=== PATIENT | male | born 1950 | race Caucasian/White ===

== ENCOUNTER → 2017-07-18 | Outpatient (CLI) | payer MEDICARE, OTHER ==
[2017-07-18 09:09] LABS: CH 32.4; CHCM 31.6; HCT 45.3 % (39.0-53.0); HDW 2.24; HGB 14.7 gm/dL (13.0-17.5); MCH 33.4 pg (25.0-35.0); MCHC 32.4 g/dL (31.0-37.0); MCV 102.9 fL (80.0-100.0); Macrocytosis Slight; Mean Platelet Volume 7.6; RBC 4.41 m/uL (4.30-5.90); RDW 15.6 % (11.5-15.5); WBC 9.2 k/uL (3.8-10.6)
[2017-07-18 10:58] LABS: ALT 39 U/L (21-72); AST 40 U/L (17-59); Alkaline Phosphatase 88 U/L (38-126); Anion Gap 10 mmol/L; Blood Urea Nitrogen 10 mg/dL (9-20); Calcium 9.4 mg/dL (8.4-10.2); Carbon Dioxide 24 mmol/L (22-30); Chloride 107 mmol/L (98-107); Cholesterol 156 mg/dL (<200); Glucose 80 mg/dL (74-99); HDL Cholesterol 83 mg/dL (40-60); Non-African American GFR(MDRD) >60 (>60 ml/min/1.73 sqM); Potassium 4.7 mmol/L (3.5-5.1); Sodium 141 mmol/L (137-145); Total Bilirubin 0.8 mg/dL (0.2-1.3); Total Protein 6.9 g/dL (6.3-8.2)
--- NOTE | 2017-07-18 11:01 | XR ---
EXAMINATION TYPE: XR chest 2V DATE OF EXAM: 07/18/2017 COMPARISON: 06/24/2016 TECHNIQUE: PA and lateral views submitted. HISTORY: Cough FINDINGS: Heart is enlarged and there is hyperinflation suggestive of COPD. Arthropathy of the shoulders and at herosclerotic change aorta. Chronic blunting of the costophrenic angle on the right likely related to pleural thickening or tiny effusion. Degenerative change of the spine. IMPRESSION: 1. COPD and cardiomegaly.
[2017-07-18 11:26] LABS: Prostate Specific Antigen 1.13 ng/mL (0.00-4.00)
== END | disposition home or self-care (01) ==
LOC: LABWHC1 08:08
PROVIDERS: ATTEND Internal Medicine
DX: Z00.01 Encounter for general adult medical examination with abnormal findings (principal); I11.9 Hypertensive heart disease without heart failure; E78.2 Mixed hyperlipidemia; K21.0 Gastro-esophageal reflux disease with esophagitis; N40.0 Benign prostatic hyperplasia without lower urinary tract symptoms
CPT/HCPCS: 36415; 71020; 80053; 80061; 84153; 84439; 84443; 85027

== ENCOUNTER → 2018-11-21 | Outpatient (CLI) | payer MEDICARE, OTHER ==
[2018-11-21 10:27] LABS: HGB 14.4 gm/dL (13.0-17.5); MCH 29.9 pg (25.0-35.0); MCHC 32.1 g/dL (31.0-37.0); MCV 93.1 fL (80.0-100.0); Platelet Count 643 k/uL (150-450); RBC 4.83 m/uL (4.30-5.90); RDW 15.9 % (11.5-15.5); WBC 9.9 k/uL (3.8-10.6)
[2018-11-21 16:22] LABS: Albumin 4.3 g/dL (3.80-4.90); Albumin/Globulin Ratio 1.59 (1.60-3.17); Anion Gap 8.4 mmol/L (4.00-12.00); Calcium 9.4 mg/dL (8.7-10.3); Carbon Dioxide 24.6 mmol/L (21.6-31.8); Globulin 2.7 g/dL (1.6-3.3); LDL Cholesterol,Calculated 89.8 mg/dL (0.0-131.0); Potassium 4.9 mmol/L (3.5-5.5); Total Bilirubin 0.5 mg/dL (0.2-1.2); VLDL Calculation 22.2 mg/dL (5.00-40.00)
[2018-11-21 16:30] LABS: T4, Free (Free Thyroxine) 1.1 ng/dL (0.80-1.80)
== END | disposition home or self-care (01) ==
LOC: LABWHC1 09:07
PROVIDERS: ATTEND Internal Medicine
DX: Z00.00 Encounter for general adult medical examination without abnormal findings (principal); I11.9 Hypertensive heart disease without heart failure; E78.2 Mixed hyperlipidemia; K21.0 Gastro-esophageal reflux disease with esophagitis; N40.0 Benign prostatic hyperplasia without lower urinary tract symptoms
CPT/HCPCS: 36415; 80053; 80061; 82272; 84439; 84443; 85027

== ENCOUNTER → 2018-11-27 | Outpatient (CLI) | payer MEDICARE, OTHER | END | disposition home or self-care (01) | LOC: LABWHC1 09:07 | PROVIDERS: ATTEND Internal Medicine | DX: Z00.00 Encounter for general adult medical examination without abnormal findings (principal); N40.0 Benign prostatic hyperplasia without lower urinary tract symptoms | CPT/HCPCS: 36415; 84153 ==

== ENCOUNTER 2019-01-30 10:55 | Emergency (ER) | payer MEDICARE, OTHER ==
[2019-01-30] MEDS ORDERED: SODIUM CHLORIDE 0.9% 500 ML 500 ML IV STA ×2 (11:31→12:54)
--- NOTE | 2019-01-30 11:38 | ED ---
General Adult HPI - General Chief complaint: Extremity Injury, Lower Stated complaint: foot pain Time Seen by Provider: 01/30/19 11:20 Source: patient, RN notes reviewed Mode of arrival: ambulatory Limitations: no limitations - History of Present Illness Initial comments: 68-year-old male with a past medical history of hyperlipidemia, hypertension presents for right foot pain and swelling 3 weeks. Patient states he has noticed it was warm and red. Denies any fevers or chills. Denies spreading redness. Does notice some pain in the right calf as well. Patient saw his primary care provider today who sent him to the ER to rule out blood clot as well as possible infection. Denies any other injuries. Does state his dog stepped on his foot yesterday but that this swelling started before this.Patient has no other complaints at this time including shortness of breath, chest pain, abdominal pain, nausea or vomiting, headache, or visual changes. - Related Data Home Medications Medication Instructions Recorded Confirmed Apixaban [Eliquis] 5 mg PO BID 01/30/19 01/30/19 Atenolol [Tenormin] 25 mg PO DAILY 01/30/19 01/30/19 Atorvastatin Calcium [Lipitor] 10 mg PO HS 01/30/19 01/30/19 Cetirizine HCl [Zyrtec] 10 mg PO DAILY 01/30/19 01/30/19 Montelukast Sodium [Singulair] 10 mg PO HS 01/30/19 01/30/19 amLODIPine [Norvasc] 5 mg PO DAILY 01/30/19 01/30/19 traMADol HCL [Ultram] 50 mg PO BID 01/30/19 01/30/19 Previous Rx's Medication Instructions Recorded Sulfamethox-Tmp 800-160Mg [Bactrim 2 tab PO Q12HR 14 Days #56 tab 01/30/19 DS 800-160 mg] Allergies Allergy/AdvReac Type Severity Reaction Status Date / Time aspirin Allergy Anaphylaxis Verified 01/30/19 11:38 Review of Systems ROS Statement: Those systems with pertinent positive or pertinent negative responses have been documented in the HPI. ROS Other: All systems not noted in ROS Statement are negative. Past Medical History Past Medical History: Hyperlipidemia, Hypertension History of Any Multi-Drug Resistant Organisms: None Reported Past Surgical History: Orthopedic Surgery Past Psychological History: No Psychological Hx Reported Smoking Status: Former smoker Past Alcohol Use History: None Reported Past Drug Use History: None Reported General Exam Limitations: no limitations General appearance: alert, in no apparent distress Head exam: Present: atraumatic, normocephalic, normal inspection Eye exam: Present: normal appearance, PERRL, EOMI. Absent: scleral icterus, conjunctival injection, periorbital swelling ENT exam: Present: normal exam, mucous membranes moist Neck exam: Present: normal inspection, full ROM. Absent: tenderness, meningismus, lymphadenopathy Respiratory exam: Present: normal lung sounds bilaterally. Absent: respiratory distress, wheezes, rales, rhonchi, stridor Cardiovascular Exam: Present: regular rate, normal rhythm, normal heart sounds. Absent: systolic murmur, diastolic murmur, rubs, gallop, clicks Extremities exam: Present: full ROM, tenderness (Tenderness noted to the dorsal right foot), normal capillary refill (Capillary refill less than 2 seconds, PT pulse 2+), pedal edema (Moderate Erythema and edema noted of the right foot), calf tenderness (Patient does have right calf Tenderness noted, negative Homans sign.) Course Vital Signs 01/30/19 13:17 Temperature 98.2 F Pulse Rate 67 Respiratory 17 Rate Blood Pressure 129/83 O2 Sat by Pulse 97 Oximetry Medical Decision Making - Medical Decision Making 60-year-old male presents for right foot redness and swelling 3 weeks. No fevers or chills. On exam patient does have some edema with erythema noted of the right foot. Mild Tenderness. CBC does show a white count of 13.3. Lactic acid 2.1, patient given fluids. Ultrasound of the right leg is negative for DVT. No sonographic evidence of DVT. X-ray of the right foot shows no acute fracture or dislocation. There is mild multifocal soft tissue swelling but no radiographic sequelae of osteomyelitis. The swelling is likely related to be edema noted on exam. Patient was given a dose of antibiotics IV. Dr. Kilpatrick also examined patient. At this time we feel the patient can try outpatient antibiotic therapy first as he has not had oral antibiotics. However discussed strict return parameters with this. - Lab Data Result diagrams: 01/30/19 11:58 01/30/19 11:58 Lab Results 01/30/19 01/30/19 01/30/19 Range/Units 11:58 11:58 11:58 WBC 13.3 H (3.8-10.6) k/uL RBC 4.68 (4.30-5.90) m/uL Hgb 13.7 (13.0-17.5) gm/dL Hct 43.9 (39.0-53.0) % MCV 93.7 (80.0-100.0) fL MCH 29.3 (25.0-35.0) pg MCHC 31.2 (31.0-37.0) g/dL RDW 16.2 H (11.5-15.5) % Plt Count 488 H (150-450) k/uL Neutrophils % 72 % Lymphocytes % 20 % Monocytes % 6 % Eosinophils % 1 % Basophils % 1 % Neutrophils # 9.5 H (1.3-7.7) k/uL Lymphocytes # 2.6 (1.0-4.8) k/uL Monocytes # 0.7 (0-1.0) k/uL Eosinophils # 0.2 (0-0.7) k/uL Basophils # 0.1 (0-0.2) k/uL Anisocytosis Slight PT 10.5 (9.0-12.0) sec INR 1.0 (<1.2) APTT 31.1 H (22.0-30.0) sec Sodium 140 (137-145) mmol/L Potassium 3.8 (3.5-5.1) mmol/L Chloride 107 (98-107) mmol/L Carbon Dioxide 20 L (22-30) mmol/L Anion Gap 13 mmol/L BUN 11 (9-20) mg/dL Creatinine 1.03 (0.66-1.25) mg/dL Est GFR (CKD-EPI)AfAm 86 (>60 ml/min/1.73 sqM) Est GFR (CKD-EPI)NonAf 75 (>60 ml/min/1.73 sqM) Glucose 88 (74-99) mg/dL Plasma Lactic Acid Vance (0.7-2.0) mmol/L Calcium 9.4 (8.4-10.2) mg/dL Total Bilirubin 0.7 (0.2-1.3) mg/dL AST 24 (17-59) U/L ALT 7 L (21-72) U/L Alkaline Phosphatase 93 (38-126) U/L Total Protein 7.9 (6.3-8.2) g/dL Albumin 4.4 (3.5-5.0) g/dL 01/30/19 Range/Units 11:58 WBC (3.8-10.6) k/uL RBC (4.30-5.90) m/uL Hgb (13.0-17.5) gm/dL Hct (39.0-53.0) % MCV (80.0-100.0) fL MCH (25.0-35.0) pg MCHC (31.0-37.0) g/dL RDW (11.5-15.5) % Plt Count (150-450) k/uL Neutrophils % % Lymphocytes % % Monocytes % % Eosinophils % % Basophils % % Neutrophils # (1.3-7.7) k/uL Lymphocytes # (1.0-4.8) k/uL Monocytes # (0-1.0) k/uL Eosinophils # (0-0.7) k/uL Basophils # (0-0.2) k/uL Anisocytosis PT (9.0-12.0) sec INR (<1.2) APTT (22.0-30.0) sec Sodium (137-145) mmol/L Potassium (3.5-5.1) mmol/L Chloride (98-107) mmol/L Carbon Dioxide (22-30) mmol/L Anion Gap mmol/L BUN (9-20) mg/dL Creatinine (0.66-1.25) mg/dL Est GFR (CKD-EPI)AfAm (>60 ml/min/1.73 sqM) Est GFR (CKD-EPI)NonAf (>60 ml/min/1.73 sqM) Glucose (74-99) mg/dL Plasma Lactic Acid Vance 2.1 H* (0.7-2.0) mmol/L Calcium (8.4-10.2) mg/dL Total Bilirubin (0.2-1.3) mg/dL AST (17-59) U/L ALT (21-72) U/L Alkaline Phosphatase (38-126) U/L Total Protein (6.3-8.2) g/dL Albumin (3.5-5.0) g/dL Disposition Clinical Impression: Cellulitis of right foot Disposition: HOME SELF-CARE Condition: Good Instructions (If sedation given, give patient instructions): Cellulitis (ED) Additional Instructions: Take antibiotic as directed. Please follow up with primary care in 1-2 days for reevaluation. If symptoms are not starting to improve after a couple days of antibiotics then return here to the emergency department. Return if you develop any worsening symptoms or fevers. Prescriptions: Sulfamethox-Tmp 800-160Mg [Bactrim DS 800-160 mg] 2 tab PO Q12HR 14 Days #56 tab Is patient prescribed a controlled substance at d/c from ED?: No Referrals: Guevara Art MD [Primary Care Provider] - 1-2 days Time of Disposition: 13:43
[2019-01-30 12:22] LABS: Anisocytosis Slight; Basophils # (A) 0.1 k/uL (0-0.2); Basophils % (A) 1 %; Eosinophils # (A) 0.2 k/uL (0-0.7); Eosinophils % (A) 1 %; HCT 43.9 % (39.0-53.0); HGB 13.7 gm/dL (13.0-17.5); Lymphocytes # (A) 2.6 k/uL (1.0-4.8); Lymphocytes % (A) 20 %; MCH 29.3 pg (25.0-35.0); MCHC 31.2 g/dL (31.0-37.0); MCV 93.7 fL (80.0-100.0); Mean Platelet Volume 6.5; Monocytes # (A) 0.7 k/uL (0-1.0); Monocytes % (A) 6 %; Neutrophils # (A) 9.5 k/uL (1.3-7.7); Neutrophils % (A) 72 %; Platelet Count 488 k/uL (150-450); RBC 4.68 m/uL (4.30-5.90); RDW 16.2 % (11.5-15.5); WBC 13.3 k/uL (3.8-10.6)
[2019-01-30 12:25] LABS: Partial Thromboplastin Time 31.1 sec (22.0-30.0); Prothrombin Time 10.5 sec (9.0-12.0)
[2019-01-30 12:28] LABS: Albumin 4.4 g/dL (3.5-5.0); Calcium 9.4 mg/dL (8.4-10.2); Potassium 3.8 mmol/L (3.5-5.1); Total Bilirubin 0.7 mg/dL (0.2-1.3); Total Protein 7.9 g/dL (6.3-8.2)
--- NOTE | 2019-01-30 12:50 | US ---
EXAMINATION TYPE: US venous doppler duplex LE RT DATE OF EXAM: 01/30/2019 12:45 PM COMPARISON: NONE CLINICAL HISTORY: Pain. Right foot swelling and redness x 1 week, on blood thinners, no hx of blood c lots. SIDE PERFORMED: Right TECHNIQUE: The lower extremity deep venous system is examined utilizing real time linear array sonog randi with graded compression, doppler sonography and color-flow sonography. VESSELS IMAGED: External Iliac Vein (EIV) Common Femoral Vein Deep Femoral Vein Greater Saphenous Vein * Femoral Vein Popliteal Vein Small Saphenous Vein * Proximal Calf Veins (* superficial vessels) Grayscale, color doppler, spectral doppler imaging performed of the deep veins of the right lower ext remity. There is normal flow, compressibility, vascular waveforms. Right Leg: Negative for DVT IMPRESSION: No sonographic evidence of deep venous thrombosis within the right lower extremity.
[2019-01-30] MEDS ORDERED: cefTRIAXone IN SWFI 1,000 MG/10 ML SYRINGE IVP STA (13:09)
--- NOTE | 2019-01-30 13:22 | XR ---
EXAMINATION TYPE: XR foot complete RT DATE OF EXAM: 01/30/2019 CLINICAL HISTORY: Right foot pain, swelling, and redness for one week TECHNIQUE: Frontal, lateral, and oblique images of the right foot are obtained. COMPARISON: None FINDINGS: There is no acute fracture/dislocation evident in the right foot. The joint spaces in the right foot appear within normal limits. There is mild soft tissue swelling dorsally over the metatar sals and around the low ankle joint. Small plantar heel spur is noted. No sizable tibiotalar joint ef fusion. Flexion deformities of the second through fourth digits somewhat limiting evaluation. No radi o opaque foreign body. No osseous erosions or periosteal reaction. IMPRESSION: 1. No acute fracture or dislocation in the right foot. 2. Mild multifocal soft tissue swelling is nonspecific. No radiographic sequela of osteomyelitis.
[2019-01-30 14:09] VITALS: BP 138/89; PULSE 65; RESP 18; TEMP 98.6
== END 2019-01-30 14:17 | disposition home or self-care (01) ==
LOC: EC 10:55
DX: L03.115 Cellulitis of right lower limb (principal); I10 Essential (primary) hypertension; E78.5 Hyperlipidemia, unspecified; Z79.01 Long term (current) use of anticoagulants; Z79.899 Other long term (current) drug therapy; Z88.6 Allergy status to analgesic agent; Z87.891 Personal history of nicotine dependence
CPT/HCPCS: 36415; 80053; 83605; 85025; 85610; 85730; 87040; 73630; 93971; 99284; 96374; 96361 ×2; J0696

== ENCOUNTER 2019-02-05 02:43 | Inpatient (IN) | payer MEDICARE, OTHER ==
[2019-02-05 04:03] LABS: Anisocytosis Slight; Basophils % (A) 0 %; Eosinophils # (A) 0.5 k/uL (0-0.7); Eosinophils % (A) 3 %; HCT 37.3 % (39.0-53.0); Lymphocytes # (A) 0.4 k/uL (1.0-4.8); Lymphocytes % (A) 2 %; MCH 29.8 pg (25.0-35.0); MCHC 32.3 g/dL (31.0-37.0); MCV 92.5 fL (80.0-100.0); Mean Platelet Volume 6.8; Monocytes # (A) 0.8 k/uL (0-1.0); Monocytes % (A) 5 %; Neutrophils # (A) 15.8 k/uL (1.3-7.7); Neutrophils % (A) 90 %; Platelet Count 336 k/uL (150-450); RBC 4.03 m/uL (4.30-5.90); RDW 16.2 % (11.5-15.5); WBC 17.7 k/uL (3.8-10.6)
[2019-02-05 04:12] LABS: INR 1.1 (<1.2)
[2019-02-05 04:13] LABS: Partial Thromboplastin Time 28.8 sec (22.0-30.0)
[2019-02-05 04:28] LABS: Albumin 4.1 g/dL (3.5-5.0); Calcium 8.7 mg/dL (8.4-10.2); Potassium 4.7 mmol/L (3.5-5.1); Total Bilirubin 0.4 mg/dL (0.2-1.3); Total Protein 7.1 g/dL (6.3-8.2)
--- NOTE | 2019-02-05 05:17 | XR ---
EXAM: XR Chest, 2 Views CLINICAL HISTORY: ITS.REASON XR Reason: Pain TECHNIQUE: Frontal and lateral views of the chest. COMPARISON: 07/18/17. FINDINGS: Lungs: Patchy bilateral lung opacities, more prominent at the bases. Pleural space: Small pleural effusions. Heart: Enlarged cardiac silhouette. Mediastinum: Unremarkable. Bones/joints: No acute fracture. IMPRESSION: 1. Patchy bilateral lung opacities, more prominent at the bases. Correlate clinically regarding infection or edema. 2. Small pleural effusions. 3. Enlarged cardiac silhouette.
[2019-02-05] MEDS ORDERED: SODIUM CHLORIDE 0.9% 1,000 ML IV ONE (06:05)
[2019-02-05] MEDS ORDERED: cefTRIAXone IN SWFI 1,000 MG/10 ML SYRINGE IVP STA (06:06)
[2019-02-05] MEDS ORDERED: AZITHROMYCIN 500 MG in SODIUM CHLORIDE 0.9% 250 ML IVPB STA (06:06)
--- NOTE | 2019-02-05 06:10 | ED ---
General Adult HPI - General Chief complaint: Nausea/Vomiting/Diarrhea Stated complaint: Diff Breathing Time Seen by Provider: 02/05/19 03:22 Source: patient Mode of arrival: ambulatory Limitations: no limitations - History of Present Illness Initial comments: Rubens is a 68-year-old gentleman who presents the emergency department today for evaluation of fever, chills, cough and cellulitis of the right lower extremity as well as nausea and vomiting for 2 days. Patient was seen and evaluated in the emergency department earlier this week for cellulitis of the right lower extremity, he was prescribed Bactrim which she has been compliant with, patient feels that the cellulitis is been improving significantly however he has developed nausea, vomiting and a minimally productive cough. - Related Data Home Medications Medication Instructions Recorded Confirmed Apixaban [Eliquis] 5 mg PO BID 01/30/19 02/05/19 Atenolol [Tenormin] 25 mg PO DAILY 01/30/19 02/05/19 Atorvastatin Calcium [Lipitor] 10 mg PO HS 01/30/19 02/05/19 Cetirizine HCl [Zyrtec] 10 mg PO DAILY 01/30/19 02/05/19 Montelukast Sodium [Singulair] 10 mg PO HS 01/30/19 02/05/19 amLODIPine [Norvasc] 5 mg PO DAILY 01/30/19 02/05/19 traMADol HCL [Ultram] 50 mg PO BID 01/30/19 02/05/19 Previous Rx's Medication Instructions Recorded Sulfamethox-Tmp 800-160Mg [Bactrim 2 tab PO Q12HR 14 Days #56 tab 01/30/19 DS 800-160 mg] Allergies Allergy/AdvReac Type Severity Reaction Status Date / Time aspirin Allergy Anaphylaxis Verified 02/05/19 07:43 Review of Systems ROS Statement: Those systems with pertinent positive or pertinent negative responses have been documented in the HPI. ROS Other: All systems not noted in ROS Statement are negative. Past Medical History Past Medical History: Hyperlipidemia, Hypertension History of Any Multi-Drug Resistant Organisms: None Reported Past Surgical History: Orthopedic Surgery Past Psychological History: No Psychological Hx Reported Smoking Status: Former smoker Past Alcohol Use History: None Reported Past Drug Use History: None Reported General Exam - General Exam Comments Initial Comments: Physical Exam GENERAL: Patient is well-developed and well-nourished. Patient is nontoxic and well-hydrated and is in no distress. HENT: Normocephalic, Atraumatic. EYES: PERRL, EOMI PULMONARY: Crackles bilateral bases CARDIOVASCULAR: Irregularly irregular ABDOMEN: Obese, Soft and nontender with normal bowel sounds. SKIN: Resolving cellulitis of right foot : Deferred NEUROLOGIC: Patient is alert and oriented x3. Moving all extremities spontaneously MUSCULOSKELETAL: Normal extremities with adequate strength and full range of motion. No lower extremity swelling or edema. No calf tenderness. PSYCHIATRIC: Normal psychiatric evaluation Limitations: no limitations Course Vital Signs 02/05/19 02/05/19 02/05/19 02:47 03:32 04:00 Temperature 97.6 F 101.6 F H Pulse Rate 100 95 76 Respiratory 24 18 18 Rate Blood Pressure 115/64 106/65 112/70 O2 Sat by Pulse 92 L 93 L 95 Oximetry 02/05/19 02/05/19 02/05/19 04:30 05:00 06:00 Temperature 99.9 F H Pulse Rate 79 70 72 Respiratory 18 18 23 Rate Blood Pressure 109/72 98/51 101/63 O2 Sat by Pulse 96 95 96 Oximetry EKG Findings - EKG Comments: EKG Findings:: EKG was obtained for evaluation of tachycardia, EKG obtained at 3:02 AM rate is 105 rhythm is atrial fibrillation with RVR, there is a bifascicular block. No acute ST elevations or depressions no evidence of acute ischemia or infarction Medical Decision Making - Medical Decision Making Patient was seen and evaluated history is obtained from the patient, at bedside and review of medical record sent patient presenting with fever, tachycardia, cough and improving cellulitis of the right lower extremity for which she's been taking Bactrim Sepsis workup was initiated Labs resulted with multiple abnormalities including leukocytosis with a white count of 17.7 and neutrophilia, lactic acidosis from lactic of 3.9 extent chest x-ray suggestive of bilateral pneumonia excited patient has not been admitted recently he has no risk factors for healthcare acquired pneumonia he will be treated with community-acquired pneumonia. Patient care was discussed with Dr. Israel who accepts admission for sepsis secondary to pneumonia. - Lab Data Result diagrams: 02/05/19 03:19 02/05/19 03:19 Lab Results 02/05/19 02/05/19 02/05/19 Range/Units 03:19 03:19 03:19 WBC 17.7 H (3.8-10.6) k/uL RBC 4.03 L (4.30-5.90) m/uL Hgb 12.0 L (13.0-17.5) gm/dL Hct 37.3 L (39.0-53.0) % MCV 92.5 (80.0-100.0) fL MCH 29.8 (25.0-35.0) pg MCHC 32.3 (31.0-37.0) g/dL RDW 16.2 H (11.5-15.5) % Plt Count 336 (150-450) k/uL Neutrophils % 90 % Lymphocytes % 2 % Monocytes % 5 % Eosinophils % 3 % Basophils % 0 % Neutrophils # 15.8 H (1.3-7.7) k/uL Lymphocytes # 0.4 L (1.0-4.8) k/uL Monocytes # 0.8 (0-1.0) k/uL Eosinophils # 0.5 (0-0.7) k/uL Basophils # 0.0 (0-0.2) k/uL Anisocytosis Slight PT (9.0-12.0) sec INR (<1.2) APTT (22.0-30.0) sec Sodium 135 L (137-145) mmol/L Potassium 4.7 (3.5-5.1) mmol/L Chloride 103 (98-107) mmol/L Carbon Dioxide 17 L (22-30) mmol/L Anion Gap 15 mmol/L BUN 13 (9-20) mg/dL Creatinine 1.53 H (0.66-1.25) mg/dL Est GFR (CKD-EPI)AfAm 53 (>60 ml/min/1.73 sqM) Est GFR (CKD-EPI)NonAf 46 (>60 ml/min/1.73 sqM) Glucose 91 (74-99) mg/dL Lactic Ac Sepsis Rflx Plasma Lactic Acid Vance 3.9 H* (0.7-2.0) mmol/L Calcium 8.7 (8.4-10.2) mg/dL Total Bilirubin 0.4 (0.2-1.3) mg/dL AST 25 (17-59) U/L ALT 14 L (21-72) U/L Alkaline Phosphatase 90 (38-126) U/L Total Protein 7.1 (6.3-8.2) g/dL Albumin 4.1 (3.5-5.0) g/dL Urine Color Urine Appearance (Clear) Urine pH (5.0-8.0) Ur Specific [place] (1.001-1.035) Urine Protein (Negative) Urine Glucose (UA) (Negative) Urine Ketones (Negative) Urine Blood (Negative) Urine Nitrite (Negative) Urine Bilirubin (Negative) Urine Urobilinogen (<2.0) mg/dL Ur Leukocyte Esterase (Negative) Urine RBC (0-5) /hpf Urine WBC (0-5) /hpf Urine Bacteria (None) /hpf Cellular Casts (0) /lpf Hyaline Casts (0-2) /lpf Granular Casts (0) /lpf Urine Mucus (None) /hpf 02/05/19 02/05/19 02/05/19 Range/Units 03:19 04:31 05:45 WBC (3.8-10.6) k/uL RBC (4.30-5.90) m/uL Hgb (13.0-17.5) gm/dL Hct (39.0-53.0) % MCV (80.0-100.0) fL MCH (25.0-35.0) pg MCHC (31.0-37.0) g/dL RDW (11.5-15.5) % Plt Count (150-450) k/uL Neutrophils % % Lymphocytes % % Monocytes % % Eosinophils % % Basophils % % Neutrophils # (1.3-7.7) k/uL Lymphocytes # (1.0-4.8) k/uL Monocytes # (0-1.0) k/uL Eosinophils # (0-0.7) k/uL Basophils # (0-0.2) k/uL Anisocytosis PT 12.0 (9.0-12.0) sec INR 1.1 (<1.2) APTT 28.8 (22.0-30.0) sec Sodium (137-145) mmol/L Potassium (3.5-5.1) mmol/L Chloride (98-107) mmol/L Carbon Dioxide (22-30) mmol/L Anion Gap mmol/L BUN (9-20) mg/dL Creatinine (0.66-1.25) mg/dL Est GFR (CKD-EPI)AfAm (>60 ml/min/1.73 sqM) Est GFR (CKD-EPI)NonAf (>60 ml/min/1.73 sqM) Glucose (74-99) mg/dL Lactic Ac Sepsis Rflx Y Plasma Lactic Acid Vance (0.7-2.0) mmol/L Calcium (8.4-10.2) mg/dL Total Bilirubin (0.2-1.3) mg/dL AST (17-59) U/L ALT (21-72) U/L Alkaline Phosphatase (38-126) U/L Total Protein (6.3-8.2) g/dL Albumin (3.5-5.0) g/dL Urine Color Yellow Urine Appearance Clear (Clear) Urine pH 6.0 (5.0-8.0) Ur Specific [place] 1.016 (1.001-1.035) Urine Protein 1+ H (Negative) Urine Glucose (UA) Negative (Negative) Urine Ketones Negative (Negative) Urine Blood Negative (Negative) Urine Nitrite Negative (Negative) Urine Bilirubin Negative (Negative) Urine Urobilinogen <2.0 (<2.0) mg/dL Ur Leukocyte Esterase Negative (Negative) Urine RBC <1 (0-5) /hpf Urine WBC 2 (0-5) /hpf Urine Bacteria Rare H (None) /hpf Cellular Casts 1 (0) /lpf Hyaline Casts 3 H (0-2) /lpf Granular Casts 1 (0) /lpf Urine Mucus Rare H (None) /hpf Disposition Clinical Impression: Sepsis, CAP (community acquired pneumonia) Disposition: ADMITTED IP TO THIS [facility] Condition: Stable Is patient prescribed a controlled substance at d/c from ED?: No Referrals: Guevara Art MD [Primary Care Provider] - 1-2 days
[2019-02-05 06:18] LABS: Appearance,Urine Clear (Clear); Bacteria,Urine Rare /hpf; Bilirubin,Urine Negative (Negative); Blood,Urine Negative (Negative); Cellular Casts,Urine 1 /lpf (0); Color,Urine Yellow; Glucose,Urine (UA) Negative (Negative); Granular Casts,Urine 1 /lpf (0); Hyaline Casts,Urine 3 /lpf (0-2); Ketones,Urine Negative (Negative); Leukocyte Esterase,Urine Negative (Negative); Mucus,Urine Rare /hpf; Nitrite,Urine Negative (Negative); Protein,Urine 1+ (Negative); RBC,Urine <1 /hpf (0-5); Specific Gravity,Urine 1.016 (1.001-1.035); Urobilinogen,Urine <2.0 mg/dL (<2.0); WBC,Urine 2 /hpf (0-5)
[2019-02-05] MEDS ORDERED: PNEUMONIA PROTOCOL UTILIZED 1 EACH MISC PO PRN (08:39)
[2019-02-05] MEDS ORDERED: amLODIPine 5 MG TAB PO SCH (09:00)
[2019-02-05] MEDS ORDERED: PIPERACILLIN-TAZOBACTAM 3.375 GM in SODIUM CHLORIDE 0.9% 100 ML IVPB SCH (09:00)
[2019-02-05] MEDS: SODIUM CHLORIDE 0.9% 1,000 ML IV SCH ×3 (09:30→22:04)
[2019-02-05] MEDS: traMADol 50 MG TAB PO SCH ×2 (10:30→22:03)
--- NOTE | 2019-02-05 10:47 | CT ---
EXAMINATION TYPE: CT chest wo con DATE OF EXAM: 02/05/2019 COMPARISON: Chest x-ray from earlier today and older x-rays HISTORY: Difficulty breathing. Pulmonary fibrosis CT DLP: 809.7 mGycm. Automated Exposure Control for Dose Reduction was Utilized. TECHNIQUE: CT scan of the thorax is performed without IV contrast. FINDINGS: Exam suboptimal due to respiratory motion artifact degradation. LUNGS: There is background mild to moderate underlying emphysematous change felt present. Bilateral l ower lungs show reticulation and groundglass opacity, I suspect acute alveolar and interstitial edema and/or infiltrate on background parenchymal fibrosis with some honeycombing seen in the posterior pe riphery of the lung bases. MEDIASTINUM: Lack of IV contrast is noted to limit evaluation for mediastinal and especially hilar ad enopathy. There are no definitive greater than 1 cm hilar or mediastinal lymph nodes. No significan t pericardial effusion is seen. Cardiomegaly is present. There is moderate to severe 3 vessel coronar y artery calcification which is noted marker for underlying coronary artery disease. Main pulmonary a rtery is dilated 3.1 cm at bifurcation axial image 12 series 402, CT findings consistent with underly ing pulmonary artery hypertension. OTHER: Slight lobulation to liver with 2.4 cm low dense lesion lateral segment favoring thin-walled c yst axial image 26. IMPRESSION: Suboptimal study, suspect areas of acute infiltrate and/or edema most prominent in the bi lateral lung bases on background mild to moderate emphysematous change and mild to moderate parenchym al fibrosis also most prominent in the lung bases. Underlying cardiomegaly is present.
[2019-02-05] MEDS: LORATADINE 10 MG TAB PO SCH (11:16)
[2019-02-05] MEDS: APIXABAN 5 MG TAB PO SCH ×2 (11:17→22:03)
--- NOTE | 2019-02-05 11:49 | US ---
EXAMINATION TYPE: US kidneys/renal and bladder DATE OF EXAM: 02/05/2019 COMPARISON: NONE CLINICAL HISTORY: pierce. Sepsis, pneumonia EXAM MEASUREMENTS: Right Kidney: 10.6 x 4.5 x 4.4 cm Left Kidney: 10.5 x 5.2 x 5.0 cm Post Void Residual Volume: not assessed on inpatient Right Kidney: upper cortical hypoechoic round mass (possible cyst with some posterior enhancement) = 0.6 x 0.6 x 0.5 Left Kidney: superior cortex, hypoechoic, round mass is noted (possible cyst) = 1.3 x 1.4 x 1.2cm Bladder: wnl Bilateral Jets seen: yes There is no evidence for hydronephrosis at this point in time. No nephrolithiasis is seen. Technolog ist espinoza few small lesions bilaterally too small to further characterize. The urinary bladder is sa tisfactorily distended. Bilateral ureteral jets are seen. IMPRESSION: No hydronephrosis is evident bilaterally.
[2019-02-05] MEDS: IPRATROPIUM-ALBUTEROL 3 ML NEB INHALATION PRN ×2 (11:52→19:49)
--- NOTE | 2019-02-05 13:23 | P.CRDCN ---
History of Present Illness History of present illness: This is a pleasant 68-year-old male past medical history significant for chronic persistent atrial fibrillation on long-term anticoagulation, hypertension, dyslipidemia, COPD and former nicotine dependence. He follows in the office with Dr. Araiza. We have been asked to see him in consultation secondary to arrhythmia noted on admission. He presented to the hospital with symptoms of fever, cough, nausea, vomiting, shortness of breath and ongoing cellulitis of the right lower extremity. He states he has been on Bactrim for the last week for right lower extremity cellulitis which seems to have improved. There is no redness or swelling of the right lower extremity noted. However, in the last few days he has noticed increased nasal drainage, cough and shortness of breath. He has been diagnosed with sepsis secondary to pneumonia. He is seen and examined sitting up resting comfortably in bed in no acute distress. He continues to complain of productive cough with clear sputum and mild shortness of breath. He denies chest pain, dizziness, palpitations, dizziness or diaph oresis. Initially his temperature in the ED was 101.6F. EKG on admission reveals atrial fibrillation heart rate of 105, right bundle branch block and left anterior fascicular block with non-specific ST abnormalities Chest x-ray reveals bilateral lung opacities more prominent at the bases, small pleural effusions an enlarged cardiac silhouette. Chest CT reveals areas of acute infiltrate most prominent in the bases with mild to moderate underlying emphysematous changes, mild to moderate parenchymal fibrosis and cardiomegaly. Laboratory data reviewed, WBC 17.7, hemoglobin 12, platelets 336, sodium 135, potassium 4.7, creatinine 1.53 with a GFR 46, lactic acid on admission 3. 9 repeat 1.5, troponin 0.174. Current cardiac medications include Eliquis 5 mg twice a day, atenolol 25 mg daily, atorvastatin 10 mg daily, amlodipine 5 mg daily. Most recent echocardiogram obtained in the office December 2017 revealed mildly impaired LV systolic function with ejection fraction 45-50%, moderately dilated right ventricle, severely dilated left atrium, severely dilated right atrium, moderate mitral regurgitation, severe tricuspid regurgitation and pulmonary hypertension with RVSP of 65 mmHg. Most recent stress test performed in the office June 2017 was a Lexiscan stress test was negative for reversible cardiac ischemia. At the time of my exam: CONSTITUTIONAL: Denies fever. Denies chills. EYES: Denies blurred vision. Denies vision changes. Denies eye pain. EARS, NOSE, MOUTH & THROAT: Denies headache. Denies sore throat. Denies ear pain. CARDIOVASCULAR: Denies chest pain. Complains of shortness of breath. Denies orthopnea. Denies PND. Denies palpitations. RESPIRATORY: Complains of cough. GASTROINTESTINAL: Denies abdominal pain. Denies diarrhea. Denies constipation. Denies nausea. Denies vomiting. MUSCULOSKELETAL: Denies myalgias. INTEGUMENTARY: Denies pruitis. Denies rash. NEUROLOGIC: Denies numbness. Denies tingling. Denies weakness. PSYCHIATRIC: Denies anxiety. Denies depression. ENDOCRINE: Denies fatigue. Denies weight change. Denies polydipsia. Denies polyurina. GENITOURINARY: Denies burning, hematuria or urgency with micturation. HEMATOLOGIC: Denies history of anemia. Denies bleeding. GENERAL: This is a 68-year-old male in no apparent distress at the time of my examination. HEENT: Head is atraumatic, normocephalic. Pupils are equal, round. Sclerae anicteric. Conjunctivae are clear. Mucous membranes of the mouth are moist. Neck is supple. There is no jugular venous distention. No carotid bruit is heard. LUNGS: Coarse scattered rhonchi, bibasilar rales, no wheezes. No chest wall tenderness is noted on palpation or with deep breathing. HEART: Irregular rate and rhythm with systolic ejection murmur at the left sternal border, no rubs or gallops. S1 and S2 heard. ABDOMEN: Soft, nontender. Bowel sounds are heard. No organomegaly noted. EXTREMITIES: No evidence of peripheral edema and no calf tenderness noted. VASCULAR: Radial and dorsalis pedis pulses palpated, no evidence of clubbing. NEUROLOGIC: Patient is awake, alert and oriented x3. ASSESSMENT Pneumonia with underlying pulmonary fibrosis and COPD Sepsis secondary to pneumonia Acute kidney injury Elevated troponin possibly related to underlying sepsis with no symptoms of angina. Chronic persistent atrial fibrillation on longterm anticoagulation Hypertension Dyslipidemia COPD PLAN Will repeat a troponin level in 6 hours for trend. Echocardiogrram has been obtained and will be reviewed. Check NTproBNP. Resume atenolol, eliquis, atorvastatin and amlodipine as previously ordered. Thank you kindly for this consultation. Nurse Practitioner note has been reviewed, I agree with a documented findings and plan of care. Patient was seen and examined. Past Medical History Past Medical History: COPD, Eye Disorder, GERD/Reflux, Hyperlipidemia, Hypertension, Pneumonia Additional Past Medical History / Comment(s): Current R lower extremity cellulitis/edema, "irregular heart beat"-pt cannot recall name of arrhythmia, bronchitis, stomach ulcer, arthritis bilateral knees, sinus problems History of Any Multi-Drug Resistant Organisms: None Reported Past Surgical History: Orthopedic Surgery Additional Past Surgical History / Comment(s): R shoulder surgery with ribbon, bilateral eyes laser surgery for glaucoma Past Anesthesia/Blood Transfusion Reactions: No Reported Reaction Smoking Status: Former smoker - Past Family History Father History Unknown: Yes Additional Family Medical History / Comment(s): Pt is adopted. Mother Family Medical History: Dementia Additional Family Medical History / Comment(s): The only thing pt knows about mother is that she had dementia. Medications and Allergies Home Medications Medication Instructions Recorded Confirmed Type Apixaban [Eliquis] 5 mg PO BID 01/30/19 02/05/19 History Atenolol [Tenormin] 25 mg PO DAILY 01/30/19 02/05/19 History Atorvastatin Calcium [Lipitor] 10 mg PO HS 01/30/19 02/05/19 History Cetirizine HCl [Zyrtec] 10 mg PO DAILY 01/30/19 02/05/19 History Montelukast Sodium [Singulair] 10 mg PO HS 01/30/19 02/05/19 History Sulfamethox-Tmp 800-160Mg [Bactrim 2 tab PO Q12HR 14 Days #56 tab 01/30/19 02/05/19 Rx DS 800-160 mg] amLODIPine [Norvasc] 5 mg PO DAILY 01/30/19 02/05/19 History traMADol HCL [Ultram] 50 mg PO BID 01/30/19 02/05/19 History Allergies Allergy/AdvReac Type Severity Reaction Status Date / Time aspirin Allergy Anaphylaxis Verified 02/05/19 07:43 Physical Exam Vitals: Vital Signs Temp Pulse Pulse Resp BP BP Pulse Ox 02/05/19 12:11 80 02/05/19 11:56 76 02/05/19 11:53 96 02/05/19 11:26 99 02/05/19 11:20 97.6 F 77 20 108/68 96 02/05/19 10:00 97.7 F 92 20 113/76 94 L 02/05/19 08:39 94 L 02/05/19 06:00 99.9 F H 72 23 101/63 96 02/05/19 05:00 70 18 98/51 95 02/05/19 04:30 79 18 109/72 96 02/05/19 04:00 76 18 112/70 95 02/05/19 03:32 101.6 F H 95 18 106/65 93 L 02/05/19 02:47 97.6 F 100 24 115/64 92 L Intake and Output 02/04/19 02/05/19 02/05/19 22:59 06:59 14:59 Other: Weight 84.822 kg Results 02/05/19 03:19 02/05/19 03:19 Cardiac Enzymes 02/05/19 02/05/19 Range/Units 03:19 11:18 AST 25 (17-59) U/L Troponin I 0.174 H* (0.000-0.034) ng/mL Coagulation 02/05/19 Range/Units 03:19 PT 12.0 (9.0-12.0) sec APTT 28.8 (22.0-30.0) sec CBC 02/05/19 Range/Units 03:19 WBC 17.7 H (3.8-10.6) k/uL RBC 4.03 L (4.30-5.90) m/uL Hgb 12.0 L (13.0-17.5) gm/dL Hct 37.3 L (39.0-53.0) % Plt Count 336 (150-450) k/uL Comprehensive Metabolic Panel 02/05/19 Range/Units 03:19 Sodium 135 L (137-145) mmol/L Potassium 4.7 (3.5-5.1) mmol/L Chloride 103 (98-107) mmol/L Carbon Dioxide 17 L (22-30) mmol/L BUN 13 (9-20) mg/dL Creatinine 1.53 H (0.66-1.25) mg/dL Glucose 91 (74-99) mg/dL Calcium 8.7 (8.4-10.2) mg/dL AST 25 (17-59) U/L ALT 14 L (21-72) U/L Alkaline Phosphatase 90 (38-126) U/L Total Protein 7.1 (6.3-8.2) g/dL Albumin 4.1 (3.5-5.0) g/dL Current Medications Generic Name Dose Route Start Last Admin Trade Name Freq PRN Reason Stop Dose Admin Albuterol/Ipratropium 3 ml 02/05/19 08:39 02/05/19 11:52 Duoneb 0.5 Mg-3 Mg/3 Ml Soln INHALATION 3 ml RT-Q4H PRN Administration shortness of breath Apixaban 5 mg 02/05/19 09:00 02/05/19 11:17 Eliquis PO 5 mg BID BENSON Administration Atorvastatin Calcium 10 mg 02/05/19 21:00 Lipitor PO HS BENSON Sodium Chloride 1,000 mls @ 100 mls/hr 02/05/19 06:15 02/05/19 11:17 Saline 0.9% IV 100 mls/hr .Q10H BENSON Administration Piperacillin Sod/Tazobactam 100 mls @ 25 mls/hr 02/05/19 16:00 Sod 3.375 gm/ Sodium Chloride IVPB Q8HR BENSON Loratadine 10 mg 02/05/19 09:00 02/05/19 11:16 Claritin PO 10 mg DAILY BENSON Administration Miscellaneous Information 1 each 02/05/19 08:39 Pneumonia Protocol Utilized PO ONCE PRN Per Protocol Montelukast Sodium 10 mg 02/05/19 21:00 Singulair PO HS BENSON Tramadol HCl 50 mg 02/05/19 09:00 02/05/19 10:30 Ultram PO Not Given BID BENSON Intake and Output 02/04/19 02/05/19 02/05/19 22:59 06:59 14:59 Other: Weight 84.822 kg 02/05/19 03:19 02/05/19 03:19
[2019-02-05] MEDS: ATENOLOL 25 MG TAB PO SCH (14:00)
--- NOTE | 2019-02-05 14:00 | P.CNPUL ---
History of Present Illness Consult date: 02/05/19 Requesting physician: Galdino Israel Reason for consult: dyspnea Chief complaint: Shortness of breath, cough, congestion History of present illness: This is a very pleasant 68-year-old gentleman who follows with Dr. Art as his primary care physician. He has a history of hypertension, hyperlipidemia, atrophic fibrillation anticoagulated with Eliquis. He also has been having issues with shortness of breath cough and congestion and was due to see Dr. Glover next month in our office. He is recently been using his 's nebulizer and rescue inhaler. He does have a history of chronic tobacco dependence but quit smoking approximately 3 years ago. He presented here to the emergency room earlier this morning with complaints of worsening shortness of breath, cough and congestion. He also had issues with nausea and vomiting. He has been undergoing treatment for cellulitis of the right lower extremity as well. Further right lower extremity revealed no evidence of fracture. There is mild multifocal soft tissue swelling. No evidence of osteomyelitis. Doppler ruled out DVT. Chest x-ray reveals patchy bilateral lung opacities more prominent at the bases. Small pleural effusions. CT angiogram was suboptimal. There was areas of acute infiltrate or edema most prominent in the bilateral lung bases on background emphysematous changes and mild to moderate fibrosis. 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 Ultrasound of the abdomen ruled out hydronephrosis. No nephrolithiasis. Urine culture pending. White count 17.7. Hemoglobin 12.0. Creatinine 1.53. Lactic acid 3.9, down to 1.5, troponin 0.174. ProBNP 7800. Patient is seen today in consultation on the regular medical floor. He is awake and alert in no acute distress. He has a loose nonproductive cough. No current chills or night sweats. T-max of 101.6, currently afebrile. 18 in good O2 saturations in the mid 90s on 2 L/m per nasal cannula. Hemodynamically stable. He's been initiated on DuoNeb inhalations and Zosyn. Anticoagulated with Eliquis. Review of Systems REVIEW OF SYSTEMS: CONSTITUTIONAL: Denies any recent significant weight loss or weight gain. EYES: Denies change in vision. EARS, NOSE, MOUTH, THROAT: Denies headaches, denies sore throat. CARDIOVASCULAR: Denies chest pain, palpitations or syncopal episodes. RESPIRATORY: Positive for shortness of breath, cough, congestion no hemoptysis. GASTROINTESTINAL: Denies change in appetite, denies abdominal pain GENITOURINARY: Denies hematuria, denies infections. MUSKULOSKELETAL: Denies pain, denies swelling. INTEGUMENTARY: Denies rash, denies eczema. NEUROLOGICAL: Denies recent memory loss, no recent seizure activity. PSYCHIATRIC: Denies anxiety, denies depression. HEMATOLOGIC/LYMPHATIC: Denies anemia, denies enlarged lymph nodes. Past Medical History Past Medical History: COPD, Eye Disorder, GERD/Reflux, Hyperlipidemia, Hypertension, Pneumonia Additional Past Medical History / Comment(s): Current R lower extremity cellulitis/edema, "irregular heart beat"-pt cannot recall name of arrhythmia, bronchitis, stomach ulcer, arthritis bilateral knees, sinus problems History of Any Multi-Drug Resistant Organisms: None Reported Past Surgical History: Orthopedic Surgery Additional Past Surgical History / Comment(s): R shoulder surgery with ribbon, bilateral eyes laser surgery for glaucoma Past Anesthesia/Blood Transfusion Reactions: No Reported Reaction Smoking Status: Former smoker - Past Family History Father History Unknown: Yes Additional Family Medical History / Comment(s): Pt is adopted. Mother Family Medical History: Dementia Additional Family Medical History / Comment(s): The only thing pt knows about mother is that she had dementia. Medications and Allergies Home Medications Medication Instructions Recorded Confirmed Type Apixaban [Eliquis] 5 mg PO BID 01/30/19 02/05/19 History Atenolol [Tenormin] 25 mg PO DAILY 01/30/19 02/05/19 History Atorvastatin Calcium [Lipitor] 10 mg PO HS 01/30/19 02/05/19 History Cetirizine HCl [Zyrtec] 10 mg PO DAILY 01/30/19 02/05/19 History Montelukast Sodium [Singulair] 10 mg PO HS 01/30/19 02/05/19 History Sulfamethox-Tmp 800-160Mg [Bactrim 2 tab PO Q12HR 14 Days #56 tab 01/30/19 02/05/19 Rx DS 800-160 mg] amLODIPine [Norvasc] 5 mg PO DAILY 01/30/19 02/05/19 History traMADol HCL [Ultram] 50 mg PO BID 01/30/19 02/05/19 History Allergies Allergy/AdvReac Type Severity Reaction Status Date / Time aspirin Allergy Anaphylaxis Verified 02/05/19 07:43 Physical Exam Vitals: Vital Signs Temp Pulse Pulse Resp BP BP Pulse Ox 02/05/19 12:11 80 02/05/19 11:56 76 02/05/19 11:53 96 02/05/19 11:26 99 02/05/19 11:20 97.6 F 77 20 108/68 96 02/05/19 10:00 97.7 F 92 20 113/76 94 L 02/05/19 08:39 94 L 02/05/19 06:00 99.9 F H 72 23 101/63 96 02/05/19 05:00 70 18 98/51 95 02/05/19 04:30 79 18 109/72 96 02/05/19 04:00 76 18 112/70 95 02/05/19 03:32 101.6 F H 95 18 106/65 93 L 02/05/19 02:47 97.6 F 100 24 115/64 92 L Intake and Output 02/04/19 02/05/19 02/05/19 22:59 06:59 14:59 Intake Total 240 Balance 240 Intake: Oral 240 Other: # Voids 3 Weight 84.822 kg GENERAL EXAM: Pleasant 68-year-old gentleman. Alert, active, comfortable in no apparent distress. HEAD: Normocephalic. EYES: Normal reaction of pupils, equal size. NOSE: Clear with pink turbinates. THROAT: No erythema or exudates. NECK: No masses, no JVD. CHEST: No chest wall deformity. LUNGS: Equal air entry with crackles in the bilateral bases, end expiratory wheeze, diminished CVS: S1 and S2 normal with no audible murmur, regular rhythm. ABDOMEN: No hepatosplenomegaly, normal bowel sounds, no guarding or rigidity. SPINE: No scoliosis or deformity SKIN: No rashes CENTRAL NERVOUS SYSTEM: No focal deficits, tone is normal in all 4 extremities. EXTREMITIES: Tenderness of the right lower extremity. No clubbing, no cyanosis. Peripheral pulses are intact. Results - Laboratory Findings CBC and BMP: 02/05/19 03:19 02/05/19 03:19 PT/INR, D-dimer PT 12.0 sec (9.0-12.0) 06/17/19 03:19 INR 1.1 (<1.2) 02/05/19 03:19 Abnormal lab findings: Abnormal Labs 02/05/19 02/05/19 02/05/19 03:19 03:19 03:19 WBC 17.7 H RBC 4.03 L Hgb 12.0 L Hct 37.3 L RDW 16.2 H Neutrophils # 15.8 H Lymphocytes # 0.4 L Sodium 135 L Carbon Dioxide 17 L Creatinine 1.53 H Plasma Lactic Acid Vance 3.9 H* ALT 14 L Troponin I Urine Protein Urine Bacteria Hyaline Casts Urine Mucus 02/05/19 02/05/19 05:45 11:18 WBC RBC Hgb Hct RDW Neutrophils # Lymphocytes # Sodium Carbon Dioxide Creatinine Plasma Lactic Acid Vance ALT Troponin I 0.174 H* Urine Protein 1+ H Urine Bacteria Rare H Hyaline Casts 3 H Urine Mucus Rare H - Diagnostic Findings Chest x-ray: image reviewed CT scan - chest: image reviewed Assessment and Plan Assessment: Impression: #1 Acute exacerbation of suspected chronic obstructive pulmonary disease secondary to suspected community-acquired pneumonia and possible coronary fibrosis. #2 Febrile illness secondary to above. #3 Leukocytosis secondary to above. #4 lactic acidosis, recovered. #5 Acute kidney injury. #6 Cellulitis of the right lower extremity treated with Bactrim in the outpatient setting. #7 Chronic persistent atrial fibrillation, anticoagulated with Eliquis. #8 Hypertension. #9 Hyperlipidemia. Plan: The patient was seen and evaluated by Dr. Robb. Chest x-ray, CAT scans and labs all reviewed. We'll treat the patient for suspected COPD exacerbation along with possible community-acquired pneumonia. The patient would benefit from an outpatient workup including full pulmonary function testing. We will continue to follow and make further recommendations based on his clinical status. I, the cosigning physician, performed a history & physical examination of the patient. Lungs sounds with end expiratory wheeze, few scattered rhonchi, crackles in posterior bases Maintaining good O2 saturations in the 90s on 2 L/m per nasal cannula. I discussed the assessment and plan of care with my nurse practitioner, Brittany Braun. I attest to the above note as dictated by her. Time with Patient: Greater than 30
--- NOTE | 2019-02-05 16:25 | HP ---
HISTORY AND PHYSICAL DATE OF SERVICE: 02/05/2019 This patient is Rubens Woods, a 68-year-old white male. He was admitted to [address] [place] [address]. DATA: He is 5 feet 8 inches, weight 84.822 kg, BSA 1.99 m2, BMI 28.4 kg/m2. ALLERGIES: ASPIRIN (anaphylaxis). CHIEF COMPLAINT: The patient presented to the emergency room with a feeling of nausea, vomiting, one time diarrhea, shortness of breath. HISTORY OF PRESENT ILLNESS: The patient was brought to the emergency room by his . Mr. Woods is a 68-year-old white male who presented because of fever during the week, chills, cough, and he had a previous history one week ago with cellulitis of the right lower extremity, which has been resolved. The patient was treated with Bactrim DS. On this presentation, he had nausea, he vomited 2 days ago and it was progressively worsening. At that time he came to the emergency room. The cellulitis has improved and resolved, but he has new symptoms with the associated productive cough and underlying shortness of breath, and at that time he came to the ER. Dr. Art is his primary care physician. I am dictating his history and physical and taking care of the patient in Dr. Art's temporary absence. The patient has been seen in the past by breakfast hostess Dr. Thom Araiza. He was referred to Dr. Glover, Pulmonary and Critical Care, for his lungs. However, his appointment was still one month away, and consequently as he comes today, we will be consulting Dr. Glover or one of his associates to see him in the hospital; probably Dr. Robb, who is rounding this week. CURRENT MEDICATION: He was on Eliquis 5 mg twice a day for anticoagulation. Etiology is unknown; probably associated with atrial fibrillation or with an impaired ejection fraction. He is on atenolol 25 mg p.o. daily, atorvastatin 10 mg at bedtime, cetirizine 10 mg daily, montelukast 10 mg at bedtime, amlodipine 5 mg daily and tramadol 50 mg p.o. b.i.d. He was also on Bactrim DS and 800/160 mg. He took 2 tablets every 12 hours for a total of 14 days; that is 56 tablets, as noted on the chart in the ER. REVIEW OF SYSTEMS: NEUROPSYCHIATRY: He is conscious, alert, oriented. He is hard of hearing. He does not have a hearing aid. He has mainly respiratory complaints, with shortness of breath with minimal exertion, and when he walks a short distance he becomes tired and has to sit, with the underlying history of lung disease. PAST MEDICAL HISTORY: He had hyperlipidemia, hypertension. Probably he may have pulmonary hypertension. He had orthopedic surgery in the past and he is a former smoker. No alcohol intake. No drug history. The rest of review of systems is noncontributory except that he has been seen by Dr. Araiza, who put him on anticoagulation, but the patient does not clearly know why. Probably this is due to his arrhythmia as atrial fibrillation or due to his ejection fraction being impaired. We will be doing an echocardiogram to clarify these findings. He is . His is at the bedside. PHYSICAL EXAMINATION: The patient is conscious, alert, oriented. The head is normocephalic and atraumatic. Pupils equal, reactive. Apparently he had laser procedure for glaucoma, but it appears that the patient also has cataracts. He has a hearing deficit. No nasal discharge. Oropharynx reveals that he has an edentulous upper jaw with a few incisors in the lower jaw. Neck was supple. No JVD. No thyromegaly. No lymphadenopathy. Trachea midline. The chest reveals presence of bilateral respiratory crackles, with the underlying chest x-ray showing possible pneumonia and fibrosis. CT scan will be obtained. His abdomen is soft. Positive bowel sounds. No tenderness. Skin on the right foot shows no cellulitis, which has resolved. There is not even any tenderness on the skin or the lower ankle. Genitourinary: No symptoms. On neurologic examination he is alert, oriented x3. He has the hearing deficit. No lateralization. Moving 4 extremities. Musculoskeletal: He has trace edema of the lower extremities. No calf tenderness. he stated that he had an ultrasound of the leg that was negative for DVT in the past. Psychiatrically he has normal mood and no other history of depression. He has peripheral vascular disease, and on the examination he has decreased pulses below the knees bilaterally with the underlying peripheral vascular disease. His vital signs on admission were temperature 97.6, heart rate 100. Subsequently it slowed down to 76. Respiratory rate was 24 on admission and gradually improved to 18. Blood pressure was 115/64 and gradually decreased to 109. The last reading in the ER was 112/70. His pulse ox saturation was 92% on room air. His EKG was indicating tachycardia with atrial fibrillation with rapid ventricular response and bifascicular block; no evidence of acute IL. LABORATORY DATA: He has leukocytosis with white count 17.7. The hemoglobin is 12, which is low, with mild anemia, hematocrit 37.3 and platelet count 336. On the chemistry, he had sodium 135 with mild hyponatremia, and potassium 4.7 and chloride 103, carbon dioxide 17, with the underlying mild metabolic acidosis. Creatinine is 1.53 with a BUN of 13, with estimated glomerular filtration rate for non- 46. His glucose is 91, normal, calcium 8.7, and total bilirubin 0.4, AST 25, ALT 14, alkaline phosphatase 90, and total protein 7.1, albumin 4.1. His initial lactic acid and PT and INR and PTT also were done. Urinalysis was done, positive for urine protein 1+, nitrite is negative, and leukocyte was negative with no evidence of urine infection. The patient's current vital signs indicate that his last blood pressure was 108/68 with a mean arterial pressure 81, temperature 97.6, and pulse rate 77 beats per minute. Respiratory rate was 20 and saturation on 2 L nasal cannula is 96%. His initial lactic acid was 3.9, and the repeat was 1.5. Troponin I was elevated at 0.174 and we consulted Cardiology. His NT-ProBNP was found to be 7800 as well, and he was started in the ER on IV fluids 0.9 normal saline 200 mL/hour. We decreased it until we get the troponin as well as the beta natriuretic peptide, as it was not done in the ER, and subsequently the IV fluid was decreased gently until we get the result of the echocardiogram which was ordered. We did ultrasound of the kidneys and bladder, and that was essentially negative, with normal-sized right kidney and left kidney. There is no evidence of hydronephrosis, no nephrolithiasis. He has a small lesion bilaterally, too small to characterize. He has an underlying small cyst in the left kidney measuring 1.3 x 1.4 x 1.2 cm. The patient also had a CT scan of the chest, as I did order it with the underlying unclear fibrosis with at this time. Suspect area of acute infiltrate, for which the patient was started on Zosyn IV piggyback q.12 hours. Edema is most prominent bilaterally in the lungs on the background with mild to moderate emphysematous changes and mild to moderate parenchymal fibrosis and most prominent in the bases. Underlying cardiomegaly, as discussed with the patient today. His initial EKG showed atrial fibrillation with rapid ventricular response, right bundle branch block, left anterior fascicular block, with the minimal left ventricular hypertrophy. His heart rate was 105 at that time. As mentioned, cardiology consult was obtained. UNDERLYING CONCLUSION: 1. Underlying pulmonary fibrosis. The patient has a history of asbestos exposure in his past work at [employer]. 2. He has also emphysema. 3. Pulmonary congestion with elevated troponin. He has pro-BNP elevated to 7000, and that is probably from underlying chronic congestive heart failure. We do not know what the ejection fraction is, but also we have troponin elevation; the troponin was 0.174. Cardiology was consulted as well. 4. Peripheral arterial disease bilaterally from the knee down, more with the . His urinalysis was negative. 5. He has been under the care of Dr. Araiza, who placed him on Eliquis, probably due to his atrial fibrillation. 6. Hyperlipidemia. 7. Currently he has pneumonia with the pulmonary fibrosis and emphysema and probably congestive heart failure, probably systolic and diastolic; could be chronic in the past. We will be consulting Dr. Araiza to clarify to us and to see the patient in evaluation, with the abnormal troponin as well. 8. We also are consulting Dr. Cruz, the vascular surgeon, for evaluation of the lower extremities. MMODL / IJN: [id number] /
[2019-02-05] MEDS: PIPERACILLIN-TAZOBACTAM 3.375 GM in SODIUM CHLORIDE 0.9% 100 ML IVPB SCH ×2 (17:08→23:55)
[2019-02-05] MEDS: ATORVASTATIN 10 MG TAB PO SCH (22:02)
[2019-02-05] MEDS: MONTELUKAST 10 MG TAB PO SCH (22:02)
[2019-02-05] MEDS: ACETAMINOPHEN TAB 325 MG TAB PO PRN (23:06)
--- NOTE | 2019-02-05 23:34 | CONS ---
CONSULTATION This is a 68-year-old gentleman who has been admitted to [facility] with multiple medical problems. I was consulted for vascular evaluation. The patient has a history of swelling and cellulitis, right lower extremity, which improved. No history of rest pain or tissue loss. Patient has history of atrial fibrillation. The patient also has history of pneumonia with underlying pulmonary fibrosis and COPD. The patient has elevated troponin and Cardiology is on consult. The patient has atrial fibrillation, on anticoagulation. On examination, the patient was seen in his room. He is very short of breath. Chest has crackles bilaterally. Abdomen is soft. Femorals are 1+. Posterior dorsalis pedis not palpable. No ischemic ulceration noted. Cellulitis of right lower extremity is improved. At this point, the patient has multiple medical problems. He does have some peripheral vascular disease which can be worked up as an outpatient in my office. At this point there is no evidence of any acute vascular issues. We can follow him as an outpatient. MMODL / IJN: [id number] /
[2019-02-06] MEDS: IPRATROPIUM-ALBUTEROL 3 ML NEB INHALATION PRN ×2 (00:13→04:30)
[2019-02-06] MEDS: SODIUM CHLORIDE 0.9% 1,000 ML IV SCH (01:08)
[2019-02-06 05:56] LABS: Glucose,Whole Blood 110 mg/dL (75-99)
[2019-02-06] MEDS ORDERED: LORazepam 2 MG/ML INJ IV STA ×2 (06:37→08:50)
[2019-02-06] MEDS ORDERED: FUROSEMIDE 10 MG/ML 2 ML VIAL IV ONE (06:44)
[2019-02-06] MEDS ORDERED: DILTIAZEM 125 MG in SODIUM CHLORIDE 0.9% 100 ML IV SCH (06:45)
[2019-02-06] MEDS: methylPREDNISolone SOD SUCCI 125 MG/2 ML VIAL IV SCH ×3 (06:48→17:31)
--- NOTE | 2019-02-06 07:28 | P.PN ---
Progress Note - Text Progress Note Date: 02/06/19 This is a pleasant 68-year-old gentleman who sees Dr. Araiza in the office on regular basis with a past medical history significant for advanced chronic obstructive pulmonary disease, chronic atrial fibrillation on oral anticoagulation, as well as multiple comorbid conditions including hypertension as well as dyslipidemia was initially admitted to the hospital with fever and cough and he was diagnosed with a pneumonia. Overnight the patient developed acute respiratory failure and he was brought to the intensive care unit. He is very agitated and he is in acute respiratory distress but he is DO NOT RESUSCITATE. Hemodynamically he is in A. fib with RVR at this point and he is hypertensive as well. When he presented to the hospital there was a possibility of sepsis going on probably related to pneumonia and lactic acid came in to be elevated. I'll follow-up with him today, the patient distal agitated and he is in A. fib with RVR. The blood pressure is elevated. I am going to start the patient on Cardizem IV at 5 mg per hour with a bolus of 10 mg. He is on oral anticoagulation with Eliquis. When he presented to the hospital the troponin was slightly elevated and this is likely to be related to type II myocardial infarction. Assessment Pneumonia/sepsis Mildly abnormal cardiac enzymes Atrial fibrillation with RVR Advanced COPD Multiple comorbid conditions Plan Start Cardizem IV with bolus and a drip Continue oral anticoagulation Follow-up with the patient
[2019-02-06] MEDS ORDERED: FUROSEMIDE 10 MG/ML 4 ML VIAL IV STA (08:24)
--- NOTE | 2019-02-06 08:24 | XR ---
EXAMINATION TYPE: XR chest 1V portable DATE OF EXAM: 02/06/2019 COMPARISON: Prior chest x-ray 02/05/2019 HISTORY: Cough, abnormal chest x-ray TECHNIQUE: Single frontal view of the chest is obtained. FINDINGS: The interstitium is increased. No pneumothorax. Heart size is enlarged and stable. Aorta i s dense. There are overlying cardiac leads. IMPRESSION: There may be a component of interstitial edema, volume overload.
[2019-02-06 08:29] LABS: Anisocytosis Slight; Basophils % (A) 0 %; Eosinophils # (A) 0.1 k/uL (0-0.7); Eosinophils % (A) 1 %; HCT 38.1 % (39.0-53.0); HGB 12.1 gm/dL (13.0-17.5); Lymphocytes # (A) 0.6 k/uL (1.0-4.8); Lymphocytes % (A) 3 %; MCH 29.7 pg (25.0-35.0); MCHC 31.6 g/dL (31.0-37.0); MCV 93.8 fL (80.0-100.0); Mean Platelet Volume 7.3; Monocytes # (A) 0.4 k/uL (0-1.0); Monocytes % (A) 2 %; Neutrophils # (A) 15.7 k/uL (1.3-7.7); Neutrophils % (A) 92 %; Platelet Count 329 k/uL (150-450); RBC 4.06 m/uL (4.30-5.90); RDW 16.7 % (11.5-15.5)
[2019-02-06 08:43] LABS: Calcium 8.6 mg/dL (8.4-10.2); Potassium 5.3 mmol/L (3.5-5.1); Total Bilirubin 0.9 mg/dL (0.2-1.3); Total Protein 7.2 g/dL (6.3-8.2)
[2019-02-06] MEDS: traMADol 50 MG TAB PO SCH ×2 (09:14→20:44)
[2019-02-06] MEDS: APIXABAN 5 MG TAB PO SCH ×2 (09:14→20:43)
[2019-02-06] MEDS: ATENOLOL 25 MG TAB PO SCH (09:14)
[2019-02-06] MEDS: LORATADINE 10 MG TAB PO SCH (09:16)
--- NOTE | 2019-02-06 09:30 | P.PN ---
Subjective Progress Note Date: 02/06/19 (Severe shortness of breath, a team, ICU transfer.) Principal diagnosis: Co. HCl ngestive heart failure. A KI. History of alcohol intake, mild confusion, rule out impending DT. Pneumonia retrocardiac. Pulmonary fibrosis Atrial fibrillation with rapid ventricular response Advanced COPD Sepsis with pyrexia. Progress note: Date of service 02/06/2019 in the ICU. Patient Mr. Rubens Estevez transferred from [facility] the floor North to the ICU second floor time, after a team was called because of acute respiratory distress, and given Lasix 20 and transferred to ICU with the acute congestive heart failure as well as confusion. Patient seen this morning by Dr. Chappell learning program manager and he started him on cardiac exam for the atrial fibrillation with RVR. They called Dr. Melendez and he had also Lasix as well. Patient is still have confused wants to get out of bed he is an conscious alert and his and his daughter and son around him in the ICU, we started him on Ativan, he has already placed on CWIA protocol for her cessation of alcohol intake and he has been drinking chronically, nontender 3 shots to 4 may be more. Patient on requests anticoagulant and he started on Cardizem IV drip 5 mg per bolus of [address] Chappell order. Patient seen and evaluated and discussed with the family, also discussed with Dr. Melendez who did see him today as well His vital signs ICU on today his heart rate started was 133-1 35/m after the Cardizem slowed down to 104 his respiratory rate has been 33-38/m and his blood pressure 148/108 initially and subsequently is 116/68 and his oxygen saturation was 89 at the time of transfer to the ICU with the high flow with the FiO2 was 7 L.. Laboratory: Patient has white count 17 however he received steroid and that possibly part precipitated increase the right count, his hemoglobin 12.1., Platelet is 329, sodium 136 and potassium 5.3 and chloride 104 with the carbon dioxide is 15 with the underlying metabolic acidosis, his BUN is 18, creatinine 1.66 with the AK I and we will be consulting Dr. East nephrology. Patient was treated for pneumonia with Zosyn however he had rash macular on the back thought to be from Zosyn however patient did not have any history of ALLERGY to penicillin, we held the Zosyn and we consulted Dr. Rubens Downing infectious disease for the choice evaluation and treatment of sepsis as well as the selection of the antibiotic with the underlying kidney disease and the AK I. Liver function is normal NT pro BNP 7800, patient had loose bowel and the C. difficile was negative again Zosyn has been withheld. Potassium 5.3 with association with AK I. Patient also has peripheral vascular disease with decreased pulses on the lower extremities consultation with Dr. Toney was requested the vascular surgeon. Patient with history of COPD and emphysema and noted by the CT of the chest, also he had exposure N breasts for asbestos which also indicated in the computed tomography scan was pulmonary fibrosis. And associated with oxygen exchange added to his pneumonia with the association of HPI and congestive heart failure biventricular acute with the underlying atrial atrial fibrillation with rapid ventricular response, and so far we don't have the echo results for indication if he has underlying also systolic dysfunction. Prognosis is guarded, and we did consult today Dr. Rubens Downing infectious disease, and Dr. East nephrology. On exam in the ICU patient is conscious confused. HEENT no change Neck was supple positive JVD and trachea midline. Chest decreased air entry bilateral with the underlying bronchitis and crackles bilateral the chest x-ray reviewed with Dr. Melendez. Chronic and evidence of congestive heart failure acute. Abdomen is distended however positive bowel sounds Extremities he has 1+ to trace edema bilaterally on the ankle. Neurologically and psychiatry: Patient to be started of a DTs and will be starting the protocol and the Ativan in the ICU. Assessment and plan: As discussed above with the prognosis is guarded with the multiple medical problem advised to continue ICU. Acute onsets of the atrial fib with the rapid ventricular response with the transferred from the floor to the ICU with the florid congestive heart failure. A KI with the persistent elevation of the creatinine was consulting at the nephrology Dr. East. Pneumonia and pulmonary fibrosis and hypoxemia and sepsis, patient seen by the pulmonary and critical care Dr. Melendez. Skin rash on the back macular appeared to be secondary to use Zosyn however patient never had ALLERGY to penicillin., We'll be consulting a Dr. Rubens Downing infectious disease for evaluation of the sepsis as well as treatment and the choice of the antibiotic. Objective - Vital Signs Vital signs: Vital Signs Temp 100.9 F H 02/06/19 06:45 Pulse 104 H 02/06/19 08:00 Resp 38 H 02/06/19 08:00 BP 116/68 02/06/19 07:45 Pulse Ox 91 L 02/06/19 08:00 Intake & Output 02/05/19 02/06/19 02/06/19 18:59 06:59 18:59 Intake Total 240 1830 15 Output Total 425 Balance 240 1830 -410 Intake: IV 10 0.9ns 10 Intake, IV Titration 1000 5 Amount Diltiazem 125 mg In 5 Sodium Chloride 0.9% 100 ml @ 5 MG/HR 5 mls/hr IV .Q24H [facility] Rx#:[id number] Piperacillin-Tazobactam 3 100 .375 gm In Sodium Chloride 0.9% 100 ml @ 25 mls/hr IVPB Q8HR [facility] Rx# :[id number] Sodium Chloride 0.9% 1, 900 000 ml @ 100 mls/hr IV . Q10H [facility] Rx#:[id number] Oral 240 830 Output: Urine 425 Other: Voiding Method Toilet Urinal # Voids 3 1 # Bowel Movements 1 - Labs CBC & Chem 7: 02/06/19 08:12 02/06/19 08:12 Labs: Abnormal Lab Results - Last 24 Hours (Table) 02/05/19 02/05/19 02/06/19 Range/Units 11:18 18:25 05:54 WBC (3.8-10.6) k/uL RBC (4.30-5.90) m/uL Hgb (13.0-17.5) gm/dL Hct (39.0-53.0) % RDW (11.5-15.5) % Neutrophils # (1.3-7.7) k/uL Lymphocytes # (1.0-4.8) k/uL Sodium (137-145) mmol/L Potassium (3.5-5.1) mmol/L Carbon Dioxide (22-30) mmol/L Creatinine (0.66-1.25) mg/dL Glucose (74-99) mg/dL POC Glucose (mg/dL) 110 H (75-99) mg/dL Troponin I 0.174 H* 0.119 H* (0.000-0.034) ng/mL 02/06/19 02/06/19 Range/Units 08:12 08:12 WBC 17.0 H (3.8-10.6) k/uL RBC 4.06 L (4.30-5.90) m/uL Hgb 12.1 L (13.0-17.5) gm/dL Hct 38.1 L (39.0-53.0) % RDW 16.7 H (11.5-15.5) % Neutrophils # 15.7 H (1.3-7.7) k/uL Lymphocytes # 0.6 L (1.0-4.8) k/uL Sodium 136 L (137-145) mmol/L Potassium 5.3 H (3.5-5.1) mmol/L Carbon Dioxide 15 L (22-30) mmol/L Creatinine 1.66 H (0.66-1.25) mg/dL Glucose 125 H (74-99) mg/dL POC Glucose (mg/dL) (75-99) mg/dL Troponin I (0.000-0.034) ng/mL Microbiology - Last 24 Hours (Table) 02/05/19 03:19 Blood Culture - Preliminary Blood No Growth after 24 hours 02/05/19 17:50 Gram Stain - Preliminary Sputum Sputum Culture - Preliminary 02/05/19 05:45 Urine Culture - Preliminary Urine,Clean Catch
[2019-02-06] MEDS ORDERED: THIAMINE 100 MG/ML 2 ML VIAL IM STA (09:47)
[2019-02-06] MEDS ORDERED: LORazepam 2 MG/ML INJ IV PRN ×3 (09:47)
[2019-02-06] MEDS: AZITHROMYCIN 500 MG in SODIUM CHLORIDE 0.9% 250 ML IVPB SCH (10:03)
--- NOTE | 2019-02-06 10:55 | ECHOF ---
Referral Reason:atrial fib .htnurgency,tia MEASUREMENTS -------- HEIGHT: 172.7 cm WEIGHT: 84.8 kg BP: RVIDd: 4.2 cm (< 3.3) IVSd: 1.1 cm (0.6 - 1.1) LVIDd: 4.6 cm (3.9 - 5.3) LVPWd: 1.3 cm (0.6 - 1.1) IVSs: 2.0 cm LVIDs: 3.0 cm LVPWs: 1.7 cm LAESV Index (A-L): 63.50 ml/m MV E Dav: 1.07 m/s MV DecT: 135 ms MV A Dav: 0.72 m/s MV E/A Ratio: 1.49 AR PHT: 235 ms RAP: 15.00 mmHg RVSP: 70.54 mmHg FINDINGS -------- Sinus rhythm with extra systolic beats. This was a technically good study. The left ventricular size is normal. There is mild concentric left ventricular hypertrophy. Overa ll left ventricular systolic function is normal with, an EF between 55 - 60 %. The right ventricle is severely enlarged. The right ventricular systolic function is moderately imp aired. Left atrium is severely dilated by volume. The right atrium is moderately enlarged. Interatrial and interventricular septum intact. There is mild aortic valve sclerosis. There is mild aortic regurgitation. The mitral valve leaflets are mildly thickened. Moderate mitral regurgitation is present. Severe tricuspid regurgitation present. There is severe pulmonary hypertension. The right ventric ular systolic pressure, as measured by Doppler, is 70.54mmHg. Trace/mild (physiologic) pulmonic regurgitation. The aortic root size is normal. The inferior vena cava is mildly dilated. There is no pericardial effusion. CONCLUSIONS -------- 1. Sinus rhythm with extra systolic beats. 2. This was a technically good study. 3. The left ventricular size is normal. 4. There is mild concentric left ventricular hypertrophy. 5. Overall left ventricular systolic function is normal with, an EF between 55 - 60 %. 6. The right ventricle is severely enlarged. 7. The right ventricular systolic function is moderately impaired. 8. Left atrium is severely dilated by volume. 9. The right atrium is moderately enlarged. 10. There is mild aortic valve sclerosis. 11. There is mild aortic regurgitation. 12. The mitral valve leaflets are mildly thickened. 13. Moderate mitral regurgitation is present. 14. Severe tricuspid regurgitation present. 15. There is severe pulmonary hypertension. 16. Trace/mild (physiologic) pulmonic regurgitation. 17. The aortic root size is normal. 18. The inferior vena cava is mildly dilated. 19. There is no pericardial effusion. AML ANALYST: Roya Villarreal RDCS
--- NOTE | 2019-02-06 11:43 | P.PN ---
Subjective Progress Note Date: 02/06/19 Principal diagnosis: Acute exacerbation of COPD This is a very pleasant 68-year-old gentleman who follows with Dr. Art as his primary care physician. He has a history of hypertension, hyperlipidemia, atrophic fibrillation anticoagulated with Eliquis. He also has been having i ssues with shortness of breath cough and congestion and was due to see Dr. Glover next month in our office. He is recently been using his 's nebulizer and rescue inhaler. He does have a history of chronic tobacco dependence but quit smoking approximately 3 years ago. He presented here to the emergency room earlier this morning with complaints of worsening shortness of breath, cough and congestion. He also had issues with nausea and vomiting. He has been undergoing treatment for cellulitis of the right lower extremity as well. Further right lower extremity revealed no evidence of fracture. There is mild multifocal soft tissue swelling. No evidence of osteomyelitis. Doppler ruled o ut DVT. Chest x-ray reveals patchy bilateral lung opacities more prominent at the bases. Small pleural effusions. CT angiogram was suboptimal. There was areas of acute infiltrate or edema most prominent in the bilateral lung bases on background emphysematous changes and mild to moderate fibrosis. 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 Ultrasound of the abdomen ruled out hydronephrosis. No nephrolithiasis. Urine culture pending. White count 17.7. Hemoglobin 12.0. Creatinine 1.53. Lactic acid 3.9, down to 1.5, troponin 0.174. ProBNP 7800. Patient is seen today in consultation on the regular medical floor. He is awake and alert in no acute distress. He has a loose nonproductive cough. No current chills or night sweats. T-max of 101.6, currently afebrile. 18 in good O2 saturations in the mid 90s on 2 L/m per nasal cannula. Hemodynamically stable. He's been initiated on DuoNeb inhalations and Zosyn. Anticoagulated with Eliquis. Patient was reevaluated on 02/06/2019, patient had a downhill course overnight, apparently he developed atrial fibrillation with RVR, some component of interstitial edema based on the chest x-ray, extreme agitation and extreme shortness of breath requiring transfer to the intensive care unit. Patient is a DO NOT INTUBATE CODE STATUS, hence he was transferred to the ICU, placed on Cardizem drip, also given diuretics for his interstitial edema, and he was placed on the [place] protocol for his history of alcoholism. When I saw the patient in the ICU, he was already feeling better, call me down, continues to refuse using BiPAP. His atrial fibrillation seems to be better controlled on Cardizem drip. WBC count is 17 hemoglobin is 12 left was are normal bicarb was noted to be low at 15 anion gap was 17, BUN 18 creatinine 1.66. Troponin was noted to be a bit elevated, and BNP level was also elevated. Chest x-ray again is suggestive of worsening interstitial edema and underlying pneumonia as noted on CT of the chest on admission. Patient remains on antibiotics, bronchodilators, and now on Cardizem, he was also placed on diuretics. Objective - Vital Signs Vital signs: Vital Signs Temp 100.9 F H 02/06/19 06:45 Pulse 78 02/06/19 11:00 Resp 20 02/06/19 11:00 BP 123/84 02/06/19 11:00 Pulse Ox 95 02/06/19 11:00 Intake & Output 02/05/19 02/06/19 02/06/19 18:59 06:59 18:59 Intake Total 240 1830 427.083 Output Total 975 Balance 240 1830 -547.917 Intake: IV 40 0.9ns 40 Intake, IV Titration 1000 387.083 Amount Azithromycin 500 mg In 250 Sodium Chloride 0.9% 250 ml @ 250 mls/hr IVPB DAILY [facility] Rx#:[id number] Diltiazem 125 mg In 37.083 Sodium Chloride 0.9% 100 ml @ 5 MG/HR 5 mls/hr IV .Q24H [facility] Rx#:[id number] Piperacillin-Tazobactam 3 100 .375 gm In Sodium Chloride 0.9% 100 ml @ 25 mls/hr IVPB Q8HR [facility] Rx# :[id number] Sodium Chloride 0.9% 1, 900 000 ml @ 100 mls/hr IV . Q10H [facility] Rx#:[id number] cefTRIAXone 1 gm In 100 Sodium Chloride 0.9% 50 ml @ 100 mls/hr IVPB Q24HR [facility] Rx#:[id number] Oral 240 830 Output: Urine 975 Other: Voiding Method Toilet Urinal Urinal # Voids 3 1 1 # Bowel Movements 1 1 - Exam Physical Exam: Revealed a 68-year-old white male slightly anxious, in no distress. Head: Atraumatic, normocephalic. HEENT:[Neck is supple.] [No neck masses.] [No thyromegaly.] [No JVD.] PERRLA, EOMI, no icterus, Chest: [Crackles and rhonchi and wheezes noted bilaterally. Symmetrical chest expansion. No chest wall tenderness.] Cardiac Exam: Irregular irregular rhythm. [Normal S1 and S2, no S3 gallop, no murmur.] Abdomen: Obese, [Soft, nontender, no megaly, no rebound, no guarding, normal bowel sounds.] Extremities: [No clubbing, no edema, no cyanosis.] Neurological Exam: [No focal neurologic deficit.] Alert and oriented 3. However the patient is a bit anxious. Psychiatric: Anxious, slightly blunted affect, normal mental status examination. Skin: Faint maculopapular rash involving the chest and upper and lower ex tremities, possibly related to drug eruption, hence his Zosyn was placed on hold. - Labs CBC & Chem 7: 02/06/19 08:12 02/06/19 08:12 Labs: Abnormal Lab Results - Last 24 Hours (Table) 02/05/19 02/05/19 02/06/19 Range/Units 11:18 18:25 05:54 WBC (3.8-10.6) k/uL RBC (4.30-5.90) m/uL Hgb (13.0-17.5) gm/dL Hct (39.0-53.0) % RDW (11.5-15.5) % Neutrophils # (1.3-7.7) k/uL Lymphocytes # (1.0-4.8) k/uL Sodium (137-145) mmol/L Potassium (3.5-5.1) mmol/L Carbon Dioxide (22-30) mmol/L Creatinine (0.66-1.25) mg/dL Glucose (74-99) mg/dL POC Glucose (mg/dL) 110 H (75-99) mg/dL Troponin I 0.174 H* 0.119 H* (0.000-0.034) ng/mL 02/06/19 02/06/19 Range/Units 08:12 08:12 WBC 17.0 H (3.8-10.6) k/uL RBC 4.06 L (4.30-5.90) m/uL Hgb 12.1 L (13.0-17.5) gm/dL Hct 38.1 L (39.0-53.0) % RDW 16.7 H (11.5-15.5) % Neutrophils # 15.7 H (1.3-7.7) k/uL Lymphocytes # 0.6 L (1.0-4.8) k/uL Sodium 136 L (137-145) mmol/L Potassium 5.3 H (3.5-5.1) mmol/L Carbon Dioxide 15 L (22-30) mmol/L Creatinine 1.66 H (0.66-1.25) mg/dL Glucose 125 H (74-99) mg/dL POC Glucose (mg/dL) (75-99) mg/dL Troponin I (0.000-0.034) ng/mL Microbiology - Last 24 Hours (Table) 02/05/19 03:19 Blood Culture - Preliminary Blood No Growth after 24 hours 02/05/19 17:50 Gram Stain - Preliminary Sputum Sputum Culture - Preliminary 02/05/19 05:45 Urine Culture - Preliminary Urine,Clean Catch Assessment and Plan Assessment: #1 Acute exacerbation of suspected chronic obstructive pulmonary disease secondary to suspected community-acquired pneumonia and possible coronary fibrosis. #2 Febrile illness secondary to above. #3 Leukocytosis secondary to above. #4 lactic acidosis, recovered. #5 Acute kidney injury. #6 Cellulitis of the right lower extremity treated with Bactrim in the outpatient setting. #7 Chronic persistent atrial fibrillation, anticoagulated with Eliquis. #8 Hypertension. #9 Hyperlipidemia. #10 atrial fibrillation with RVR #11 suspect interstitial edema secondary to atrial fibrillation with RVR #12 suspect acute ALLERGIC dermatitis secondary to Zosyn. #13 suspect acute alcohol withdrawal hence the patient was placed on the alcohol withdrawal protocol. Recommendation: Patient will be monitored in the ICU, continue present treatment plan including antibiotics, will place the patient on Rocephin and Zithromax, continue bronchodilators, continue Cardizem, continue alcohol withdrawal protocol. Discussed the CODE STATUS again with him and his family, patient is not to be intubated. Him and family are both aware of his decision. We'll continue to follow Time with Patient: Less than 30
--- NOTE | 2019-02-06 12:55 | P.NPCON ---
History of Present Illness - Reason for Consult acute renal failure - History of Present Illness Reason for consultation: Acute kidney injury History of present illness: Patient is a 68-year-old male seen in consultation for acute kidney injury. Patient baseline creatinine is near 1 and is up to 1.66 today. Patient presented to the hospital with fever and chills. He was also having intermittent episodes of nausea and vomiting. He was noted to be in A. fib with RVR and is currently maintained on Cardizem drip. Patient's blood pressures have been quite labile ranging from systolic 90s to 200s. Patient is currently awake and alert. He denies chest pain or shortness of breath. He has been void ing. No hematuria or dysuria. Patient states he was taking Bactrim for right lower extremity cellulitis prior to admission. He had taken about 5 days of Bactrim prior to admission. He does admit to a productive cough with clear phlegm. He is currently maintained on Rocephin and Zithromax for possible pneumonia. Hemodynamically he stable. Heart rate is controlled. He denies use of nonsteroidals. No history of diabetes. Patient was initially started on IV fluids and then due to respiratory distress he was given a total of 60 mg of IV Lasix. Vital signs are stable. General: The patient appeared well nourished and normally developed. HEENT: Head exam is unremarkable. Neck is without jugular venous distension. LUNGS: Lungs are clear to auscultation and percussion. Breath sounds decreased. HEART: Rate and Rhythm are regular. First and second heart sounds normal. No murmurs, rubs or gallops. ABDOMEN: Abdominal exam reveals normal bowel sounds. Non-tender and non- distended. No evidence of peritonitis. EXTREMITITES: Trace edema. Past Medical History Past Medical History: COPD, Eye Disorder, GERD/Reflux, Hyperlipidemia, Hypertension, Pneumonia Additional Past Medical History / Comment(s): Current R lower extremity cellulitis/edema, "irregular heart beat"-pt cannot recall name of arrhythmia, bronchitis, stomach ulcer, arthritis bilateral knees, sinus problems History of Any Multi-Drug Resistant Organisms: None Reported Past Surgical History: Orthopedic Surgery Additional Past Surgical History / Comment(s): R shoulder surgery with ribbon, bilateral eyes laser surgery for glaucoma Past Anesthesia/Blood Transfusion Reactions: No Reported Reaction Smoking Status: Former smoker - Past Family History Father History Unknown: Yes Additional Family Medical History / Comment(s): Pt is adopted. Mother Family Medical History: Dementia Additional Family Medical History / Comment(s): The only thing pt knows about mother is that she had dementia. Medications and Allergies Home Medications Medication Instructions Recorded Confirmed Type Apixaban [Eliquis] 5 mg PO BID 01/30/19 02/05/19 History Atenolol [Tenormin] 25 mg PO DAILY 01/30/19 02/05/19 History Atorvastatin Calcium [Lipitor] 10 mg PO HS 01/30/19 02/05/19 History Cetirizine HCl [Zyrtec] 10 mg PO DAILY 01/30/19 02/05/19 History Montelukast Sodium [Singulair] 10 mg PO HS 01/30/19 02/05/19 History Sulfamethox-Tmp 800-160Mg [Bactrim 2 tab PO Q12HR 14 Days #56 tab 01/30/19 02/05/19 Rx DS 800-160 mg] amLODIPine [Norvasc] 5 mg PO DAILY 01/30/19 02/05/19 History traMADol HCL [Ultram] 50 mg PO BID 01/30/19 02/05/19 History Allergies Allergy/AdvReac Type Severity Reaction Status Date / Time aspirin Allergy Anaphylaxis Verified 02/05/19 07:43 Physical Exam Vitals: Vital Signs Temp Pulse Pulse Resp BP BP Pulse Ox 02/06/19 11:00 78 20 123/84 95 02/06/19 10:30 82 25 H 131/78 94 L 02/06/19 10:00 96 30 H 127/91 95 02/06/19 09:30 102 H 34 H 119/73 93 L 02/06/19 09:00 97 31 H 108/63 93 L 02/06/19 08:30 93 24 129/69 92 L 02/06/19 08:00 104 H 138 H 30 H 91 L 02/06/19 07:45 97 32 H 116/68 92 L 02/06/19 07:30 113 H 32 H 123/86 91 L 02/06/19 07:15 135 H 23 136/86 86 L 02/06/19 07:00 133 H 33 H 148/108 89 L 02/06/19 06:45 100.9 F H 125 H 34 H 148/108 02/06/19 06:37 123 H 02/06/19 06:32 121 H 38 H 02/06/19 06:10 138 H 30 H 191/102 89 L 02/06/19 05:57 191/111 02/06/19 05:56 32 H 77 L 02/06/19 05:54 98.2 F 02/06/19 05:45 147 H 32 H 209/108 84 L 02/06/19 05:02 97.3 F L 112 H 20 144/79 93 L 02/06/19 04:48 88 02/06/19 04:30 92 02/06/19 01:20 88 22 92 L 02/06/19 00:33 84 02/06/19 00:13 88 02/05/19 23:45 99.1 F 112 H 28 H 179/83 91 L 02/05/19 23:34 141 H 02/05/19 23:00 101.1 F H 97 20 117/74 93 L 02/05/19 19:58 82 16 02/05/19 19:49 78 16 02/05/19 15:38 77 20 Intake and Output 02/05/19 02/06/19 02/06/19 22:59 06:59 14:59 Intake Total 240 1590 437.083 Output Total 1225 Balance 240 1590 -787.917 Intake: IV 50 0.9ns 50 Intake, IV Titration 1000 387.083 Amount Azithromycin 500 mg In 250 Sodium Chloride 0.9% 250 ml @ 250 mls/hr IVPB DAILY [facility] Rx#:[id number] Diltiazem 125 mg In 37.083 Sodium Chloride 0.9% 100 ml @ 5 MG/HR 5 mls/hr IV .Q24H [facility] Rx#:[id number] Piperacillin-Tazobactam 3 100 .375 gm In Sodium Chloride 0.9% 100 ml @ 25 mls/hr IVPB Q8HR [facility] Rx# :[id number] Sodium Chloride 0.9% 1, 900 000 ml @ 100 mls/hr IV . Q10H [facility] Rx#:[id number] cefTRIAXone 1 gm In 100 Sodium Chloride 0.9% 50 ml @ 100 mls/hr IVPB Q24HR [facility] Rx#:[id number] Oral 240 590 Output: Urine 1225 Other: Voiding Method Toilet Urinal Urinal # Voids 2 1 1 # Bowel Movements 1 1 1 Results - Lab Results Most recent lab results Calcium 8.6 mg/dL (8.4-10.2) 02/06/19 08:12 02/06/19 08:12 02/06/19 08:12 Assessment and Plan Plan: Assessment: 1. Acute kidney injury secondary to ATN secondary to hemodynamic instability. Baseline creatinine near 1. It is up to 1.66 today. No evidence of hydronephrosis noted on renal ultrasound. 2. A. fib with RVR maintain on Cardizem drip. Also on anticoagulation. Cardiology following. 3. Mild hyperkalemia secondary to acute kidney injury and metabolic acidosis. 4. Metabolic acidosis secondary to acute kidney injury. 5. Suspected community-acquired pneumonia maintained on antibiotics. 6. COPD exacerbation. Plan: Encourage oral intake. Diet to be started today. Hold off on diuretics at this time. Add oral sodium bicarbonate. Repeat potassium level this evening. Continue to monitor renal function and urine output. Thank you for the consultation. I will continue to follow the patient with you during his hospital stay.
[2019-02-06] MEDS: SODIUM BICARBONATE TAB 650 MG TAB PO SCH ×2 (13:36→20:44)
--- NOTE | 2019-02-06 14:06 | CDI ---
Documentation Clarification Form Date: 02/06/2019 1:48:20 PM From: Geno Rosales RN, CCDS Admit Date: 02/05/2019 8:39:00 AM Patient Name: Rubens Woods Visit Number: [id number] ATTENTION: The Clinical Documentation Specialists (CDI) and [facility] Coding Staff appreciate your assistance in clarifying documentation. Please respond to the clarification below the line at the bottom and electronically sign. The CDI & [facility] Coding staff will review the response and follow-up if needed. Please note: Queries are made part of the Legal Health Record. If you have any questions, please contact the author of this message via ITS. Dr. Israel CHF is documented in your H&P and progress notes and requires further specificity. History/Risk Factors: Hyperlipidemia, htn, pulmonary htn, former smoker, Atrial Fib Clinical Indicators: 02/06 Progress note: "congestive heart failure biventricular acute with the underlying atrial fibrillation with rapid ventricular response, and so far we don't have the echo results for indication if he has underlying also systolic dysfunction." VS/Pulse OX: Temp 97.6, Hr 100, rr 24, B/P 115/64, Spo2 92% ra BNP: 7800 Echocardiogram Results: 55-60%, aortic/mitral/pulmonic regurg 01/20/ Chest X Ray: "There may be a component of interstitial edema, volume overload." Treatment: IVF bolus 1L followed by 100 cc/hr Lasix 40 mg and 20 mg IVP x 1 dose each In your professional opinion, can you please clarify the acuity and type of CHF if known? Systolic Heart Failure: Acute Chronic Acute on Chronic Diastolic Heart Failure: Acute Chronic Acute on Chronic Systolic & Diastolic Heart Failure: Acute Chronic Acute on Chronic Heart Failure Unable to Determine Other, please specify (Last Revision: November 2017) ___acute systoli and diastolic heart failure ,sever pulmonary hypertension ,pulmonary Fibrosis,atrialfibrillation with RVR ,pneumonia and sepsis AINSLEYD
[2019-02-06] MEDS ORDERED: DEXTROSE 5% IN WATER 100 ML with AMIODARONE 150 MG IV ONE (15:00)
[2019-02-06] MEDS ORDERED: AMIODARONE 360 MG in DEXTROSE 5% IN WATER 200 ML IV ONE ×2 (15:15)
[2019-02-06] MEDS: THIAMINE 100 MG TAB PO SCH (17:31)
[2019-02-06] MEDS ORDERED: SODIUM CHLORIDE 0.9% 500 ML 200 ML IV ONE ×2 (18:58→19:06)
[2019-02-06] MEDS: ATORVASTATIN 10 MG TAB PO SCH (20:42)
[2019-02-06] MEDS: MONTELUKAST 10 MG TAB PO SCH (20:43)
[2019-02-06] MEDS: AMIODARONE 300 MG in DEXTROSE 5% IN WATER 250 ML IV SCH ×2 (20:47)
--- NOTE | 2019-02-06 21:34 | P.CONS ---
History of Present Illness - Reason for Consult Consult date: 02/06/19 - Chief Complaint shortness of breath - History of Present Illness 68-year-old male who has multiple medical troubles that include COPD, asbestosis, coronary artery disease and significant arthritis presents to Hospital with the. History of progressive shortness of breath cough and sputum production. He became so weak that is ex- convinced him to come to Hospital. Emergency center there was evidence of significant respiratory failure and bilateral pneumonia and constantly was admitted to the intensive care unit There was evidence of atrial fibrillation with a rapid ventricular response and has been treated by cardiology. The patient has significant pneumonia and purulent secretions and constantly the infectious disease consultation was requested also had a 101.1 fever. This time is feeling slightly better. Has been tolerating BiPAP well. phrologyHe has without further fever and is less short of breath. Appetite is poor. He has general musculoskeletal pain but nothing is acutely different. Has also developed acute renal failure ansd is evaluated by nephrology. Review of Systems HEENT:Denies headache or acute visual change. Denies sinus or mouth discomforts. Denies neck stiffness or pain. Denies significant oral cavity pain. Denies difficulty on swallowing. Lungs: ositive shortness of breath positive Cardiovascular: positive shortness of breath positive Dyspena with exertion no syncope no chest pain Gastrointestinal:Denies nausea, vomiting, diarrhea, constipation, hematemesis, melena, hematochezia. No no significant change of bowel habit noticed. Musculoskeletal: denies significant myalgias or arthralgias. No new joint swelling. Denies new back pain. Skin: Denies new rash or lesions. No new ulcers or wounds are related.. Neuro: Denies headache or visual change. Denies any new onset weakness or difficulty with ambulation. Denies falls or seizures. Psychiatric:Denies anxiety or depression. Endocrine: Denies significant fatigue, denies significant weight loss or weight gain. Past Medical History Past Medical History: COPD, Eye Disorder, GERD/Reflux, Hyperlipidemia, Hypertension, Pneumonia Additional Past Medical History / Comment(s): Current R lower extremity cellulitis/edema, "irregular heart beat"-pt cannot recall name of arrhythmia, bronchitis, stomach ulcer, arthritis bilateral knees, sinus problems History of Any Multi-Drug Resistant Organisms: None Reported Past Surgical History: Orthopedic Surgery Additional Past Surgical History / Comment(s): R shoulder surgery with ribbon, bilateral eyes laser surgery for glaucoma Past Anesthesia/Blood Transfusion Reactions: No Reported Reaction Additional Psychological History / Comment(s): but lives with his ex- who helps take care of. Stop smoking 2 years ago. No current alcohol use. 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 2 dogs and 2 cats in the home Smoking Status: Former smoker - Past Family History Father History Unknown: Yes Additional Family Medical History / Comment(s): Pt is adopted. Mother Family Medical History: Dementia Additional Family Medical History / Comment(s): The only thing pt knows about mother is that she had dementia. Medications and Allergies Home Medications and Allergies Comment(s): Current Medications Acetaminophen (Tylenol Tab) 650 mg PO Q6HR PRN PRN Reason: Fever and/ or Pain Last Admin: 02/05/19 23:06 Dose: 650 mg Documented by: Albuterol/Ipratropium (Duoneb 0.5 Mg-3 Mg/3 Ml Soln) 3 ml INHALATION RT-Q4H PRN PRN Reason: shortness of breath Last Admin: 02/06/19 04:30 Dose: 3 ml Documented by: Apixaban (Eliquis) 5 mg PO BID [facility] Last Admin: 02/06/19 20:43 Dose: 5 mg Documented by: Atenolol (Tenormin) 25 mg PO DAILY [facility] Last Admin: 02/06/19 09:14 Dose: 25 mg Documented by: Atorvastatin Calcium (Lipitor) 10 mg PO HS [facility] Last Admin: 02/06/19 20:42 Dose: 10 mg Documented by: Azithromycin 500 mg/ Sodium (Chloride) 250 mls @ 250 mls/hr IVPB DAILY [facility] Last Admin: 02/06/19 10:03 Dose: 250 mls/hr Documented by: Ceftriaxone Sodium 1 gm/ (Sodium Chloride) 50 mls @ 100 mls/hr IVPB Q24HR [facility] Last Admin: 02/06/19 10:09 Dose: 100 mls/hr Documented by: Amiodarone HCl 300 mg/ (Dextrose/Water) 250 mls @ 25 mls/hr IV .Q10H [facility]; Protocol Stop: 02/07/19 14:59 Last Admin: 02/06/19 20:47 Dose: 0.5 mg/min, 25 mls/hr Documented by: Loratadine (Claritin) 10 mg PO DAILY [facility] Last Admin: 02/06/19 09:16 Dose: 10 mg Documented by: Lorazepam (Ativan) 1 mg IV Q2HR PRN PRN Reason: CIWA 8 or 9 Lorazepam (Ativan) 1 mg IV Q1HR PRN PRN Reason: CIWA 10 to 15 Lorazepam (Ativan) 2 mg IV Q10M PRN PRN Reason: CIWA 16 or higher Stop: 02/08/19 09:47 Methylprednisolone Sodium Succinate (Solu-Medrol) 60 mg IV Q6HR [facility] Last Admin: 02/06/19 17:31 Dose: 60 mg Documented by: Miscellaneous Information (Pneumonia Protocol Utilized) 1 each PO ONCE PRN PRN Reason: Per Protocol Montelukast Sodium (Singulair) 10 mg PO [facility] Last Admin: 02/06/19 20:43 Dose: 10 mg Documented by: Sodium Bicarbonate (Sodium Bicarbonate Tab) 1,300 mg PO BID [facility] Last Admin: 02/06/19 20:44 Dose: 1,300 mg Documented by: Thiamine HCl (Vitamin B-1) 100 mg PO BID-W/[facility] Last Admin: 02/06/19 17:31 Dose: 100 mg Documented by: Tramadol HCl (Ultram) 50 mg PO BID [facility] Last Admin: 02/06/19 20:44 Dose: 50 mg Documented by: Home Medications Medication Instructions Recorded Confirmed Type Apixaban [Eliquis] 5 mg PO BID 01/30/19 02/05/19 History Atenolol [Tenormin] 25 mg PO DAILY 01/30/19 02/05/19 History Atorvastatin Calcium [Lipitor] 10 mg PO 01/30/19 02/05/19 History Cetirizine HCl [Zyrtec] 10 mg PO DAILY 01/30/19 02/05/19 History Montelukast Sodium [Singulair] 10 mg PO HS 01/30/19 02/05/19 History Sulfamethox-Tmp 800-160Mg [Bactrim 2 tab PO Q12HR 14 Days #56 tab 01/30/19 02/05/19 Rx DS 800-160 mg] amLODIPine [Norvasc] 5 mg PO DAILY 01/30/19 02/05/19 History traMADol HCL [Ultram] 50 mg PO BID 06/11/19 06/17/19 History Allergies Allergy/AdvReac Type Severity Reaction Status Date / Time aspirin Allergy Anaphylaxis Verified 02/05/19 07:43 Physical Exam Vitals: Vital Signs Temp Pulse Pulse Resp BP BP Pulse Ox 02/06/19 19:00 60 26 H 89/61 94 L 02/06/19 18:30 58 L 22 107/73 95 02/06/19 18:00 66 22 110/79 94 L 02/06/19 17:30 69 22 113/82 92 L 02/06/19 17:00 74 22 120/83 94 L 02/06/19 16:00 97.9 F 70 22 119/85 93 L 02/06/19 15:00 61 25 H 108/80 93 L 02/06/19 14:00 70 25 H 135/91 93 L 02/06/19 13:00 61 22 101/66 93 L 02/06/19 12:30 64 21 112/73 94 L 02/06/19 12:00 68 25 H 88/62 95 02/06/19 11:30 73 36 H 82/54 93 L 02/06/19 11:00 78 20 123/84 95 02/06/19 10:30 82 25 H 131/78 94 L 02/06/19 10:00 96 30 H 127/91 95 02/06/19 09:30 102 H 34 H 119/73 93 L 02/06/19 09:00 97 31 H 108/63 93 L 02/06/19 08:30 93 24 129/69 92 L 02/06/19 08:00 104 H 138 H 30 H 91 L 02/06/19 07:45 97 32 H 116/68 92 L 02/06/19 07:30 113 H 32 H 123/86 91 L 02/06/19 07:15 135 H 23 136/86 86 L 02/06/19 07:00 133 H 33 H 148/108 89 L 02/06/19 06:45 100.9 F H 125 H 34 H 148/108 02/06/19 06:37 123 H 02/06/19 06:32 121 H 38 H 02/06/19 06:10 138 H 30 H 191/102 89 L 02/06/19 05:57 191/111 02/06/19 05:56 32 H 77 L 02/06/19 05:54 98.2 F 02/06/19 05:45 147 H 32 H 209/108 84 L 02/06/19 05:02 97.3 F L 112 H 20 144/79 93 L 02/06/19 04:48 88 02/06/19 04:30 92 02/06/19 01:20 88 22 92 L 02/06/19 00:33 84 02/06/19 00:13 88 02/05/19 23:45 99.1 F 112 H 28 H 179/83 91 L 02/05/19 23:34 141 H 02/05/19 23:00 101.1 F H 97 20 117/74 93 L Intake and Output 02/06/19 02/06/19 02/06/19 06:59 14:59 22:59 Intake Total 1590 487.083 780 Output Total 1475 250 Balance 1590 -987.917 530 Intake: IV 100 100 0.9ns 100 100 Intake, IV Titration 1000 387.083 200 Amount Azithromycin 500 mg In 250 Sodium Chloride 0.9% 250 ml @ 250 mls/hr IVPB DAILY [facility] Rx#:[id number] Diltiazem 125 mg In 37.083 Sodium Chloride 0.9% 100 ml @ 5 MG/HR 5 mls/hr IV .Q24H [facility] Rx#:[id number] Piperacillin-Tazobactam 3 100 .375 gm In Sodium Chloride 0.9% 100 ml @ 25 mls/hr IVPB Q8HR [facility] Rx# :[id number] Sodium Chloride 0.9% 1, 900 000 ml @ 100 mls/hr IV . Q10H [facility] Rx#:[id number] Sodium Chloride 0.9% 500 200 ml 200 ml @ 999 mls/hr IV .Q13M [facility] Rx#:[id number] cefTRIAXone 1 gm In 100 Sodium Chloride 0.9% 50 ml @ 100 mls/hr IVPB Q24HR [facility] Rx#:[id number] Oral 590 480 Output: Urine 1475 250 Other: Voiding Method Toilet Urinal Urinal Urinal # Voids 1 1 # Bowel Movements 1 1 HEENT: Anicteric conjunctiva are pink and moist nasal mucosa grossly intact without significant lesions, there is no thrush. Neck: The neck is supple without significant lymphadenopathy or thyromegaly. Lungs:Symmetrical air entry is noted, bibasilar crackles are noted. Scattered expiratory wheezes are noted no dullness or egophony Heart: Irregular regular, audible S1 and S2, 2/6 systolic murmur left sternal border PMI is nondisplaced Abdomen: Positive bowel sounds soft and nontender without palpable masses or organomegaly. There was no guarding or rebound. Extremities: The upper extremities have excellent pulses they are symmetric, no significant petechiae or telangiectasia. No splinter hemorrhages were noted. the lower extremities have evidence without open ulcerations Skin has evidence of discoloration more prominent at the left lower extremity, apparently this is the site that was being treated with bactrim with concers to cellulits, no warmth or open ulcers noted at this time. Has a maculoar rash of the lower back and upper legs non puritic, non vesicular. Neuro: Awake alert oriented to person place and time. There are no acute new gross focal sensory motor deficits. Results CBC & Chem 7: 02/06/19 08:12 02/06/19 17:10 Labs: Abnormal Lab Results - Last 24 Hours (Table) 02/06/19 02/06/19 02/06/19 Range/Units 05:54 08:12 08:12 WBC 17.0 H (3.8-10.6) k/uL RBC 4.06 L (4.30-5.90) m/uL Hgb 12.1 L (13.0-17.5) gm/dL Hct 38.1 L (39.0-53.0) % RDW 16.7 H (11.5-15.5) % Neutrophils # 15.7 H (1.3-7.7) k/uL Lymphocytes # 0.6 L (1.0-4.8) k/uL Sodium 136 L (137-145) mmol/L Potassium 5.3 H (3.5-5.1) mmol/L Carbon Dioxide 15 L (22-30) mmol/L Creatinine 1.66 H (0.66-1.25) mg/dL Glucose 125 H (74-99) mg/dL POC Glucose (mg/dL) 110 H (75-99) mg/dL Microbiology - Last 24 Hours (Table) 02/05/19 05:45 Urine Culture - Final Urine,Clean Catch 02/05/19 03:19 Blood Culture - Preliminary Blood No Growth after 24 hours 02/05/19 17:50 Gram Stain - Preliminary Sputum Sputum Culture - Preliminary Laboratory Results WBC 17.0 k/uL (3.8-10.6) H 02/06/19 08:12 RBC 4.06 m/uL (4.30-5.90) L 02/06/19 08:12 Hgb 12.1 gm/dL (13.0-17.5) L 02/06/19 08:12 Hct 38.1 % (39.0-53.0) L 02/06/19 08:12 MCV 93.8 fL (80.0-100.0) 02/06/19 08:12 MCH 29.7 pg (25.0-35.0) 02/06/19 08:12 MCHC 31.6 g/dL (31.0-37.0) 02/06/19 08:12 RDW 16.7 % (11.5-15.5) H 02/06/19 08:12 Plt Count 329 k/uL (150-450) 02/06/19 08:12 Neutrophils % 92 % 02/06/19 08:12 Lymphocytes % 3 % 02/06/19 08:12 Monocytes % 2 % 02/06/19 08:12 Eosinophils % 1 % 02/06/19 08:12 Basophils % 0 % 02/06/19 08:12 Neutrophils # 15.7 k/uL (1.3-7.7) H 02/06/19 08:12 Lymphocytes # 0.6 k/uL (1.0-4.8) L 02/06/19 08:12 Monocytes # 0.4 k/uL (0-1.0) 02/06/19 08:12 Eosinophils # 0.1 k/uL (0-0.7) 02/06/19 08:12 Basophils # 0.0 k/uL (0-0.2) 02/06/19 08:12 Anisocytosis Slight 02/06/19 08:12 PT 12.0 sec (9.0-12.0) 02/05/19 03:19 INR 1.1 (<1.2) 02/05/19 03:19 APTT 28.8 sec (22.0-30.0) 02/05/19 03:19 Sodium 136 mmol/L (137-145) L 02/06/19 08:12 Potassium 4.4 mmol/L (3.5-5.1) 02/06/19 17:10 Chloride 104 mmol/L (98-107) 02/06/19 08:12 Carbon Dioxide 15 mmol/L (22-30) L 02/06/19 08:12 Anion Gap 17 mmol/L 02/06/19 08:12 BUN 18 mg/dL (9-20) 02/06/19 08:12 Creatinine 1.66 mg/dL (0.66-1.25) H 02/06/19 08:12 Est GFR (CKD-EPI)AfAm 48 (>60 ml/min/1.73 sqM) 02/06/19 08:12 Est GFR (CKD-EPI)NonAf 42 (>60 ml/min/1.73 sqM) 02/06/19 08:12 Glucose 125 mg/dL (74-99) H 02/06/19 08:12 POC Glucose (mg/dL) 110 mg/dL (75-99) H 02/06/19 05:54 POC Glu Woodworker ID 02/06/19 05:54 Lactic Ac Sepsis Rflx Y 02/05/19 04:31 Plasma Lactic Acid Vance 1.5 mmol/L (0.7-2.0) 02/05/19 07:39 Calcium 8.6 mg/dL (8.4-10.2) 02/06/19 08:12 Total Bilirubin 0.9 mg/dL (0.2-1.3) 02/06/19 08:12 AST 55 U/L (17-59) 02/06/19 08:12 ALT 26 U/L (21-72) 02/06/19 08:12 Alkaline Phosphatase 79 U/L (38-126) 02/06/19 08:12 Troponin I 0.119 ng/mL (0.000-0.034) H* 02/05/19 18:25 NT-Pro-B Natriuret Pep 7800 pg/mL 02/05/19 11:18 Total Protein 7.2 g/dL (6.3-8.2) 02/06/19 08:12 Albumin 4.0 g/dL (3.5-5.0) 02/06/19 08:12 Urine Color Yellow 02/05/19 05:45 Urine Appearance Clear (Clear) 02/05/19 05:45 Urine pH 6.0 (5.0-8.0) 02/05/19 05:45 Ur Specific [place]ichael 1.016 (1.001-1.035) 02/05/19 05:45 Urine Protein 1+ (Negative) H 02/05/19 05:45 Urine Glucose (UA) Negative (Negative) 02/05/19 05:45 Urine Ketones Negative (Negative) 02/05/19 05:45 Urine Blood Negative (Negative) 02/05/19 05:45 Urine Nitrite Negative (Negative) 02/05/19 05:45 Urine Bilirubin Negative (Negative) 02/05/19 05:45 Urine Urobilinogen <2.0 mg/dL (<2.0) 02/05/19 05:45 Ur Leukocyte Esterase Negative (Negative) 02/05/19 05:45 Urine RBC <1 /hpf (0-5) 02/05/19 05:45 Urine WBC 2 /hpf (0-5) 02/05/19 05:45 Urine Bacteria Rare /hpf (None) H 02/05/19 05:45 Cellular Casts 1 /lpf (0) 02/05/19 05:45 Hyaline Casts 3 /lpf (0-2) H 02/05/19 05:45 Granular Casts 1 /lpf (0) 02/05/19 05:45 Urine Mucus Rare /hpf (None) H 02/05/19 05:45 C. difficile (EIA) Intrp Negative (Negative) 02/06/19 00:15 Microbiology 02/05/19 05:45 Urine,Clean Catch Urine Culture - Final 02/05/19 03:19 Blood Blood Culture - Preliminary No Growth after 24 hours 02/05/19 17:50 Sputum Gram Stain - Preliminary 02/05/19 17:50 Sputum Sputum Culture - Preliminary Chest x-ray: report reviewed (bilateral infiltrates at bases COPD) Assessment and Plan (1) Sepsis Current Visit: Yes Status: Acute Code(s): A41.9 - SEPSIS, UNSPECIFIED ORGANISM SNOMED Code(s): 47305736 (2) CAP (community acquired pneumonia) Narrative/Plan: 68-year-old male with underlying COPD and cardiovascular disease with atrial fibrillation, is chronically anticoagulated presents to hospital with significant shortness of breath and exacerbation of COPD. However his abnormal chest x-ray and likely has commuted acquired pneumonia. Antibiotic therapy is with Rocephin and azithromycin for now and clinically he starting to improve. Leukocytosis is multifactorial including the pneumonia, and steroid therapy for his COPD. The patient did develop a bit of a rash and was being treated in the outpatient setting for cellulitis with Bactrim. Despite that he had no improvement. This would make streptococcal infection of concern both as far as pneumonia and skin if that was an issue because of the lack of streptococcal coverage with sulfa drugs. We'll monitor his response to current antibiotics. Does not appear to have cellulitis of lower extremity. The macular rash could be on the basis of the recent sulfa therapy and is being watched. It is not pruritic, skin moisturizer can be applied. Cultures are process to help further direct therapy. Current Visit: Yes Status: Acute Code(s): J18.9 - PNEUMONIA, UNSPECIFIED ORGANISM SNOMED Code(s): 069793577 (3) Acute renal failure Current Visit: Yes Status: Acute Code(s): N17.9 - ACUTE KIDNEY FAILURE, UNSPECIFIED SNOMED Code(s): 11224917 (4) Leukocytosis Current Visit: Yes Status: Acute Code(s): D72.829 - ELEVATED WHITE BLOOD CELL COUNT, UNSPECIFIED SNOMED Code(s): 042039242
[2019-02-07] MEDS: methylPREDNISolone SOD SUCCI 125 MG/2 ML VIAL IV SCH ×2 (00:50→06:38)
[2019-02-07 05:02] LABS: Anisocytosis Slight; Basophils % (A) 0 %; Eosinophils % (A) 0 %; HGB 12.1 gm/dL (13.0-17.5); Hypochromasia Slight; Lymphocytes # (A) 1.7 k/uL (1.0-4.8); Lymphocytes % (A) 10 %; MCH 29.6 pg (25.0-35.0); MCHC 30.9 g/dL (31.0-37.0); MCV 95.7 fL (80.0-100.0); Mean Platelet Volume 7.6; Monocytes # (A) 0.3 k/uL (0-1.0); Monocytes % (A) 2 %; Neutrophils # (A) 14.3 k/uL (1.3-7.7); Neutrophils % (A) 86 %; Platelet Count 270 k/uL (150-450); RBC 4.08 m/uL (4.30-5.90); RDW 16.7 % (11.5-15.5); WBC 16.7 k/uL (3.8-10.6)
[2019-02-07 05:11] LABS: Calcium 8.2 mg/dL (8.4-10.2); Phosphorus 3.8 mg/dL (2.5-4.5); Potassium 4.4 mmol/L (3.5-5.1)
[2019-02-07] MEDS: THIAMINE 100 MG TAB PO SCH ×2 (06:39→17:06)
[2019-02-07] MEDS: AMIODARONE 300 MG in DEXTROSE 5% IN WATER 250 ML IV SCH ×2 (06:41)
[2019-02-07] MEDS: IPRATROPIUM-ALBUTEROL 3 ML NEB INHALATION PRN ×3 (07:49→19:31)
--- NOTE | 2019-02-07 07:59 | XR ---
EXAMINATION TYPE: XR chest 1V portable DATE OF EXAM: 02/07/2019 COMPARISON: Prior chest x-ray 02/06/2019 HISTORY: Abnormal chest x-ray, assess fluid overload TECHNIQUE: Single frontal view of the chest is obtained. FINDINGS: Interstitium remains increased. Heart remains enlarged. No pneumothorax or evident effusio n. Aorta is dense. IMPRESSION: Correlate for pulmonary venous hypertension and interstitial edema, there is underlying interstitial lung disease
[2019-02-07] MEDS: ATENOLOL 25 MG TAB PO SCH (08:51)
[2019-02-07] MEDS: AZITHROMYCIN 500 MG in SODIUM CHLORIDE 0.9% 250 ML IVPB SCH (08:51)
[2019-02-07] MEDS: APIXABAN 5 MG TAB PO SCH ×2 (08:51→20:26)
[2019-02-07] MEDS: SODIUM BICARBONATE TAB 650 MG TAB PO SCH ×2 (08:51→20:26)
[2019-02-07] MEDS: LORATADINE 10 MG TAB PO SCH (08:51)
[2019-02-07] MEDS ORDERED: SODIUM BICARB 8.4% 50 ML SYR (1 MEQ/ML) IV STA (10:03)
--- NOTE | 2019-02-07 10:04 | P.PN ---
Subjective Patient is seen in follow-up for acute kidney injury. Patient's baseline creatinine is near 1 and peaked at 1.66-7 admission. It is down to 1.4 today. He is currently maintained on amiodarone drip and will be transitioned over to oral amiodarone this afternoon. Patient became dyspneic with ambulation last night. He received 200 mL bolus. He admits to good urine output. Oral intake is good. No vomiting or diarrhea. Vital signs are stable. General: The patient appeared well nourished and normally developed. HEENT: Head exam is unremarkable. Neck is without jugular venous distension. LUNGS: Lungs are clear to auscultation and percussion. Breath sounds decreased. HEART: Regular rate and rhythm. ABDOMEN: Abdominal exam reveals normal bowel sounds. Non-tender and non- distended. EXTREMITITES: Trace edema. Objective - Vital Signs Vital signs: Vital Signs Temp 98 F 02/07/19 04:00 Pulse 67 02/07/19 07:49 Resp 21 02/07/19 06:30 BP 126/73 02/07/19 06:30 Pulse Ox 97 02/07/19 06:30 Intake & Output 02/06/19 02/07/19 02/07/19 18:59 06:59 18:59 Intake Total 045.833 4198 Output Total 1725 500 Balance -5430.504 4012 Weight 88.7 kg Intake: IV 180 817 0.9ns 180 460 Amiodarone 300 mg In 225 Dextrose 5% in Water 250 ml @ 0.5 MG/MIN 25 mls/hr IV .Q10H [facility] Rx#: [id number] Amiodarone 360 mg In 132 Dextrose 5% in Water 200 ml @ 1 MG/MIN 33.333 mls/ hr IV .Q6H [facility] Rx#: [id number] Intake, IV Titration 387.083 650 Amount Amiodarone 300 mg In 250 Dextrose 5% in Water 250 ml @ 0.5 MG/MIN 25 mls/hr IV .Q10H [facility] Rx#: [id number] Amiodarone 360 mg In 200 Dextrose 5% in Water 200 ml @ 1 MG/MIN 33.333 mls/ hr IV .Q6H [facility] Rx#: [id number] Azithromycin 500 mg In 250 Sodium Chloride 0.9% 250 ml @ 250 mls/hr IVPB DAILY [facility] Rx#:[id number] Diltiazem 125 mg In 37.083 Sodium Chloride 0.9% 100 ml @ 5 MG/HR 5 mls/hr IV .Q24H [facility] Rx#:[id number] Sodium Chloride 0.9% 500 200 ml 200 ml @ 999 mls/hr IV .Q13M [facility] Rx#:[id number] cefTRIAXone 1 gm In 100 Sodium Chloride 0.9% 50 ml @ 100 mls/hr IVPB Q24HR [facility] Rx#:[id number] Oral 120 1160 Output: Urine 1725 500 Other: Voiding Method Urinal Urinal # Voids 1 # Bowel Movements 1 - Labs CBC & Chem 7: 02/07/19 04:29 02/07/19 04:29 Labs: Abnormal Lab Results - Last 24 Hours (Table) 02/07/19 02/07/19 Range/Units 04:29 04:29 WBC 16.7 H (3.8-10.6) k/uL RBC 4.08 L (4.30-5.90) m/uL Hgb 12.1 L (13.0-17.5) gm/dL MCHC 30.9 L (31.0-37.0) g/dL RDW 16.7 H (11.5-15.5) % Neutrophils # 14.3 H (1.3-7.7) k/uL Sodium 132 L (137-145) mmol/L Carbon Dioxide 14 L (22-30) mmol/L BUN 27 H (9-20) mg/dL Creatinine 1.40 H (0.66-1.25) mg/dL Glucose 116 H (74-99) mg/dL Calcium 8.2 L (8.4-10.2) mg/dL Microbiology - Last 24 Hours (Table) 02/05/19 03:19 Blood Culture - Preliminary Blood No Growth after 48 hours 02/05/19 22:32 Blood Culture - Preliminary Blood No Growth after 24 hours 02/05/19 22:32 Blood Culture - Preliminary Blood No Growth after 24 hours 02/05/19 05:45 Urine Culture - Final Urine,Clean Catch Assessment and Plan Plan: Assessment: 1. Acute kidney injury secondary to ATN secondary to hemodynamic instability. Baseline creatinine near 1 and peaked at 1.66-7 admission. It is 1.4 today. No evidence of hydronephrosis noted on renal ultrasound. 2. A. fib with RVR maintain on amiodarone drip. Also on anticoagulation. Cardiology following. 3. Mild hyperkalemia secondary to acute kidney injury and metabolic acidosis. Better. 4. Metabolic acidosis secondary to acute kidney injury. 5. Suspected community-acquired pneumonia maintained on antibiotics. 6. COPD exacerbation. Plan: Hold off on diuretics. Continue to monitor renal function and urine output. Maintain oral sodium bicarbonate. 2 A of bicarb IV push.
--- NOTE | 2019-02-07 11:32 | P.PN ---
Subjective Progress Note Date: 02/07/19 Principal diagnosis: Acute exacerbation of COPD This is a very pleasant 68-year-old gentleman who follows with Dr. Art as his primary care physician. He has a history of hypertension, hyperlipidemia, atrophic fibrillation anticoagulated with Eliquis. He also has been having i ssues with shortness of breath cough and congestion and was due to see Dr. Glover next month in our office. He is recently been using his 's nebulizer and rescue inhaler. He does have a history of chronic tobacco dependence but quit smoking approximately 3 years ago. He presented here to the emergency room earlier this morning with complaints of worsening shortness of breath, cough and congestion. He also had issues with nausea and vomiting. He has been undergoing treatment for cellulitis of the right lower extremity as well. Further right lower extremity revealed no evidence of fracture. There is mild multifocal soft tissue swelling. No evidence of osteomyelitis. Doppler ruled o ut DVT. Chest x-ray reveals patchy bilateral lung opacities more prominent at the bases. Small pleural effusions. CT angiogram was suboptimal. There was areas of acute infiltrate or edema most prominent in the bilateral lung bases on background emphysematous changes and mild to moderate fibrosis. 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 Ultrasound of the abdomen ruled out hydronephrosis. No nephrolithiasis. Urine culture pending. White count 17.7. Hemoglobin 12.0. Creatinine 1.53. Lactic acid 3.9, down to 1.5, troponin 0.174. ProBNP 7800. Patient is seen today in consultation on the regular medical floor. He is awake and alert in no acute distress. He has a loose nonproductive cough. No current chills or night sweats. T-max of 101.6, currently afebrile. 18 in good O2 saturations in the mid 90s on 2 L/m per nasal cannula. Hemodynamically stable. He's been initiated on DuoNeb inhalations and Zosyn. Anticoagulated with Eliquis. Patient was reevaluated on 02/06/2019, patient had a downhill course overnight, apparently he developed atrial fibrillation with RVR, some component of interstitial edema based on the chest x-ray, extreme agitation and extreme shortness of breath requiring transfer to the intensive care unit. Patient is a DO NOT INTUBATE CODE STATUS, hence he was transferred to the ICU, placed on Cardizem drip, also given diuretics for his interstitial edema, and he was placed on the [place] protocol for his history of alcoholism. When I saw the patient in the ICU, he was already feeling better, call me down, continues to refuse using BiPAP. His atrial fibrillation seems to be better controlled on Cardizem drip. WBC count is 17 hemoglobin is 12 left was are normal bicarb was noted to be low at 15 anion gap was 17, BUN 18 creatinine 1.66. Troponin was noted to be a bit elevated, and BNP level was also elevated. Chest x-ray again is suggestive of worsening interstitial edema and underlying pneumonia as noted on CT of the chest on admission. Patient remains on antibiotics, bronchodilators, and now on Cardizem, he was also placed on diuretics. Patient was seen today on 02/07/2019, remains in the ICU, patient required amiodarone drip, and he is presently in sinus rhythm. Mentation seems to be improving. Patient is calm, he is on the alcohol withdrawal protocol. Patient had slightly low blood pressure last night require 20 mL of fluid boluses, continues to have good urine output, patient was given 1 dose of Lasix yesterday, and he responded quite well to the Lasix early in the morning yesterday. Chest x-ray continues to show mild interstitial edema. Patient remains on bronchodilators, steroids, antibiotics for his underlying COPD and possible pneumonia. Labs today showed WBC of 16.7 hemoglobin of 12 left lites are normal BUN is 27 creatinine is down to 1.40. Objective - Vital Signs Vital signs: Vital Signs Temp 98 F 02/07/19 04:00 Pulse 59 L 02/07/19 11:20 Resp 21 02/07/19 06:30 BP 126/73 02/07/19 06:30 Pulse Ox 97 02/07/19 06:30 Intake & Output 02/06/19 02/07/19 02/07/19 18:59 06:59 18:59 Intake Total 817.834 5309 Output Total 1725 500 Balance -5295.900 8228 Weight 88.7 kg Intake: IV 180 817 0.9ns 180 460 Amiodarone 300 mg In 225 Dextrose 5% in Water 250 ml @ 0.5 MG/MIN 25 mls/hr IV .Q10H [facility] Rx#: [id number] Amiodarone 360 mg In 132 Dextrose 5% in Water 200 ml @ 1 MG/MIN 33.333 mls/ hr IV .Q6H [facility] Rx#: [id number] Intake, IV Titration 387.083 650 Amount Amiodarone 300 mg In 250 Dextrose 5% in Water 250 ml @ 0.5 MG/MIN 25 mls/hr IV .Q10H [facility] Rx#: [id number] Amiodarone 360 mg In 200 Dextrose 5% in Water 200 ml @ 1 MG/MIN 33.333 mls/ hr IV .Q6H [facility] Rx#: [id number] Azithromycin 500 mg In 250 Sodium Chloride 0.9% 250 ml @ 250 mls/hr IVPB DAILY [facility] Rx#:[id number] Diltiazem 125 mg In 37.083 Sodium Chloride 0.9% 100 ml @ 5 MG/HR 5 mls/hr IV .Q24H [facility] Rx#:[id number] Sodium Chloride 0.9% 500 200 ml 200 ml @ 999 mls/hr IV .Q13M [facility] Rx#:[id number] cefTRIAXone 1 gm In 100 Sodium Chloride 0.9% 50 ml @ 100 mls/hr IVPB Q24HR [facility] Rx#:[id number] Oral 120 1160 Output: Urine 1725 500 Other: Voiding Method Urinal Urinal # Voids 1 # Bowel Movements 1 - Exam Physical Exam: Revealed a 68-year-old white male less anxious today, in no distress. Head: Atraumatic, normocephalic. HEENT:[Neck is supple.] [No neck masses.] [No thyromegaly.] [No JVD.] PERRLA, EOMI, no icterus, Chest: [Minimal crackles at the bases, some wheezing on forced expiratory maneuver bilaterally.] Cardiac Exam: Regular rate and rhythm. [Normal S1 and S2, no S3 gallop, no murmur.] Abdomen: Obese, [Soft, nontender, no megaly, no rebound, no guarding, normal bowel sounds.] Extremities: [No clubbing, trace of edema edema, no cyanosis.] Neurological Exam: [No focal neurologic deficit.] Alert and oriented 3. Psychiatric: Normal mood affect and normal mental status examination. Skin: No rashes. - Labs CBC & Chem 7: 02/07/19 04:29 02/07/19 04:29 Labs: Abnormal Lab Results - Last 24 Hours (Table) 02/07/19 02/07/19 Range/Units 04:29 04:29 WBC 16.7 H (3.8-10.6) k/uL RBC 4.08 L (4.30-5.90) m/uL Hgb 12.1 L (13.0-17.5) gm/dL MCHC 30.9 L (31.0-37.0) g/dL RDW 16.7 H (11.5-15.5) % Neutrophils # 14.3 H (1.3-7.7) k/uL Sodium 132 L (137-145) mmol/L Carbon Dioxide 14 L (22-30) mmol/L BUN 27 H (9-20) mg/dL Creatinine 1.40 H (0.66-1.25) mg/dL Glucose 116 H (74-99) mg/dL Calcium 8.2 L (8.4-10.2) mg/dL Microbiology - Last 24 Hours (Table) 02/05/19 03:19 Blood Culture - Preliminary Blood No Growth after 48 hours 02/05/19 22:32 Blood Culture - Preliminary Blood No Growth after 24 hours 02/05/19 22:32 Blood Culture - Preliminary Blood No Growth after 24 hours 02/05/19 05:45 Urine Culture - Final Urine,Clean Catch Assessment and Plan Assessment: #1 Acute exacerbation of suspected chronic obstructive pulmonary disease secondary to suspected community-acquired pneumonia and possible underlying pulmonary fibrosis #2 Febrile illness secondary to above. Resolved. #3 Leukocytosis secondary to above. Improving. #4 lactic acidosis, recovered. #5 Acute kidney injury. Improving. #6 Cellulitis of the right lower extremity treated with Bactrim in the outpatient setting. #7 paroxysmal atrial fibrillation presently in sinus rhythm on amiodarone drip #8 Hypertension. #9 Hyperlipidemia. #10 atrial fibrillation with RVR presently under control #11 suspect interstitial edema secondary to atrial fibrillation with RVR, noted to improve on chest x-ray today. And responded well to Lasix. #12 suspect acute ALLERGIC dermatitis secondary to Zosyn. #13 suspect acute alcohol withdrawal hence the patient was placed on the alcohol withdrawal protocol. Recommendation: Continue present treatment plan, consider transfer the patient to a monitor bed on selective. Continue antibiotics, diuretics, GI and DVT prophylaxis, bronchodilators, alcohol withdrawal protocol, will continue to follow. Discussed his condition with nephrology on the case. Time with Patient: Less than 30
[2019-02-07 11:57] LABS: Glucose,Whole Blood 128 mg/dL (75-99)
[2019-02-07] MEDS: methylPREDNISolone SOD SUCCI 40 MG/ML 1 ML VIAL IV SCH ×3 (12:30→20:25)
[2019-02-07] MEDS: PIPERACILLIN-TAZOBACTAM 3.375 GM in SODIUM CHLORIDE 0.9% 100 ML IVPB SCH (14:02)
[2019-02-07] MEDS: AMIODARONE 200 MG TAB PO SCH ×2 (15:03→22:31)
[2019-02-07] MEDS: traMADol 50 MG TAB PO SCH (15:08)
--- NOTE | 2019-02-07 15:23 | P.PN ---
Subjective Progress Note Date: 02/07/19 Principal diagnosis: Co. HCl ngestive heart failure. A KI. History of alcohol intake, mild confusion, rule out impending DT. Pneumonia retrocardiac. Pulmonary fibrosis Atrial fibrillation with rapid ventricular response Advanced COPD Sepsis with pyrexia. well as a consultation with Dr. Rubens Downing for infectious disease with the underlying sepsis and ALLERGY to Zosyn. Patient subsequently placed on the Rocephin and azithromycin. He had severe rash on the back macular and spreading on almost the whole back without itching, to be from. Zosyn. Patient however was treated 1 week prior to thatz Bactrim DS twice a day for cellulitis of the right foot. Laboratory today: Her WBC 16.7 could be combined with the D margination of the steroid with increased white count to with the IV Solu-Medrol. Hemoglobin is 12.1 and hematocrit 39. Sodium 132 and potassium 4.4 her creatinine improved left, however she had metabolic acidosis with the carbon dioxide 14, her creatinine improved from 1.66-1.40, magnesium is normal 2 point Medication: #1 amiodarone has been increased to 400 mg twice a day for controlling his atrial fibrillation with success. #2 Atenol L 25 mg daily. #3 atorvastatin 10 mg daily at bedtime. #4 azithromycin 500 mg by mouth daily. #5 Ceftriaxone 1 g every 1224 hour daily #6 thiamine 100 mg by mouth twice a day with meals. #71. Past 10 mg once a day #8 sodium bicarb 1300 mg by mouth twice a day with the underlying metabolic acidosis. Physical exam in the ICU: Patient is conscious alert intermittently confused. HEENT was normal negative with the underlying history of decayed tooth. Hard of hearing. Neck was supple no thyromegaly no lymphadenopathy with the presence of JVD associated with pulmonary hypertension. The chest was created in the upper lung puga with the underlying dry rhonchi's in the lower lung field with the underlying pulmonary fibrosis and history of interstitial disease as well as the improvement on the pulmonary congestion. The heart still irregular irregularity was controlled ventricular response. We'll severe pulmonary hypertension and dilatation of the right and left atrium, his ejection fraction 50-55. Right ventricle severely enlarged and right ventricular systolic function is moderately impaired he had left atrium severely dilated right atrium moderately enlarged, mild aortic regurgitation and mild aor tic valve sclerosis and moderate mitral regurgitation and severe tricuspid regurg and severe pulmonary hypertension with a right ventricular systolic pressure 70.5/mm of mercury associated rashes pulmonary Abdomen: Soft positive bowel sound no tenderness in the four-quadrant, extremities: No edema and positive pulses. Neurologically: No lateralizing sign moving 4 extremities. Assessment: #1 multiple medical problem #2 atrial fibrillation with RVR #3 congestive heart failure acute probably biventricular and despite of ejection fraction 50% #4 underlying pneumonia retrocardiac sepsis #5 severe pulmonary hypertension. #6 acute kidney injury secondary to ATN secondary to hemodynamic instability. Ultrasound of the kidney was negative, #7 metabolic acidosis on sodium bicarbonate secondary to acute kidney injury. #8 community-acquired pneumonia #9 COPD with the deterioration with the asbestos exposure and pulmonary fibrosis. Objective - Vital Signs Vital signs: Vital Signs Temp 97.3 F L 02/07/19 12:00 Pulse 57 L 02/07/19 14:00 Resp 22 02/07/19 14:00 BP 122/88 02/07/19 14:00 Pulse Ox 96 02/07/19 14:00 Intake & Output 02/06/19 02/07/19 02/07/19 18:59 06:59 18:59 Intake Total 948.213 6385 150 Output Total 1725 500 Balance -7989.744 6078 150 Weight 88.7 kg Intake: IV 180 817 50 0.9ns 180 460 50 Amiodarone 300 mg In 225 Dextrose 5% in Water 250 ml @ 0.5 MG/MIN 25 mls/hr IV .Q10H [facility] Rx#: [id number] Amiodarone 360 mg In 132 Dextrose 5% in Water 200 ml @ 1 MG/MIN 33.333 mls/ hr IV .Q6H [facility] Rx#: [id number] Intake, IV Titration 387.083 650 100 Amount Amiodarone 300 mg In 250 Dextrose 5% in Water 250 ml @ 0.5 MG/MIN 25 mls/hr IV .Q10H [facility] Rx#: [id number] Amiodarone 360 mg In 200 Dextrose 5% in Water 200 ml @ 1 MG/MIN 33.333 mls/ hr IV .Q6H [facility] Rx#: [id number] Azithromycin 500 mg In 250 Sodium Chloride 0.9% 250 ml @ 250 mls/hr IVPB DAILY [facility] Rx#:[id number] Diltiazem 125 mg In 37.083 Sodium Chloride 0.9% 100 ml @ 5 MG/HR 5 mls/hr IV .Q24H [facility] Rx#:[id number] Sodium Chloride 0.9% 500 200 ml 200 ml @ 999 mls/hr IV .Q13M [facility] Rx#:[id number] cefTRIAXone 1 gm In 100 100 Sodium Chloride 0.9% 50 ml @ 100 mls/hr IVPB Q24HR [facility] Rx#:[id number] Oral 120 1160 Output: Urine 1725 500 Other: Voiding Method Urinal Urinal # Voids 1 1 # Bowel Movements 1 - Labs CBC & Chem 7: 02/07/19 04:29 02/07/19 04:29 Labs: Abnormal Lab Results - Last 24 Hours (Table) 02/07/19 02/07/19 02/07/19 Range/Units 04:29 04:29 11:54 WBC 16.7 H (3.8-10.6) k/uL RBC 4.08 L (4.30-5.90) m/uL Hgb 12.1 L (13.0-17.5) gm/dL MCHC 30.9 L (31.0-37.0) g/dL RDW 16.7 H (11.5-15.5) % Neutrophils # 14.3 H (1.3-7.7) k/uL Sodium 132 L (137-145) mmol/L Carbon Dioxide 14 L (22-30) mmol/L BUN 27 H (9-20) mg/dL Creatinine 1.40 H (0.66-1.25) mg/dL Glucose 116 H (74-99) mg/dL POC Glucose (mg/dL) 128 H (75-99) mg/dL Calcium 8.2 L (8.4-10.2) mg/dL Microbiology - Last 24 Hours (Table) 02/05/19 03:19 Blood Culture - Preliminary Blood No Growth after 48 hours 02/05/19 22:32 Blood Culture - Preliminary Blood No Growth after 24 hours 02/05/19 22:32 Blood Culture - Preliminary Blood No Growth after 24 hours 02/05/19 05:45 Urine Culture - Final Urine,Clean Catch
[2019-02-07 16:35] LABS: Glucose,Whole Blood 140 mg/dL (75-99)
--- NOTE | 2019-02-07 16:51 | P.PN ---
Subjective Progress Note Date: 02/07/19 This is a 68-year-old gentleman who was admitted to the hospital with acute respiratory distress who developed atypical fibrillation with rapid ventricular response. Patient was initially treated with IV Cardizem. He was changed to IV amiodarone. Yesterday. His rate is controlled. She is also on anticoagulation therapy with Eliquis. Patient is hemodynamically stable. We'll going to change to by mouth amiodarone after completion of the amiodarone drip. He'll start on 400 mg by mouth twice a day. Rest of the medication to be continued Objective - Vital Signs Vital signs: Vital Signs Temp 97.7 F 02/07/19 16:00 Pulse 67 02/07/19 16:00 Resp 14 02/07/19 16:00 BP 117/78 02/07/19 16:00 Pulse Ox 96 02/07/19 16:00 Intake & Output 02/06/19 02/07/19 02/07/19 18:59 06:59 18:59 Intake Total 066.908 5707 170 Output Total 1725 500 250 Balance -2747.516 4437 -80 Weight 88.7 kg Intake: IV 180 817 70 0.9ns 180 460 70 Amiodarone 300 mg In 225 Dextrose 5% in Water 250 ml @ 0.5 MG/MIN 25 mls/hr IV .Q10H [facility] Rx#: [id number] Amiodarone 360 mg In 132 Dextrose 5% in Water 200 ml @ 1 MG/MIN 33.333 mls/ hr IV .Q6H [facility] Rx#: [id number] Intake, IV Titration 387.083 650 100 Amount Amiodarone 300 mg In 250 Dextrose 5% in Water 250 ml @ 0.5 MG/MIN 25 mls/hr IV .Q10H [facility] Rx#: [id number] Amiodarone 360 mg In 200 Dextrose 5% in Water 200 ml @ 1 MG/MIN 33.333 mls/ hr IV .Q6H [facility] Rx#: [id number] Azithromycin 500 mg In 250 Sodium Chloride 0.9% 250 ml @ 250 mls/hr IVPB DAILY [facility] Rx#:[id number] Diltiazem 125 mg In 37.083 Sodium Chloride 0.9% 100 ml @ 5 MG/HR 5 mls/hr IV .Q24H [facility] Rx#:[id number] Sodium Chloride 0.9% 500 200 ml 200 ml @ 999 mls/hr IV .Q13M [facility] Rx#:[id number] cefTRIAXone 1 gm In 100 100 Sodium Chloride 0.9% 50 ml @ 100 mls/hr IVPB Q24HR [facility] Rx#:[id number] Oral 120 1160 Output: Urine 1725 500 250 Other: Voiding Method Urinal Urinal # Voids 1 1 # Bowel Movements 1 - Exam GENERAL EXAM: Patient is alert HEENT: Normocephalic. Normal reaction of pupils, equal size, normal range of extraocular motion. No erythema or exudates in the throat. NECK: No masses, no nuchal rigidity. CHEST: No chest wall deformity. LUNGS: Equal air entry with no crackles or wheeze. HEART: S1 and S2 normal. Irregular heart sounds ABDOMEN: No hepatosplenomegaly, normal bowel sounds, no guarding or rigidity. SKIN: No rashes CENTRAL NERVOUS SYSTEM: No focal deficits. EXTREMITIES: No cyanosis, clubbing or edema. - Labs CBC & Chem 7: 02/07/19 04:29 02/07/19 04:29 Labs: Abnormal Lab Results - Last 24 Hours (Table) 02/07/19 02/07/19 02/07/19 Range/Units 04:29 04:29 11:54 WBC 16.7 H (3.8-10.6) k/uL RBC 4.08 L (4.30-5.90) m/uL Hgb 12.1 L (13.0-17.5) gm/dL MCHC 30.9 L (31.0-37.0) g/dL RDW 16.7 H (11.5-15.5) % Neutrophils # 14.3 H (1.3-7.7) k/uL Sodium 132 L (137-145) mmol/L Carbon Dioxide 14 L (22-30) mmol/L BUN 27 H (9-20) mg/dL Creatinine 1.40 H (0.66-1.25) mg/dL Glucose 116 H (74-99) mg/dL POC Glucose (mg/dL) 128 H (75-99) mg/dL Calcium 8.2 L (8.4-10.2) mg/dL 02/07/19 Range/Units 16:33 WBC (3.8-10.6) k/uL RBC (4.30-5.90) m/uL Hgb (13.0-17.5) gm/dL MCHC (31.0-37.0) g/dL RDW (11.5-15.5) % Neutrophils # (1.3-7.7) k/uL Sodium (137-145) mmol/L Carbon Dioxide (22-30) mmol/L BUN (9-20) mg/dL Creatinine (0.66-1.25) mg/dL Glucose (74-99) mg/dL POC Glucose (mg/dL) 140 H (75-99) mg/dL Calcium (8.4-10.2) mg/dL Microbiology - Last 24 Hours (Table) 02/05/19 03:19 Blood Culture - Preliminary Blood No Growth after 48 hours 02/05/19 22:32 Blood Culture - Preliminary Blood No Growth after 24 hours 02/05/19 22:32 Blood Culture - Preliminary Blood No Growth after 24 hours Assessment and Plan (1) Atrial fibrillation with RVR Current Visit: Yes Status: Acute Code(s): I48.91 - UNSPECIFIED ATRIAL FIBRILLATION SNOMED Code(s): 470293722747543 (2) Acute renal failure Current Visit: Yes Status: Acute Code(s): N17.9 - ACUTE KIDNEY FAILURE, UNSPECIFIED SNOMED Code(s): 55168473 (3) CAP (community acquired pneumonia) Current Visit: Yes Status: Acute Code(s): J18.9 - PNEUMONIA, UNSPECIFIED O RGANISM SNOMED Code(s): 628025288 (4) Sepsis Current Visit: Yes Status: Acute Code(s): A41.9 - SEPSIS, UNSPECIFIED ORGANISM SNOMED Code(s): 18626777 Plan: Switch to by mouth amiodarone. Continue treatment for sepsis and infection and also COPD and pneumonia. We'll follow
[2019-02-07] MEDS: ACETAMINOPHEN TAB 325 MG TAB PO PRN ×2 (17:09→22:31)
[2019-02-07] MEDS: INSULIN ASPART (NovoLOG) 100 UNIT/ML VIAL SQ SCH ×2 (17:20→20:27)
[2019-02-07 20:24] LABS: Glucose,Whole Blood 121 mg/dL (75-99)
[2019-02-07] MEDS: ATORVASTATIN 10 MG TAB PO SCH (20:26)
[2019-02-07] MEDS: MONTELUKAST 10 MG TAB PO SCH (20:26)
--- NOTE | 2019-02-07 22:35 | P.PN ---
Subjective Progress Note Date: 02/07/19 68-year-old male who has multiple medical troubles that include COPD, asbestosis, coronary artery disease and significant arthritis presents to Hospital with the. History of progressive shortness of breath cough and sputum production. He became so weak that is ex- convinced him to come to Hospital. Emergency center there was evidence of significant respiratory failure and bilateral pneumonia and constantly was admitted to the intensive care unit There was evidence of atrial fibrillation with a rapid ventricular response and has been treated by cardiology. The patient has significant pneumonia and purulent secretions and constantly the infectious disease consultation was requested also had a 101.1 fever. This time is feeling slightly better. Has been tolerating BiPAP well. phrologyHe has without further fever and is less short of breath. Appetite is poor. He has general musculoskeletal pain but nothing is acutely different. Has also developed acute renal failure ansd is evaluated by nephrology. 02/07/2019 patient is doing well today, able to get up to toilet, less SOB, fever resolved today. He is without other new acute complaints. He has been able to eat some of his meals but appetite is not normal. Objective - Vital Signs Vital signs: Vital Signs Temp 97.7 F 02/07/19 16:00 Pulse 65 02/07/19 19:41 Resp 10 L 02/07/19 19:30 BP 118/77 02/07/19 19:30 Pulse Ox 97 02/07/19 19:30 Intake & Output 02/07/19 02/07/19 02/08/19 06:59 18:59 06:59 Intake Total 2627 180 Output Total 500 250 0 Balance 2127 -70 0 Weight 88.7 kg Intake: IV 817 80 0.9ns 460 80 Amiodarone 300 mg In 225 Dextrose 5% in Water 250 ml @ 0.5 MG/MIN 25 mls/hr IV .Q10H [facility] Rx#: [id number] Amiodarone 360 mg In 132 Dextrose 5% in Water 200 ml @ 1 MG/MIN 33.333 mls/ hr IV .Q6H [facility] Rx#: [id number] Intake, IV Titration 650 100 Amount Amiodarone 300 mg In 250 Dextrose 5% in Water 250 ml @ 0.5 MG/MIN 25 mls/hr IV .Q10H [facility] Rx#: [id number] Amiodarone 360 mg In 200 Dextrose 5% in Water 200 ml @ 1 MG/MIN 33.333 mls/ hr IV .Q6H [facility] Rx#: [id number] Sodium Chloride 0.9% 500 200 ml 200 ml @ 999 mls/hr IV .Q13M [facility] Rx#:[id number] cefTRIAXone 1 gm In 100 Sodium Chloride 0.9% 50 ml @ 100 mls/hr IVPB Q24HR [facility] Rx#:[id number] Oral 1160 Output: Urine 500 250 0 Other: Voiding Method Urinal # Voids 1 - Exam HEENT: Anicteric conjunctiva are pink and moist nasal mucosa grossly intact without significant lesions, there is no thrush. Neck: The neck is supple without significant lymphadenopathy or thyromegaly. Lungs:Symmetrical air entry is noted, bibasilar crackles are noted. Scattered expiratory wheezes are noted no dullness or egophony Heart: Irregular regular, audible S1 and S2, 2/6 systolic murmur left sternal border PMI is nondisplaced Abdomen: Positive bowel sounds soft and nontender without palpable masses or organomegaly. There was no guarding or rebound. Extremities: The upper extremities have excellent pulses they are symmetric, no significant petechiae or telangiectasia. No splinter hemorrhages were noted. the lower extremities have evidence without open ulcerations Skin has evidence of discoloration more prominent at the left lower extremity, apparently this is the site that was being treated with bactrim with concers to cellulits, no warmth or open ulcers noted at this time. Has a maculoar rash of the lower back and upper legs non puritic, non vesicular. Neuro: Awake alert oriented to person place and time. There are no acute new gross focal sensory motor deficits. - Labs CBC & Chem 7: 02/07/19 04:29 02/07/19 04:29 Labs: Abnormal Lab Results - Last 24 Hours (Table) 02/07/19 02/07/19 02/07/19 Range/Units 04:29 04:29 11:54 WBC 16.7 H (3.8-10.6) k/uL RBC 4.08 L (4.30-5.90) m/uL Hgb 12.1 L (13.0-17.5) gm/dL MCHC 30.9 L (31.0-37.0) g/dL RDW 16.7 H (11.5-15.5) % Neutrophils # 14.3 H (1.3-7.7) k/uL Sodium 132 L (137-145) mmol/L Carbon Dioxide 14 L (22-30) mmol/L BUN 27 H (9-20) mg/dL Creatinine 1.40 H (0.66-1.25) mg/dL Glucose 116 H (74-99) mg/dL POC Glucose (mg/dL) 128 H (75-99) mg/dL Calcium 8.2 L (8.4-10.2) mg/dL 02/07/19 02/07/19 Range/Units 16:33 20:22 WBC (3.8-10.6) k/uL RBC (4.30-5.90) m/uL Hgb (13.0-17.5) gm/dL MCHC (31.0-37.0) g/dL RDW (11.5-15.5) % Neutrophils # (1.3-7.7) k/uL Sodium (137-145) mmol/L Carbon Dioxide (22-30) mmol/L BUN (9-20) mg/dL Creatinine (0.66-1.25) mg/dL Glucose (74-99) mg/dL POC Glucose (mg/dL) 140 H 121 H (75-99) mg/dL Calcium (8.4-10.2) mg/dL Microbiology - Last 24 Hours (Table) 02/05/19 03:19 Blood Culture - Preliminary Blood No Growth after 48 hours 02/05/19 22:32 Blood Culture - Preliminary Blood No Growth after 24 hours 02/05/19 22:32 Blood Culture - Preliminary Blood No Growth after 24 hours Laboratory Results WBC 16.7 k/uL (3.8-10.6) H 02/07/19 04:29 RBC 4.08 m/uL (4.30-5.90) L 02/07/19 04:29 Hgb 12.1 gm/dL (13.0-17.5) L 02/07/19 04:29 Hct 39.0 % (39.0-53.0) 02/07/19 04:29 MCV 95.7 fL (80.0-100.0) 02/07/19 04:29 MCH 29.6 pg (25.0-35.0) 02/07/19 04:29 MCHC 30.9 g/dL (31.0-37.0) L 02/07/19 04:29 RDW 16.7 % (11.5-15.5) H 02/07/19 04:29 Plt Count 270 k/uL (150-450) 02/07/19 04:29 Neutrophils % 86 % 02/07/19 04:29 Lymphocytes % 10 % 02/07/19 04:29 Monocytes % 2 % 02/07/19 04:29 Eosinophils % 0 % 02/07/19 04:29 Basophils % 0 % 02/07/19 04:29 Neutrophils # 14.3 k/uL (1.3-7.7) H 02/07/19 04:29 Lymphocytes # 1.7 k/uL (1.0-4.8) 02/07/19 04:29 Monocytes # 0.3 k/uL (0-1.0) 02/07/19 04:29 Eosinophils # 0.0 k/uL (0-0.7) 02/07/19 04:29 Basophils # 0.0 k/uL (0-0.2) 02/07/19 04:29 Hypochromasia Slight 02/07/19 04:29 Anisocytosis Slight 02/07/19 04:29 PT 12.0 sec (9.0-12.0) 02/05/19 03:19 INR 1.1 (<1.2) 02/05/19 03:19 APTT 28.8 sec (22.0-30.0) 02/05/19 03:19 Sodium 132 mmol/L (137-145) L 02/07/19 04:29 Potassium 4.4 mmol/L (3.5-5.1) 02/07/19 04:29 Chloride 105 mmol/L (98-107) 02/07/19 04:29 Carbon Dioxide 14 mmol/L (22-30) L 02/07/19 04:29 Anion Gap 13 mmol/L 02/07/19 04:29 BUN 27 mg/dL (9-20) H 02/07/19 04:29 Creatinine 1.40 mg/dL (0.66-1.25) H 02/07/19 04:29 Est GFR (CKD-EPI)AfAm 60 (>60 ml/min/1.73 sqM) 02/07/19 04:29 Est GFR (CKD-EPI)NonAf 51 (>60 ml/min/1.73 sqM) 02/07/19 04:29 Glucose 116 mg/dL (74-99) H 02/07/19 04:29 POC Glucose (mg/dL) 121 mg/dL (75-99) H 02/07/19 20:22 POC Glu Mold Release Worker Ashleigh Bundy 02/07/19 20:22 Lactic Ac Sepsis Rflx Y 02/05/19 04:31 Plasma Lactic Acid Vance 1.5 mmol/L (0.7-2.0) 02/05/19 07:39 Calcium 8.2 mg/dL (8.4-10.2) L 02/07/19 04:29 Phosphorus 3.8 mg/dL (2.5-4.5) 02/07/19 04:29 Magnesium 2.0 mg/dL (1.6-2.3) 02/07/19 04:29 Total Bilirubin 0.9 mg/dL (0.2-1.3) 02/06/19 08:12 AST 55 U/L (17-59) 02/06/19 08:12 ALT 26 U/L (21-72) 02/06/19 08:12 Alkaline Phosphatase 79 U/L (38-126) 02/06/19 08:12 Troponin I 0.119 ng/mL (0.000-0.034) H* 02/05/19 18:25 NT-Pro-B Natriuret Pep 7800 pg/mL 02/05/19 11:18 Total Protein 7.2 g/dL (6.3-8.2) 02/06/19 08:12 Albumin 4.0 g/dL (3.5-5.0) 02/06/19 08:12 Urine Color Yellow 02/05/19 05:45 Urine Appearance Clear (Clear) 02/05/19 05:45 Urine pH 6.0 (5.0-8.0) 02/05/19 05:45 Ur Specific Gordon 1.016 (1.001-1.035) 02/05/19 05:45 Urine Protein 1+ (Negative) H 02/05/19 05:45 Urine Glucose (UA) Negative (Negative) 02/05/19 05:45 Urine Ketones Negative (Negative) 02/05/19 05:45 Urine Blood Negative (Negative) 02/05/19 05:45 Urine Nitrite Negative (Negative) 02/05/19 05:45 Urine Bilirubin Negative (Negative) 02/05/19 05:45 Urine Urobilinogen <2.0 mg/dL (<2.0) 02/05/19 05:45 Ur Leukocyte Esterase Negative (Negative) 02/05/19 05:45 Urine RBC <1 /hpf (0-5) 02/05/19 05:45 Urine WBC 2 /hpf (0-5) 02/05/19 05:45 Urine Bacteria Rare /hpf (None) H 02/05/19 05:45 Cellular Casts 1 /lpf (0) 02/05/19 05:45 Hyaline Casts 3 /lpf (0-2) H 02/05/19 05:45 Granular Casts 1 /lpf (0) 02/05/19 05:45 Urine Mucus Rare /hpf (None) H 02/05/19 05:45 C. difficile (EIA) Intrp Negative (Negative) 02/06/19 00:15 Microbiology 02/05/19 03:19 Blood Blood Culture - Preliminary No Growth after 48 hours 02/05/19 22:32 Blood Blood Culture - Preliminary No Growth after 24 hours 02/05/19 22:32 Blood Blood Culture - Preliminary No Growth after 24 hours 02/05/19 05:45 Urine,Clean Catch Urine Culture - Final 02/05/19 17:50 Sputum Gram Stain - Preliminary 02/05/19 17:50 Sputum Sputum Culture - Preliminary - Imaging and Cardiology Chest x-ray: report reviewed (COPD and interstitial changes) Assessment and Plan (1) Sepsis Current Visit: Yes Status: Acute Code(s): A41.9 - SEPSIS, UNSPECIFIED ORGANISM SNOMED Code(s): 95446824 (2) CAP (community acquired pneumonia) Narrative/Plan: 68-year-old male with underlying COPD and cardiovascular disease with atrial fibrillation, is chronically anticoagulated presents to hospital with significant shortness of breath and exacerbation of COPD. However his abnormal chest x-ray and likely has commuted acquired pneumonia. Antibiotic therapy is with Rocephin and azithromycin for now and clinically he starting to improve. Leukocytosis is multifactorial including the pneumonia, and steroid therapy for his COPD. The patient did develop a bit of a rash and was being treated in the outpatient setting for cellulitis with Bactrim. Despite that he had no improvement. This would make streptococcal infection of concern both as far as pneumonia and skin if that was an issue because of the lack of streptococcal coverage with sulfa drugs. We'll monitor his response to current antibiotics. Does not appear to have cellulitis of lower extremity. The macular rash could be on the basis of the recent sulfa therapy and is being watched. It is not pruritic, skin moisturizer can be applied. Cultures are process to help further direct therapy. 02/07/2019 the patient is feeling somewhat better. He is being transitioned from intravenous amiodarone to oral. He is tired antibiotic therapy well. His shortness of breath is definitely improved. He's been able to get to the restroom under his own power without fall. Appetite is poor but he is getting some nutrition and without nausea or emesis. The significant other does relate to his history of some alcohol use and is being monitored for potential DTs. Current Visit: Yes Status: Acute Code(s): J18.9 - PNEUMONIA, UNSPECIFIED ORGANISM SNOMED Code(s): 404055238 (3) Acute renal failure Current Visit: Yes Status: Acute Code(s): N17.9 - ACUTE KIDNEY FAILURE, UNSPECIFIED SNOMED Code(s): 01189583 (4) Leukocytosis Current Visit: Yes Status: Acute Code(s): D72.829 - ELEVATED WHITE BLOOD CELL COUNT, UNSPECIFIED SNOMED Code(s): 848390530
[2019-02-08 05:35] LABS: Anisocytosis Slight; Basophils # (A) 0.1 k/uL (0-0.2); Basophils % (A) 0 %; Eosinophils # (A) 0.1 k/uL (0-0.7); Eosinophils % (A) 0 %; HCT 38.6 % (39.0-53.0); HGB 12.3 gm/dL (13.0-17.5); Lymphocytes # (A) 1.3 k/uL (1.0-4.8); Lymphocytes % (A) 8 %; MCH 29.3 pg (25.0-35.0); MCHC 31.9 g/dL (31.0-37.0); Mean Platelet Volume 7.7; Monocytes # (A) 0.4 k/uL (0-1.0); Monocytes % (A) 3 %; Neutrophils # (A) 13.9 k/uL (1.3-7.7); Neutrophils % (A) 86 %; Platelet Count 305 k/uL (150-450); RBC 4.19 m/uL (4.30-5.90); RDW 16.9 % (11.5-15.5); WBC 16.2 k/uL (3.8-10.6)
[2019-02-08] MEDS: traMADol 50 MG TAB PO SCH ×3 (05:46→20:32)
[2019-02-08 05:50] LABS: Calcium 8.7 mg/dL (8.4-10.2); Potassium 4.3 mmol/L (3.5-5.1)
[2019-02-08 06:53] LABS: Glucose,Whole Blood 111 mg/dL (75-99)
[2019-02-08] MEDS: methylPREDNISolone SOD SUCCI 40 MG/ML 1 ML VIAL IV SCH ×2 (07:05→20:32)
[2019-02-08] MEDS: THIAMINE 100 MG TAB PO SCH ×2 (07:06→17:37)
[2019-02-08] MEDS: INSULIN ASPART (NovoLOG) 100 UNIT/ML VIAL SQ SCH ×4 (07:06→21:01)
[2019-02-08] MEDS: APIXABAN 5 MG TAB PO SCH ×2 (08:03→20:32)
[2019-02-08] MEDS: SODIUM BICARBONATE TAB 650 MG TAB PO SCH ×2 (08:04→20:33)
[2019-02-08] MEDS: AZITHROMYCIN 500 MG TAB PO SCH (08:04)
[2019-02-08] MEDS: AMIODARONE 200 MG TAB PO SCH ×2 (08:04→20:32)
[2019-02-08] MEDS: ATENOLOL 25 MG TAB PO SCH (08:04)
[2019-02-08] MEDS: LORATADINE 10 MG TAB PO SCH (08:04)
--- NOTE | 2019-02-08 09:16 | P.PN ---
Subjective Progress Note Date: 02/08/19 This is a 68-year-old gentleman who was admitted to the hospital with acute respiratory distress who developed atypical fibrillation with rapid ventricular response. Patient was initially treated with IV Cardizem. He was changed to IV amiodarone. Yesterday. His rate is controlled. She is also on anticoagulation therapy with Eliquis. Patient is hemodynamically stable. We'll going to change to by mouth amiodarone after completion of the amiodarone drip. He'll start on 400 mg by mouth twice a day. Rest of the medication to be continued. 02/08/2019: This is a 68-year-old gentleman was admitted with pneumonia and respiratory failure. Patient was in atrial fibrillation with rapid ventricular response. Initially patient was on IV Cardizem and subsequently switched to IV amiodarone. Currently patient is on by mouth amiodarone along with beta lucina. His heart rate is in the 60s. Patient seemed to be more stable. I'm going to cut back the dose of the hemorrhoid around to 200 mg by mouth twice a day and quickly tapered down to continue with anticoagulation and beta lucina. Continue rest of the medications Objective - Vital Signs Vital signs: Vital Signs Temp 97.7 F 02/07/19 16:00 Pulse 57 L 02/08/19 06:00 Resp 26 H 02/08/19 05:30 BP 121/70 02/08/19 06:00 Pulse Ox 98 02/08/19 06:00 Intake & Output 02/07/19 02/08/19 02/08/19 18:59 06:59 18:59 Intake Total 180 50 Output Total 250 400 Balance -70 -350 Intake: IV 80 0.9ns 80 Intake, IV Titration 100 50 Amount cefTRIAXone 1 gm In 100 50 Sodium Chloride 0.9% 50 ml @ 100 mls/hr IVPB Q24HR [facility] Rx#:[id number] Output: Urine 250 400 Other: # Voids 1 - Exam GENERAL EXAM: Patient is alert HEENT: Normocephalic. Normal reaction of pupils, equal size, normal range of extraocular motion. No erythema or exudates in the throat. NECK: No masses, no nuchal rigidity. CHEST: No chest wall deformity. LUNGS: Show expiratory wheezes HEART: S1 and S2 normal. Irregular heart sounds ABDOMEN: No hepatosplenomegaly, normal bowel sounds, no guarding or rigidity. SKIN: No rashes CENTRAL NERVOUS SYSTEM: No focal deficits. EXTREMITIES: No cyanosis, clubbing or edema. - Labs CBC & Chem 7: 02/08/19 04:36 02/08/19 04:36 Labs: Abnormal Lab Results - Last 24 Hours (Table) 02/07/19 02/07/19 02/07/19 Range/Units 11:54 16:33 20:22 WBC (3.8-10.6) k/uL RBC (4.30-5.90) m/uL Hgb (13.0-17.5) gm/dL Hct (39.0-53.0) % RDW (11.5-15.5) % Neutrophils # (1.3-7.7) k/uL Sodium (137-145) mmol/L Carbon Dioxide (22-30) mmol/L BUN (9-20) mg/dL Creatinine (0.66-1.25) mg/dL Glucose (74-99) mg/dL POC Glucose (mg/dL) 128 H 140 H 121 H (75-99) mg/dL 02/08/19 02/08/19 02/08/19 Range/Units 04:36 04:36 06:51 WBC 16.2 H (3.8-10.6) k/uL RBC 4.19 L (4.30-5.90) m/uL Hgb 12.3 L (13.0-17.5) gm/dL Hct 38.6 L (39.0-53.0) % RDW 16.9 H (11.5-15.5) % Neutrophils # 13.9 H (1.3-7.7) k/uL Sodium 134 L (137-145) mmol/L Carbon Dioxide 20 L (22-30) mmol/L BUN 30 H (9-20) mg/dL Creatinine 1.28 H (0.66-1.25) mg/dL Glucose 104 H (74-99) mg/dL POC Glucose (mg/dL) 111 H (75-99) mg/dL Microbiology - Last 24 Hours (Table) 02/05/19 03:19 Blood Culture - Preliminary Blood No Growth after 72 hours 02/05/19 22:32 Blood Culture - Preliminary Blood No Growth after 48 hours 02/05/19 22:32 Blood Culture - Preliminary Blood No Growth after 48 hours Assessment and Plan (1) Atrial fibrillation with RVR Current Visit: Yes Status: Acute Code(s): I48.91 - UNSPECIFIED ATRIAL FIBRILLATION SNOMED Code(s): 915588040409871 (2) Acute renal failure Current Visit: Yes Status: Acute Code(s): N17.9 - ACUTE KIDNEY FAILURE, UNSPECIFIED SNOMED Code(s): 02110093 (3) CAP (community acquired pneumonia) Current Visit: Yes Status: Acute Code(s): J18.9 - PNEUMONIA, UNSPECIFIED ORGANISM SNOMED Code(s): 570570124 (4) Sepsis Current Visit: Yes Status: Acute Code(s): A41.9 - SEPSIS, UNSPECIFIED ORGANISM SNOMED Code(s): 61860666 Plan: Patient is stable and seemed to be improving. Heart rate is in the 60s. I will cut back the dose of the amiodarone to 200 mg by mouth twice a day and probably quickly tapered it off. Probable within management with beta lucina. Continue anticoagulation
--- NOTE | 2019-02-08 09:37 | P.PN ---
Subjective Patient is seen in follow-up for acute kidney injury. Patient's baseline creatinine is near 1 and peaked at 1.6 this admission. It is down to 1.28 today. He is currently maintained on oral amiodarone for A. fib. Heart rate is controlled. Oral intake is gradually improving. No vomiting. Does admit to loose bowel movements but is overall improving. Vital signs are stable. General: The patient appeared well nourished and normally developed. HEENT: Head exam is unremarkable. Neck is without jugular venous distension. LUNGS: Lungs are clear to auscultation and percussion. Breath sounds decreased. HEART: Regular rate and rhythm. ABDOMEN: Abdominal exam reveals normal bowel sounds. Non-tender and non- distended. EXTREMITITES: Trace edema. Objective - Vital Signs Vital signs: Vital Signs Temp 98.4 F 02/08/19 08:00 Pulse 61 02/08/19 08:00 Resp 19 02/08/19 08:00 BP 121/70 02/08/19 08:00 Pulse Ox 95 02/08/19 08:00 Intake & Output 02/07/19 02/08/19 02/08/19 18:59 06:59 18:59 Intake Total 180 50 Output Total 250 400 Balance -70 -350 Intake: IV 80 0.9ns 80 Intake, IV Titration 100 50 Amount cefTRIAXone 1 gm In 100 50 Sodium Chloride 0.9% 50 ml @ 100 mls/hr IVPB Q24HR [facility] Rx#:[id number] Output: Urine 250 400 Other: # Voids 1 - Labs CBC & Chem 7: 02/08/19 04:36 02/08/19 04:36 Labs: Abnormal Lab Results - Last 24 Hours (Table) 02/07/19 02/07/19 02/07/19 Range/Units 11:54 16:33 20:22 WBC (3.8-10.6) k/uL RBC (4.30-5.90) m/uL Hgb (13.0-17.5) gm/dL Hct (39.0-53.0) % RDW (11.5-15.5) % Neutrophils # (1.3-7.7) k/uL Sodium (137-145) mmol/L Carbon Dioxide (22-30) mmol/L BUN (9-20) mg/dL Creatinine (0.66-1.25) mg/dL Glucose (74-99) mg/dL POC Glucose (mg/dL) 128 H 140 H 121 H (75-99) mg/dL 02/08/19 02/08/19 02/08/19 Range/Units 04:36 04:36 06:51 WBC 16.2 H (3.8-10.6) k/uL RBC 4.19 L (4.30-5.90) m/uL Hgb 12.3 L (13.0-17.5) gm/dL Hct 38.6 L (39.0-53.0) % RDW 16.9 H (11.5-15.5) % Neutrophils # 13.9 H (1.3-7.7) k/uL Sodium 134 L (137-145) mmol/L Carbon Dioxide 20 L (22-30) mmol/L BUN 30 H (9-20) mg/dL Creatinine 1.28 H (0.66-1.25) mg/dL Glucose 104 H (74-99) mg/dL POC Glucose (mg/dL) 111 H (75-99) mg/dL Microbiology - Last 24 Hours (Table) 02/05/19 03:19 Blood Culture - Preliminary Blood No Growth after 72 hours 02/05/19 22:32 Blood Culture - Preliminary Blood No Growth after 48 hours 02/05/19 22:32 Blood Culture - Preliminary Blood No Growth after 48 hours Assessment and Plan Plan: Assessment: 1. Acute kidney injury secondary to ATN secondary to hemodynamic instability. Baseline creatinine near 1 and peaked at 1.66 this admission. It is 1.28 today. No evidence of hydronephrosis noted on renal ultrasound. 2. A. fib with RVR maintained on oral amiodarone. Also on anticoagulation. Cardiology following. 3. Mild hyperkalemia secondary to acute kidney injury and metabolic acidosis. Better. 4. Metabolic acidosis secondary to acute kidney injury. Better. 5. Suspected community-acquired pneumonia maintained on antibiotics. 6. COPD exacerbation. Plan: Hold off on diuretics. Continue to monitor renal function and urine output. Maintain oral sodium bicarbonate. Repeat electrolytes in the morning.
--- NOTE | 2019-02-08 10:40 | P.PN ---
Subjective Progress Note Date: 02/08/19 Principal diagnosis: Acute exacerbation of COPD This is a very pleasant 68-year-old gentleman who follows with Dr. Art as his primary care physician. He has a history of hypertension, hyperlipidemia, atrophic fibrillation anticoagulated with Eliquis. He also has been having i ssues with shortness of breath cough and congestion and was due to see Dr. Glover next month in our office. He is recently been using his 's nebulizer and rescue inhaler. He does have a history of chronic tobacco dependence but quit smoking approximately 3 years ago. He presented here to the emergency room earlier this morning with complaints of worsening shortness of breath, cough and congestion. He also had issues with nausea and vomiting. He has been undergoing treatment for cellulitis of the right lower extremity as well. Further right lower extremity revealed no evidence of fracture. There is mild multifocal soft tissue swelling. No evidence of osteomyelitis. Doppler ruled o ut DVT. Chest x-ray reveals patchy bilateral lung opacities more prominent at the bases. Small pleural effusions. CT angiogram was suboptimal. There was areas of acute infiltrate or edema most prominent in the bilateral lung bases on background emphysematous changes and mild to moderate fibrosis. 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 Ultrasound of the abdomen ruled out hydronephrosis. No nephrolithiasis. Urine culture pending. White count 17.7. Hemoglobin 12.0. Creatinine 1.53. Lactic acid 3.9, down to 1.5, troponin 0.174. ProBNP 7800. Patient is seen today in consultation on the regular medical floor. He is awake and alert in no acute distress. He has a loose nonproductive cough. No current chills or night sweats. T-max of 101.6, currently afebrile. 18 in good O2 saturations in the mid 90s on 2 L/m per nasal cannula. Hemodynamically stable. He's been initiated on DuoNeb inhalations and Zosyn. Anticoagulated with Eliquis. Patient was reevaluated on 02/06/2019, patient had a downhill course overnight, apparently he developed atrial fibrillation with RVR, some component of interstitial edema based on the chest x-ray, extreme agitation and extreme shortness of breath requiring transfer to the intensive care unit. Patient is a DO NOT INTUBATE CODE STATUS, hence he was transferred to the ICU, placed on Cardizem drip, also given diuretics for his interstitial edema, and he was placed on the [place] protocol for his history of alcoholism. When I saw the patient in the ICU, he was already feeling better, call me down, continues to refuse using BiPAP. His atrial fibrillation seems to be better controlled on Cardizem drip. WBC count is 17 hemoglobin is 12 left was are normal bicarb was noted to be low at 15 anion gap was 17, BUN 18 creatinine 1.66. Troponin was noted to be a bit elevated, and BNP level was also elevated. Chest x-ray again is suggestive of worsening interstitial edema and underlying pneumonia as noted on CT of the chest on admission. Patient remains on antibiotics, bronchodilators, and now on Cardizem, he was also placed on diuretics. Patient was seen today on 02/07/2019, remains in the ICU, patient required amiodarone drip, and he is presently in sinus rhythm. Mentation seems to be improving. Patient is calm, he is on the alcohol withdrawal protocol. Patient had slightly low blood pressure last night require 20 mL of fluid boluses, continues to have good urine output, patient was given 1 dose of Lasix yesterday, and he responded quite well to the Lasix early in the morning yesterday. Chest x-ray continues to show mild interstitial edema. Patient remains on bronchodilators, steroids, antibiotics for his underlying COPD and possible pneumonia. Labs today showed WBC of 16.7 hemoglobin of 12 left lites are normal BUN is 27 creatinine is down to 1.40. Patient is still in the intensive care unit as an overflow to [facility]. He is mostly on oral medications for his atrial fibrillation, he is on bronchodilators for his COPD, and I have cut down his Solu-Medrol today. Patient remains calm, he is doing excellent, denies any cough wheezing or shortness of breath, he is only on 4 L nasal cannula. Heart rate is controlled, he remains in atrial fibrillation but very well controlled rate. Actually his rate is about 57 this morning. His renal profile is improving, creatinine is down to 1.28 today. Patient is off Lasix. Chest x-ray is showing minimal interstitial edema, and possibly some fibrotic changes at the bases. This may have to be closely followed in the patient remains on amiodarone in the long run. Clearly he has cardiomegaly and mild interstitial edema on the chest x-ray today. BNP was 7800. Possibility of infiltrate is not entirely ruled out. Especially in the right lower lobe. Patient continues to have a bit of leukocytosis with WBC count of 16.2. Patient did have a T-max of 101.6 on admission. However for the last couple of days patient has been afebrile. Objective - Vital Signs Vital signs: Vital Signs Temp 98.4 F 02/08/19 08:00 Pulse 61 02/08/19 08:00 Resp 19 02/08/19 08:00 BP 121/70 02/08/19 08:00 Pulse Ox 95 02/08/19 08:00 Intake & Output 02/07/19 02/08/19 02/08/19 18:59 06:59 18:59 Intake Total 180 50 Output Total 250 400 Balance -70 -350 Intake: IV 80 0.9ns 80 Intake, IV Titration 100 50 Amount cefTRIAXone 1 gm In 100 50 Sodium Chloride 0.9% 50 ml @ 100 mls/hr IVPB Q24HR [facility] Rx#:[id number] Output: Urine 250 400 Other: # Voids 1 - Exam Physical Exam: Revealed a 68-year-old white male calm, on few liters nasal ca nnula, in no distress. Head: Atraumatic, normocephalic. HEENT:[Neck is supple.] [No neck masses.] [No thyromegaly.] [No JVD.] PERRLA, EOMI, no icterus, Chest: [Minimal crackles at the bases, no rhonchi, no wheezes noted today. Symmetrical chest expansion, no chest wall tenderness. Cardiac Exam: Irregular irregular rhythm.. [Normal S1 and S2, no S3 gallop, no murmur.] Abdomen: Obese, [Soft, nontender, no megaly, no rebound, no guarding, normal bowel sounds.] Extremities: [No clubbing, trace of edema edema, no cyanosis.] Neurological Exam: [No focal neurologic deficit.] Alert and oriented 3. Psychiatric: Normal mood affect and normal mental status examination. Skin: No rashes. - Labs CBC & Chem 7: 02/08/19 04:36 02/08/19 04:36 Labs: Abnormal Lab Results - Last 24 Hours (Table) 02/07/19 02/07/19 02/07/19 Range/Units 11:54 16:33 20:22 WBC (3.8-10.6) k/uL RBC (4.30-5.90) m/uL Hgb (13.0-17.5) gm/dL Hct (39.0-53.0) % RDW (11.5-15.5) % Neutrophils # (1.3-7.7) k/uL Sodium (137-145) mmol/L Carbon Dioxide (22-30) mmol/L BUN (9-20) mg/dL Creatinine (0.66-1.25) mg/dL Glucose (74-99) mg/dL POC Glucose (mg/dL) 128 H 140 H 121 H (75-99) mg/dL 02/08/19 02/08/19 02/08/19 Range/Units 04:36 04:36 06:51 WBC 16.2 H (3.8-10.6) k/uL RBC 4.19 L (4.30-5.90) m/uL Hgb 12.3 L (13.0-17.5) gm/dL Hct 38.6 L (39.0-53.0) % RDW 16.9 H (11.5-15.5) % Neutrophils # 13.9 H (1.3-7.7) k/uL Sodium 134 L (137-145) mmol/L Carbon Dioxide 20 L (22-30) mmol/L BUN 30 H (9-20) mg/dL Creatinine 1.28 H (0.66-1.25) mg/dL Glucose 104 H (74-99) mg/dL POC Glucose (mg/dL) 111 H (75-99) mg/dL Microbiology - Last 24 Hours (Table) 02/05/19 17:50 Gram Stain - Final Sputum Sputum Culture - Final 02/05/19 03:19 Blood Culture - Preliminary Blood No Growth after 72 hours 02/05/19 22:32 Blood Culture - Preliminary Blood No Growth after 48 hours 02/05/19 22:32 Blood Culture - Preliminary Blood No Growth after 48 hours Assessment and Plan Assessment: #1 Acute exacerbation of suspected chronic obstructive pulmonary disease secondary to suspected community-acquired pneumonia and possible underlying pulmonary fibrosis #2 Febrile illness secondary to above. Resolved. #3 Leukocytosis secondary to above. Improving. #4 lactic acidosis, resolved #5 Acute kidney injury. Improving. #6 Cellulitis of the right lower extremity treated with Bactrim in the outpat ient setting. #7 paroxysmal atrial fibrillation, rate seems to be better controlled today. #8 Hypertension. #9 Hyperlipidemia. #10 atrial fibrillation with RVR presently under control #11 suspect interstitial edema secondary to atrial fibrillation with RVR, noted to improve on chest x-ray today. And responded well to Lasix. #12 suspect acute ALLERGIC dermatitis secondary to Zosyn. #13 suspect acute alcohol withdrawal hence the patient was placed on the alcohol withdrawal protocol. Recommendation: Continue present treatment plan including antibiotics, small dose of Lasix, GI and DVT prophylaxis, bronchodilators, continue alcohol withdrawal protocol, we'll continue to follow. Patient could be transferred once a bed becomes available on [facility]. Chest x-ray was reviewed and his and the patient were both updated on his overall condition. Time with Patient: Less than 30
--- NOTE | 2019-02-08 10:47 | XR ---
EXAMINATION TYPE: XR chest 1V portable DATE OF EXAM: 02/08/2019 COMPARISON: Prior chest x-ray 02/07/2019 HISTORY: Congestive heart failure TECHNIQUE: Single frontal view of the chest is obtained. FINDINGS: Heart remains enlarged. Aorta is dense. Interstitium mildly increased. No evident pneumoth orax or pleural effusion. Pulmonary vascularity may be slightly improved. IMPRESSION: Improvement in patient's volume status, interstitial edema. Persistent cardiomegaly.
[2019-02-08 12:01] LABS: Glucose,Whole Blood 103 mg/dL (75-99)
[2019-02-08] MEDS: FUROSEMIDE 20 MG TAB PO SCH (14:17)
[2019-02-08] MEDS: ACETAMINOPHEN TAB 325 MG TAB PO PRN ×2 (14:17→20:30)
--- NOTE | 2019-02-08 18:15 | P.PN ---
Subjective Progress Note Date: 02/08/19 (Transferred from the ICU by Dr. Melendez) Principal diagnosis: Co. HCl ngestive heart failure. A KI. History of alcohol intake, mild confusion, rule out impending DT. Pneumonia retrocardiac. Pulmonary fibrosis Atrial fibrillation with rapid ventricular response Advanced COPD Sepsis with pyrexia. This is a progress note date of service 02/08/2019. Patient of Guevara Romero, I am taking care of him at this time and he will be following with me in the office. Patient seen by pulmonary yesterday and he had acute exacerbation of suspected chronic obstructive pulmonary disease with the suspected community-acquired pneumonia with the underlying possible pulmonary fibrosis. He had febrile illness resolved, he had leukocytosis still present however that could be from the steroids IV with the underlying D margination, he had lactic acidosis is resolved with the underlying metabolic acidosis secondary to acute kidney injury with the carbon dioxide was 24, he is supplemented with the bicarbonate sodium 650 tablet and the patient was taken to the tablet twice a day and significant improvement on the CO2 to 20. 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 With the associated severe pulmonary hypertension and right ventricular enlargement. 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 Patient has ALLERGY to Zosyn with this skin reaction however that resolved. Patient had history of alcohol intake with the possibility of was overall however started on CIWA protocol. Chest x-ray today indicating improvement of the interstitial edema however. Resistant cardiomegaly with the underlying pulmonary vascularity. Patient Patient seen also by perioperative tech Dr. East and patient had acute kidney injury secondary to ATN and hemodynamic instability and his renal function gradually improving to 1.28. And he stated as well he had metabolic acidosis secondary to acute kidney injury, he had hyperkalemia which is resolved with the metabolic acidosis, COPD exacerbation, as well as at [facility] fibrillation with RVR and currently on amiodarone orally. Patient seen by Dr. Nice coal gasification technician: He stated that patient on telemetry and the heart rate is controlled and he is on anticoagulant and he cut down on the amiodarone to 200 mg twice a day continuation of the anticoagulant and the beta blockers. On examination: Today on the 2018 Temperature 98.3 F oral. Heart rate 58 bpm and regular. And respiratory rate 16/m. His blood pressure 142/88 with the oxygen saturation 100 however he has prior to that 93 on room air. We will order 6 minute walk followed by pulse ox to rule out desaturation with the underlying pulmonary fibrosis. And if it is below 88 he need oxygen at home. Her his medication needs to be adjusted before discharge, #1 antibiotic to be choice of the antibiotic and how many days. Also the amiodarone dose and the prescription after clearance from the cardiology for discharge. And the follow-up Clearance from pulmonary service with the adjustment of steroid or discontinuation versus oral steroid. And to follow-up Clearance from nephrology with the use of bicarb and if the doses will be changed as well as a follow-up. On examination today patient seen evaluated discussed at length with his and the patient and will planning for blood test tomorrow and as well if he stable and cleared by the [facility] consulting physician will be plan for discharge tomorrow or Tuesday. On examination today patient is conscious alert oriented with the severe hard of hearing and I did answer all the questions that they had at this time. HEENT was negative Head was normocephalic at the rheumatic pupil was equal reactive conjunctiva was eating sclera was nonicteric extraocular muscle movement intact. Oropharynx is normal, hearing is diminished. Neck was supple no JVD no thyromegaly no lymphadenopathy trachea midline. Chest was increased anteroposterior diameter with the underlying COPD and chronic smoker. And an inspiratory dry crackles on the basis suggestive of underlying pulmonary fibrosis added to his pneumonia which is apparently improving. Heart: He had cardiomegaly, he has impairment of the right ventricular with the underlying pulmonary hypertension as well, atrial fibrillation with controlled ventricular response at this time. Abdomen: Soft positive bowel sounds no organ enlargement. No tenderness in the four-quadrant. Extremities: Trace edema associated with the pulmonary hypertension, decreased pulses bilateral with the PAD. Dr. Toney vascular surgeon has been consulted and he will see him as o utpatient for for further evaluation and treatment if needed. Neurological: No lateralizing sign no tremors and no DTs at this time Psychiatric: Stable stable mood. Assessment: And plan: #1 underlying severe shortness of breath #2 acute COPD exacerbation with a chronic smoker. #3 severe pulmonary hypertension. #4 acute by ventricular congestive heart failure on the top of diastolic failure. #5 pulmonary fibrosis with a history of exposure to asbestos #6 atrial fibrillation with RVR treated with amiodarone as as well oral anticoagulant,eliquis. #7 peripheral vascular disease will be followed by Dr. Toney vascular surgeon. Intermittent hypoxemia, with possible desaturation due to pulmonary fibrosis and we will be doing 6 minute walk to see if he is below or at 88%. We'll be planning for ambulation and discharged home tomorrow or Tuesday if we have the clearance from the specialist. Objective - Vital Signs Vital signs: Vital Signs Temp 98.3 F 02/08/19 16:36 Pulse 70 02/08/19 16:36 Resp 16 02/08/19 16:36 BP 142/88 02/08/19 16:36 Pulse Ox 100 02/08/19 16:36 Intake & Output 02/07/19 02/08/19 02/08/19 18:59 06:59 18:59 Intake Total 180 50 400 Output Total 250 400 200 Balance -70 -350 200 Intake: IV 80 0.9ns 80 Intake, IV Titration 100 50 Amount cefTRIAXone 1 gm In 100 50 Sodium Chloride 0.9% 50 ml @ 100 mls/hr IVPB Q24HR [facility] Rx#:[id number] Oral 400 Output: Urine 250 400 200 Other: # Voids 1 - Labs CBC & Chem 7: 02/08/19 04:36 02/08/19 04:36 Labs: Abnormal Lab Results - Last 24 Hours (Table) 02/07/19 02/08/19 02/08/19 Range/Units 20:22 04:36 04:36 WBC 16.2 H (3.8-10.6) k/uL RBC 4.19 L (4.30-5.90) m/uL Hgb 12.3 L (13.0-17.5) gm/dL Hct 38.6 L (39.0-53.0) % RDW 16.9 H (11.5-15.5) % Neutrophils # 13.9 H (1.3-7.7) k/uL Sodium 134 L (137-145) mmol/L Carbon Dioxide 20 L (22-30) mmol/L BUN 30 H (9-20) mg/dL Creatinine 1.28 H (0.66-1.25) mg/dL Glucose 104 H (74-99) mg/dL POC Glucose (mg/dL) 121 H (75-99) mg/dL 02/08/19 02/08/19 Range/Units 06:51 11:59 WBC (3.8-10.6) k/uL RBC (4.30-5.90) m/uL Hgb (13.0-17.5) gm/dL Hct (39.0-53.0) % RDW (11.5-15.5) % Neutrophils # (1.3-7.7) k/uL Sodium (137-145) mmol/L Carbon Dioxide (22-30) mmol/L BUN (9-20) mg/dL Creatinine (0.66-1.25) mg/dL Glucose (74-99) mg/dL POC Glucose (mg/dL) 111 H 103 H (75-99) mg/dL Microbiology - Last 24 Hours (Table) 02/05/19 17:50 Gram Stain - Final Sputum Sputum Culture - Final 02/05/19 03:19 Blood Culture - Preliminary Blood No Growth after 72 hours 02/05/19 22:32 Blood Culture - Preliminary Blood No Growth after 48 hours 02/05/19 22:32 Blood Culture - Preliminary Blood No Growth after 48 hours
[2019-02-08] MEDS: MONTELUKAST 10 MG TAB PO SCH (20:32)
[2019-02-08] MEDS: ATORVASTATIN 10 MG TAB PO SCH (20:32)
[2019-02-08 20:58] LABS: Glucose,Whole Blood 108 mg/dL (75-99)
[2019-02-09 06:02] LABS: Glucose,Whole Blood 89 mg/dL (75-99)
[2019-02-09] MEDS: INSULIN ASPART (NovoLOG) 100 UNIT/ML VIAL SQ SCH ×2 (06:11→11:49)
[2019-02-09] MEDS: THIAMINE 100 MG TAB PO SCH (06:41)
[2019-02-09] MEDS: ACETAMINOPHEN TAB 325 MG TAB PO PRN (06:43)
[2019-02-09 06:51] LABS: Calcium 8.7 mg/dL (8.4-10.2); Potassium 4.7 mmol/L (3.5-5.1)
[2019-02-09 07:05] LABS: Anisocytosis Slight; Basophils # (A) 0.2 k/uL (0-0.2); Basophils % (A) 1 %; Eosinophils # (A) 0.1 k/uL (0-0.7); Eosinophils % (A) 0 %; HCT 40.4 % (39.0-53.0); HGB 12.6 gm/dL (13.0-17.5); Lymphocytes # (A) 1.9 k/uL (1.0-4.8); Lymphocytes % (A) 10 %; MCH 29.1 pg (25.0-35.0); MCHC 31.1 g/dL (31.0-37.0); MCV 93.4 fL (80.0-100.0); Mean Platelet Volume 7.9; Monocytes # (A) 0.5 k/uL (0-1.0); Monocytes % (A) 3 %; Neutrophils # (A) 15.4 k/uL (1.3-7.7); Neutrophils % (A) 82 %; Platelet Count 327 k/uL (150-450); RBC 4.33 m/uL (4.30-5.90); RDW 17.5 % (11.5-15.5); WBC 18.8 k/uL (3.8-10.6)
[2019-02-09] MEDS: SODIUM BICARBONATE TAB 650 MG TAB PO SCH (08:27)
[2019-02-09] MEDS: traMADol 50 MG TAB PO SCH (08:27)
[2019-02-09] MEDS: AZITHROMYCIN 500 MG TAB PO SCH (08:28)
[2019-02-09] MEDS: LORATADINE 10 MG TAB PO SCH (08:28)
[2019-02-09] MEDS: FUROSEMIDE 20 MG TAB PO SCH (08:28)
[2019-02-09] MEDS: ATENOLOL 25 MG TAB PO SCH (08:28)
[2019-02-09] MEDS: APIXABAN 5 MG TAB PO SCH (08:28)
[2019-02-09] MEDS: AMIODARONE 200 MG TAB PO SCH (08:28)
[2019-02-09] MEDS: methylPREDNISolone SOD SUCCI 40 MG/ML 1 ML VIAL IV SCH (09:31)
--- NOTE | 2019-02-09 09:57 | P.PN ---
Subjective Patient is seen in follow-up for acute kidney injury. Patient's baseline creatinine is near 1 and peaked at 1.6 this admission. It is down to 1.23 today. He is currently maintained on oral amiodarone for A. fib. Heart rate is controlled. Oral intake is gradually improving. No vomiting. He's been ambulating more. He was started on Lasix 20 mg once daily yesterday. No changes overnight. Vital signs are stable. General: The patient appeared well nourished and normally developed. HEENT: Head exam is unremarkable. Neck is without jugular venous distension. LUNGS: Lungs are clear to auscultation and percussion. Breath sounds decreased. HEART: Regular rate and rhythm. ABDOMEN: Abdominal exam reveals normal bowel sounds. Non-tender and non- distended. EXTREMITITES: Trace edema. Objective - Vital Signs Vital signs: Vital Signs Temp 97.5 F L 02/09/19 04:00 Pulse 60 02/09/19 04:00 Resp 16 02/09/19 04:00 BP 145/92 02/09/19 04:00 Pulse Ox 91 L 02/09/19 04:00 Intake & Output 02/08/19 02/09/19 02/09/19 18:59 06:59 18:59 Intake Total 637 360 Output Total 200 Balance 437 360 Weight 87 kg Intake: Oral 637 360 Output: Urine 200 Other: Voiding Method Urinal # Voids 2 - Labs CBC & Chem 7: 02/09/19 05:39 02/09/19 05:39 Labs: Abnormal Lab Results - Last 24 Hours (Table) 02/08/19 02/08/19 02/09/19 Range/Units 11:59 20:45 05:39 WBC 18.8 H (3.8-10.6) k/uL Hgb 12.6 L (13.0-17.5) gm/dL RDW 17.5 H (11.5-15.5) % Neutrophils # 15.4 H (1.3-7.7) k/uL Sodium (137-145) mmol/L Carbon Dioxide (22-30) mmol/L BUN (9-20) mg/dL POC Glucose (mg/dL) 103 H 108 H (75-99) mg/dL 02/09/19 Range/Units 05:39 WBC (3.8-10.6) k/uL Hgb (13.0-17.5) gm/dL RDW (11.5-15.5) % Neutrophils # (1.3-7.7) k/uL Sodium 135 L (137-145) mmol/L Carbon Dioxide 20 L (22-30) mmol/L BUN 36 H (9-20) mg/dL POC Glucose (mg/dL) (75-99) mg/dL Microbiology - Last 24 Hours (Table) 02/05/19 03:19 Blood Culture - Preliminary Blood No Growth after 96 hours 02/05/19 22:32 Blood Culture - Preliminary Blood No Growth after 72 hours 02/05/19 22:32 Blood Culture - Preliminary Blood No Growth after 72 hours 02/05/19 17:50 Gram Stain - Final Sputum Sputum Culture - Final Assessment and Plan Plan: Assessment: 1. Acute kidney injury secondary to ATN secondary to hemodynamic instability. Baseline creatinine near 1 and peaked at 1.66 this admission. It is 1.23 today. No evidence of hydronephrosis noted on renal ultrasound. 2. A. fib with RVR maintained on oral amiodarone. Also on anticoagulation. Cardiology following. 3. Mild hyperkalemia secondary to acute kidney injury and metabolic acidosis. Better. 4. Metabolic acidosis secondary to acute kidney injury. Stable. 5. Suspected community-acquired pneumonia maintained on antibiotics. 6. COPD exacerbation. Plan: Maintain Lasix 20 mg orally once daily. Continue to monitor renal function and urine output. Maintain oral sodium bicarbonate. Repeat electrolytes in the morning. Patient will need to follow-up outpatient in the next 1-2 weeks. If renal function remains stable, he will be cleared for lower extremity angiogram.
[2019-02-09 11:38] LABS: Glucose,Whole Blood 105 mg/dL (75-99)
[2019-02-09 11:43] VITALS: BP 149/79; PULSE 52; RESP 17; TEMP 98
--- NOTE | 2019-02-09 13:13 | P.DS ---
Providers Date of admission: 02/05/19 08:39 Expected date of discharge: 02/09/19 Attending physician: Galdino Israel Consults: 02/05/19 09:26 Consult Physician Stat Consulting Provider: Thom Araiza Consult Reason/Comments: anticoagulant,cardiac arrhythmia Do you want consulting provider notified?: Yes 02/05/19 13:02 Consult Physician Routine Consulting Provider: Anette Robb Consult Reason/Comments: SOB Do you want consulting provider notified?: Yes 02/05/19 13:40 Consult Physician Urgent Consulting Provider: Joshua Cruz Consult Reason/Comments: prephral arterial occlusive dis Do you want consulting provider notified?: Yes 02/06/19 09:44 Consult Physician Routine Consulting Provider: Rubens Downing Consult Reason/Comments: pnm, rash Do you want consulting provider notified?: Yes 02/06/19 09:45 Consult Physician Routine Consulting Provider: Alonso East Consult Reason/Comments: increased CR Do you want consulting provider notified?: Yes Primary care physician: Galdino Israel This is a dictation on discharge summary date of service 02/09/2019. Diagnosis: #1 retrocardiac pneumonia. #2 congestive heart failure acute on the top of chronic. Biventricular. #3 severe pulmonary hypertension. #4 COPD with exacerbation with the underlying history of chronic smoker. #5 pulmonary fibrosis with the exposure to asbestos many years ago at [employer]. #7 atrial fibrillation with RVR treated with amiodarone by cardiology. #8 ALLERGY to Zosyn, aspirin, piperacillin and tazobactam. #9 hypertension, #10 right ventricular severely enlarged with the right ventricular systolic function is moderately impaired with a severely dilated by Valium, right atrium moderately enlarged with the ejection fraction 5560 percent of the left ventricular systolic function mild of aortic valve sclerosis and mild aortic regurgitation and moderate mitral regurg and severe tricuspid regurg and severe pulmonary hypertension with the pressure 70.54 mmHg.. #11 advanced peripheral arterial disease will be followed by Dr. Toney vascular surgeon. #12 pulse ox 95 and 91 after exercise. #13 metabolic acidosis secondary to a KI and ATN supplemented with bicarb with by Dr. East nephrology Presentation to the ER A 68 years old white male presented with fever chills and cough and history 1 week prior to the presentation cellulitis of the right lower extremities which has been resolved patient was having nausea and vomiting 2 days prior to the admission. And at that time when he presented to the ER the started him on Bactrim. Which improved and he has minimal cough, history obtained from his in the ER and she said that he had fever tachycardia cough. He had leukocytosis with a white count was 17.7 and neutrophilia lactic acidosis the lactic acid was 3.9 with the of at that time the x-ray to the ER indicating bilateral pneumonia. However found to be retrocardiac and the admitted patient admitted with community-acquired pneumonia. Patient started on IV antibiotic and admitted through the hospital. Hospital course this patient seen by myself evaluated and we obtained computed tomography scan of the chest and was in the monilial in the ER. Found that he had retrocardiac infiltrate as well as he had pulmonary fibrosis and he has a smoking history of prolonged and history of exposure to asbestos and which indicating faye CAT scan pulmonary fibrosis. Patient admitted to the [facility] on the third the floor and consultation with the cardiology because of the patient had atrial fibrillation and he is on eliquis oral anticoagulation by Dr. Martina damian. Because of the pneumonia thoughts of aspiration and changed the antibiotic to Zosyn and found that he had the rash of the skin and ALLERGY to Zosyn and subsequently consultation with the infectious disease Dr. Rubens Downing who placed him on azithromycin and Rocephin. Patient did well with that. During his presence and [facility] and during early hour he developed atrial fibrillation with rapid ventricular response, a team was called and subsequently called me at home and patient transferred the to the ICU and the consultation with pulmonary was already ordered on admission and a consultation with cardiology ordered on admission. In the ICU found that he had his congestive heart failure was pronounced with the chest x-ray and Dr. Robb did continue care and give him Lasix and the Dr. sommers and then subsequently Dr Nice cardiology continue the care. Subsequently as patient monitored and adjusted the medication found that he had acute kidney injury and probably with instability of hemodynamics as well HTN consultation with Dr. East has been obtained. As well as consultation with Dr. Toney the cardiovascular the vascular surgeon was requested and he decided that to follow him as outpatient because of his peripheral arterial disease, Dr. East the electronic gluing machine operator did see the patient and adjust his IV fluid and the started him on the sodium bicarb due to his metabolic acidosis. Secondary to ATN. As patient improved plan for care and the patient will be followed with the above consulting physician and he stable today to discharge home with the clear ance from the cardiology and pulmonary and nephrology and infectious disease. Patient need inhalation nebulizer machine and medication which was ordered because of his shortness of breath, the pulmonary fibrosis and advanced it COPD. On discharge exam Temperature 98 F. His heart rate ranging between 62 and 52 his respiratory rate is 17/m nonlabored. Blood pressure 149/79, his pulse ox 95 on room air. Laboratory indicating that his white count is 18.8 with D margination of the WBC secondary to steroid. Hemoglobin is 12.6 hematocrit 40.4. Platelet count 327. Blood sugar controlled with the POC glucose monitor, his sodium 135 potassium 4.7 carbon dioxide 20 and he is on the sodium bicarb uncontrolled seen by Dr. East nephrology his BUN 36 creatinine 1.23 with the estimated glomerular fi ltration rate for non- is 60 and improved. On examination clinically: The head was normocephalic and atraumatic pupils equal reactive conjunctiva was pink sclera was nonicteric oropharynx normal with need help for his teeth with the dentist. Hearing is diminished no nasal discharge. Neck was supple no JVD no thyromegaly no lymphadenopathy trachea midline. Chest: Increased anteroposterior diameter, improved variation and air entry, he has still inspiratory dry crackles on both bases bilaterally with the underlying pulmonary fibrosis. It appears to me that pneumonia has been improved and the chest x-ray done on 02/07 indicating improvement except to the is pulmonary venous hypertension and interstitial edema and interstitial lung disease. Heart: No evidence of congestive heart failure as a result however he has continued to be atrial fibrillation with a controlled ventricular response due to overuse of the amiodarone. And he will be following with his burlap man. Abdomen is soft positive bowel sounds and no tenderness in the 4 quadrants. Extremities: No edema, pulses is significantly decreased bilaterally in the dorsalis pedis, posterior tibial, popliteal, femoral,. Neurologically: Stable no lateralizing sign, we thought that he may go for DTs and we put him on CIWA protocol and thiamine, Ativan and he past cigarette with no sequelae. Psychiatric normal mood. Discussed with the patient no smoking. And no alcohol intake at Assessment and plan: Patient will be discharged home today after clearance from cardiology and pulmonary and infectious disease. Prescription was given. And appointment was made and patient can see me in 5-7 days as well as seeing the nephrology and Dr. Toney as well as the cardiology and the pulmonary. And Dr. Israel follow-up and Dr. Honorio Art if patient request Diet regular renal diet. Activity: Gradual as tolerated. Patient Condition at Discharge: Stable Plan - Discharge Summary Discharge Rx Participant: Yes New Discharge Prescriptions: New Amiodarone [Cordarone] 200 mg PO BID #14 tab Ipratropium-Albuterol Nebulize [Duoneb 0.5 mg-3 mg/3 ml Soln] 3 ml INHALATION AC-TID #90 ampul.neb Furosemide [Lasix] 20 mg PO DAILY #30 tab Cefdinir [Omnicef] 300 mg PO BID #10 cap predniSONE 20 mg PO BID #10 tab Sodium Bicarbonate Tab 1,300 mg PO BID #14 tab Acetaminophen Tab [Tylenol] 650 mg PO Q6HR PRN tab PRN Reason: Fever And/ Or Pain Thiamine [Vitamin B-1] 100 mg PO BID-W/MEALS #14 tab Continue amLODIPine [Norvasc] 5 mg PO DAILY Atorvastatin Calcium [Lipitor] 10 mg PO HS traMADol HCL [Ultram] 50 mg PO BID Montelukast Sodium [Singulair] 10 mg PO HS Cetirizine HCl [Zyrtec] 10 mg PO DAILY Atenolol [Tenormin] 25 mg PO DAILY Apixaban [Eliquis] 5 mg PO BID Discontinued Sulfamethox-Tmp 800-160Mg [Bactrim DS 800-160 mg] 2 tab PO Q12HR 14 Days #56 tab Discharge Medication List Apixaban [Eliquis] 5 mg PO BID 01/30/19 [History] Atenolol [Tenormin] 25 mg PO DAILY 01/30/19 [History] Atorvastatin Calcium [Lipitor] 10 mg PO HS 01/30/19 [History] Cetirizine HCl [Zyrtec] 10 mg PO DAILY 01/30/19 [History] Montelukast Sodium [Singulair] 10 mg PO HS 01/30/19 [History] amLODIPine [Norvasc] 5 mg PO DAILY 01/30/19 [History] traMADol HCL [Ultram] 50 mg PO BID 01/30/19 [History] Acetaminophen Tab [Tylenol] 650 mg PO Q6HR PRN tab 02/09/19 [Rx] Amiodarone [Cordarone] 200 mg PO BID #14 tab 02/09/19 [Rx] Cefdinir [Omnicef] 300 mg PO BID #10 cap 02/09/19 [Rx] Furosemide [Lasix] 20 mg PO DAILY #30 tab 02/09/19 [Rx] Ipratropium-Albuterol Nebulize [Duoneb 0.5 mg-3 mg/3 ml Soln] 3 ml INHALATION AC-TID #90 ampul.neb 02/09/19 [Rx] Sodium Bicarbonate Tab 1,300 mg PO BID #14 tab 02/09/19 [Rx] Thiamine [Vitamin B-1] 100 mg PO BID-W/MEALS #14 tab 02/09/19 [Rx] predniSONE 20 mg PO BID #10 tab 02/09/19 [Rx] Follow up Appointment(s)/Referral(s): Guevara Art MD [STAFF PHYSICIAN] - 1-2 days Alonso East DO [STAFF PHYSICIAN] - 1 Week Joshua Cruz MD [STAFF PHYSICIAN] - 2 Weeks Activity/Diet/Wound Care/Special Instructions: Patient will follow up with Dr East in 1-2 weeks, at that point he will decide on clearance for CT dye (appt needs to be made prior to appt with Anthony) Patient needs to follow up with Anthony outpatient for peripheral vascular disease.
--- NOTE | 2019-02-09 15:53 | P.PN ---
Subjective Progress Note Date: 02/09/19 Principal diagnosis: Acute exacerbation of chronic obstructive pulmonary disease This is a very pleasant 68-year-old gentleman who follows with Dr. Art as his primary care physician. He has a history of hypertension, hyperlipidemia, atrophic fibrillation anticoagulated with Eliquis. He also has been having issues with shortness of breath cough and congestion and was due to see Dr. Glover next month in our office. He is recently been using his 's nebulizer and rescue inhaler. He does have a history of chronic tobacco dependence but quit smoking approximately 3 years ago. He presented here to the emergency room earlier this morning with complaints of worsening shortness of breath, cough and congestion. He also had issues with nausea and vomiting. He has been u ndergoing treatment for cellulitis of the right lower extremity as well. Further right lower extremity revealed no evidence of fracture. There is mild multifocal soft tissue swelling. No evidence of osteomyelitis. Doppler ruled out DVT. Chest x-ray reveals patchy bilateral lung opacities more prominent at the bases. Small pleural effusions. CT angiogram was suboptimal. There was areas of acute infiltrate or edema most prominent in the bilateral lung bases on background emphysematous changes and mild to moderate fibrosis. 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 Ultrasound of the abdomen ruled out hydronephrosis. No nephrolithiasis. Urine culture pending. White count 17.7. Hemoglobin 12.0. Creatinine 1.53. Lactic acid 3.9, down to 1.5, troponin 0.174. ProBNP 7800. Patient is seen today in consultation on the regular medical floor. He is awake and alert in no acute distress. He has a loose nonproductive cough. No current chills or night sweats. T-max of 101.6, currently afebrile. 18 in good O2 saturations in the mid 90s on 2 L/m per nasal cannula. Hemodynamically stable. He's been initiated on DuoNeb inhalations and Zosyn. Anticoagulated with Eliquis. Patient was reevaluated on 02/06/2019, patient had a downhill course overnight, apparently he developed atrial fibrillation with RVR, some component of interstitial edema based on the chest x-ray, extreme agitation and extreme shortness of breath requiring transfer to the intensive care unit. Patient is a DO NOT INTUBATE CODE STATUS, hence he was transferred to the ICU, placed on Cardizem drip, also given diuretics for his interstitial edema, and he was placed on the Ciwa protocol for his history of alcoholism. When I saw the patient in the ICU, he was already feeling better, call me down, continues to refuse using BiPAP. His atrial fibrillation seems to be better controlled on Cardizem drip. WBC count is 17 hemoglobin is 12 left was are normal bicarb was noted to be low at 15 anion gap was 17, BUN 18 creatinine 1.66. Troponin was noted to be a bit elevated, and BNP level was also elevated. Chest x-ray again is suggestive of worsening interstitial edema and underlying pneumonia as noted on CT of the chest on admission. Patient remains on antibiotics, bronchodi lators, and now on Cardizem, he was also placed on diuretics. Patient was seen today on 02/07/2019, remains in the ICU, patient required amiodarone drip, and he is presently in sinus rhythm. Mentation seems to be improving. Patient is calm, he is on the alcohol withdrawal protocol. Patient had slightly low blood pressure last night require 20 mL of fluid boluses, continues to have good urine output, patient was given 1 dose of Lasix yesterday, and he responded quite well to the Lasix early in the morning yesterday. Chest x-ray continues to show mild interstitial edema. Patient remains on bronchodilators, steroids, antibiotics for his underlying COPD and possible pneumonia. Labs today showed WBC of 16.7 hemoglobin of 12 left lites are normal BUN is 27 creatinine is down to 1.40. Patient is still in the intensive care unit as an overflow to selective. He is mostly on oral medications for his atrial fibrillation, he is on bronchodilators for his COPD, and I have cut down his Solu-Medrol today. Patient remains calm, he is doing excellent, denies any cough wheezing or shortness of breath, he is only on 4 L nasal cannula. Heart rate is controlled, he remains in atrial fibrillation but very well controlled rate. Actually his rate is about 57 this morning. His renal profile is improving, creatinine is down to 1.28 today. Patient is off Lasix. Chest x-ray is showing minimal interstitial edema, and possibly some fibrotic changes at the bases. This may have to be closely followed in the patient remains on amiodarone in the long run. Clearly he has cardiomegaly and mild interstitial edema on the chest x-ray today. BNP was 7800. Possibility of infiltrate is not entirely ruled out. Especially in the right lower lobe. Patient continues to have a bit of leukocytosis with WBC count of 16.2. Patient did have a T-max of 101.6 on admission. However for the last couple of days patient has been afebrile. The patient is seen today 02/09/2019 and follow-up on the selective care unit. He is currently sitting up in a chair at the bedside. He denies any shortness of breath, cough or congestion. No chest pain or palpitations. Maintaining good O2 saturations in the 90s on room air. He's been afebrile. Hemodynamically stable. Blood and sputum cultures revealed no growth. White count 18.8. Hemoglobin 12.6. Sodium 135. Creatinine 1.23. His been maintained on bronchodilators and antibiotics. Objective - Vital Signs Vital signs: Vital Signs Temp 98.0 F 02/09/19 11:39 Pulse 52 L 02/09/19 11:39 Resp 17 02/09/19 11:39 BP 149/79 02/09/19 11:39 Pulse Ox 95 02/09/19 11:39 Intake & Output 02/08/19 02/09/19 02/09/19 18:59 06:59 18:59 Intake Total 637 600 Output Total 200 Balance 437 600 Weight 87 kg Intake: Oral 637 600 Output: Urine 200 Other: Voiding Method Urinal Urinal # Voids 2 2 - Exam GENERAL EXAM: Pleasant 68-year-old gentleman. Alert, active, comfortable in no apparent distress. On room air. HEAD: Normocephalic. EYES: Normal reaction of pupils, equal size. NOSE: Clear with pink turbinates. THROAT: No erythema or exudates. NECK: No masses, no JVD. CHEST: No chest wall deformity. LUNGS: Equal air entry with crackles in the bilateral bases, end expiratory wh eeze, diminished CVS: S1 and S2 normal with no audible murmur, regular rhythm. ABDOMEN: No hepatosplenomegaly, normal bowel sounds, no guarding or rigidity. SPINE: No scoliosis or deformity SKIN: No rashes CENTRAL NERVOUS SYSTEM: No focal deficits, tone is normal in all 4 extremities. EXTREMITIES: Tenderness of the right lower extremity. No clubbing, no cyanosis. Peripheral pulses are intact. - Labs CBC & Chem 7: 02/09/19 05:39 02/09/19 05:39 Labs: Abnormal Lab Results - Last 24 Hours (Table) 02/08/19 02/09/19 02/09/19 Range/Units 20:45 05:39 05:39 WBC 18.8 H (3.8-10.6) k/uL Hgb 12.6 L (13.0-17.5) gm/dL RDW 17.5 H (11.5-15.5) % Neutrophils # 15.4 H (1.3-7.7) k/uL Sodium 135 L (137-145) mmol/L Carbon Dioxide 20 L (22-30) mmol/L BUN 36 H (9-20) mg/dL POC Glucose (mg/dL) 108 H (75-99) mg/dL 02/09/19 Range/Units 11:36 WBC (3.8-10.6) k/uL Hgb (13.0-17.5) gm/dL RDW (11.5-15.5) % Neutrophils # (1.3-7.7) k/uL Sodium (137-145) mmol/L Carbon Dioxide (22-30) mmol/L BUN (9-20) mg/dL POC Glucose (mg/dL) 105 H (75-99) mg/dL Microbiology - Last 24 Hours (Table) 02/05/19 03:19 Blood Culture - Preliminary Blood No Growth after 96 hours 02/05/19 22:32 Blood Culture - Preliminary Blood No Growth after 72 hours 02/05/19 22:32 Blood Culture - Preliminary Blood No Growth after 72 hours Assessment and Plan Assessment: Impression: #1 Acute exacerbation of suspected chronic obstructive pulmonary disease secondary to suspected community-acquired pneumonia and possible coronary fibrosis. #2 Febrile illness secondary to above. #3 Leukocytosis secondary to above. #4 lactic acidosis, recovered. #5 Acute kidney injury. #6 Cellulitis of the right lower extremity treated with Bactrim in the outpatient setting. #7 Chronic persistent atrial fibrillation, anticoagulated with Eliquis. #8 Hypertension. #9 Hyperlipidemia. Plan: The patient was seen and evaluated by Dr. Robb. He is cleared for discharge from the pulmonary standpoint. He has a nebulizer for treatments at home. He is on Singulair. He could follow-up in our office in 1-2 weeks' time. He is encouraged to call sooner with any recurrence of symptoms or other questions or concerns. I, the cosigning physician, performed a history & physical examination of the patient. Lungs sounds clear, diminished. Maintaining good O2 saturations in the 90s on room air. I discussed the assessment and plan of care with my nurse pra ctconsueloer, Brittany Braun. I attest to the above note as dictated by her.
--- NOTE | 2019-02-09 16:34 | P.PN ---
Subjective Progress Note Date: 02/09/19 This is a 68-year-old gentleman who was admitted to the hospital with acute respiratory distress who developed atypical fibrillation with rapid ventricular response. Patient was initially treated with IV Cardizem. He was changed to IV amiodarone. Yesterday. His rate is controlled. She is also on anticoagulation therapy with Eliquis. Patient is hemodynamically stable. We'll going to change to by mouth amiodarone after completion of the amiodarone drip. He'll start on 400 mg by mouth twice a day. Rest of the medication to be continued. 02/08/2019: This is a 68-year-old gentleman was admitted with pneumonia and respiratory failure. Patient was in atrial fibrillation with rapid ventricular response. Initially patient was on IV Cardizem and subsequently switched to IV amiodarone. Currently patient is on by mouth amiodarone along with beta lucina. His heart rate is in the 60s. Patient seemed to be more stable. I'm going to cut back the dose of the hemorrhoid around to 200 mg by mouth twice a day and quickly tapered down to continue with anticoagulation and beta lucina. Continue rest of the medications. 02/09/2019. This patient is admitted to the hospital with a pneumonia and respiratory failure. Patient had atrial fibrillation with rapid and corresponds. He was treated with IV amiodarone and switch to by mouth amiodarone. Patient heart rate is well controlled. Clinically seemed to be stable. Pulmonology has cleared the patient for discharge. I'm going to cut back the dose of the amiodarone to 200 mg. He will have follow-up with Dr. Araiza as an outpatient. Probably, patient could be taken off the amiodarone. Objective - Vital Signs Vital signs: Vital Signs Temp 98.0 F 02/09/19 11:39 Pulse 52 L 02/09/19 11:39 Resp 17 02/09/19 11:39 BP 149/79 02/09/19 11:39 Pulse Ox 95 02/09/19 11:39 Intake & Output 02/08/19 02/09/19 02/09/19 18:59 06:59 18:59 Intake Total 637 600 Output Total 200 Balance 437 600 Weight 87 kg Intake: Oral 637 600 Output: Urine 200 Other: Voiding Method Urinal Urinal # Voids 2 2 - Exam GENERAL EXAM: Patient is alert HEENT: Normocephalic. Normal reaction of pupils, equal size, normal range of extraocular motion. No erythema or exudates in the throat. NECK: No masses, no nuchal rigidity. CHEST: No chest wall deformity. LUNGS: Show expiratory wheezes HEART: S1 and S2 normal. Irregular heart sounds ABDOMEN: No hepatosplenomegaly, normal bowel sounds, no guarding or rigidity. SKIN: No rashes CENTRAL NERVOUS SYSTEM: No focal deficits. EXTREMITIES: No cyanosis, clubbing or edema. - Labs CBC & Chem 7: 02/09/19 05:39 02/09/19 05:39 Labs: Abnormal Lab Results - Last 24 Hours (Table) 02/08/19 02/09/19 02/09/19 Range/Units 20:45 05:39 05:39 WBC 18.8 H (3.8-10.6) k/uL Hgb 12.6 L (13.0-17.5) gm/dL RDW 17.5 H (11.5-15.5) % Neutrophils # 15.4 H (1.3-7.7) k/uL Sodium 135 L (137-145) mmol/L Carbon Dioxide 20 L (22-30) mmol/L BUN 36 H (9-20) mg/dL POC Glucose (mg/dL) 108 H (75-99) mg/dL 02/09/19 Range/Units 11:36 WBC (3.8-10.6) k/uL Hgb (13.0-17.5) gm/dL RDW (11.5-15.5) % Neutrophils # (1.3-7.7) k/uL Sodium (137-145) mmol/L Carbon Dioxide (22-30) mmol/L BUN (9-20) mg/dL POC Glucose (mg/dL) 105 H (75-99) mg/dL Microbiology - Last 24 Hours (Table) 02/05/19 03:19 Blood Culture - Preliminary Blood No Growth after 96 hours 02/05/19 22:32 Blood Culture - Preliminary Blood No Growth after 72 hours 02/05/19 22:32 Blood Culture - Preliminary Blood No Growth after 72 hours Assessment and Plan (1) Atrial fibrillation with RVR Status: Acute Code(s): I48.91 - UNSPECIFIED ATRIAL FIBRILLATION SNOMED Code(s): 039174062002991 (2) Acute renal failure Status: Acute Code(s): N17.9 - ACUTE KIDNEY FAILURE, UNSPECIFIED SNOMED C ode(s): 30894008 (3) CAP (community acquired pneumonia) Status: Acute Code(s): J18.9 - PNEUMONIA, UNSPECIFIED ORGANISM SNOMED Code(s): 691623430 (4) Sepsis Status: Acute Code(s): A41.9 - SEPSIS, UNSPECIFIED ORGANISM SNOMED Code(s): 64078715 Plan: Patient is clinically stable. Being discharged home. On cut back the dose of the amiodarone 200 mg once daily. Follow-up with Dr. Araiza. May discontinue amiodarone as an outpatient
[2019-02-09] MEDS ORDERED: CEFDINIR 300 MG CAP PO SCH (21:00)
[2019-02-09] MEDS ORDERED: predniSONE 20 MG TAB PO SCH (21:00)
== END 2019-02-09 16:17 | disposition home or self-care (01) | DRG 871 ==
LOC: EC 02:43 → 3NMEDONC 08:39 → 2SICU 02-06 06:28 → 3SCARD 02-08 15:41
PROVIDERS: ADMIT Internal Medicine; ATTEND Internal Medicine
DX: A41.9 Sepsis, unspecified organism (principal); N17.0 Acute kidney failure with tubular necrosis; I21.A1 Myocardial infarction type 2; J18.9 Pneumonia, unspecified organism; J96.01 Acute respiratory failure with hypoxia; I50.43 Acute on chronic combined systolic (congestive) and diastolic (congestive) heart failure; E87.2 Acidosis; J44.0 Chronic obstructive pulmonary disease with (acute) lower respiratory infection; J44.1 Chronic obstructive pulmonary disease with (acute) exacerbation; I45.2 Bifascicular block; E78.5 Hyperlipidemia, unspecified; E87.5 Hyperkalemia; I48.2 Chronic atrial fibrillation; I11.0 Hypertensive heart disease with heart failure; I25.10 Atherosclerotic heart disease of native coronary artery without angina pectoris; J84.10 Pulmonary fibrosis, unspecified; K21.9 Gastro-esophageal reflux disease without esophagitis; H91.90 Unspecified hearing loss, unspecified ear; M17.0 Bilateral primary osteoarthritis of knee; I08.3 Combined rheumatic disorders of mitral, aortic and tricuspid valves; I27.20 Pulmonary hypertension, unspecified; I73.9 Peripheral vascular disease, unspecified; Z66 Do not resuscitate; M19.90 Unspecified osteoarthritis, unspecified site; Z77.090 Contact with and (suspected) exposure to asbestos; Z87.891 Personal history of nicotine dependence; Z79.899 Other long term (current) drug therapy; Z88.1 Allergy status to other antibiotic agents; Z79.01 Long term (current) use of anticoagulants; Z88.6 Allergy status to analgesic agent; Z87.01 Personal history of pneumonia (recurrent)
CPT/HCPCS: 36415; 71045; 71046; 71250; 76770; 80048; 80053; 81001; 83036; 83605; 83735; 83880; 84100; 84132; 84484; 85025; 85610; 85730; 87040; 87070; 87086; 87205; 87324; 93005; 93306; 94640; 94660; 96361; 96365; 96375; 99285

== ENCOUNTER → 2019-02-13 | Outpatient (CLI) | payer MEDICARE, OTHER ==
[2019-02-13 11:23] LABS: Anisocytosis Slight; HCT 41.7 % (39.0-53.0); HGB 12.9 gm/dL (13.0-17.5); Hypochromasia Slight; MCH 29.3 pg (25.0-35.0); MCHC 30.9 g/dL (31.0-37.0); Macrocytosis Slight; Mean Platelet Volume 7.7; Platelet Count 461 k/uL (150-450); RBC 4.39 m/uL (4.30-5.90); RDW 18.1 % (11.5-15.5); WBC 16.2 k/uL (3.8-10.6)
[2019-02-13 16:52] LABS: African American GFR (CKD) 79.5 (60.0-200.0); Anion Gap 11.9 mmol/L (4.00-12.00); BUN/Creat Ratio 20.91 Ratio (12.00-20.00); Calcium 9.8 mg/dL (8.7-10.3); Carbon Dioxide 31.1 mmol/L (21.6-31.8); Potassium 4.7 mmol/L (3.5-5.5)
== END | disposition home or self-care (01) ==
LOC: LABWHC1 09:32
PROVIDERS: ATTEND Internal Medicine
DX: N17.9 Acute kidney failure, unspecified (principal); D72.829 Elevated white blood cell count, unspecified; J44.1 Chronic obstructive pulmonary disease with (acute) exacerbation; J18.9 Pneumonia, unspecified organism
CPT/HCPCS: 36415; 80048; 85027

== ENCOUNTER → 2019-03-01 | Outpatient (CLI) | payer MEDICARE, OTHER ==
[2019-03-01 10:00] LABS: Anisocytosis Slight; Basophils # (A) 0.1 k/uL (0-0.2); Basophils % (A) 1 %; Eosinophils # (A) 0.5 k/uL (0-0.7); Eosinophils % (A) 5 %; HCT 36.8 % (39.0-53.0); HGB 11.5 gm/dL (13.0-17.5); Hypochromasia Slight; Lymphocytes # (A) 3.3 k/uL (1.0-4.8); Lymphocytes % (A) 36 %; MCH 30.6 pg (25.0-35.0); MCHC 31.3 g/dL (31.0-37.0); Macrocytosis Slight; Mean Platelet Volume 6.7; Monocytes # (A) 0.5 k/uL (0-1.0); Monocytes % (A) 6 %; Neutrophils # (A) 4.4 k/uL (1.3-7.7); Neutrophils % (A) 49 %; Platelet Count 441 k/uL (150-450); RBC 3.75 m/uL (4.30-5.90); RDW 16.8 % (11.5-15.5)
[2019-03-01 17:02] LABS: African American GFR (CKD) 71.6 (60.0-200.0); Albumin 4.4 g/dL (3.80-4.90); Albumin/Globulin Ratio 2.1 (1.60-3.17); Anion Gap 9.8 mmol/L (4.00-12.00); BUN/Creat Ratio 11.67 Ratio (12.00-20.00); Calcium 9.5 mg/dL (8.7-10.3); Carbon Dioxide 23.2 mmol/L (21.6-31.8); Globulin 2.1 g/dL (1.6-3.3); LDL Cholesterol,Calculated 93.8 mg/dL (0.0-131.0); Potassium 4.7 mmol/L (3.5-5.5); Total Bilirubin 0.6 mg/dL (0.2-1.2); Total Protein 6.5 g/dL (6.2-8.2); VLDL Calculation 22.2 mg/dL (5.00-40.00)
[2019-03-01 17:07] LABS: Phosphorus 3.6 mg/dL (2.4-5.1)
== END | disposition home or self-care (01) ==
LOC: LABWHC1 09:04
PROVIDERS: ATTEND Internal Medicine
DX: D64.9 Anemia, unspecified (principal); N40.0 Benign prostatic hyperplasia without lower urinary tract symptoms; J44.9 Chronic obstructive pulmonary disease, unspecified; E78.5 Hyperlipidemia, unspecified; I10 Essential (primary) hypertension; E55.9 Vitamin D deficiency, unspecified; E05.90 Thyrotoxicosis, unspecified without thyrotoxic crisis or storm
CPT/HCPCS: 36415; 80053; 80061; 83735; 84100; 84439; 84443; 85025

== ENCOUNTER → 2019-05-07 | Outpatient (CLI) | payer MEDICARE, OTHER ==
--- NOTE | 2019-05-07 13:26 | XR ---
EXAMINATION TYPE: XR chest 2V DATE OF EXAM: 05/07/2019 COMPARISON: Prior chest x-ray 02/08/2019 HISTORY: Congestive heart failure, peripheral edema, difficulty breathing TECHNIQUE: Frontal and lateral views of the chest are obtained. FINDINGS: The heart remains enlarged. Patchy bibasilar density is noted, there is eventration of the right hemidiaphragm. Prominence of interstitium noted at the lung bases. No evident pneumothorax. Ao rta is dense. Pulmonary vascularity and larry not significantly changed. IMPRESSION: There may be some subsegmental atelectatic changes, correlate to exclude pulmonary venou s hypertension and interstitial edema. Follow-up recommended.
[2019-05-07 13:39] LABS: HCT 40.5 % (39.0-53.0); HGB 13.6 gm/dL (13.0-17.5); MCH 32.3 pg (25.0-35.0); MCHC 33.5 g/dL (31.0-37.0); MCV 96.3 fL (80.0-100.0); Mean Platelet Volume 7.6; Platelet Count 307 k/uL (150-450); RBC 4.21 m/uL (4.30-5.90); WBC 19.1 k/uL (3.8-10.6)
[2019-05-07 14:16] LABS: Band Neutrophils % 17 %; Eosinophils # (M) 0.57 k/uL (0-0.7); Lymphocytes # (M) 0.19 k/uL (1.0-4.8); Metamyelocytes # (M) 0.19 k/uL (0); Metamyelocytes % 1 %; Monocytes # (M) 0.76 k/uL (0-1.0); Myelocytes # (M) 0.19 k/uL (0); Myelocytes % 1 %; Neutrophils % (M) 75 %; Nucleated Red Blood Cells 0 /100 WBC (0-0); Total Cells Counted 200
[2019-05-07 16:17] LABS: Alcohol <10 mg/dL
[2019-05-07 19:20] LABS: ALT 19 U/L (10-49); AST 34 U/L (14-35); African American GFR (CKD) 43.8 (60.0-200.0); Alkaline Phosphatase 75 U/L (41-126); BUN/Creat Ratio 13.33 Ratio (12.00-20.00); Calcium 8.8 mg/dL (8.7-10.3); Carbon Dioxide 16.9 mmol/L (21.6-31.8); Chloride 99 mmol/L (96-109); Globulin 2.2 g/dL (1.6-3.3); Glucose 122 mg/dL (70-110); Potassium 3.7 mmol/L (3.5-5.5); Sodium 133 mmol/L (135-145); Total Bilirubin 1.2 mg/dL (0.3-1.2); Total Protein 6.6 g/dL (6.2-8.2)
== END | disposition home or self-care (01) ==
LOC: LABWHC1 12:42
PROVIDERS: ATTEND Internal Medicine
DX: I11.0 Hypertensive heart disease with heart failure (principal); I50.9 Heart failure, unspecified; R60.9 Edema, unspecified
CPT/HCPCS: 84439; 83880; 80048; 80076; 80074; 82140; 84443; 85025; 71046; 36415; G0480; 80320

== ENCOUNTER 2019-05-08 14:55 | Inpatient (IN) | payer MEDICARE, OTHER ==
[2019-05-08] MEDS ORDERED: SODIUM CHLORIDE 0.9% 1,000 ML IV STA ×2 (16:40→17:20)
[2019-05-08] MEDS ORDERED: IPRATROPIUM-ALBUTEROL 3 ML NEB INHALATION STA (16:40)
[2019-05-08] MEDS ORDERED: SODIUM CHLORIDE 0.9% 500 ML 500 ML IV STA (16:40)
[2019-05-08] MEDS ORDERED: methylPREDNISolone SOD SUCCI 125 MG/2 ML VIAL IV STA (16:41)
[2019-05-08 17:15] LABS: Basophils # (A) 0.1 k/uL (0-0.2); Basophils % (A) 1 %; Eosinophils # (A) 0.2 k/uL (0-0.7); Eosinophils % (A) 1 %; HCT 39.5 % (39.0-53.0); HGB 12.9 gm/dL (13.0-17.5); Lymphocytes # (A) 0.4 k/uL (1.0-4.8); Lymphocytes % (A) 3 %; MCH 31.4 pg (25.0-35.0); MCHC 32.8 g/dL (31.0-37.0); MCV 95.8 fL (80.0-100.0); Mean Platelet Volume 7.2; Monocytes # (A) 0.5 k/uL (0-1.0); Monocytes % (A) 3 %; Neutrophils # (A) 16.1 k/uL (1.3-7.7); Neutrophils % (A) 92 %; Platelet Count 243 k/uL (150-450); RBC 4.12 m/uL (4.30-5.90); RDW 14.8 % (11.5-15.5); WBC 17.5 k/uL (3.8-10.6)
[2019-05-08 17:28] LABS: Albumin 4.4 g/dL (3.5-5.0); Calcium 8.3 mg/dL (8.4-10.2); Magnesium 1.3 mg/dL (1.6-2.3); Potassium 5.1 mmol/L (3.5-5.1); Total Bilirubin 1.3 mg/dL (0.2-1.3); Total Protein 7.6 g/dL (6.3-8.2)
[2019-05-08 17:32] LABS: INR 1.4 (<1.2); Partial Thromboplastin Time 39.3 sec (22.0-30.0); Prothrombin Time 14.1 sec (9.0-12.0)
[2019-05-08 17:37] LABS: Acetaminophen 11.6 ug/mL; D-Dimer 1.48 mg/L FEU (<0.60); Phosphorus 6.2 mg/dL (2.5-4.5); Salicylate <1.0 mg/dL
--- NOTE | 2019-05-08 17:39 | ED ---
SOB HPI - General Chief Complaint: Shortness of Breath Stated Complaint: CHF/SOB Time Seen by Provider: 05/08/19 16:19 Source: patient, RN notes reviewed, old records reviewed Mode of arrival: wheelchair Limitations: no limitations - History of Present Illness Initial Comments: This is a 60-year-old male the ER for evaluation. Patient does say for eval uation regards to shortness of breath. Patient has no history of COPD no history of alcoholism. Patient was seen by his primary care for evaluation yesterday for similar complaints. Outpatient lab work and x-rays. Patient comes in today with increasing shortness breath with exertion. No fevers. Patient himself aside from shortness of breath is putting of lower extremity edema redness and bilateral pain. - Related Data Home Medications Medication Instructions Recorded Confirmed Apixaban [Eliquis] 5 mg PO BID 01/30/19 05/08/19 Atenolol [Tenormin] 25 mg PO DAILY 01/30/19 05/08/19 Atorvastatin Calcium [Lipitor] 10 mg PO HS 01/30/19 05/08/19 Cetirizine HCl [Zyrtec] 10 mg PO DAILY 01/30/19 05/08/19 Montelukast Sodium [Singulair] 10 mg PO HS 01/30/19 05/08/19 Acetaminophen Tab [Tylenol Tab] 500 mg PO Q4H PRN 05/08/19 05/08/19 [place] 430mg 430 mg PO QID 05/08/19 05/08/19 Baclofen 10 mg PO BID 05/08/19 05/08/19 Furosemide [Lasix] 40 mg PO TID 05/08/19 05/08/19 Levothyroxine Sodium [Synthroid] 50 mcg PO DAILY 05/08/19 05/08/19 [place]-3 Fatty Acids/Fish Oil [Fish 1 cap PO DAILY 05/08/19 05/08/19 Oil 1,000 mg Softgel] Spironolactone 25 mg PO DAILY 05/08/19 05/08/19 Previous Rx's Medication Instructions Recorded Ipratropium-Albuterol Nebulize 3 ml INHALATION AC-TID #90 02/09/19 [Duoneb 0.5 mg-3 mg/3 ml Soln] ampul.neb Allergies Allergy/AdvReac Type Severity Reaction Status Date / Time aspirin Allergy Anaphylaxis Verified 05/08/19 16:44 piperacillin [From Zosyn] Allergy Rash/Hives Verified 05/08/19 16:44 tazobactam [From Zosyn] Allergy Rash/Hives Verified 05/08/19 16:44 Review of Systems ROS Statement: Those systems with pertinent positive or pertinent negative responses have been documented in the HPI. ROS Other: All systems not noted in ROS Statement are negative. Past Medical History Past Medical History: Atrial Fibrillation, COPD, Eye Disorder, GERD/Reflux, Hyperlipidemia, Hypertension, Pneumonia Additional Past Medical History / Comment(s): Current R lower extremity cellulitis/edema, "irregular heart beat"-pt cannot recall name of arrhythmia, bronchitis, stomach ulcer, arthritis bilateral knees, sinus problems, very Hard of hearing History of Any Multi-Drug Resistant Organisms: None Reported Past Surgical History: Orthopedic Surgery Additional Past Surgical History / Comment(s): R shoulder surgery with ribbon, bilateral eyes laser surgery for glaucoma Past Anesthesia/Blood Transfusion Reactions: No Reported Reaction Past Psychological History: No Psychological Hx Reported Smoking Status: Former smoker Past Alcohol Use History: Occasional Past Drug Use History: None Reported - Past Family History Father History Unknown: Yes Additional Family Medical History / Comment(s): Pt is adopted. Mother Family Medical History: Dementia Additional Family Medical History / Comment(s): The only thing pt knows about mother is that she had dementia. General Exam Limitations: no limitations General appearance: alert, in no apparent distress Head exam: Present: atraumatic, normocephalic, normal inspection Eye exam: Present: normal appearance, PERRL, EOMI. Absent: scleral icterus, conjunctival injection, periorbital swelling ENT exam: Present: normal exam, mucous membranes moist Neck exam: Present: normal inspection. Absent: tenderness, meningismus, lymphadenopathy Respiratory exam: Present: normal lung sounds bilaterally. Absent: respiratory distress, wheezes, rales, rhonchi, stridor Cardiovascular Exam: Present: normal rhythm, bradycardia, normal heart sounds. Absent: systolic murmur, diastolic murmur, rubs, gallop, clicks GI/Abdominal exam: Present: soft, normal bowel sounds. Absent: distended, tenderness, guarding, rebound, rigid Extremities exam: Present: normal inspection, full ROM, normal capillary refill. Absent: tenderness, pedal edema, joint swelling, calf tenderness Back exam: Present: normal inspection Neurological exam: Present: alert, oriented X3, CN II-XII intact Psychiatric exam: Present: normal affect, normal mood Skin exam: Present: warm, dry, intact, normal color. Absent: rash Course Vital Signs 05/08/19 05/08/19 05/08/19 15:04 17:14 17:30 Temperature 97.5 F L Pulse Rate 56 L 60 64 Respiratory 18 Rate Blood Pressure 100/61 O2 Sat by Pulse 95 Oximetry 05/08/19 19:07 Temperature Pulse Rate 70 Respiratory 22 Rate Blood Pressure 115/72 O2 Sat by Pulse 92 L Oximetry - Reevaluation(s) Reevaluation #1: 05/08/19 17:39 Medical records reviewed 05/08/19 17:[address] Israel regarding patient and his interaction with patient yesterday, Reevaluation #2: 05/08/19 19:26 Patient with no significant improvement - Consultations Consultation #1: Spoke with Dr. Israel who recommends following consults, patient will be admitted for continued evaluation Medical Decision Making - Medical Decision Making 60 male the ER for evaluation patient resents today for evaluation regards to shortness of breath shortness of exertion weakness. Patient will be admitted for multiple consults from pulmonary cardiology regarding elevated troponin, nephrology for renal failure - Lab Data Result diagrams: 05/08/19 17:01 05/08/19 17:01 Lab Results 05/08/19 05/08/19 05/08/19 Range/Units 17:01 17:01 17:01 WBC 17.5 H (3.8-10.6) k/uL RBC 4.12 L (4.30-5.90) m/uL Hgb 12.9 L (13.0-17.5) gm/dL Hct 39.5 (39.0-53.0) % MCV 95.8 (80.0-100.0) fL MCH 31.4 (25.0-35.0) pg MCHC 32.8 (31.0-37.0) g/dL RDW 14.8 (11.5-15.5) % Plt Count 243 (150-450) k/uL Neutrophils % 92 % Lymphocytes % 3 % Monocytes % 3 % Eosinophils % 1 % Basophils % 1 % Neutrophils # 16.1 H (1.3-7.7) k/uL Lymphocytes # 0.4 L (1.0-4.8) k/uL Monocytes # 0.5 (0-1.0) k/uL Eosinophils # 0.2 (0-0.7) k/uL Basophils # 0.1 (0-0.2) k/uL PT 14.1 H (9.0-12.0) sec INR 1.4 H (<1.2) APTT 39.3 H (22.0-30.0) sec D-Dimer 1.48 H (<0.60) mg/L FEU VBG pH (7.31-7.41) VBG pCO2 (37-51) mmHg VBG HCO3 (24-28) mmol/L Sodium 125 L (137-145) mmol/L Potassium 5.1 (3.5-5.1) mmol/L Chloride 88 L (98-107) mmol/L Carbon Dioxide 17 L (22-30) mmol/L Anion Gap 20 mmol/L BUN 51 H (9-20) mg/dL Creatinine 2.54 H (0.66-1.25) mg/dL Est GFR (CKD-EPI)AfAm 29 (>60 ml/min/1.73 sqM) Est GFR (CKD-EPI)NonAf 25 (>60 ml/min/1.73 sqM) Glucose 79 (74-99) mg/dL Plasma Lactic Acid Vance (0.7-2.0) mmol/L Calcium 8.3 L (8.4-10.2) mg/dL Phosphorus (2.5-4.5) mg/dL Magnesium 1.3 L (1.6-2.3) mg/dL Total Bilirubin 1.3 (0.2-1.3) mg/dL AST 68 H (17-59) U/L ALT 31 (21-72) U/L Alkaline Phosphatase 46 (38-126) U/L Ammonia (<30) umol/L Creatine Kinase 564 H (55-170) U/L Troponin I (0.000-0.034) ng/mL NT-Pro-B Natriuret Pep pg/mL Total Protein 7.6 (6.3-8.2) g/dL Albumin 4.4 (3.5-5.0) g/dL Urine Color Urine Appearance (Clear) Urine pH (5.0-8.0) Ur Specific [place] (1.001-1.035) Urine Protein (Negative) Urine Glucose (UA) (Negative) Urine Ketones (Negative) Urine Blood (Negative) Urine Nitrite (Negative) Urine Bilirubin (Negative) Urine Urobilinogen (<2.0) mg/dL Ur Leukocyte Esterase (Negative) Salicylates mg/dL Urine Opiates Screen (NotDetected) Ur Oxycodone Screen (NotDetected) Urine Methadone Screen (NotDetected) Ur Propoxyphene Screen (NotDetected) Acetaminophen ug/mL Ur Barbiturates Screen (NotDetected) U Tricyclic Antidepress (NotDetected) Ur Phencyclidine Scrn (NotDetected) Ur Amphetamines Screen (NotDetected) U Methamphetamines Scrn (NotDetected) U Benzodiazepines Scrn (NotDetected) Urine Cocaine Screen (NotDetected) U Marijuana (THC) Screen (NotDetected) 05/08/19 05/08/19 05/08/19 Range/Units 17:01 17:01 17:01 WBC (3.8-10.6) k/uL RBC (4.30-5.90) m/uL Hgb (13.0-17.5) gm/dL Hct (39.0-53.0) % MCV (80.0-100.0) fL MCH (25.0-35.0) pg MCHC (31.0-37.0) g/dL RDW (11.5-15.5) % Plt Count (150-450) k/uL Neutrophils % % Lymphocytes % % Monocytes % % Eosinophils % % Basophils % % Neutrophils # (1.3-7.7) k/uL Lymphocytes # (1.0-4.8) k/uL Monocytes # (0-1.0) k/uL Eosinophils # (0-0.7) k/uL Basophils # (0-0.2) k/uL PT (9.0-12.0) sec INR (<1.2) APTT (22.0-30.0) sec D-Dimer (<0.60) mg/L FEU VBG pH (7.31-7.41) VBG pCO2 (37-51) mmHg VBG HCO3 (24-28) mmol/L Sodium (137-145) mmol/L Potassium (3.5-5.1) mmol/L Chloride (98-107) mmol/L Carbon Dioxide (22-30) mmol/L Anion Gap mmol/L BUN (9-20) mg/dL Creatinine (0.66-1.25) mg/dL Est GFR (CKD-EPI)AfAm (>60 ml/min/1.73 sqM) Est GFR (CKD-EPI)NonAf (>60 ml/min/1.73 sqM) Glucose (74-99) mg/dL Plasma Lactic Acid Vance (0.7-2.0) mmol/L Calcium (8.4-10.2) mg/dL Phosphorus 6.2 H (2.5-4.5) mg/dL Magnesium (1.6-2.3) mg/dL Total Bilirubin (0.2-1.3) mg/dL AST (17-59) U/L ALT (21-72) U/L Alkaline Phosphatase (38-126) U/L Ammonia (<30) umol/L Creatine Kinase (55-170) U/L Troponin I 0.137 H* (0.000-0.034) ng/mL NT-Pro-B Natriuret Pep 69867 pg/mL Total Protein (6.3-8.2) g/dL Albumin (3.5-5.0) g/dL Urine Color Urine Appearance (Clear) Urine pH (5.0-8.0) Ur Specific [place] (1.001-1.035) Urine Protein (Negative) Urine Glucose (UA) (Negative) Urine Ketones (Negative) Urine Blood (Negative) Urine Nitrite (Negative) Urine Bilirubin (Negative) Urine Urobilinogen (<2.0) mg/dL Ur Leukocyte Esterase (Negative) Salicylates <1.0 mg/dL Urine Opiates Screen (NotDetected) Ur Oxycodone Screen (NotDetected) Urine Methadone Screen (NotDetected) Ur Propoxyphene Screen (NotDetected) Acetaminophen 11.6 ug/mL Ur Barbiturates Screen (NotDetected) U Tricyclic Antidepress (NotDetected) Ur Phencyclidine Scrn (NotDetected) Ur Amphetamines Screen (NotDetected) U Methamphetamines Scrn (NotDetected) U Benzodiazepines Scrn (NotDetected) Urine Cocaine Screen (NotDetected) U Marijuana (THC) Screen (NotDetected) 05/08/19 05/08/19 05/08/19 Range/Units 17:01 17:34 18:30 WBC (3.8-10.6) k/uL RBC (4.30-5.90) m/uL Hgb (13.0-17.5) gm/dL Hct (39.0-53.0) % MCV (80.0-100.0) fL MCH (25.0-35.0) pg MCHC (31.0-37.0) g/dL RDW (11.5-15.5) % Plt Count (150-450) k/uL Neutrophils % % Lymphocytes % % Monocytes % % Eosinophils % % Basophils % % Neutrophils # (1.3-7.7) k/uL Lymphocytes # (1.0-4.8) k/uL Monocytes # (0-1.0) k/uL Eosinophils # (0-0.7) k/uL Basophils # (0-0.2) k/uL PT (9.0-12.0) sec INR (<1.2) APTT (22.0-30.0) sec D-Dimer (<0.60) mg/L FEU VBG pH 7.30 L (7.31-7.41) VBG pCO2 43 (37-51) mmHg VBG HCO3 21 L (24-28) mmol/L Sodium (137-145) mmol/L Potassium (3.5-5.1) mmol/L Chloride (98-107) mmol/L Carbon Dioxide (22-30) mmol/L Anion Gap mmol/L BUN (9-20) mg/dL Creatinine (0.66-1.25) mg/dL Est GFR (CKD-EPI)AfAm (>60 ml/min/1.73 sqM) Est GFR (CKD-EPI)NonAf (>60 ml/min/1.73 sqM) Glucose (74-99) mg/dL Plasma Lactic Acid Vance 2.6 H* (0.7-2.0) mmol/L Calcium (8.4-10.2) mg/dL Phosphorus (2.5-4.5) mg/dL Magnesium (1.6-2.3) mg/dL Total Bilirubin (0.2-1.3) mg/dL AST (17-59) U/L ALT (21-72) U/L Alkaline Phosphatase (38-126) U/L Ammonia 23 (<30) umol/L Creatine Kinase (55-170) U/L Troponin I (0.000-0.034) ng/mL NT-Pro-B Natriuret Pep pg/mL Total Protein (6.3-8.2) g/dL Albumin (3.5-5.0) g/dL Urine Color Yellow Urine Appearance Clear (Clear) Urine pH 5.5 (5.0-8.0) Ur Specific [place] 1.007 (1.001-1.035) Urine Protein Negative (Negative) Urine Glucose (UA) Negative (Negative) Urine Ketones Negative (Negative) Urine Blood Negative (Negative) Urine Nitrite Negative (Negative) Urine Bilirubin Negative (Negative) Urine Urobilinogen <2.0 (<2.0) mg/dL Ur Leukocyte Esterase Negative (Negative) Salicylates mg/dL Urine Opiates Screen Detected H (NotDetected) Ur Oxycodone Screen Not Detected (NotDetected) Urine Methadone Screen Not Detected (NotDetected) Ur Propoxyphene Screen Not Detected (NotDetected) Acetaminophen ug/mL Ur Barbiturates Screen Not Detected (NotDetected) U Tricyclic Antidepress Not Detected (NotDetected) Ur Phencyclidine Scrn Not Detected (NotDetected) Ur Amphetamines Screen Not Detected (NotDetected) U Methamphetamines Scrn Not Detected (NotDetected) U Benzodiazepines Scrn Not Detected (NotDetected) Urine Cocaine Screen Not Detected (NotDetected) U Marijuana (THC) Screen Not Detected (NotDetected) - Radiology Data Radiology results: report reviewed (Chest x-rays positive for CHFBed V/Q negative for PE or low probability, Lower Extremity Negative for DVT), image reviewed Critical Care Time Critical Care Time: Yes Total Critical Care Time: 31 Disposition Clinical Impression: Acute pulmonary edema, Congestive heart failure, Acute renal failure, Leukocytosis, COPD (chronic obstructive pulmonary disease), Sepsis, Alcoholic ketoacidosis, Hyponatremia, Bilateral lower leg cellulitis Disposition: ADMITTED IP TO THIS HOSP Condition: Fair Is patient prescribed a controlled substance at d/c from ED?: No Referrals: Galdino Israel MD [Primary Care Provider] - 1-2 days
[2019-05-08 17:40] LABS: VBG PH 7.3 (7.31-7.41)
[2019-05-08 17:43] LABS: Lactic Acid, Venous 2.6 mmol/L (0.7-2.0)
[2019-05-08] MEDS ORDERED: MAGNESIUM OXIDE 400 MG TAB PO STA (17:45)
[2019-05-08] MEDS ORDERED: HEPARIN SODIUM,PORCINE 5,000 UNIT/ML 1 ML VIAL IV PRN (17:46)
[2019-05-08] MEDS ORDERED: HEPARIN SODIUM,PORCINE 5,000 UNIT/ML 1 ML VIAL IV ONE (17:46)
[2019-05-08] MEDS ORDERED: HEPARIN SOD,PORK IN 0.45% NACL 25,000 UNIT in 0.45% NACL 1 250ML.BAG IV SCH (18:00)
--- NOTE | 2019-05-08 18:39 | US ---
EXAMINATION TYPE: US venous doppler duplex LE BI DATE OF EXAM: 05/08/2019 6:28 PM COMPARISON: US CLINICAL HISTORY: DVT. Bilateral leg swelling SIDE PERFORMED: Bilateral TECHNIQUE: The lower extremity deep venous system is examined utilizing real time linear array sonog randi with graded compression, doppler sonography and color-flow sonography. VESSELS IMAGED: External Iliac Vein (EIV) Common Femoral Vein Deep Femoral Vein Greater Saphenous Vein * Femoral Vein Popliteal Vein Small Saphenous Vein * Proximal Calf Veins (* superficial vessels) Complex fluid collection right pop fossa measures 5.8 x 1.9 x 4.2 cm. Right Leg: Negative for DVT Left Leg: Negative for DVT IMPRESSION: No evidence of deep venous thrombosis in both legs.
[2019-05-08 19:08] LABS: Appearance,Urine Clear (Clear); Bilirubin,Urine Negative (Negative); Blood,Urine Negative (Negative); Color,Urine Yellow; Glucose,Urine (UA) Negative (Negative); Ketones,Urine Negative (Negative); Leukocyte Esterase,Urine Negative (Negative); Nitrite,Urine Negative (Negative); PH, Urine 5.5 (5.0-8.0); Protein,Urine Negative (Negative); Specific Gravity,Urine 1.007 (1.001-1.035); Urobilinogen,Urine <2.0 mg/dL (<2.0)
--- NOTE | 2019-05-08 19:14 | NM ---
EXAMINATION TYPE: NM pul perfusion DATE OF EXAM: 05/08/2019 COMPARISON: NONE HISTORY: Following administration of 5.09 mCi Tc 99m MAA. Images obtained post injection. FINDINGS: Exam is slightly limited. There are only anterior and posterior views of the chest with perfusion claritza ges only. There is fairly uniform activity in the lungs. I see no segmental defect. There is some pleural reac tion on the chest x-ray today. There is a minimal perfusion and radiographic matching defect of the l ateral left lung base. Cardiac silhouette appears enlarged. IMPRESSION: There is a low probability of pulmonary embolism. There is fairly normal appearance of the lungs on t he perfusion images. There is defect of the left lung base consistent with elevated diaphragm and ate lectasis in the left lower lobe.
[2019-05-08 19:18] LABS: Amphetamine Screen,Urine Not Detected (NotDetected); Barbiturate Screen,Urine Not Detected (NotDetected); Benzodiazepines Screen,Urine Not Detected (NotDetected); Cocaine Screen,Urine Not Detected (NotDetected); Methadone Screen, Urine Not Detected (NotDetected); Opiate Screen,Urine Detected (NotDetected); Oxycodone Screen, Urine Not Detected (NotDetected); Phencyclidine Screen,Urine Not Detected (NotDetected); Tricyclic Antidepressant,Urine Not Detected (NotDetected); Urn Cannabinoid Scrn Not Detected (NotDetected)
--- NOTE | 2019-05-08 19:23 | XR ---
EXAMINATION TYPE: XR chest 2V DATE OF EXAM: 05/08/2019 COMPARISON: 05/07/2019 HISTORY: Short of breath TECHNIQUE: Frontal and lateral views of the chest are obtained. FINDINGS: There is some mild coarsening of interstitial markings in the lower lung puga. There is no heart failure. Thoracic aorta is atheromatous. There is no pleural effusion. IMPRESSION: Minimal pulmonary fibrotic changes. No significant change compared to yesterday. No hear t failure.
[2019-05-08] MEDS ORDERED: LORazepam 2 MG/ML INJ IV PRN ×3 (19:27)
[2019-05-08] MEDS ORDERED: THIAMINE 100 MG/ML 2 ML VIAL IM STA (19:27)
[2019-05-08] MEDS ORDERED: SODIUM CHLORIDE 0.9% 1,000 ML IV SCH (19:30)
[2019-05-08] MEDS: MAGNESIUM SULFATE-D5W PMX 1 GM in DEXTROSE/WATER 1 100ML.BAG IVPB SCH ×2 (19:31→21:30)
[2019-05-08] MEDS ORDERED: IPRATROPIUM-ALBUTEROL 3 ML NEB INHALATION SCH (20:00)
[2019-05-08] MEDS ORDERED: ACETAMINOPHEN TAB 500 MG TAB PO PRN (20:58)
[2019-05-08] MEDS ORDERED: MORPHINE SULFATE 2 MG/ML SYRINGE IVP PRN (21:52)
--- NOTE | 2019-05-08 21:59 | P.HPIM ---
History of Present Illness H&P Date: 05/08/19 History and physical dictated by Dr. Rodriguez on 05/08/2018. Dictation number , [id number]. Past Medical History Past Medical History: Atrial Fibrillation, COPD, Eye Disorder, GERD/Reflux, Hyperlipidemia, Hypertension, Pneumonia Additional Past Medical History / Comment(s): Current R lower extremity cellulitis/edema, "irregular heart beat"-pt cannot recall name of arrhythmia, bronchitis, stomach ulcer, arthritis bilateral knees, sinus problems, very Hard of hearing History of Any Multi-Drug Resistant Organisms: None Reported Past Surgical History: Orthopedic Surgery Additional Past Surgical History / Comment(s): R shoulder surgery with ribbon, bilateral eyes laser surgery for glaucoma Past Anesthesia/Blood Transfusion Reactions: No Reported Reaction Past Psychological History: No Psychological Hx Reported Smoking Status: Former smoker Past Alcohol Use History: Occasional Past Drug Use History: None Reported - Past Family History Father History Unknown: Yes Additional Family Medical History / Comment(s): Pt is adopted. Mother Family Medical History: Dementia Additional Family Medical History / Comment(s): The only thing pt knows about mother is that she had dementia. Medications and Allergies Home Medications Medication Instructions Recorded Confirmed Type Apixaban [Eliquis] 5 mg PO BID 01/30/19 05/08/19 History Atenolol [Tenormin] 25 mg PO DAILY 01/30/19 05/08/19 History Atorvastatin Calcium [Lipitor] 10 mg PO HS 01/30/19 05/08/19 History Cetirizine HCl [Zyrtec] 10 mg PO DAILY 01/30/19 05/08/19 History Montelukast Sodium [Singulair] 10 mg PO HS 01/30/19 05/08/19 History Ipratropium-Albuterol Nebulize 3 ml INHALATION AC-TID #90 02/09/19 05/08/19 Rx [Duoneb 0.5 mg-3 mg/3 ml Soln] ampul.neb Acetaminophen Tab [Tylenol Tab] 500 mg PO Q4H PRN 05/08/19 05/08/19 History [place] 430mg 430 mg PO QID 05/08/19 05/08/19 History Baclofen 10 mg PO BID 05/08/19 05/08/19 History Furosemide [Lasix] 40 mg PO TID 05/08/19 05/08/19 History Levothyroxine Sodium [Synthroid] 50 mcg PO DAILY 05/08/19 05/08/19 History [place]-3 Fatty Acids/Fish Oil [Fish 1 cap PO DAILY 05/08/19 05/08/19 History Oil 1,000 mg Softgel] Spironolactone 25 mg PO DAILY 05/08/19 05/08/19 History Allergies Allergy/AdvReac Type Severity Reaction Status Date / Time aspirin Allergy Anaphylaxis Verified 05/08/19 16:44 piperacillin [From Zosyn] Allergy Rash/Hives Verified 05/08/19 16:44 tazobactam [From Zosyn] Allergy Rash/Hives Verified 05/08/19 16:44 Physical Exam Vitals: Vital Signs Temp Pulse Resp BP Pulse Ox 05/08/19 21:33 74 16 108/71 96 05/08/19 20:17 66 05/08/19 19:58 64 05/08/19 19:07 70 22 115/72 92 L 05/08/19 17:30 64 05/08/19 17:14 60 05/08/19 15:04 97.5 F L 56 L 18 100/61 95 Intake and Output 05/08/19 05/08/19 05/08/19 06:59 14:59 22:59 Other: Weight 92.533 kg Results CBC & Chem 7: 05/08/19 17:01 05/08/19 17:01 Labs: Abnormal Lab Results - Last 24 Hours (Table) 05/08/19 05/08/19 05/08/19 Range/Units 17:01 17:01 17:01 WBC 17.5 H (3.8-10.6) k/uL RBC 4.12 L (4.30-5.90) m/uL Hgb 12.9 L (13.0-17.5) gm/dL Neutrophils # 16.1 H (1.3-7.7) k/uL Lymphocytes # 0.4 L (1.0-4.8) k/uL PT 14.1 H (9.0-12.0) sec INR 1.4 H (<1.2) APTT 39.3 H (22.0-30.0) sec D-Dimer 1.48 H (<0.60) mg/L FEU VBG pH (7.31-7.41) VBG HCO3 (24-28) mmol/L Sodium 125 L (137-145) mmol/L Chloride 88 L (98-107) mmol/L Carbon Dioxide 17 L (22-30) mmol/L BUN 51 H (9-20) mg/dL Creatinine 2.54 H (0.66-1.25) mg/dL Plasma Lactic Acid V[place] (0.7-2.0) mmol/L Calcium 8.3 L (8.4-10.2) mg/dL Phosphorus (2.5-4.5) mg/dL Magnesium 1.3 L (1.6-2.3) mg/dL AST 68 H (17-59) U/L Creatine Kinase 564 H (55-170) U/L Troponin I (0.000-0.034) ng/mL Urine Opiates Screen (NotDetected) 05/08/19 05/08/19 05/08/19 Range/Units 17:01 17:01 17:01 WBC (3.8-10.6) k/uL RBC (4.30-5.90) m/uL Hgb (13.0-17.5) gm/dL Neutrophils # (1.3-7.7) k/uL Lymphocytes # (1.0-4.8) k/uL PT (9.0-12.0) sec INR (<1.2) APTT (22.0-30.0) sec D-Dimer (<0.60) mg/L FEU VBG pH (7.31-7.41) VBG HCO3 (24-28) mmol/L Sodium (137-145) mmol/L Chloride (98-107) mmol/L Carbon Dioxide (22-30) mmol/L BUN (9-20) mg/dL Creatinine (0.66-1.25) mg/dL Plasma Lactic Acid Vance 2.6 H* (0.7-2.0) mmol/L Calcium (8.4-10.2) mg/dL Phosphorus 6.2 H (2.5-4.5) mg/dL Magnesium (1.6-2.3) mg/dL AST (17-59) U/L Creatine Kinase (55-170) U/L Troponin I 0.137 H* (0.000-0.034) ng/mL Urine Opiates Screen (NotDetected) 05/08/19 05/08/19 05/08/19 Range/Units 17:34 18:30 20:58 WBC (3.8-10.6) k/uL RBC (4.30-5.90) m/uL Hgb (13.0-17.5) gm/dL Neutrophils # (1.3-7.7) k/uL Lymphocytes # (1.0-4.8) k/uL PT (9.0-12.0) sec INR (<1.2) APTT (22.0-30.0) sec D-Dimer (<0.60) mg/L FEU VBG pH 7.30 L (7.31-7.41) VBG HCO3 21 L (24-28) mmol/L Sodium (137-145) mmol/L Chloride (98-107) mmol/L Carbon Dioxide (22-30) mmol/L BUN (9-20) mg/dL Creatinine (0.66-1.25) mg/dL Plasma Lactic Acid Vance 2.2 H* (0.7-2.0) mmol/L Calcium (8.4-10.2) mg/dL Phosphorus (2.5-4.5) mg/dL Magnesium (1.6-2.3) mg/dL AST (17-59) U/L Creatine Kinase (55-170) U/L Troponin I (0.000-0.034) ng/mL Urine Opiates Screen Detected H (NotDetected)
[2019-05-08 22:58] LABS: Glucose,Whole Blood 138 mg/dL (75-99)
[2019-05-08] MEDS: INSULIN ASPART (NovoLOG) 100 UNIT/ML VIAL SQ SCH (23:03)
[2019-05-08] MEDS: SODIUM BICARBONATE TAB 650 MG TAB PO SCH (23:14)
[2019-05-08] MEDS: FUROSEMIDE 10 MG/ML 2 ML VIAL IV SCH (23:14)
[2019-05-08] MEDS: MONTELUKAST 10 MG TAB PO SCH (23:14)
[2019-05-08] MEDS: ATORVASTATIN 10 MG TAB PO SCH (23:14)
[2019-05-08] MEDS: methylPREDNISolone SOD SUCCI 40 MG/ML 1 ML VIAL IV SCH (23:15)
--- NOTE | 2019-05-08 23:24 | HP ---
HISTORY AND PHYSICAL This patient is a 68-old white male, . He is currently in the ER room 8 and going to the telemetry-monitored floor. He is FULL CODE. His height is 5 feet 9 inches, weight 92.533 kg, BSA 2.08 m2, BMI 30.1 kg/m2. ALLERGIES: 1. ASPIRIN. 2. PIPERACILLIN. 3. TAZOBACTAM. With that he has rash and hives. CHIEF COMPLAINT: The patient presented with severe shortness of breath associated with inability to breathe and also generalized weakness. He could not walk. Edema of the lower extremities, 4+ edematous and heavy. HISTORY OF PRESENT ILLNESS: Mr. Woods is a 68-year-old white male brought to the emergency room by his with progressive increase of edema of the lower extremities as well as shortness of breath and severe debilitation, unable to move. HISTORY OF PRESENT ILLNESS: The patient was seen yesterday in the office, and at that time he complained of shortness of breath and edema of the lower extremities. At that time we temporarily increased the Lasix, as he was taking 40 mg twice a day, to 3 times a day. We also obtained laboratory results to assess his condition, with the underlying chronic medical problems. He was previously admitted to the hospital in January. LABORATORY STUDIES: Lab work done on 05/07/2019 indicates glucose 122, sodium 133, potassium 3.7, chloride 99, carbon dioxide 16.9 with the underlying metabolic acidosis. His anion gap was increased and his BUN is 24 and creatinine 1.8. His BUN:creatinine ratio was 13 and his glomerular filtration rate for non- 37.8. With the significant impairment of his shortness of breath he was still able to walk on the day before admission. At that time, this laboratory was done at [facility] and his protein, albumin, globulin were within normal limits. His liver enzymes were within normal limits as well and his thyroid function was normal. Alcohol was less than 10. He has also hepatitis A nonreactive, hepatitis B nonreactive, hepatitis B surface antigen nonreactive and hepatitis C nonreactive. On that date as well, 05/07/2019, his proBNP was 6370 and the ammonia level was 9. His white count was 19.1 with leukocytosis and his hemoglobin was 13.6 and the platelet count 307 with the hematocrit 40.5. He had also a chest x-ray. The chest x-ray done on the same date, 05/07/2019, indicated that he had subsegmental atelectasis changes and exclude venous hypertension and interstitial edema. Subsequently his called the office, as we were trying to contact her in regard to his current laboratory abnormalities as well as to start to evaluate adding medication for the patient. At that time also to check on the patient and how he is doing at home. His stated that he has severely progressive shortness of breath, and she will be taking him to the emergency room. I did call Dr. Martinez, who was going to see the patient in the emergency room, and discussed with him the current laboratory and the problem and the need for admission to the hospital. Subsequently, as he did more work on the patient, he found out that the chest x-ray today indicated minimal pulmonary fibrotic changes with the underlying possible fibrosis. He also found that D-dimer was slightly elevated. Subsequently he did a chest angiogram and pulmonary perfusion image and the test result was this is not a CT scan. This is a nuclear medicine perfusion scan and they found low probability, no evidence of PE. However, he had a defect in the left lung base consistent with elevated diaphragm and atelectasis of the left lower lobe. He also checked a venous Doppler study, which indicated negative DVT in the right leg and the left leg. Because of his creatinine elevation which exceeded yesterday's 1.8 and went to above 2, he canceled the pulmonary perfusion imaging, which is a CT scan angiogram. At that time he called me after he had his laboratory indicating still leukocytosis and white count of 17.5; hemoglobin 12.9, pro time 14.1 with INR 1.4 and PTT 39.3, mildly elevated. The D- dimer was 1.48. The ABGs of the venous blood gases showed 7.30 pH which is on the acidotic side. Venous bicarb was 21 and pCO2 was 43. His sodium yesterday was 133 and today it is 125 with hyponatremia. His potassium went up from 3.7 to 5.1, chloride 88, carbon dioxide 17, with the underlying metabolic acidosis. His anion gap is 20 and BUN of 51 and creatinine bert from 1.8 to 2.54. The estimated glomerular filtration rate for non- is 25 with the underlying acute kidney injury. Lactic acidosis was present, with the lactic acid 2.6. His phosphate was elevated to 6.2. His magnesium was low at 1.3. AST 68, mild elevation. ALT 31 and alkaline phosphatase 46. His CK had mild elevation at 564 with the normal range being 55 to 170. His beta natriuretic peptide 11,000 and yesterday it was obtained as ordered and was 6370, with the least number exacerbation of acute congestive heart failure was also present. Total protein 7.6 and albumin 4.4. His urinalysis was negative. Patient was taking [place] at home and his urine opiate screen was which is . Acetaminophen level was 11.6, which is therapeutic level. No evidence of toxicity. He stated that he drinks a pint or half a pint of alcohol daily. His troponin was 0.137 and underlying acute elevation of the troponin and need for serial monitoring. PAST MEDICAL HISTORY: The patient had history of admission to the hospital. He had at that time a history of anemia, history of heart failure, chronic atrial fibrillation, COPD, cyst on the left eyelid, history of edema, which resolved on previous admission. Past history of mixed hyperlipidemia. History of aortic valve insufficiency and mitral insufficiency as well. History of peripheral vascular disease. History of nicotine dependency; he quit smoking for the last year or two. History of pulmonary fibrosis and severe pulmonary hypertension and chronic shortness of breath. When he was seen in the office, his blood pressure was 96/50 and the sudden elevation acute kidney injury that was probably associated with ATN and hypotension. However, we will be consulting Nephrology as well as Cardiology as well as Pulmonary as well as Infectious Disease with the D-dimer being elevated. However, the testing was negative. The lactic acid was also elevated with the CPK elevation. His troponin as well is now 11,000, increased from yesterday, with the associated severe pulmonary hypertension. REVIEW OF SYSTEMS: He has discussed with him the effect of stopping alcohol suddenly and the possibility of DTs and he will be on CIWA protocol and Ativan for that. He is on thiamine already because of no alcohol during his hospitalization. NECK: JVD present and no thyromegaly. Normal swallowing. He has a few teeth in the lower jaw and he is missing teeth in the upper jaw. He does not use his dentures. He has impaired hearing bilaterally and he had a cyst on the left upper eyelid. Otherwise, he denied any chest pain, but he has pain on the back and he noted pain in the right hip, not in the kidney area. The patient has a history of chronic pain, for which he has been using some narcotic in the form of [place] from previous physicians. GI: He has no diarrhea or constipation. No abdominal pain. : He had no dysuria or hematuria and the urinalysis was negative. MUSCULOSKELETAL: He has generalized weakness. PULMONARY: Severe shortness of breath, even when using oxygen. CARDIOVASCULAR: He has been on Eliquis, which has been held because he was started on the heparin protocol with Cardiology followup with the question of acute coronary artery syndrome. PHYSICAL EXAMINATION: VITAL SIGNS: He is afebrile. When admitted to the hospital in the emergency room, his temperature was 97.5 Fahrenheit oral. His heart rate was 56 beats per minute, respiratory rate was 18, blood pressure was 100/61 with the mean blood pressure 74 and the saturation was 95. Gradually with the IV fluid, his blood pressure is improving to 115/72. HEENT: The head was normocephalic, atraumatic. Pupils were equal, reactive. Conjunctivae were pink. Sclerae nonicteric. He had a cyst on the left upper eyelid. The neck was supple. However, he has JVD with the bed elevation at 45 degrees. Trachea midline. CHEST: Bilateral rales and rhonchi for 2/3 of his lung with the shortness of breath. HEART: PMI in the fifth intercostal space outside midclavicular line. There is a presence of murmur. Underlying cardiomegaly. His previous echocardiogram was done in the hospital and the result indicated the patient's baseline creatinine on 02/13 was 1.1. The echocardiogram was indicating right ventricular systolic function moderately impaired with ejection fraction 55% to 60%, and his right atrium also moderately enlarged. He had aortic regurgitation and mitral regurgitation and tricuspid regurgitation and severe pulmonary hypertension and pulmonary regurgitation as well as as physiologic effect. The severe pulmonary hypertension was measured at that time by 70.54 mmHg. However, we will be consulting Pulmonary for the pulmonary hypertension and Cardiology as well as Infectious Disease for the leukocytosis. ABDOMEN: Soft. Positive bowel sounds. Protuberant. The patient has no tenderness. However, I am suspicious of liver abnormalities; however, the liver enzymes are normal. With the underlying drinking half a pint at night daily or half a pint or 1 pint per his . EXTREMITIES: He has 3 to 4+ pitting edema bilaterally. The underlying etiology could be cardiac versus renal; however, pulse is still present. The patient currently is awake, clear, oriented, with the underlying possibility that DTs will be coming up once we stop the alcohol. When I did see him in the office, I stopped the amlodipine for what used to be hypertension because of hypotension at that time, which has apparently improved he blood pressure. CONCLUSION: 1. The patient's prognosis is guarded. 2. He is alcohol-dependent and he has the possibility of DTs or impending DTs with the stopping of alcohol in the hospital. 3. He has chronic atrial fibrillation; however, it is stable at this time. He is on anticoagulant 5 mg of Eliquis twice a day, which is held with the infusion of heparin for his troponin that is abnormal with the underlying possibility of a cardiac event. 4. Hypotension, relative, when compared with previous hypertension with hypertensive heart disease. 5. Shortness of breath with underlying interstitial edema added to the possibility of pulmonary fibrosis. 6. Pulmonary hypertension, severe, with the measurement indicating more than 70 mmHg. We will be asking Pulmonary and Cardiology if there is any available treatment at this time. 7. Metabolic acidosis associated with the kidney and with the underlying acute kidney injury. His creatinine was 101 dated 02/13/2019 and the estimated glomerular filtration rate was 68.6. However, it could be that this is due to dilutional effects, and at that time he was diuresed. 8. Underlying bilateral peripheral edema. I do not believe he has any cellulitis, but the possibility is present. The patient was also started on antibiotic Rocephin by the emergency room, thinking the possibility of cellulitis. We are consulting Dr. Downing as well for evaluation. 9. The patient had steroid added to him in the ER because of his lung and history of COPD and exacerbation. 10.We added the insulin to scale for covering the hyperglycemia associated with using steroid. PLAN: The patient will be admitted to the hospital. Consultations with Pulmonary and Cardiology and Nephrology as well as Infectious Disease. Further treatment as noted. Will adjust his Lasix, as he is taking it now orally. We will change it to p.o. Lasix until seen and started on sodium bicarb for the metabolic acidosis. Repeat lab in the morning. MMODL / IJN: [id number] /
[2019-05-09] MEDS ORDERED: methylPREDNISolone SOD SUCCI 125 MG/2 ML VIAL IV SCH
[2019-05-09] MEDS: SODIUM CHLORIDE 0.9% 1,000 ML IV SCH ×2 (00:12→06:56)
[2019-05-09 04:21] LABS: Magnesium 2.2 mg/dL (1.6-2.3); Potassium 3.7 mmol/L (3.5-5.1)
[2019-05-09 04:31] LABS: INR 1.3 (<1.2); Prothrombin Time 12.9 sec (9.0-12.0)
[2019-05-09 04:34] LABS: Partial Thromboplastin Time 176.1 sec (22.0-30.0)
[2019-05-09 04:37] LABS: Basophils % (A) 0 %; Eosinophils # (A) 0.1 k/uL (0-0.7); Eosinophils % (A) 1 %; HCT 37.4 % (39.0-53.0); Lymphocytes # (A) 0.5 k/uL (1.0-4.8); Lymphocytes % (A) 5 %; MCH 31.6 pg (25.0-35.0); MCV 98.7 fL (80.0-100.0); Macrocytosis Slight; Mean Platelet Volume 7.7; Monocytes # (A) 0.2 k/uL (0-1.0); Monocytes % (A) 2 %; Neutrophils # (A) 9.5 k/uL (1.3-7.7); Neutrophils % (A) 91 %; Platelet Count 232 k/uL (150-450); RBC 3.79 m/uL (4.30-5.90); RDW 15.7 % (11.5-15.5); WBC 10.4 k/uL (3.8-10.6)
[2019-05-09 06:11] LABS: Glucose,Whole Blood 132 mg/dL (75-99)
[2019-05-09] MEDS: INSULIN ASPART (NovoLOG) 100 UNIT/ML VIAL SQ SCH ×4 (06:11→20:41)
[2019-05-09] MEDS: THIAMINE 100 MG TAB PO SCH ×2 (06:56→17:21)
[2019-05-09] MEDS: LEVOTHYROXINE 50 MCG TAB PO SCH (06:56)
[2019-05-09] MEDS: IPRATROPIUM-ALBUTEROL 3 ML NEB INHALATION SCH ×4 (08:15→20:16)
[2019-05-09] MEDS: methylPREDNISolone SOD SUCCI 40 MG/ML 1 ML VIAL IV SCH (09:51)
[2019-05-09] MEDS: FUROSEMIDE 10 MG/ML 2 ML VIAL IV SCH (09:51)
[2019-05-09] MEDS: MULTIVITAMINS, THERA 1 EACH TAB PO SCH (09:52)
[2019-05-09] MEDS: SODIUM BICARBONATE TAB 650 MG TAB PO SCH ×2 (09:52→21:12)
[2019-05-09] MEDS: ATENOLOL 25 MG TAB PO SCH (09:52)
[2019-05-09] MEDS: LORATADINE 10 MG TAB PO SCH (09:52)
--- NOTE | 2019-05-09 10:46 | CDI ---
Documentation Clarification Form Date: 05/09/2019 10:37:25 AM From: Geno Rosales RN, CCDS Admit Date: 05/08/2019 7:21:00 PM Patient Name: Rubens Woods Visit Number: [id number] ATTENTION: The Clinical Documentation Specialists (CDI) and [facility] Coding Staff appreciate your assistance in clarifying documentation. Please respond to the clarification below the line at the bottom and electronically sign. The CDI & [facility] Coding staff will review the response and follow-up if needed. Please note: Queries are made part of the Legal Health Record. If you have any questions, please contact the author of this message via ITS. Dr. Galdino Israel CHF is documented in the H&P and requires further specificity. History/Risk Factors: Anemia, CHF, chronic atrial fib, COPD Clinical Indicators: 05/08 H&P: "His beta natriuretic peptide 11,000 and yesterday it was obtained as ordered and was 6370, with the least number exacerbation of acute congestive heart failure was also present." VS/Pulse OX: temp 97.5, Hr 56, RR 18, B/P 100/61, Spo2 95% RA BNP: 11,000 02/06 Echocardiogram Results: EF 55-60% 05/08/19 Chest X Ray: "Minimal pulmonary fibrotic changes. No significant change compared to yesterday. No heart failure." Treatment: Lasix 20 mg IVP Q 8 hrs 1.5L IVF bolus followed by 75 cc/hr In your professional opinion, can you please clarify the acuity and type of CHF if known? Systolic Heart Failure: Acute Chronic Acute on Chronic Diastolic Heart Failure: Acute Chronic Acute on Chronic Systolic & Diastolic Heart Failure: Acute Chronic Acute on Chronic Heart Failure Unable to Determine Other, please specify (Last Revision: November 2017) MTDD
[2019-05-09 12:57] LABS: Calcium 8.3 mg/dL (8.4-10.2); Potassium 4.2 mmol/L (3.5-5.1)
--- NOTE | 2019-05-09 14:06 | P.NPCON ---
History of Present Illness - Reason for Consult acute renal failure - History of Present Illness Reason for consultation: Acute kidney injury History of present illness: Patient is a 68-year-old male seen in renal consultation for acute kidney injury. Creatinine was 2.54 on admission and is down to 2.12 today. Baseline creatinine is near 1. Patient presented to the hospital with shortness of breath. Patient states he's been having difficulty with breathing over the last 6 months. He has a difficult time laying flat. He is currently maintained on normal saline at 75 mL an hour. He was also started on Lasix 20 mg IV 3 times daily this morning. VQ scan revealed no evidence of PE. Lower extremity ultrasound revealed no evidence of DVT. No evidence of gross fluid overload on chest x-ray. He admits to good urine output. No hematuria or dysuria. He was taking Lasix 40 mg orally 3 times daily at home. He was also on Aldactone. Denies vomiting or diarrhea. No history of diabetes. Patient has history of diastolic CHF with moderate mitral regurgitation and severe tricuspid regurgitat ion. Also has severe pulmonary hypertension. He does admit to edema in his lower extremities. Vital signs are stable. General: The patient appeared well nourished and normally developed. HEENT: Head exam is unremarkable. Neck is without jugular venous distension. LUNGS: Lungs are clear to auscultation and percussion. Breath sounds decreased. HEART: Rate and Rhythm are regular. First and second heart sounds normal. No murmurs, rubs or gallops. ABDOMEN: Abdominal exam reveals normal bowel sounds. Non-tender and non- distended. No evidence of peritonitis. EXTREMITITES: 1+ edema. Past Medical History Past Medical History: Atrial Fibrillation, COPD, Eye Disorder, GERD/Reflux, Hyperlipidemia, Hypertension, Pneumonia Additional Past Medical History / Comment(s): Current R lower extremity cellulitis/edema, "irregular heart beat"-pt cannot recall name of arrhythmia, bronchitis, stomach ulcer, arthritis bilateral knees, sinus problems, very Hard of hearing History of Any Multi-Drug Resistant Organisms: None Reported Past Surgical History: Orthopedic Surgery Additional Past Surgical History / Comment(s): R shoulder surgery with ribbon, bilateral eyes laser surgery for glaucoma Past Anesthesia/Blood Transfusion Reactions: No Reported Reaction Past Psychological History: No Psychological Hx Reported Additional Psychological History / Comment(s): but lives with his ex- who helps take care of. Stop smoking 2 years ago. No current alcohol use. 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 2 dogs and 2 cats in the home Smoking Status: Former smoker Past Alcohol Use History: Occasional Additional Past Alcohol Use History / Comment(s): Pt started smoking in 1964 and quit in 2016. He states he drinks 4 alcoholic beverages (rum) a day and last drank 2 days ago. Past Drug Use History: None Reported - Past Family History Father History Unknown: Yes Additional Family Medical History / Comment(s): Pt is adopted. Mother Family Medical History: Dementia Additional Family Medical History / Comment(s): The only thing pt knows about mother is that she had dementia. Medications and Allergies Home Medications Medication Instructions Recorded Confirmed Type Apixaban [Eliquis] 5 mg PO BID 01/30/19 05/08/19 History Atenolol [Tenormin] 25 mg PO DAILY 01/30/19 05/08/19 History Atorvastatin Calcium [Lipitor] 10 mg PO HS 01/30/19 05/08/19 History Cetirizine HCl [Zyrtec] 10 mg PO DAILY 01/30/19 05/08/19 History Montelukast Sodium [Singulair] 10 mg PO HS 01/30/19 05/08/19 History Ipratropium-Albuterol Nebulize 3 ml INHALATION AC-TID #90 02/09/19 05/08/19 Rx [Duoneb 0.5 mg-3 mg/3 ml Soln] ampul.neb Acetaminophen Tab [Tylenol Tab] 500 mg PO Q4H PRN 05/08/19 05/08/19 History [place] 430mg 430 mg PO QID 05/08/19 05/08/19 History Baclofen 10 mg PO BID 05/08/19 05/08/19 History Furosemide [Lasix] 40 mg PO TID 05/08/19 05/08/19 History Levothyroxine Sodium [Synthroid] 50 mcg PO DAILY 05/08/19 05/08/19 History [place]-3 Fatty Acids/Fish Oil [Fish 1 cap PO DAILY 05/08/19 05/08/19 History Oil 1,000 mg Softgel] Spironolactone 25 mg PO DAILY 05/08/19 05/08/19 History Allergies Allergy/AdvReac Type Severity Reaction Status Date / Time aspirin Allergy Anaphylaxis Verified 05/08/19 16:44 piperacillin [From Zosyn] Allergy Rash/Hives Verified 05/08/19 16:44 tazobactam [From Zosyn] Allergy Rash/Hives Verified 05/08/19 16:44 Physical Exam Vitals: Vital Signs Temp Pulse Pulse Resp BP BP Pulse Ox 05/09/19 12:00 60 16 101/57 93 L 05/09/19 10:52 16 96 05/09/19 08:05 98.1 F 52 L 18 107/67 96 05/09/19 04:00 98.5 F 56 L 20 113/63 96 05/09/19 00:00 98.6 F 62 20 127/65 94 L 05/08/19 21:33 74 16 108/71 96 05/08/19 20:17 66 05/08/19 19:58 64 05/08/19 19:07 70 22 115/72 92 L 05/08/19 17:30 64 05/08/19 17:14 60 05/08/19 15:04 97.5 F L 56 L 18 100/61 95 Intake and Output 05/08/19 05/09/19 05/09/19 22:59 06:59 14:59 Intake Total 71.624 770.767 Balance 71.624 770.767 Intake: Intake, IV Titration 71.624 50.767 Amount Heparin Sod,Pork in 0.45% 71.624 50.767 NaCl 25,000 unit In 0.45 % NaCl 1 250ml.bag @ 10.8 UNITS/KG/HR 9.994 mls/hr IV .Q24H [facility] Rx#: [id number] Oral 720 Other: Voiding Method Toilet Toilet # Voids 2 1 Weight 92.533 kg 90.4 kg Results - Lab Results Most recent lab results Calcium 8.3 mg/dL (8.4-10.2) L 05/09/19 12:10 Phosphorus 6.2 mg/dL (2.5-4.5) H 05/08/19 17:01 Magnesium 2.3 mg/dL (1.6-2.3) 05/09/19 07:43 05/09/19 03:53 05/09/19 12:10 Assessment and Plan Plan: Assessment: 1. Acute kidney injury mostly prerenal secondary to cardiorenal syndrome. C reatinine was 2.54 on admission and is down to 2.12 today. Baseline creatinine near 1. Urinalysis benign. 2. Lower extremity edema. 3. Acute on chronic diastolic CHF with moderate mitral regurgitation, severe tricuspid regurgitation. 4. Severe pulmonary hypertension. 5. Metabolic acidosis secondary to acute kidney injury. Also component of lactic acidosis. Plan: Hep-Lock IV fluids. I will change Lasix to 40 mg IV once daily. Low-salt diet. Maintain oral sodium bicarbonate. Repeat electrolytes in the morning. Thank you for the consultation. I will continue to follow the patient with you during his hospital stay.
--- NOTE | 2019-05-09 14:28 | P.PN ---
Subjective Progress Note Date: 05/09/19 progress note date of service 05/09/[address] Michael Brunson [facility]. Patient seen today [id number] and he stated that he feeling better however his shortness of breath as well as the leg swelling still present. His vital sign indicating temperature 98.1. His heart rate is 52 bpm. However at the time of examination heart rate 60. Respiratory rate 18 and at the time of exam 16. His blood pressure on the low side 101/57 with a mean 71 his pulse ox has been fluctuating between 96 and 93. On the room air. laboratory#1 lactic acid elevation resume was started from 05/08/2019 was 2.6 followed by 2.2 followed by 3.4 and followed by 2.7 followed by 2.3 with the underlying persistent elevation. The etiology of underlying underlying lactic acid is unclear with the possibilities multiple including hypoxemia and pulmonary fibrosis. And COPD with the underlying history of severe pulmonary hy pertension. He had abnormal [id number]/17/2019 troponin was 0.137 and today on 05/09/2019 troponin is 0.099 still elevated. Cardiology seen the patient and they are monitoring himand the patient on heparin protocol. In regard of acute kidney injury and elevated creatinine to about 2creatinine on 05/08/2019 2.54 and improved gradually to 2.27 and today 2.12 patient has previous baseline was 1.1 with the acute kidney injury and could be associated with hypotension and ATNnephrology consultation was requested. In regard of leukocytosis, yesterday 05/08/2019 his white count was 17.5 with a hemoglobin 12.9 and hematocrit 39.5 and MCV 95.8. Platelet count was 243. Today his on 05/09/2019 his white count is 10.4 and hemoglobin is 12.0 and a hematocrit 37.4 and the platelet count 232.his urinalysis was negative. Physical exam: We expecting from the patient confusion disorientation and possible impending DTs due to his alcohol intake and he used to drink a pint of alcohol daily and currently it was stopped and usually that does not appear the finding except after 3 days quitting the alcohol intake so still we are on CIWA [place] for alcohol cessation. Patient was not seen yet by Dr. Downing with the underlying the thoughts from the ER that he could be have cellulitis of the legs or the sepsis with the lactic acid elevation and we will be waiting for his recommendation and the treatment. On exam patient is conscious alert oriented his pupil equal reactive he had a cyst on the left eyelid oropharynx the has these with the tongue is normal and uvula midline he had bilateral hearing deficit. Neck was supple and he had mild JVD and chest was increased anteroposterior diameter with the underlying inspiratory rhonchi and possible rales which is suspicious of the pulmonary fibrosis and underlying pulmonary hypertension as well as COPD with a history of ex-smoker. Dr. Glover has been consulted. Heart the heart he has history of atrial fibrillation he is on but this has been held with the use of heparin dripand we will be holding [facility] cardiology give the plan of action for the patient. Abdomen: Soft positive bowel sounds no organ enlargement. Extremities pitting edema, negative DVT by venous duplex study on admission with the underlying pulmonary hypertension and right-sided congestive heart failure with elevated pro-BMP up to 11,000 and. Neurologically so far currently stable 0.4 extremities Neurological deficit no evidence of a rising the D DTs however that will take 2 days or 3 days from the sensation patient supported with thiamine home. Assessment: Patient will be seen by Dr. Mederos pulmonary, cardiology as well we'll see him as well as nephrology and infectious disease. I don't have so far any communication or documentation in the computer for any advanced treatment or changing the current treatment especially we have been giving him Lasix 20 mg every 8 hour because of the acute congestive heart failure diastolic acute on the top of chronic. Added to #2 pulmonary fibrosis, pulmonary hypertension, COPD,. #3 peripheral edema. #4 acute kidney injury and we will see what his recommendation from nephrology. Plan we'll continue the current treatment untowardly have Recommendation. We'll obtain lab tomorrow thank you Objective - Vital Signs Vital signs: Vital Signs Temp 98.1 F 05/09/19 08:05 Pulse 60 05/09/19 12:00 Resp 16 05/09/19 12:00 BP 101/57 05/09/19 12:00 Pulse Ox 93 L 05/09/19 12:00 Intake & Output 05/08/19 05/09/19 05/09/19 18:59 06:59 18:59 Intake Total 71.624 770.767 Balance 71.624 770.767 Weight 92.533 kg 90.4 kg Intake: Intake, IV Titration 71.624 50.767 Amount Heparin Sod,Pork in 0.45% 71.624 50.767 NaCl 25,000 unit In 0.45 % NaCl 1 250ml.bag @ 10.8 UNITS/KG/HR 9.994 mls/hr IV .Q24H [facility] Rx#: [id number] Oral 720 Other: Voiding Method Toilet Toilet # Voids 2 1 - Labs CBC & Chem 7: 05/09/19 03:53 05/09/19 12:10 Labs: Abnormal Lab Results - Last 24 Hours (Table) 05/08/19 05/08/19 05/08/19 Range/Units 17:01 17:01 17:01 WBC 17.5 H (3.8-10.6) k/uL RBC 4.12 L (4.30-5.90) m/uL Hgb 12.9 L (13.0-17.5) gm/dL Hct (39.0-53.0) % RDW (11.5-15.5) % Neutrophils # 16.1 H (1.3-7.7) k/uL Lymphocytes # 0.4 L (1.0-4.8) k/uL PT 14.1 H (9.0-12.0) sec INR 1.4 H (<1.2) APTT 39.3 H (22.0-30.0) sec D-Dimer 1.48 H (<0.60) mg/L FEU VBG pH (7.31-7.41) VBG HCO3 (24-28) mmol/L Sodium 125 L (137-145) mmol/L Chloride 88 L (98-107) mmol/L Carbon Dioxide 17 L (22-30) mmol/L BUN 51 H (9-20) mg/dL Creatinine 2.54 H (0.66-1.25) mg/dL Glucose (74-99) mg/dL POC Glucose (mg/dL) (75-99) mg/dL Plasma Lactic Acid Vance (0.7-2.0) mmol/L Calcium 8.3 L (8.4-10.2) mg/dL Phosphorus (2.5-4.5) mg/dL Magnesium 1.3 L (1.6-2.3) mg/dL AST 68 H (17-59) U/L Creatine Kinase 564 H (55-170) U/L Troponin I (0.000-0.034) ng/mL Urine Opiates Screen (NotDetected) 05/08/19 05/08/19 05/08/19 Range/Units 17:01 17:01 17:01 WBC (3.8-10.6) k/uL RBC (4.30-5.90) m/uL Hgb (13.0-17.5) gm/dL Hct (39.0-53.0) % RDW (11.5-15.5) % Neutrophils # (1.3-7.7) k/uL Lymphocytes # (1.0-4.8) k/uL PT (9.0-12.0) sec INR (<1.2) APTT (22.0-30.0) sec D-Dimer (<0.60) mg/L FEU VBG pH (7.31-7.41) VBG HCO3 (24-28) mmol/L Sodium (137-145) mmol/L Chloride (98-107) mmol/L Carbon Dioxide (22-30) mmol/L BUN (9-20) mg/dL Creatinine (0.66-1.25) mg/dL Glucose (74-99) mg/dL POC Glucose (mg/dL) (75-99) mg/dL Plasma Lactic Acid Vance 2.6 H* (0.7-2.0) mmol/L Calcium (8.4-10.2) mg/dL Phosphorus 6.2 H (2.5-4.5) mg/dL Magnesium (1.6-2.3) mg/dL AST (17-59) U/L Creatine Kinase (55-170) U/L Troponin I 0.137 H* (0.000-0.034) ng/mL Urine Opiates Screen (NotDetected) 05/08/19 05/08/19 05/08/19 Range/Units 17:34 18:30 20:58 WBC (3.8-10.6) k/uL RBC (4.30-5.90) m/uL Hgb (13.0-17.5) gm/dL Hct (39.0-53.0) % RDW (11.5-15.5) % Neutrophils # (1.3-7.7) k/uL Lymphocytes # (1.0-4.8) k/uL PT (9.0-12.0) sec INR (<1.2) APTT (22.0-30.0) sec D-Dimer (<0.60) mg/L FEU VBG pH 7.30 L (7.31-7.41) VBG HCO3 21 L (24-28) mmol/L Sodium (137-145) mmol/L Chloride (98-107) mmol/L Carbon Dioxide (22-30) mmol/L BUN (9-20) mg/dL Creatinine (0.66-1.25) mg/dL Glucose (74-99) mg/dL POC Glucose (mg/dL) (75-99) mg/dL Plasma Lactic Acid Vance 2.2 H* (0.7-2.0) mmol/L Calcium (8.4-10.2) mg/dL Phosphorus (2.5-4.5) mg/dL Magnesium (1.6-2.3) mg/dL AST (17-59) U/L Creatine Kinase (55-170) U/L Troponin I (0.000-0.034) ng/mL Urine Opiates Screen Detected H (NotDetected) 05/08/19 05/09/19 05/09/19 Range/Units 22:48 00:45 03:53 WBC (3.8-10.6) k/uL RBC 3.79 L (4.30-5.90) m/uL Hgb 12.0 L (13.0-17.5) gm/dL Hct 37.4 L (39.0-53.0) % RDW 15.7 H (11.5-15.5) % Neutrophils # 9.5 H (1.3-7.7) k/uL Lymphocytes # 0.5 L (1.0-4.8) k/uL PT (9.0-12.0) sec INR (<1.2) APTT (22.0-30.0) sec D-Dimer (<0.60) mg/L FEU VBG pH (7.31-7.41) VBG HCO3 (24-28) mmol/L Sodium (137-145) mmol/L Chloride (98-107) mmol/L Carbon Dioxide (22-30) mmol/L BUN (9-20) mg/dL Creatinine (0.66-1.25) mg/dL Glucose (74-99) mg/dL POC Glucose (mg/dL) 138 H (75-99) mg/dL Plasma Lactic Acid Vance 3.4 H* (0.7-2.0) mmol/L Calcium (8.4-10.2) mg/dL Phosphorus (2.5-4.5) mg/dL Magnesium (1.6-2.3) mg/dL AST (17-59) U/L Creatine Kinase (55-170) U/L Troponin I (0.000-0.034) ng/mL Urine Opiates Screen (NotDetected) 05/09/19 05/09/19 05/09/19 Range/Units 03:53 03:53 05:02 WBC (3.8-10.6) k/uL RBC (4.30-5.90) m/uL Hgb (13.0-17.5) gm/dL Hct (39.0-53.0) % RDW (11.5-15.5) % Neutrophils # (1.3-7.7) k/uL Lymphocytes # (1.0-4.8) k/uL PT 12.9 H (9.0-12.0) sec INR 1.3 H (<1.2) APTT 176.1 H* (22.0-30.0) sec D-Dimer (<0.60) mg/L FEU VBG pH (7.31-7.41) VBG HCO3 (24-28) mmol/L Sodium 130 L (137-145) mmol/L Chloride (98-107) mmol/L Carbon Dioxide 15 L (22-30) mmol/L BUN 51 H (9-20) mg/dL Creatinine 2.27 H (0.66-1.25) mg/dL Glucose 130 H (74-99) mg/dL POC Glucose (mg/dL) (75-99) mg/dL Plasma Lactic Acid Avnce 2.7 H* (0.7-2.0) mmol/L Calcium 8.0 L (8.4-10.2) mg/dL Phosphorus (2.5-4.5) mg/dL Magnesium (1.6-2.3) mg/dL AST (17-59) U/L Creatine Kinase (55-170) U/L Troponin I (0.000-0.034) ng/mL Urine Opiates Screen (NotDetected) 05/09/19 05/09/19 05/09/19 Range/Units 06:10 07:43 09:40 WBC (3.8-10.6) k/uL RBC (4.30-5.90) m/uL Hgb (13.0-17.5) gm/dL Hct (39.0-53.0) % RDW (11.5-15.5) % Neutrophils # (1.3-7.7) k/uL Lymphocytes # (1.0-4.8) k/uL PT (9.0-12.0) sec INR (<1.2) APTT (22.0-30.0) sec D-Dimer (<0.60) mg/L FEU VBG pH (7.31-7.41) VBG HCO3 (24-28) mmol/L Sodium (137-145) mmol/L Chloride (98-107) mmol/L Carbon Dioxide (22-30) mmol/L BUN (9-20) mg/dL Creatinine (0.66-1.25) mg/dL Glucose (74-99) mg/dL POC Glucose (mg/dL) 132 H (75-99) mg/dL Plasma Lactic Acid Vance 2.3 H* (0.7-2.0) mmol/L Calcium (8.4-10.2) mg/dL Phosphorus (2.5-4.5) mg/dL Magnesium (1.6-2.3) mg/dL AST (17-59) U/L Creatine Kinase (55-170) U/L Troponin I 0.099 H* (0.000-0.034) ng/mL Urine Opiates Screen (NotDetected) 05/09/19 05/09/19 Range/Units 12:10 12:10 WBC (3.8-10.6) k/uL RBC (4.30-5.90) m/uL Hgb (13.0-17.5) gm/dL Hct (39.0-53.0) % RDW (11.5-15.5) % Neutrophils # (1.3-7.7) k/uL Lymphocytes # (1.0-4.8) k/uL PT (9.0-12.0) sec INR (<1.2) APTT 80.5 H (22.0-30.0) sec D-Dimer (<0.60) mg/L FEU VBG pH (7.31-7.41) VBG HCO3 (24-28) mmol/L Sodium 136 L (137-145) mmol/L Chloride (98-107) mmol/L Carbon Dioxide 17 L (22-30) mmol/L BUN 52 H (9-20) mg/dL Creatinine 2.12 H (0.66-1.25) mg/dL Glucose 134 H (74-99) mg/dL POC Glucose (mg/dL) (75-99) mg/dL Plasma Lactic Acid Vance (0.7-2.0) mmol/L Calcium 8.3 L (8.4-10.2) mg/dL Phosphorus (2.5-4.5) mg/dL Magnesium (1.6-2.3) mg/dL AST (17-59) U/L Creatine Kinase (55-170) U/L Troponin I (0.000-0.034) ng/mL Urine Opiates Screen (NotDetected)
--- NOTE | 2019-05-09 16:05 | P.CRDCN ---
History of Present Illness Consult date: 05/09/19 Requesting physician: Galdino Israel Reason for Consult (text): Abnormal troponin Chief complaint: Shortness of breath History of present illness: This is a 68-year-old gentleman who follows regularly with Dr. Araiza in the office he has a known history of COPD, pulmonary hypertension, chronic atrial fibrillation, EtOH abuse, patient states he drinks a pint of whiskey a day, underlying pulmonary fibrosis, hypertension, hyperlipidemia, history of nicotine dependence, presents to the hospital with symptoms of worsening shortness of breath. His most recent hospitalization, was in January of this year which time he was admitted with COPD exacerbation and pneumonia. He was noted on that admission to have abnormal troponin likely related to sepsis at that time. Patient also had significant redness in his bilateral lower extremities which was felt to be a rash versus cellulitis. According to the patient, for the last several months he's noticed himself to be much more short of breath, positive PND and orthopnea. He was initiated here on IV Lasix. VQ scan did not reveal any evidence of a pulmonary embolism. Lower extremity ultrasound revealed no evidence of a DVT. No evidence of gross fluid overload on the chest x-ray. I pressure 110/60 with a heart rate in the 60s, 96% on room air. White blood cell count 19.1 on admission, 10.4 this morning, hemoglobin 12.0, platelet count 232. D-dimer 1.48, sodium 136, potassium 4.2, BUN 52 and creatinine 2.1, on admission the patient's creatinine was noted to be 2.5. Plasma lactic acid up to 3.8. Magnesium on admission 1.3, 2.3 this morning. BNP level 11,000. Troponins 0.17, 0.11, 0.13, 0.09. Drug screen positive for urine opiates.here and opiates. EKG on admission here showed atrial fibrillation with a controlled ventricular response. Past Medical History Past Medical History: Atrial Fibrillation, COPD, Eye Disorder, GERD/Reflux, Hyperlipidemia, Hypertension, Pneumonia Additional Past Medical History / Comment(s): Current R lower extremity cell ulitis/edema, "irregular heart beat"-pt cannot recall name of arrhythmia, bronchitis, stomach ulcer, arthritis bilateral knees, sinus problems, very Hard of hearing History of Any Multi-Drug Resistant Organisms: None Reported Past Surgical History: Orthopedic Surgery Additional Past Surgical History / Comment(s): R shoulder surgery with ribbon, bilateral eyes laser surgery for glaucoma Past Anesthesia/Blood Transfusion Reactions: No Reported Reaction Past Psychological History: No Psychological Hx Reported Additional Psychological History / Comment(s): but lives with his ex- who helps take care of. Stop smoking 2 years ago. No current alcohol use. 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 2 dogs and 2 cats in the home Smoking Status: Former smoker Past Alcohol Use History: Occasional Additional Past Alcohol Use History / Comment(s): Pt started smoking in 1964 and quit in 2016. He states he drinks 4 alcoholic beverages (rum) a day and last drank 2 days ago. Past Drug Use History: None Reported - Past Family History Father History Unknown: Yes Additional Family Medical History / Comment(s): Pt is adopted. Mother Family Medical History: Dementia Additional Family Medical History / Comment(s): The only thing pt knows about mother is that she had dementia. Medications and Allergies Home Medications Medication Instructions Recorded Confirmed Type Apixaban [Eliquis] 5 mg PO BID 01/30/19 05/08/19 History Atenolol [Tenormin] 25 mg PO DAILY 01/30/19 05/08/19 History Atorvastatin Calcium [Lipitor] 10 mg PO HS 01/30/19 05/08/19 History Cetirizine HCl [Zyrtec] 10 mg PO DAILY 01/30/19 05/08/19 History Montelukast Sodium [Singulair] 10 mg PO HS 01/30/19 05/08/19 History Ipratropium-Albuterol Nebulize 3 ml INHALATION AC-TID #90 02/09/19 05/08/19 Rx [Duoneb 0.5 mg-3 mg/3 ml Soln] ampul.neb Acetaminophen Tab [Tylenol Tab] 500 mg PO Q4H PRN 05/08/19 05/08/19 History [place] 430mg 430 mg PO QID 05/08/19 05/08/19 History Baclofen 10 mg PO BID 05/08/19 05/08/19 History Furosemide [Lasix] 40 mg PO TID 05/08/19 05/08/19 History Levothyroxine Sodium [Synthroid] 50 mcg PO DAILY 05/08/19 05/08/19 History [place]-3 Fatty Acids/Fish Oil [Fish 1 cap PO DAILY 05/08/19 05/08/19 History Oil 1,000 mg Softgel] Spironolactone 25 mg PO DAILY 05/08/19 05/08/19 History Allergies Allergy/AdvReac Type Severity Reaction Status Date / Time aspirin Allergy Anaphylaxis Verified 05/08/19 16:44 piperacillin [From Zosyn] Allergy Rash/Hives Verified 05/08/19 16:44 tazobactam [From Zosyn] Allergy Rash/Hives Verified 05/08/19 16:44 Physical Exam Vitals: Vital Signs Temp Pulse Pulse Resp BP BP Pulse Ox 05/09/19 15:25 97.4 F L 57 L 19 111/67 96 05/09/19 12:00 60 16 101/57 93 L 05/09/19 10:52 16 96 05/09/19 08:05 98.1 F 52 L 18 107/67 96 05/09/19 04:00 98.5 F 56 L 20 113/63 96 05/09/19 00:00 98.6 F 62 20 127/65 94 L 05/08/19 21:33 74 16 108/71 96 05/08/19 20:17 66 05/08/19 19:58 64 05/08/19 19:07 70 22 115/72 92 L 05/08/19 17:30 64 05/08/19 17:14 60 Intake and Output 05/09/19 05/09/19 05/09/19 06:59 14:59 22:59 Intake Total 71.624 770.767 Balance 71.624 770.767 Intake: Intake, IV Titration 71.624 50.767 Amount Heparin Sod,Pork in 0.45% 71.624 50.767 NaCl 25,000 unit In 0.45 % NaCl 1 250ml.bag @ 10.8 UNITS/KG/HR 9.994 mls/hr IV .Q24H [facility] Rx#: [id number] Oral 720 Other: Voiding Method Toilet Toilet # Voids 2 1 Weight 90.4 kg PHYSICAL EXAMINATION: GENERAL: [id number] gentleman in no acute distress at the time of my examination HEENT: Head is atraumatic, normocephalic. Pupils equal, round. Sclera anicteric. Conjunctiva are clear. Mucous membranes of the mouth are moist. Neck is supple. There is no elevated jugular venous pressure. No carotid bruit is heard. HEART EXAMINATION: S1 and S2 irregularly irregular systolic murmur is heard CHEST EXAMINATION: Reveal scattered coarse wheezing throughout with diminished air entry to the bases. ABDOMEN: Soft, obese, nontender. Bowel sounds are heard. No organomegaly noted. EXTREMITIES:[ 2+ peripheral pulses with 1+ evidence of peripheral edema bilateral redness to the lower extremities, petechiae-type rash NEUROLOGIC patient is awake, alert and oriented 3 . . Results 05/09/19 03:53 05/09/19 12:10 Cardiac Enzymes 05/08/19 05/08/19 05/09/19 Range/Units 17: 17: 07:43 AST 68 H (17-59) U/L Troponin I 0.137 H* 0.099 H* (0.000-0.034) ng/mL Coagulation 05/08/19 05/09/19 05/09/19 Range/Units 17: 03:53 12:10 PT 14.1 H 12.9 H (9.0-12.0) sec APTT 39.3 H 176.1 H* 80.5 H (22.0-30.0) sec CBC 05/08/19 05/09/19 Range/Units 17:01 03:53 WBC 17.5 H 10.4 (3.8-10.6) k/uL RBC 4.12 L 3.79 L (4.30-5.90) m/uL Hgb 12.9 L 12.0 L (13.0-17.5) gm/dL Hct 39.5 37.4 L (39.0-53.0) % Plt Count 243 232 (150-450) k/uL Comprehensive Metabolic Panel 05/08/19 05/09/19 05/09/19 Range/Units 17:01 03:53 12:10 Sodium 125 L 130 L 136 L (137-145) mmol/L Potassium 5.1 3.7 4.2 (3.5-5.1) mmol/L Chloride 88 L 98 100 (98-107) mmol/L Carbon Dioxide 17 L 15 L 17 L (22-30) mmol/L BUN 51 H 51 H 52 H (9-20) mg/dL Creatinine 2.54 H 2.27 H 2.12 H (0.66-1.25) mg/dL Glucose 79 130 H 134 H (74-99) mg/dL Calcium 8.3 L 8.0 L 8.3 L (8.4-10.2) mg/dL AST 68 H (17-59) U/L ALT 31 (21-72) U/L Alkaline Phosphatase 46 (38-126) U/L Total Protein 7.6 (6.3-8.2) g/dL Albumin 4.4 (3.5-5.0) g/dL Current Medications Generic Name Dose Route Start Last Admin Trade Name Freq PRN Reason Stop Dose Admin Acetaminophen 500 mg 05/08/19 20:58 Tylenol Tab PO Q4H PRN Pain Albuterol/Ipratropium 3 ml 05/09/19 08:00 05/09/19 13:12 Duoneb 0.5 Mg-3 Mg/3 Ml Soln INHALATION Not Given RT-TID [facility] Atenolol 25 mg 05/09/19 09:00 05/09/19 09:52 Tenormin PO 25 mg DAILY [facility] Administration Atorvastatin Calcium 10 mg 05/08/19 21:00 05/08/19 23:14 Lipitor PO 10 mg HS [facility] Administration Furosemide 40 mg 05/09/19 14:15 Lasix IV DAILY [facility] Heparin Sodium (Porcine) 0 unit 05/08/19 17:46 Heparin IV PER PROTOCOL PRN Low PTT Protocol Heparin Sodium/Sodium Chloride 250 mls @ 9.994 mls/hr 05/08/19 18:00 05/09/19 13:07 25,000 unit/ Sodium Chloride IV 5.8 units/kg/hr .Q24H [facility] 5.367 mls/hr Titration Protocol 10.8 UNITS/KG/HR Ceftriaxone Sodium 1 gm/ 50 mls @ 100 mls/hr 05/09/19 09:00 05/09/19 09:51 Sodium Chloride IVPB 100 mls/hr Q24HR [facility] Administration Insulin Aspart 2 - 10 unit 05/08/19 21:00 05/09/19 13:10 Novolog SQ Not Given ACHS [facility] Protocol Levothyroxine Sodium 50 mcg 05/09/19 06:30 05/09/19 06:56 Synthroid PO 50 mcg 0630 [facility] Administration Loratadine 10 mg 05/09/19 09:00 05/09/19 09:52 Claritin PO 10 mg DAILY [facility] Administration Lorazepam 1 mg 05/08/19 19:27 Ativan IV Q2HR PRN CIWA 8 or 9 Lorazepam 1 mg 05/08/19 19:27 Ativan IV Q1HR PRN CIWA 10 to 15 Lorazepam 2 mg 05/08/19 19:27 Ativan IV 05/10/19 19:27 Q10M PRN CIWA 16 or higher Methylprednisolone Sodium Succinate 40 mg 05/09/19 00:00 05/09/19 09:51 Solu-Medrol IV 40 mg Q8HR [facility] Administration Montelukast Sodium 10 mg 05/08/19 21:00 05/08/19 23:14 Singulair PO 10 mg HS [facility] Administration Morphine Sulfate 2 mg 05/08/19 21:52 Morphine Sulfate (Inj) IVP Q6H PRN Pain/Discomfort Multivitamins 1 each 05/09/19 09:00 05/09/19 09:52 Theragran PO 1 each DAILY [facility] Administration Sodium Bicarbonate 650 mg 05/08/19 22:00 05/09/19 09:52 Sodium Bicarbonate Tab PO 650 mg BID [facility] Administration Thiamine HCl 100 mg 05/09/19 07:30 05/09/19 06:56 Vitamin B-1 PO 100 mg BID-W/MEALS [facility] Administration Intake and Output 05/09/19 05/09/19 05/09/19 06:59 14:59 22:59 Intake Total 71.624 770.767 Balance 71.624 770.767 Intake: Intake, IV Titration 71.624 50.767 Amount Heparin Sod,Pork in 0.45% 71.624 50.767 NaCl 25,000 unit In 0.45 % NaCl 1 250ml.bag @ 10.8 UNITS/KG/HR 9.994 mls/hr IV .Q24H [facility] Rx#: [id number] Oral 720 Other: Voiding Method Toilet Toilet # Voids 2 1 Weight 90.4 kg 05/09/19 03:53 05/09/19 12:10 EKG Interpretations (text) EKG shows atrial fibrillation with a right bundle branch block pattern and nonspecific ST-T wave changes Assessment and Plan Plan: Assessment and plan #1 diastolic congestive heart failure acute on chronic #2 acute kidney injury #3 severe pulmonary hypertension #4 EtOH abuse #5 COPD #6 hypertension #7 hyperlipidemia #8 history of nicotine dependence #9 persistent atrial fibrillation #10 bilateral lower extremity edema with evidence of petechiae-type rash versus possible cellulitis Plan Patient had a recent echocardiogram with Doppler study performed in January which revealed an ejection fraction of 55-60%, moderate mitral regurgitation with severe tricuspid regurg and severe pulmonary hypertension, we would recommend to continue the patient on current dose of IV Lasix, monitoring intake and output along with daily weights and daily lytes BUN and creatinine. We will discontinue the patient's heparin and resume the Eliquis. Further recommendations to follow. DNP note has been reviewed, I agree with a documented findings and plan of care. Patient was seen and examined.
--- NOTE | 2019-05-09 16:12 | P.CNPUL ---
History of Present Illness Consult date: 05/09/19 Requesting physician: Galdino Israel Reason for consult: dyspnea Chief complaint: Shortness of breath History of present illness: 68-year-old white male patient of Dr. Israel with past medical history of COPD, history of atrial fibrillation on Eliquis, GERD/reflux, hypertension, hyperlipidemia, and history of chronic congestive heart failure with diastolic dysfunction, severe pulmonary hypertension with PA systolic of 70 mmHg. Patient came into the hospital on 05/08/2019 for evaluation of worsening shortness of breath, he does admit to recent weight increase, and orthopnea. Has a history of chronic lower extremity cellulitis, however he noticed increased swelling in his lower extremities. Chest x-ray was taken showing some subsegmental atelectatic changes, pulmonary venous hypertension, and interstitial edema. Labs showed a white blood cell count of 17.5, hemoglobin of 12.9, d-dimer was elevated at 1.48, sodium was 125, potassium is 5.1, chloride was 88, CO2 was 17, BUN of 51, creatinine of 2.54, lactic acid of 2.2, AST of 68, ALT of 31, alk phos of 46, CK of 564, troponins were positive at 0.137, and 0.099, proBNP was 11,000, urinalysis was negative, drug screen was positive for opiates. Ultrasound Dopplers of the lower extremities were negative for DVT. VQ scan showed low probability of pulmonary embolism. At the time of our evaluation patient is sitting up in bed, room air pulse ox is 96%, he is hemodynamic was stable, no acute distress, denies any chest pain, denies any cough or congestion. He does not wear oxygen at his baseline, his smoking is in remission, he does carry [id number] smoking history. He has been started on IV diuretics, empiric antibiotics, and breathing treatments, he is feeling better, his weight is down by 2.1 kg in the last 24 hours. Nephrology and consulted for evidence of acute kidney injury. We're consulted for evaluation of patient's shortness of breath. Review of Systems All systems: negative Constitutional: Denies chills, Denies fever Eyes: denies blurred vision, denies pain Ears, nose, mouth and throat: Denies headache, Denies sore throat Cardiovascular: Reports leg edema, Denies chest pain, Denies shortness of breath Respiratory: Reports dyspnea, Denies cough Gastrointestinal: Denies abdominal pain, Denies diarrhea, Denies nausea, Denies vomiting Musculoskeletal: Denies myalgias Integumentary: Denies pruritus, Denies rash Neurological: Denies numbness, Denies weakness Psychiatric: Denies anxiety, Denies depression Endocrine: Denies fatigue, Denies weight change Past Medical History Past Medical History: Atrial Fibrillation, COPD, Eye Disorder, GERD/Reflux, Hyperlipidemia, Hypertension, Pneumonia Additional Past Medical History / Comment(s): Current R lower extremity cellulitis/edema, "irregular heart beat"-pt cannot recall name of arrhythmia, bronchitis, stomach ulcer, arthritis bilateral knees, sinus problems, very Hard of hearing History of Any Multi-Drug Resistant Organisms: None Reported Past Surgical History: Orthopedic Surgery Additional Past Surgical History / Comment(s): R shoulder surgery with ribbon, bilateral eyes laser surgery for glaucoma Past Anesthesia/Blood Transfusion Reactions: No Reported Reaction Past Psychological History: No Psychological Hx Reported Additional Psychological History / Comment(s): but lives with his ex- who helps take care of. Stop smoking 2 years ago. No current alcohol use. 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 2 dogs and 2 cats in the home Smoking Status: Former smoker Past Alcohol Use History: Occasional Additional Past Alcohol Use History / Comment(s): Pt started smoking in 1965 and quit in 2016. He states he drinks 4 alcoholic beverages (rum) a day and last drank 2 days ago. Past Drug Use History: None Reported - Past Family History Father History Unknown: Yes Additional Family Medical History / Comment(s): Pt is adopted. Mother Family Medical History: Dementia Additional Family Medical History / Comment(s): The only thing pt knows about mother is that she had dementia. Medications and Allergies Home Medications Medication Instructions Recorded Confirmed Type Apixaban [Eliquis] 5 mg PO BID 01/30/19 05/08/19 History Atenolol [Tenormin] 25 mg PO DAILY 01/30/19 05/08/19 History Atorvastatin Calcium [Lipitor] 10 mg PO HS 01/30/19 05/08/19 History Cetirizine HCl [Zyrtec] 10 mg PO DAILY 01/30/19 05/08/19 History Montelukast Sodium [Singulair] 10 mg PO HS 01/30/19 05/08/19 History Ipratropium-Albuterol Nebulize 3 ml INHALATION AC-TID #90 02/09/19 05/08/19 Rx [Duoneb 0.5 mg-3 mg/3 ml Soln] ampul.neb Acetaminophen Tab [Tylenol Tab] 500 mg PO Q4H PRN 05/08/19 05/08/19 History [place] 430mg 430 mg PO QID 05/08/19 05/08/19 History Baclofen 10 mg PO BID 05/08/19 05/08/19 History Furosemide [Lasix] 40 mg PO TID 05/08/19 05/08/19 History Levothyroxine Sodium [Synthroid] 50 mcg PO DAILY 05/08/19 05/08/19 History [place]-3 Fatty Acids/Fish Oil [Fish 1 cap PO DAILY 05/08/19 05/08/19 History Oil 1,000 mg Softgel] Spironolactone 25 mg PO DAILY 05/08/19 05/08/19 History Allergies Allergy/AdvReac Type Severity Reaction Status Date / Time aspirin Allergy Anaphylaxis Verified 05/08/19 16:44 piperacillin [From Zosyn] Allergy Rash/Hives Verified 05/08/19 16:44 tazobactam [From Zosyn] Allergy Rash/Hives Verified 05/08/19 16:44 Physical Exam Vitals: Vital Signs Temp Pulse Pulse Resp BP BP Pulse Ox 05/09/19 15:25 97.4 F L 57 L 19 111/67 96 05/09/19 12:00 60 16 101/57 93 L 05/09/19 10:52 16 96 05/09/19 08:05 98.1 F 52 L 18 107/67 96 05/09/19 04:00 98.5 F 56 L 20 113/63 96 05/09/19 00:00 98.6 F 62 20 127/65 94 L 05/08/19 21:33 74 16 108/71 96 05/08/19 20:17 66 05/08/19 19:58 64 05/08/19 19:07 70 22 115/72 92 L 05/08/19 17:30 64 05/08/19 17:14 60 Intake and Output 05/09/19 05/09/19 05/09/19 06:59 14:59 22:59 Intake Total 71.624 770.767 Balance 71.624 770.767 Intake: Intake, IV Titration 71.624 50.767 Amount Heparin Sod,Pork in 0.45% 71.624 50.767 NaCl 25,000 unit In 0.45 % NaCl 1 250ml.bag @ 10.8 UNITS/KG/HR 9.994 mls/hr IV .Q24H [facility] Rx#: [id number] Oral 720 Other: Voiding Method Toilet Toilet # Voids 2 1 Weight 90.4 kg GENERAL EXAM: Alert, pleasant, 60-year-old white male with room air pulse ox of 96%, comfortable in no apparent distress. HEAD: Normocephalic/atraumatic. EYES: Normal reaction of pupils, equal size. Conjunctiva pink, sclera white. NOSE: Clear with pink turbinates. THROAT: No erythema or exudates. NECK: No masses, mild JVD, no thyroid enlargement, no adenopathy. CHEST: No chest wall deformity. Symmetrical expansion. LUNGS: Equal air entry with scattered rhonchi, fine rales at the bases, but no wheeze, rhonchi or dullness. CVS: Regular rate and rhythm, normal S1 and S2, no gallops, no murmurs, no rubs ABDOMEN: Soft, nontender. No hepatosplenomegaly, normal bowel sounds, no guard ing or rigidity. EXTREMITIES: No clubbing, lower extremity edema 1+, no cyanosis, 2+ pulses and upper and lower extremities. MUSCULOSKELETAL: Muscle strength and tone normal. SPINE: No scoliosis or deformity SKIN: No rashes CENTRAL NERVOUS SYSTEM: Alert and oriented -3. No focal deficits, tone is normal in all 4 extremities. PSYCHIATRIC: Alert and oriented -3. Appropriate affect. Intact judgment and insight. Results - Laboratory Findings CBC and BMP: 05/09/19 03:53 05/09/19 12:10 PT/INR, D-dimer PT 12.9 sec (9.0-12.0) H 05/09/19 03:53 INR 1.3 (<1.2) H 05/09/19 03:53 D-Dimer 1.48 mg/L FEU (<0.60) H 05/08/19 17:01 Abnormal lab findings: Abnormal Labs 05/08/19 05/08/19 05/08/19 17:01 17:01 17:01 WBC 17.5 H RBC 4.12 L Hgb 12.9 L Hct RDW Neutrophils # 16.1 H Lymphocytes # 0.4 L PT 14.1 H INR 1.4 H APTT 39.3 H D-Dimer 1.48 H VBG pH VBG HCO3 Sodium 125 L Chloride 88 L Carbon Dioxide 17 L BUN 51 H Creatinine 2.54 H Glucose POC Glucose (mg/dL) Plasma Lactic Acid Vance Calcium 8.3 L Phosphorus Magnesium 1.3 L AST 68 H Creatine Kinase 564 H Troponin I Urine Opiates Screen 05/08/19 05/08/19 05/08/19 17:01 17:01 17:01 WBC RBC Hgb Hct RDW Neutrophils # Lymphocytes # PT INR APTT D-Dimer VBG pH VBG HCO3 Sodium Chloride Carbon Dioxide BUN Creatinine Glucose POC Glucose (mg/dL) Plasma Lactic Acid Vance 2.6 H* Calcium Phosphorus 6.2 H Magnesium AST Creatine Kinase Troponin I 0.137 H* Urine Opiates Screen 05/08/19 05/08/19 05/08/19 17:34 18:30 20:58 WBC RBC Hgb Hct RDW Neutrophils # Lymphocytes # PT INR APTT D-Dimer VBG pH 7.30 L VBG HCO3 21 L Sodium Chloride Carbon Dioxide BUN Creatinine Glucose POC Glucose (mg/dL) Plasma Lactic Acid Vance 2.2 H* Calcium Phosphorus Magnesium AST Creatine Kinase Troponin I Urine Opiates Screen Detected H 05/08/19 05/09/19 05/09/19 22:48 00:45 03:53 WBC RBC 3.79 L Hgb 12.0 L Hct 37.4 L RDW 15.7 H Neutrophils # 9.5 H Lymphocytes # 0.5 L PT INR APTT D-Dimer VBG pH VBG HCO3 Sodium Chloride Carbon Dioxide BUN Creatinine Glucose POC Glucose (mg/dL) 138 H Plasma Lactic Acid Vance 3.4 H* Calcium Phosphorus Magnesium AST Creatine Kinase Troponin I Urine Opiates Screen 05/09/19 05/09/19 05/09/19 03:53 03:53 05:02 WBC RBC Hgb Hct RDW Neutrophils # Lymphocytes # PT 12.9 H INR 1.3 H APTT 176.1 H* D-Dimer VBG pH VBG HCO3 Sodium 130 L Chloride Carbon Dioxide 15 L BUN 51 H Creatinine 2.27 H Glucose 130 H POC Glucose (mg/dL) Plasma Lactic Acid Vance 2.7 H* Calcium 8.0 L Phosphorus Magnesium AST Creatine Kinase Troponin I Urine Opiates Screen 05/09/19 05/09/19 05/09/19 06:10 07:43 09:40 WBC RBC Hgb Hct RDW Neutrophils # Lymphocytes # PT INR APTT D-Dimer VBG pH VBG HCO3 Sodium Chloride Carbon Dioxide BUN Creatinine Glucose POC Glucose (mg/dL) 132 H Plasma Lactic Acid Vance 2.3 H* Calcium Phosphorus Magnesium AST Creatine Kinase Troponin I 0.099 H* Urine Opiates Screen 05/09/19 05/09/19 05/09/19 12:10 12:10 13:31 WBC RBC Hgb Hct RDW Neutrophils # Lymphocytes # PT INR APTT 80.5 H D-Dimer VBG pH VBG HCO3 Sodium 136 L Chloride Carbon Dioxide 17 L BUN 52 H Creatinine 2.12 H Glucose 134 H POC Glucose (mg/dL) Plasma Lactic Acid Vance 3.8 H* Calcium 8.3 L Phosphorus Magnesium AST Creatine Kinase Troponin I Urine Opiates Screen - Diagnostic Findings Chest x-ray: report reviewed, image reviewed Additional studies: EKG reviewed, VQ scan results reviewed, Doppler ultrasound of lower extremities reviewed Assessment and Plan Plan: Assessment: #1. Acute exacerbation of chronic diastolic congestive heart failure previously preserved left ventricular systolic function with EF of 55-60% #2. Mild exacerbation of COPD related to the above #3. Leukocytosis, rule out infectious etiology #4. Lactic acidosis not thought to be related to sepsis #5. Elevated troponins, possibly related to acute kidney injury, and acute congestive heart failure #6. Elevated d-dimer, VQ scan low probability for pulmonary embolism #7. Atrial fibrillation on Eliquis #8. Severe pulmonary hypertension, likely secondary to his chronic lung disease, with PA systolic of 70 mmHg #9. Acute kidney injury #10. 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 Hypertension #12. Hyperlipidemia #13. Chronic right lower extremity cellulitis #14. Glaucoma #15. History of peptic ulcer disease #16. History of chronic alcoholism Plan: Chest x-ray has been reviewed showing some chronic minimal fibrotic changes, and possibility of interstitial edema related to acute exacerbation of CHF. Con tinue with IV diuretics, we will add IV steroids, continue with current antibiotics. Doubt underlying pneumonia, will obtain high resolution computed tomography scan of the lungs. We'll continue with nebulized bronchodilators, Pulmicort and Perforomist. Will await results of the blood cultures, patient has been afebrile, no significant cough or congestion. Daily weights, accurate intake and output. We'll continue to closely follow I performed a history & physical examination of the patient and discussed their management with my nurse practitioner, Rebecca Blue. I reviewed the nurse pr actitioner's note and agree with the documented findings and plan of care. Lung sounds are positive for scattered rhonchi. The findings and the impression was discussed with the patient. I attest to the documentation by the nurse practitioner. Time with Patient: Greater than 30
--- NOTE | 2019-05-09 16:36 | CT ---
EXAMINATION TYPE: CT chest wo con DATE OF EXAM: 05/09/2019 COMPARISON: High resolution chest CT February 05, 2019. Chest x-ray from yesterday. HISTORY: Trouble breathing CT DLP: 947.6 mGycm. Automated Exposure Control for Dose Reduction was Utilized. TECHNIQUE: CT scan of the thorax is performed without IV contrast. High-resolution protocol with 1 m m sequences obtained at 10 mm intervals in supine and prone technique FINDINGS: Exam is suboptimal as there is respiratory motion artifact degradation LUNGS: There is background moderate underlying emphysematous change thought present. There is persist ent bibasilar reticulation and fibrosis with some honeycombing present. No significant peripheral ret iculation and fibrosis in the upper to mid lungs is seen. No pleural effusion or pneumothorax is note d. No suspicious bronchiectasis. MEDIASTINUM: Lack of IV contrast and technique is noted to limit evaluation for mediastinal and espec ially hilar adenopathy. There are no definitive greater than 1 cm hilar or mediastinal lymph nodes. C ardiomegaly is redemonstrated. There is at least moderate coronary artery calcification. No pericardi al effusion. OTHER: Hypodense lesions scattered throughout the liver are felt to reflect thin-walled cysts. IMPRESSION: Suboptimal study, background moderate emphysematous change felt present with parenchymal fibrotic changes in both bases redemonstrated. Underlying cardiomegaly is again seen.
[2019-05-09 16:54] LABS: Glucose,Whole Blood 119 mg/dL (75-99)
[2019-05-09] MEDS: FUROSEMIDE 10 MG/ML 4 ML VIAL IV SCH (17:21)
[2019-05-09] MEDS: methylPREDNISolone SOD SUCCI 125 MG/2 ML VIAL IV SCH (17:21)
[2019-05-09] MEDS: APIXABAN 2.5 MG TABLET PO SCH (17:21)
[2019-05-09] MEDS: BUDESONIDE 1 MG/2 ML NEBU INHALATION SCH (20:16)
[2019-05-09] MEDS: FORMOTEROL FUMARATE 20 MCG/2 ML NEBU INHALATION SCH (20:16)
[2019-05-09 20:20] LABS: Glucose,Whole Blood 131 mg/dL (75-99)
[2019-05-09] MEDS: ATORVASTATIN 10 MG TAB PO SCH (21:12)
[2019-05-09] MEDS: MONTELUKAST 10 MG TAB PO SCH (21:12)
--- NOTE | 2019-05-09 21:13 | P.CONS ---
History of Present Illness - Reason for Consult Consult date: 05/09/19 - Chief Complaint Increasing shortness of breath - History of Present Illness 68-year-old male who has multiple medical troubles that include COPD, asbestosis, coronary artery disease, significant arthritis and known pulmonary hypertension with recently hospitalized with bilateral pneumonia eventually recovered isn't back to his home setting where he does help his chronically ill . The psychosocial circumstances been difficult with the of their adult daughter which has impacted him greatly. His related that he does have a history with significant alcohol abuse and apparently was doing a little better after his recent hospitalization but again is now drinking on a daily basis the family relates he does take his medications with alcohol. The patient presents to Hospital feeling very short of breath increasing fatigue and malaise. Relates after he lays down he only has a few moments before he becomes profound short of breath and has to sit up. Because of this he presents to Hospital. There is evidence of elevated lactic acid and elevated white blood cell count it with at the consult was requested. The patient's visiting by pulmonary critical care and is not thought to have recurrent pneumonia. Review of Systems HEENT:Denies headache or acute visual change. Denies sinus or mouth discomforts. Denies neck stiffness or pain. Denies significant oral cavity pain. Denies difficulty on swallowing. Lungs: Significant shortness of breath with orthopnea and PND Cardiovascular: positive shortness of breath positive Dyspena with exertion no syncope no chest pain Gastrointestinal:Denies nausea, vomiting, diarrhea, constipation, hematemesis, melena, hematochezia. No no significant change of bowel habit noticed. Musculoskeletal: denies significant myalgias or arthralgias. No new joint swelling. Denies new back pain. Skin: Swelling to the bilateral legs left is much more red than the right Neuro: Denies headache or visual change. Denies any new onset weakness or difficulty with ambulation. Denies falls or seizures. Psychiatric: Chronic anxiety and alcohol abuse Endocrine: His had severe fatigue and has had weight gain Past Medical History Past Medical History: Atrial Fibrillation, COPD, Eye Disorder, GERD/Reflux, Hyperlipidemia, Hypertension, Pneumonia Additional Past Medical History / Comment(s): Current R lower extremity cellulitis/edema, "irregular heart beat"-pt cannot recall name of arrhythmia, bronchitis, stomach ulcer, arthritis bilateral knees, sinus problems, very Hard of hearing History of Any Multi-Drug Resistant Organisms: None Reported Past Surgical History: Orthopedic Surgery Additional Past Surgical History / Comment(s): R shoulder surgery with ribbon, bilateral eyes laser surgery for glaucoma Past Anesthesia/Blood Transfusion Reactions: No Reported Reaction Past Psychological History: No Psychological Hx Reported Additional Psychological History / Comment(s): but lives with his ex- who helps take care of. Stop smoking 2 years ago. Has significant current alcohol use. 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 No recent Travels. 2 dogs and 2 cats in the home Smoking Status: Former smoker Past Alcohol Use History: Occasional Additional Past Alcohol Use History / Comment(s): Pt started smoking in 1964 and quit in 2016. He states he drinks 4 alcoholic beverages (rum) a day and last drank 2 days ago. Past Drug Use History: None Reported - Past Family History Father History Unknown: Yes Additional Family Medical History / Comment(s): Pt is adopted. Mother Family Medical History: Dementia Additional Family Medical History / Comment(s): The only thing pt knows about mother is that she had dementia. Medications and Allergies Home Medications and Allergies Comment(s): Current Medications Acetaminophen (Tylenol Tab) 500 mg PO Q4H PRN PRN Reason: Pain Albuterol/Ipratropium (Duoneb 0.5 Mg-3 Mg/3 Ml Soln) 3 ml INHALATION RT-QID [facility] Last Admin: 05/09/19 20:16 Dose: 3 ml Documented by: Albuterol/Ipratropium (Duoneb 0.5 Mg-3 Mg/3 Ml Soln) 3 ml INHALATION RT-QID PRN PRN Reason: Shortness Of Breath Or Wheezing Apixaban (Eliquis) 2.5 mg PO BID [facility] Last Admin: 05/09/19 17:21 Dose: 2.5 mg Documented by: Atenolol (Tenormin) 25 mg PO DAILY [facility] Last Admin: 05/09/19 09:52 Dose: 25 mg Documented by: Atorvastatin Calcium (Lipitor) 10 mg PO HS [facility] Last Admin: 05/08/19 23:14 Dose: 10 mg Documented by: Budesonide (Pulmicort) 1 mg INHALATION RT-BID [facility] Last Admin: 05/09/19 20:16 Dose: 1 mg Documented by: Formoterol Fumarate (Perforomist) 20 mcg INHALATION RT-BID [facility] Last Admin: 05/09/19 20:16 Dose: 20 mcg Documented by: Furosemide (Lasix) 40 mg IV DAILY [facility] Last Admin: 05/09/19 17:21 Dose: 40 mg Documented by: Ceftriaxone Sodium 1 gm/ (Sodium Chloride) 50 mls @ 100 mls/hr IVPB Q24HR [facility] Last Admin: 05/09/19 09:51 Dose: 100 mls/hr Documented by: Insulin Aspart (Novolog) 2 - 10 unit SQ ACHS [facility]; Protocol Last Admin: 05/09/19 20:41 Dose: Not Given Documented by: Levothyroxine Sodium (Synthroid) 50 mcg PO 0630 [facility] Last Admin: 05/09/19 06:56 Dose: 50 mcg Documented by: Loratadine (Claritin) 10 mg PO DAILY [facility] Last Admin: 05/09/19 09:52 Dose: 10 mg Documented by: Lorazepam (Ativan) 1 mg IV Q2HR PRN PRN Reason: CIWA 8 or 9 Lorazepam (Ativan) 1 mg IV Q1HR PRN PRN Reason: CIWA 10 to 15 Lorazepam (Ativan) 2 mg IV Q10M PRN PRN Reason: CIWA 16 or higher Stop: 05/10/19 19:27 Methylprednisolone Sodium Succinate (Solu-Medrol) 60 mg IV Q6HR [facility] Last Admin: 05/09/19 17:21 Dose: 60 mg Documented by: Montelukast Sodium (Singulair) 10 mg PO HS [facility] Last Admin: 05/08/19 23:14 Dose: 10 mg Documented by: Morphine Sulfate (Morphine Sulfate (Inj)) 2 mg IVP Q6H PRN PRN Reason: Pain/Discomfort Multivitamins (Theragran) 1 each PO DAILY [facility] Last Admin: 05/09/19 09:52 Dose: 1 each Documented by: Sodium Bicarbonate (Sodium Bicarbonate Tab) 650 mg PO BID [facility] Last Admin: 05/09/19 09:52 Dose: 650 mg Documented by: Thiamine HCl (Vitamin B-1) 100 mg PO BID-W/MEALS [facility] Last Admin: 05/09/19 17:21 Dose: 100 mg Documented by: Home Medications Medication Instructions Recorded Confirmed Type Apixaban [Eliquis] 5 mg PO BID 01/30/19 05/08/19 History Atenolol [Tenormin] 25 mg PO DAILY 01/30/19 05/08/19 History Atorvastatin Calcium [Lipitor] 10 mg PO HS 01/30/19 05/08/19 History Cetirizine HCl [Zyrtec] 10 mg PO DAILY 01/30/19 05/08/19 History Montelukast Sodium [Singulair] 10 mg PO HS 01/30/19 05/08/19 History Ipratropium-Albuterol Nebulize 3 ml INHALATION AC-TID #90 02/09/19 05/08/19 Rx [Duoneb 0.5 mg-3 mg/3 ml Soln] ampul.neb Acetaminophen Tab [Tylenol Tab] 500 mg PO Q4H PRN 05/08/19 05/08/19 History [place] 430mg 430 mg PO QID 05/08/19 05/08/19 History Baclofen 10 mg PO BID 05/08/19 05/08/19 History Furosemide [Lasix] 40 mg PO TID 05/08/19 05/08/19 History Levothyroxine Sodium [Synthroid] 50 mcg PO DAILY 05/08/19 05/08/19 History [place]-3 Fatty Acids/Fish Oil [Fish 1 cap PO DAILY 05/08/19 05/08/19 History Oil 1,000 mg Softgel] Spironolactone 25 mg PO DAILY 05/08/19 05/08/19 History Allergies Allergy/AdvReac Type Severity Reaction Status Date / Time aspirin Allergy Anaphylaxis Verified 05/08/19 16:44 piperacillin [From Zosyn] Allergy Rash/Hives Verified 05/08/19 16:44 tazobactam [From Zosyn] Allergy Rash/Hives Verified 05/08/19 16:44 Physical Exam Vitals: Vital Signs Temp Pulse Pulse Resp BP BP Pulse Ox 05/09/19 20:34 62 05/09/19 20:30 60 05/09/19 20:17 97.7 F 54 L 19 129/57 94 L 05/09/19 20:16 60 94 L 05/09/19 17:20 57 L 19 05/09/19 16:15 97.4 F L 57 L 19 111/67 96 05/09/19 15:25 97.4 F L 57 L 19 111/67 96 05/09/19 12:00 60 16 101/57 93 L 05/09/19 10:52 16 96 05/09/19 08:05 98.1 F 52 L 18 107/67 96 05/09/19 04:00 98.5 F 56 L 20 113/63 96 05/09/19 00:00 98.6 F 62 20 127/65 94 L 05/08/19 21:33 74 16 108/71 96 Intake and Output 05/09/19 05/09/19 05/09/19 06:59 14:59 22:59 Intake Total 71.624 770.767 240 Balance 71.624 770.767 240 Intake: Intake, IV Titration 71.624 50.767 Amount Heparin Sod,Pork in 0.45% 71.624 50.767 NaCl 25,000 unit In 0.45 % NaCl 1 250ml.bag @ 10.8 UNITS/KG/HR 9.994 mls/hr IV .Q24H [facility] Rx#: [id number] Oral 720 240 Other: Voiding Method Toilet Toilet Toilet # Voids 2 1 1 Weight 90.4 kg HEENT: Anicteric conjunctiva are pink and moist nasal mucosa grossly intact without significant lesions, there is no thrush. Dentition is poor Neck: The neck is supple without significant lymphadenopathy or thyromegaly. Lungs: Symmetrical air entry is noted there are coarse crackles in the lung puga especially at the bases no significant dullness or egophony Heart: Irregular with positive S4 There is no significant murmur click or rub, PMI was nondisplaced. Abdomen: Obese, Positive bowel sounds soft and nontender without palpable masses or organomegaly. There was no guarding or rebound. Extremities: The upper extremities have excellent pulses they are symmetric, no significant petechiae or telangiectasia. No splinter hemorrhages were noted. The bilateral lower extremities have some chronic edema, there some scattered pe techiae, there is some erythematous present in the left leg that is consuming greater than the right it is minimally tender he has no severe open wounds over the family relates that he was losing from the left leg as of yesterday. Neuro: Awake alert oriented to person place and time. There are no acute new gross focal sensory motor deficits. Patient is not yet shaky and has no asterixis. Results CBC & Chem 7: 05/09/19 03:53 05/09/19 12:10 Labs: Abnormal Lab Results - Last 24 Hours (Table) 05/08/19 05/08/19 05/09/19 Range/Units 20:58 22:48 00:45 RBC (4.30-5.90) m/uL Hgb (13.0-17.5) gm/dL Hct (39.0-53.0) % RDW (11.5-15.5) % Neutrophils # (1.3-7.7) k/uL Lymphocytes # (1.0-4.8) k/uL PT (9.0-12.0) sec INR (<1.2) APTT (22.0-30.0) sec Sodium (137-145) mmol/L Carbon Dioxide (22-30) mmol/L BUN (9-20) mg/dL Creatinine (0.66-1.25) mg/dL Glucose (74-99) mg/dL POC Glucose (mg/dL) 138 H (75-99) mg/dL Plasma Lactic Acid Vance 2.2 H* 3.4 H* (0.7-2.0) mmol/L Calcium (8.4-10.2) mg/dL Troponin I (0.000-0.034) ng/mL 05/09/19 05/09/19 05/09/19 Range/Units 03:53 03:53 03:53 RBC 3.79 L (4.30-5.90) m/uL Hgb 12.0 L (13.0-17.5) gm/dL Hct 37.4 L (39.0-53.0) % RDW 15.7 H (11.5-15.5) % Neutrophils # 9.5 H (1.3-7.7) k/uL Lymphocytes # 0.5 L (1.0-4.8) k/uL PT 12.9 H (9.0-12.0) sec INR 1.3 H (<1.2) APTT 176.1 H* (22.0-30.0) sec Sodium 130 L (137-145) mmol/L Carbon Dioxide 15 L (22-30) mmol/L BUN 51 H (9-20) mg/dL Creatinine 2.27 H (0.66-1.25) mg/dL Glucose 130 H (74-99) mg/dL POC Glucose (mg/dL) (75-99) mg/dL Plasma Lactic Acid Vance (0.7-2.0) mmol/L Calcium 8.0 L (8.4-10.2) mg/dL Troponin I (0.000-0.034) ng/mL 05/09/19 05/09/19 05/09/19 Range/Units 05:02 06:10 07:43 RBC (4.30-5.90) m/uL Hgb (13.0-17.5) gm/dL Hct (39.0-53.0) % RDW (11.5-15.5) % Neutrophils # (1.3-7.7) k/uL Lymphocytes # (1.0-4.8) k/uL PT (9.0-12.0) sec INR (<1.2) APTT (22.0-30.0) sec Sodium (137-145) mmol/L Carbon Dioxide (22-30) mmol/L BUN (9-20) mg/dL Creatinine (0.66-1.25) mg/dL Glucose (74-99) mg/dL POC Glucose (mg/dL) 132 H (75-99) mg/dL Plasma Lactic Acid Vance 2.7 H* (0.7-2.0) mmol/L Calcium (8.4-10.2) mg/dL Troponin I 0.099 H* (0.000-0.034) ng/mL 05/09/19 05/09/19 05/09/19 Range/Units 09:40 12:10 12:10 RBC (4.30-5.90) m/uL Hgb (13.0-17.5) gm/dL Hct (39.0-53.0) % RDW (11.5-15.5) % Neutrophils # (1.3-7.7) k/uL Lymphocytes # (1.0-4.8) k/uL PT (9.0-12.0) sec INR (<1.2) APTT 80.5 H (22.0-30.0) sec Sodium 136 L (137-145) mmol/L Carbon Dioxide 17 L (22-30) mmol/L BUN 52 H (9-20) mg/dL Creatinine 2.12 H (0.66-1.25) mg/dL Glucose 134 H (74-99) mg/dL POC Glucose (mg/dL) (75-99) mg/dL Plasma Lactic Acid Vance 2.3 H* (0.7-2.0) mmol/L Calcium 8.3 L (8.4-10.2) mg/dL Troponin I (0.000-0.034) ng/mL 05/09/19 05/09/19 05/09/19 Range/Units 13:31 16:40 20:18 RBC (4.30-5.90) m/uL Hgb (13.0-17.5) gm/dL Hct (39.0-53.0) % RDW (11.5-15.5) % Neutrophils # (1.3-7.7) k/uL Lymphocytes # (1.0-4.8) k/uL PT (9.0-12.0) sec INR (<1.2) APTT (22.0-30.0) sec Sodium (137-145) mmol/L Carbon Dioxide (22-30) mmol/L BUN (9-20) mg/dL Creatinine (0.66-1.25) mg/dL Glucose (74-99) mg/dL POC Glucose (mg/dL) 119 H 131 H (75-99) mg/dL Plasma Lactic Acid Vance 3.8 H* (0.7-2.0) mmol/L Calcium (8.4-10.2) mg/dL Troponin I (0.000-0.034) ng/mL Microbiology - Last 24 Hours (Table) 05/08/19 17:01 Blood Culture - Preliminary Blood No Growth after 24 hours Laboratory Results WBC 10.4 k/uL (3.8-10.6) 05/09/19 03:53 RBC 3.79 m/uL (4.30-5.90) L 05/09/19 03:53 Hgb 12.0 gm/dL (13.0-17.5) L 05/09/19 03:53 Hct 37.4 % (39.0-53.0) L 05/09/19 03:53 MCV 98.7 fL (80.0-100.0) 05/09/19 03:53 MCH 31.6 pg (25.0-35.0) 05/09/19 03:53 MCHC 32.0 g/dL (31.0-37.0) 05/09/19 03:53 RDW 15.7 % (11.5-15.5) H 05/09/19 03:53 Plt Count 232 k/uL (150-450) 05/09/19 03:53 Neutrophils % 91 % 05/09/19 03:53 Lymphocytes % 5 % 05/09/19 03:53 Monocytes % 2 % 05/09/19 03:53 Eosinophils % 1 % 05/09/19 03:53 Basophils % 0 % 05/09/19 03:53 Neutrophils # 9.5 k/uL (1.3-7.7) H 05/09/19 03:53 Lymphocytes # 0.5 k/uL (1.0-4.8) L 05/09/19 03:53 Monocytes # 0.2 k/uL (0-1.0) 05/09/19 03:53 Eosinophils # 0.1 k/uL (0-0.7) 05/09/19 03:53 Basophils # 0.0 k/uL (0-0.2) 05/09/19 03:53 Macrocytosis Slight 05/09/19 03:53 PT 12.9 sec (9.0-12.0) H 05/09/19 03:53 INR 1.3 (<1.2) H 05/09/19 03:53 APTT 80.5 sec (22.0-30.0) H 05/09/19 12:10 D-Dimer 1.48 mg/L FEU (<0.60) H 05/08/19 17:01 VBG pH 7.30 (7.31-7.41) L 05/08/19 17:34 VBG pCO2 43 mmHg (37-51) 05/08/19 17:34 VBG HCO3 21 mmol/L (24-28) L 05/08/19 17:34 Sodium 136 mmol/L (137-145) L 05/09/19 12:10 Potassium 4.2 mmol/L (3.5-5.1) 05/09/19 12:10 Chloride 100 mmol/L (98-107) 05/09/19 12:10 Carbon Dioxide 17 mmol/L (22-30) L 05/09/19 12:10 Anion Gap 19 mmol/L 05/09/19 12:10 BUN 52 mg/dL (9-20) H 05/09/19 12:10 Creatinine 2.12 mg/dL (0.66-1.25) H 05/09/19 12:10 Est GFR (CKD-EPI)AfAm 36 (>60 ml/min/1.73 sqM) 05/09/19 12:10 Est GFR (CKD-EPI)NonAf 31 (>60 ml/min/1.73 sqM) 05/09/19 12:10 Glucose 134 mg/dL (74-99) H 05/09/19 12:10 POC Glucose (mg/dL) 131 mg/dL (75-99) H 05/09/19 20:18 POC Glu [employer] Super[employer] Meenakshi Cee 05/09/19 20:18 Lactic Ac Sepsis Rflx Y 05/09/19 14:22 Plasma Lactic Acid Vance 3.8 mmol/L (0.7-2.0) H* 05/09/19 13:31 Calcium 8.3 mg/dL (8.4-10.2) L 05/09/19 12:10 Phosphorus 6.2 mg/dL (2.5-4.5) H 05/08/19 17:01 Magnesium 2.3 mg/dL (1.6-2.3) 05/09/19 07:43 Total Bilirubin 1.3 mg/dL (0.2-1.3) 05/08/19 17:01 AST 68 U/L (17-59) H 05/08/19 17:01 ALT 31 U/L (21-72) 05/08/19 17:01 Alkaline Phosphatase 46 U/L (38-126) 05/08/19 17:01 Ammonia 23 umol/L (<30) 05/08/19 17:01 Creatine Kinase 564 U/L (55-170) H 05/08/19 17:01 Troponin I 0.099 ng/mL (0.000-0.034) H* 05/09/19 07:43 NT-Pro-B Natriuret Pep 39568 pg/mL 05/08/19 17:01 Total Protein 7.6 g/dL (6.3-8.2) 05/08/19 17:01 Albumin 4.4 g/dL (3.5-5.0) 05/08/19 17:01 Urine Color Yellow 05/08/19 18:30 Urine Appearance Clear (Clear) 05/08/19 18:30 Urine pH 5.5 (5.0-8.0) 05/08/19 18:30 Ur Specific [place] 1.007 (1.001-1.035) 05/08/19 18:30 Urine Protein Negative (Negative) 05/08/19 18:30 Urine Glucose (UA) Negative (Negative) 05/08/19 18:30 Urine Ketones Negative (Negative) 05/08/19 18:30 Urine Blood Negative (Negative) 05/08/19 18:30 Urine Nitrite Negative (Negative) 05/08/19 18:30 Urine Bilirubin Negative (Negative) 05/08/19 18:30 Urine Urobilinogen <2.0 mg/dL (<2.0) 05/08/19 18:30 Ur Leukocyte Esterase Negative (Negative) 05/08/19 18:30 Salicylates <1.0 mg/dL 05/08/19 17:01 Urine Opiates Screen Detected (NotDetected) H 05/08/19 18:30 Ur Oxycodone Screen Not Detected (NotDetected) 05/08/19 18:30 Urine Methadone Screen Not Detected (NotDetected) 05/08/19 18:30 Ur Propoxyphene Screen Not Detected (NotDetected) 05/08/19 18:30 Acetaminophen 11.6 ug/mL 05/08/19 17:01 Ur Barbiturates Screen Not Detected (NotDetected) 05/08/19 18:30 U Tricyclic Antidepress Not Detected (NotDetected) 05/08/19 18:30 Ur Phencyclidine Scrn Not Detected (NotDetected) 05/08/19 18:30 Ur Amphetamines Screen Not Detected (NotDetected) 05/08/19 18:30 U Methamphetamines Scrn Not Detected (NotDetected) 05/08/19 18:30 U Benzodiazepines Scrn Not Detected (NotDetected) 05/08/19 18:30 Urine Cocaine Screen Not Detected (NotDetected) 05/08/19 18:30 U Marijuana (THC) Screen Not Detected (NotDetected) 05/08/19 18:30 Serum Alcohol <10 mg/dL 05/08/19 17:34 Microbiology 05/08/19 17:01 Blood Blood Culture - Preliminary No Growth after 24 hours Assessment and Plan (1) Acute pulmonary edema Current Visit: Yes Status: Acute Code(s): J81.0 - ACUTE PULMONARY EDEMA SNOMED Code(s): 01365033 (2) Left leg cellulitis Narrative/Plan: 68-year-old man presents hospital with increasing shortness of breath has evidence of worsening interstitial edema likely with congestive heart failure and potential exacerbation of his COPD. He has significant orthopnea and PND. He is being diuresis and is feeling considerably better. He has a bit of leukocytosis that is rapidly improving and he is had evidence of some lactic acidosis. In persons or actively drinking and her acutely ill they often have lactic acidosis related to there alcohol use and affect on the liver. At this time the patient has evidence of a mild cellulitis in the left leg which will be treated with Ancef but does not appear to have sepsis and does not need to have further lactic acid levels drawn. We'll try some local wound care to the bilateral lower extremities and monitor. Current Visit: Yes Status: Acute Code(s): L03.116 - CELLULITIS OF LEFT LOWER LIMB SNOMED Code(s): 881817655 (3) Congestive heart failure Current Visit: Yes Status: Acute Code(s): I50.9 - HEART FAILURE, UNSPECIFIED SNOMED Code(s): 81491799 (4) Alcoholic ketoacidosis Current Visit: Yes Status: Acute Code(s): E87.2 - ACIDOSIS SNOMED Code(s): 84209314
[2019-05-10] MEDS: methylPREDNISolone SOD SUCCI 125 MG/2 ML VIAL IV SCH ×5 (00:52→23:02)
[2019-05-10] MEDS: IPRATROPIUM-ALBUTEROL 3 ML NEB INHALATION PRN (03:42)
[2019-05-10] MEDS: THIAMINE 100 MG TAB PO SCH ×2 (06:14→16:17)
[2019-05-10] MEDS: LEVOTHYROXINE 50 MCG TAB PO SCH (06:14)
[2019-05-10 06:24] LABS: Glucose,Whole Blood 142 mg/dL (75-99)
[2019-05-10] MEDS: INSULIN ASPART (NovoLOG) 100 UNIT/ML VIAL SQ SCH ×4 (07:02→20:44)
[2019-05-10 07:29] LABS: INR 1.1 (<1.2); Prothrombin Time 11.5 sec (9.0-12.0)
[2019-05-10 07:34] LABS: Anisocytosis Slight; Basophils # (A) 0.1 k/uL (0-0.2); Basophils % (A) 0 %; Eosinophils # (A) 0.1 k/uL (0-0.7); Eosinophils % (A) 0 %; HGB 13.4 gm/dL (13.0-17.5); Lymphocytes # (A) 1.2 k/uL (1.0-4.8); Lymphocytes % (A) 8 %; MCH 32.2 pg (25.0-35.0); MCHC 32.7 g/dL (31.0-37.0); MCV 98.6 fL (80.0-100.0); Macrocytosis Slight; Mean Platelet Volume 8.1; Monocytes # (A) 0.5 k/uL (0-1.0); Monocytes % (A) 3 %; Neutrophils # (A) 13.7 k/uL (1.3-7.7); Neutrophils % (A) 87 %; Platelet Count 246 k/uL (150-450); RBC 4.16 m/uL (4.30-5.90); RDW 16.3 % (11.5-15.5); WBC 15.7 k/uL (3.8-10.6)
[2019-05-10 07:41] LABS: Calcium 8.6 mg/dL (8.4-10.2); Potassium 3.8 mmol/L (3.5-5.1)
[2019-05-10] MEDS: IPRATROPIUM-ALBUTEROL 3 ML NEB INHALATION SCH ×4 (08:58→19:33)
[2019-05-10] MEDS: BUDESONIDE 1 MG/2 ML NEBU INHALATION SCH ×2 (08:58→19:33)
[2019-05-10] MEDS: FORMOTEROL FUMARATE 20 MCG/2 ML NEBU INHALATION SCH ×2 (08:58→19:33)
[2019-05-10] MEDS: SODIUM BICARBONATE TAB 650 MG TAB PO SCH ×2 (09:22→20:59)
[2019-05-10] MEDS: ATENOLOL 25 MG TAB PO SCH (09:22)
[2019-05-10] MEDS: APIXABAN 2.5 MG TABLET PO SCH ×2 (09:22→20:59)
[2019-05-10] MEDS: MULTIVITAMINS, THERA 1 EACH TAB PO SCH (09:22)
[2019-05-10] MEDS: FUROSEMIDE 10 MG/ML 4 ML VIAL IV SCH (09:22)
[2019-05-10] MEDS: LORATADINE 10 MG TAB PO SCH (09:22)
[2019-05-10 12:37] LABS: Glucose,Whole Blood 131 mg/dL (75-99)
--- NOTE | 2019-05-10 13:58 | P.PN ---
Subjective Progress Note Date: 05/10/19 This is a 68-year-old gentleman who follows regularly with Dr. Araiza in the office he has a known history of COPD, pulmonary hypertension, chronic atrial fibrillation, EtOH abuse, patient states he drinks a pint of whiskey a day, underlying pulmonary fibrosis, hypertension, hyperlipidemia, history of nicotine dependence, presents to the hospital with symptoms of worsening shortness of breath. His most recent hospitalization, was in January of this year which time he was admitted with COPD exacerbation and pneumonia. He was noted on that admission to have abnormal troponin likely related to sepsis at that time. Patient also had significant redness in his bilateral lower extremities which was felt to be a rash versus cellulitis. According to the patient, for the last several months he's noticed himself to be much more short of breath, positive PND and orthopnea. He was initiated here on IV Lasix. VQ scan did not reveal any evidence of a pulmonary embolism. Lower extremity ultrasound revealed no evidence of a DVT. No evidence of gross fluid overload on the chest x-ray. I pressure 110/60 with a heart rate in the 60s, 96% on room air. White blood cell count 19.1 on admission, 10.4 this morning, hemoglobin 12.0, platelet count 232. D-dimer 1.48, sodium 136, potassium 4.2, BUN 52 and creatinine 2.1, on admission the patient's creatinine was noted to be 2.5. Plasma lactic acid up to 3.8. Magnesium on admission 1.3, 2.3 this morning. BNP level 11,000. Troponins 0.17, 0.11, 0.13, 0.09. Drug screen positive for urine opiates.here and opiates. EKG on admission here showed atrial fibrillation with a controlled ventricular response. 05/10/2019 Patient seen and examined this morning, according to the patient, he seems to be putting out adequate amounts of urine, his weight is however up today. He does state that his breathing is improved today, bilateral lower extremities have been wrapped and patient has been seen by infectious disease. Blood pressure 120/60 with a heart rate in the 60s, 97% on room air. White blood cell count 15.7, hemoglobin 13.4, platelet count 246. Sodium 138, potassium 3.8, BUN 49 and creatinine 1.6. Magnesium 2.6. Objective - Vital Signs Vital signs: Vital Signs Temp 97.1 F L 05/10/19 11:26 Pulse 66 05/10/19 11:26 Resp 20 05/10/19 11:26 BP 120/62 05/10/19 11:26 Pulse Ox 97 05/10/19 11:26 Intake & Output 05/09/19 05/10/19 05/10/19 18:59 06:59 18:59 Intake Total 1010.767 70 590 Output Total 250 Balance 1010.767 70 340 Weight 92.6 kg Intake: Intake, IV Titration 50.767 70 50 Amount Heparin Sod,Pork in 0.45% 50.767 NaCl 25,000 unit In 0.45 % NaCl 1 250ml.bag @ 10.8 UNITS/KG/HR 9.994 mls/hr IV .Q24H [facility] Rx#: [id number] Sodium Chloride 0.9% 1, 20 000 ml @ 75 mls/hr IV . [id number] [facility] Rx#:[id number] ceFAZolin 2 gm In Sodium 50 50 Chloride 0.9% 50 ml @ 100 mls/hr IVPB Q8HR [facility] Rx# :[id number] Oral [id number] 540 Output: Urine 250 Other: Voiding Method Toilet Toilet Toilet # Voids 1 1 1 - Exam PHYSICAL EXAMINATION: GENERAL: [id number] gentleman in no acute distress at the time of my examination HEENT: Head is atraumatic, normocephalic. Pupils equal, round. Sclera anicteric. Conjunctiva are clear. Mucous membranes of the mouth are moist. Neck is supple. There is no elevated jugular venous pressure. No carotid bruit is heard. HEART EXAMINATION: S1 and S2 irregularly irregular systolic murmur is heard CHEST EXAMINATION: Reveal scattered coarse wheezing throughout with diminished air entry to the bases. ABDOMEN: Soft, obese, nontender. Bowel sounds are heard. No organomegaly noted. EXTREMITIES:[ 2+ peripheral pulses with 1+ evidence of peripheral edema bilateral lower extremity Abner wrap and dressing in place. NEUROLOGIC patient is awake, alert and oriented 3 . . - Labs CBC & Chem 7: 05/10/19 06:06 05/10/19 06:06 Labs: Abnormal Lab Results - Last 24 Hours (Table) 05/09/19 05/09/19 05/09/19 Range/Units 13:31 16:40 20:18 WBC (3.8-10.6) k/uL RBC (4.30-5.90) m/uL RDW (11.5-15.5) % Neutrophils # (1.3-7.7) k/uL Carbon Dioxide (22-30) mmol/L BUN (9-20) mg/dL Creatinine (0.66-1.25) mg/dL Glucose (74-99) mg/dL POC Glucose (mg/dL) 119 H 131 H (75-99) mg/dL Plasma Lactic Acid Vance 3.8 H* (0.7-2.0) mmol/L Magnesium (1.6-2.3) mg/dL 05/10/19 05/10/19 05/10/19 Range/Units 06:06 06:06 06:06 WBC 15.7 H (3.8-10.6) k/uL RBC 4.16 L (4.30-5.90) m/uL RDW 16.3 H (11.5-15.5) % Neutrophils # 13.7 H (1.3-7.7) k/uL Carbon Dioxide 19 L (22-30) mmol/L BUN 49 H (9-20) mg/dL Creatinine 1.68 H (0.66-1.25) mg/dL Glucose 131 H (74-99) mg/dL POC Glucose (mg/dL) (75-99) mg/dL Plasma Lactic Acid Vance (0.7-2.0) mmol/L Magnesium 2.6 H (1.6-2.3) mg/dL 05/10/19 05/10/19 Range/Units 06:22 12:17 WBC (3.8-10.6) k/uL RBC (4.30-5.90) m/uL RDW (11.5-15.5) % Neutrophils # (1.3-7.7) k/uL Carbon Dioxide (22-30) mmol/L BUN (9-20) mg/dL Creatinine (0.66-1.25) mg/dL Glucose (74-99) mg/dL POC Glucose (mg/dL) 142 H 131 H (75-99) mg/dL Plasma Lactic Acid Vance (0.7-2.0) mmol/L Magnesium (1.6-2.3) mg/dL Microbiology - Last 24 Hours (Table) 05/08/19 17:01 Blood Culture - Preliminary Blood No Growth after 24 hours Assessment and Plan Plan: Assessment and plan #1 diastolic congestive heart failure acute on chronic #2 acute kidney injury #3 severe pulmonary hypertension #4 EtOH abuse #5 COPD #6 hypertension #7 hyperlipidemia #8 history of nicotine dependence #9 persistent atrial fibrillation #10 bilateral lower extremity edema with evidence of petechiae-type rash versus possible cellulitis Plan Patient had a recent echocardiogram with Doppler study performed in January which revealed an ejection fraction of 55-60%, moderate mitral regurgitation with severe tricuspid regurg and severe pulmonary hypertension, we would recommend to continue the patient on current dose of IV Lasix, monitoring intake and output along with daily weights and daily lytes BUN and creatinine. DNP note has been reviewed, I agree with a documented findings and plan of care. Patient was seen and examined.
--- NOTE | 2019-05-10 14:15 | P.PN ---
Subjective Progress Note Date: 05/10/19 Principal diagnosis: Acute exacerbation of chronic diastolic congestive heart failure with previously preserved left ventricular systolic function 68-year-old white male patient of Dr. Israel with past medical history of COPD, history of atrial fibrillation on Eliquis, GERD/reflux, hypertension, hyperlipidemia, and history of chronic congestive heart failure with diastolic dysfunction, severe pulmonary hypertension with PA systolic of 70 mmHg. Patient came into the hospital on 05/08/2019 for evaluation of worsening shortness of breath, he does admit to recent weight increase, and orthopnea. Has a history of chronic lower extremity cellulitis, however he noticed increased swelling in his lower extremities. Chest x-ray was taken showing some subsegmental atelectatic changes, pulmonary venous hypertension, and interstitial edema. Labs showed a white blood cell count of 17.5, hemoglobin of 12.9, d-dimer was elevated at 1.48, sodium was 125, potassium is 5.1, chloride was 88, CO2 was 17, BUN of 51, creatinine of 2.54, lactic acid of 2.2, AST of 68, ALT of 31, alk p hos of 46, CK of 564, troponins were positive at 0.137, and 0.099, proBNP was 11,000, urinalysis was negative, drug screen was positive for opiates. Ultrasound Dopplers of the lower extremities were negative for DVT. VQ scan showed low probability of pulmonary embolism. At the time of our evaluation patient is sitting up in bed, room air pulse ox is 96%, he is hemodynamic was stable, no acute distress, denies any chest pain, denies any cough or congestion. He does not wear oxygen at his baseline, his smoking is in remission, he does carry [id number] smoking history. He has been started on IV diuretics, empiric antibiotics, and breathing treatments, he is feeling better, his weight is down by 2.1 kg in the last 24 hours. Nephrology and consulted for evidence of acute kidney injury. We're consulted for evaluation of patient's shortness of breath. On 05/10/2019 patient seen in follow-up and selective care unit, he is up in the recliner, in no acute distress, no signs of any difficulty breathing,he is calm and comfortable, room air pulse ox is 97%, afebrile, hemodynamically patient is stable, denied any chest pain, denied any cough or congestion, patient is on abiotic's for lower extreme any cellulitis, no clear evidence of pneumonia. Patient is receiving local wound care to his lower extremities, no coughing, no wheezing, lung sounds are clear to auscultation. Objective - Vital Signs Vital signs: Vital Signs Temp 97.1 F L 05/10/19 11:26 Pulse 66 05/10/19 11:26 Resp 20 05/10/19 11:26 BP 120/62 05/10/19 11:26 Pulse Ox 97 05/10/19 11:26 Intake & Output 05/09/19 05/10/19 05/10/19 18:59 06:59 18:59 Intake Total 1010.767 70 590 Output Total 250 Balance 1010.767 70 340 Weight 92.6 kg Intake: Intake, IV Titration 50.767 70 50 Amount Heparin Sod,Pork in 0.45% 50.767 NaCl 25,000 unit In 0.45 % NaCl 1 250ml.bag @ 10.8 UNITS/KG/HR 9.994 mls/hr IV .Q24H [facility] Rx#: [id number] Sodium Chloride 0.9% 1, 20 000 ml @ 75 mls/hr IV . [id number] [facility] Rx#:[id number] ceFAZolin 2 gm In Sodium 50 50 Chloride 0.9% 50 ml @ 100 mls/hr IVPB Q8HR [facility] Rx# :[id number] Oral [id number] 540 Output: Urine 250 Other: Voiding Method Toilet Toilet Toilet # Voids 1 1 1 - Exam GENERAL EXAM: Alert, pleasant, 60-year-old white male with room air pulse ox of 96%, comfortable in no apparent distress. HEAD: Normocephalic/atraumatic. EYES: Normal reaction of pupils, equal size. Conjunctiva pink, sclera white. NOSE: Clear with pink turbinates. THROAT: No erythema or exudates. NECK: No masses, mild JVD, no thyroid enlargement, no adenopathy. CHEST: No chest wall deformity. Symmetrical expansion. LUNGS: Equal air entry with scattered rhonchi, fine rales at the bases, but no wheeze, rhonchi or dullness. CVS: Regular rate and rhythm, normal S1 and S2, no gallops, no murmurs, no rubs ABDOMEN: Soft, nontender. No hepatosplenomegaly, normal bowel sounds, no guarding or rigidity. EXTREMITIES: No clubbing, lower extremity edema 1+, no cyanosis, 2+ pulses and upper and lower extremities. MUSCULOSKELETAL: Muscle strength and tone normal. SPINE: No scoliosis or deformity SKIN: No rashes CENTRAL NERVOUS SYSTEM: Alert and oriented -3. No focal deficits, tone is normal in all 4 extremities. PSYCHIATRIC: Alert and oriented -3. Appropriate affect. Intact judgment and insig - Labs CBC & Chem 7: 05/10/19 06:06 05/10/19 06:06 Labs: Abnormal Lab Results - Last 24 Hours (Table) 05/09/19 05/09/19 05/09/19 Range/Units 13:31 16:40 20:18 WBC (3.8-10.6) k/uL RBC (4.30-5.90) m/uL RDW (11.5-15.5) % Neutrophils # (1.3-7.7) k/uL Carbon Dioxide (22-30) mmol/L BUN (9-20) mg/dL Creatinine (0.66-1.25) mg/dL Glucose (74-99) mg/dL POC Glucose (mg/dL) 119 H 131 H (75-99) mg/dL Plasma Lactic Acid Vance 3.8 H* (0.7-2.0) mmol/L Magnesium (1.6-2.3) mg/dL 05/10/19 05/10/19 05/10/19 Range/Units 06:06 06:06 06:06 WBC 15.7 H (3.8-10.6) k/uL RBC 4.16 L (4.30-5.90) m/uL RDW 16.3 H (11.5-15.5) % Neutrophils # 13.7 H (1.3-7.7) k/uL Carbon Dioxide 19 L (22-30) mmol/L BUN 49 H (9-20) mg/dL Creatinine 1.68 H (0.66-1.25) mg/dL Glucose 131 H (74-99) mg/dL POC Glucose (mg/dL) (75-99) mg/dL Plasma Lactic Acid Vance (0.7-2.0) mmol/L Magnesium 2.6 H (1.6-2.3) mg/dL 05/10/19 05/10/19 Range/Units 06:22 12:17 WBC (3.8-10.6) k/uL RBC (4.30-5.90) m/uL RDW (11.5-15.5) % Neutrophils # (1.3-7.7) k/uL Carbon Dioxide (22-30) mmol/L BUN (9-20) mg/dL Creatinine (0.66-1.25) mg/dL Glucose (74-99) mg/dL POC Glucose (mg/dL) 142 H 131 H (75-99) mg/dL Plasma Lactic Acid Vance (0.7-2.0) mmol/L Magnesium (1.6-2.3) mg/dL Microbiology - Last 24 Hours (Table) 05/08/19 17:01 Blood Culture - Preliminary Blood No Growth after 24 hours Assessment and Plan Plan: Assessment: #1. Acute exacerbation of chronic diastolic congestive heart failure previously preserved left ventricular systolic function with EF of 55-60% #2. Mild exacerbation of COPD related to the above #3. Leukocytosis, rule out infectious etiology #4. Lactic acidosis not thought to be related to sepsis #5. Elevated troponins, possibly related to acute kidney injury, and acute co ngestive heart failure #6. Elevated d-dimer, VQ scan low probability for pulmonary embolism #7. Atrial fibrillation on Eliquis #8. Severe pulmonary hypertension, likely secondary to his chronic lung disease, with PA systolic of 70 mmHg #9. Acute kidney injury #10. 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 Hypertension #12. Hyperlipidemia #13. Chronic right lower extremity cellulitis #14. Glaucoma #15. History of peptic ulcer disease #16. History of chronic alcoholism Plan: Continue current medical treatment, diuretics, steroids, nebulized bronchodilators, patient is stable from pulmonary perspective, no clear evidence of pneumonia, vital signs are stable, we will leave it up to the primary team to decide on discharge, from pulmonary perspective he stable and could be considered for discharge. I performed a history & physical examination of the patient and discussed their management with my nurse practitioner, Rebecca Blue. I reviewed the nurse practitioner's note and agree with the documented findings and plan of care. Lung sounds are positive for scattered rhonchi. The findings and the impression was discussed with the patient. I attest to the documentation by the nurse practitioner. Time with Patient: Less than 30
--- NOTE | 2019-05-10 14:20 | PN ---
PROGRESS NOTE DATE OF SERVICE: 05/10/2019. NEW DATA: He is a FULL CODE. His height 5 foot, 9 inches, weight 92.6 kg, BSA 2.08 m2, BMI 30.1 kg/meter2. ALLERGY: ASPIRIN, PIPRACIL, TAZOBACTAM. Patient seen today, evaluated and discussed with him and his the clinical situation and the problem with the involvement of 3 organs, heart, lung, kidney. Patient currently has also underlying history of hypothyroidism and history of alcohol dependent and he is covered with sodium bicarbonate because of his metabolic acidosis associated with lactic acidosis. Patient also had underlying congestive heart failure, probably diastolic in nature, associated with elevated proBNP and troponin. Cardiology on the consult, and they did see the patient. Pulmonary, has been seen by Dr. Glover and his nurse practitioner with the underlying history of severe shortness of breath, COPD, pulmonary fibrosis with a history of asbestos exposure in the past and pulmonary hypertension with the underlying also history of more than 70 mmHg of the pulmonary hypertension level with the dilatation of the right atrium as well. History of cellulitis of the lower extremities and extensive edema with the association with the right-sided acute failure as well as cellulitis. Underlying acute kidney injury and seen by Dr. Huerta and the IV fluid has been adjusted as well as the Lasix which changed to 40 mg q. daily IV, was before 20 mg q.8 hour IV push. He has been now on also the Silvadene cream wrap on the lower extremity. Patient today was seen and evaluated, his at bedside. He denied any confusion or disorientation and he denied any development of TD's. However, he is on CIWA protocol. Patient also on apixaban, Eliquis 5 mg twice a day for the chronic paroxysmal atrial fibrillation and on inhalation therapy which added to his inhalation by Dr. Glover. The montelukast as well as the spironolactone still present and he is on inhalation therapy with the adding Perforomist with is formoterol fumarate and this is a 20 mcg inhalation twice a day beside the Budesonide and the Budesonide is also inhalation nebulizer 1 mg twice a day scheduled. Today on his laboratory indicating that his white count is 15.7 and hemoglobin 13.4 with the hematocrit 41.0 and platelet count 246. His chemistry indicating that sodium 138, potassium 3.8, chloride 102, his carbon dioxide gradually improving on twice a day sodium bicarb 650, and his creatinine gradually improving to 1.68 and which was prior to that on yesterday, 05/09/2019, 2.12 and the highest was on 04/07/2019 was 2.54. His blood sugar has been moderately elevated and covered with insulin to scale and his calcium is normal 8.6, his magnesium 2.6. On examination, his vital signs this morning indicating a temperature 97.6 F oral, pulse was 66 beats per minute. His blood pressure 124/67 with the pulse ox 94% on room air at 9:29 am. On the examination, is conscious, alert, oriented. His he has dentures at home. However, he do not use it because it is loose and he has no teeth in the upper jaw and the lower jaw is normal and uvula midline, no ulceration but he has difficulty feeding and will consult the dietitian for evaluation and treatment according to his ability to eat because he is not able to eat with regular food. The neck was supple and still have JVD and the lung is improved aeration with the treatment. However, he still have the inspiratory crackles, bilateral with the underlying history of pulmonary fibrosis as well as the rales from the congestive heart failure, could not differentiate with the pulmonary fibrosis. The abdomen is soft, nontender, positive bowel sounds. Extremities, he had 3+ pitting edema and with the associated cellulitis and he had wrapping with his silver Silvadene cream. Probably he may have also lymphedema. On review of the medical consultation, cardiology consultation stated that which was seen by Dr. Espinoza with the impression as the patient had mild elevation of troponin and he is on heparin protocol. ASSESSMENT: 1. Diastolic congestive heart failure, acute on the top of chronic. 2. Acute kidney injury. 3. Severe pulmonary hypertension. 4. ETOH abuse. 5. Chronic obstructive pulmonary disease. .. 6. Hypertension. 7. Hyperlipidemia. 8. History of nicotine dependence. Currently, he did not smoke. 9. Persistent atrial fibrillation. 10.Bilateral lower extremity edema and evidence of petechiae, rash and versus cellulitis and decided patient that he had previous echocardiogram with ejection fraction 55%-60%. He had mitral regurgitation, severe tricuspid regurgitation and severe pulmonary hypertension. Recommended to continue on the Lasix and monitoring the intake and output and electrolytes and they will discontinue the heparin and resume the Eliquis. On the CT scan of the chest which was done yesterday ordered by Dr. Glover, the Pulmonary and Critical, which indicating that patient had moderate emphysema with parenchymal fibrotic changes with the underlying cardiomegaly. Patient also seen by Nephrology on 05/09 and their impression at the time that patient had acute kidney injury, mostly prerenal secondary to cardiorenal syndrome. His creatinine was 2.54 on admission and at that time when they did see him, he was down to 2.12. However, today is improved more than that. He had lower extremity edema. He had acute on chronic diastolic congestive heart failure with the moderate mitral regurgitation, tricuspid regurgitation, severe pulmonary hypertension, metabolic acidosis and secondary to acute kidney injury and as well as component of lactic acidosis. His recommendation at that time, Dr. Huerta, who is a cane flume watchman see the patient, received IV fluids and Hep- Lock. Changing the Lasix to 40 mg IV once daily. Low salt diet and maintain oral sodium bicarb and repeat electrolytes. Also, he was seen by the Pulmonary, Dr. Glover with the impression of Dr. Glover, acute exacerbation of chronic diastolic congestive heart failure and preserved left ventricular function at 55%-60%, mild exacerbation of COPD, leukocytosis, rule out infection, lactic acidosis, elevated troponin could be likely secondary to acute kidney injury or acute congestive heart failure, elevated D- dimer with the V/Q scan, low probability for pulmonary embolism, atrial fibrillation on Eliquis, severe pulmonary hypertension with the underlying chronic lung disease and a PA systolic pressure of 70 mmHg., acute kidney injury, former nicotine dependence with the carrying over 40 pack per year smoking history, hypertension, hyperlipidemia, chronic right lower extremity cellulitis, glaucoma, peptic ulcer disease by old history. Patient also subsequently seen by Dr. Rubens Downing, Infectious Disease and with his impression as well, his impression indicating that acute pulmonary edema, left leg cellulitis, and associated history of shortness of breath and worsening of interstitial edema, congestive heart failure, alcohol with the ketoacidosis with the underlying history of lactic acidosis as well. As the patient assessment as mentioned above and the patient will be continuing current medication with the following the subspecialty recommendation and treatment with the underlying pulmonary hypertension. We hope that if we have any treatment for the pulmonary hypertension from Dr. Glover or the Cardiology will be happy to start. MMODL / IJN: [id number] /
[2019-05-10 16:52] LABS: Glucose,Whole Blood 128 mg/dL (75-99)
--- NOTE | 2019-05-10 18:50 | PN ---
PROGRESS NOTE Patient is seen for followup for acute kidney injury. He is currently doing better. His creatinine is down from 2.54 on admission to 1.68 now. On examination, blood pressure was 120/62, heart rate 58 per minute. Patient is afebrile. EXAMINATION OF THE HEART: S1 and S2. EXAMINATION OF LUNGS: Bilateral breath sounds are heard. ABDOMEN: Soft, non-tender. Examination of lower extremities shows no significant edema. DIDACTIC INSTRUCTOR exam is grossly intact. Labs show hemoglobin 13.4, sodium 138, potassium 3.8, BUN 49, serum creatinine 1.68, magnesium 2.6. ASSESSMENT: 1. Acute kidney injury, currently improving, nonoliguric. 2. Acute on chronic diastolic congestive heart failure. 3. Severe pulmonary hypertension. 4. Chronic lower extremity edema. PLAN: May continue with the IV Lasix. Repeat labs in a.m. Avoid nephrotoxic agents. UA is completely clear. MMODL / IJN: [id number] /
[2019-05-10 20:12] LABS: Glucose,Whole Blood 93 mg/dL (75-99)
[2019-05-10] MEDS: MONTELUKAST 10 MG TAB PO SCH (20:59)
[2019-05-10] MEDS: ATORVASTATIN 10 MG TAB PO SCH (20:59)
[2019-05-11] MEDS: IPRATROPIUM-ALBUTEROL 3 ML NEB INHALATION PRN (02:26)
[2019-05-11] MEDS: INSULIN ASPART (NovoLOG) 100 UNIT/ML VIAL SQ SCH ×4 (06:17→20:41)
[2019-05-11 06:18] LABS: Glucose,Whole Blood 132 mg/dL (75-99)
[2019-05-11] MEDS: methylPREDNISolone SOD SUCCI 125 MG/2 ML VIAL IV SCH ×2 (06:18→12:33)
[2019-05-11] MEDS: LEVOTHYROXINE 50 MCG TAB PO SCH (06:19)
[2019-05-11] MEDS: THIAMINE 100 MG TAB PO SCH ×2 (06:19→18:13)
[2019-05-11 06:21] LABS: Basophils # (A) 0.1 k/uL (0-0.2); Basophils % (A) 1 %; Eosinophils # (A) 0.1 k/uL (0-0.7); Eosinophils % (A) 0 %; HCT 39.1 % (39.0-53.0); HGB 12.7 gm/dL (13.0-17.5); Lymphocytes # (A) 1.2 k/uL (1.0-4.8); Lymphocytes % (A) 8 %; MCH 31.5 pg (25.0-35.0); MCHC 32.4 g/dL (31.0-37.0); MCV 97.2 fL (80.0-100.0); Mean Platelet Volume 7.5; Monocytes # (A) 0.5 k/uL (0-1.0); Monocytes % (A) 3 %; Neutrophils % (A) 86 %; Platelet Count 235 k/uL (150-450); RBC 4.03 m/uL (4.30-5.90); WBC 16.2 k/uL (3.8-10.6)
[2019-05-11 06:24] LABS: Prothrombin Time 11.1 sec (9.0-12.0)
[2019-05-11] MEDS: BUDESONIDE 1 MG/2 ML NEBU INHALATION SCH (06:28)
[2019-05-11] MEDS: FORMOTEROL FUMARATE 20 MCG/2 ML NEBU INHALATION SCH (06:28)
[2019-05-11] MEDS: IPRATROPIUM-ALBUTEROL 3 ML NEB INHALATION SCH ×4 (06:28→19:30)
[2019-05-11] MEDS: FUROSEMIDE 10 MG/ML 4 ML VIAL IV SCH ×2 (09:06→20:25)
[2019-05-11] MEDS: MULTIVITAMINS, THERA 1 EACH TAB PO SCH (09:06)
[2019-05-11] MEDS: SODIUM BICARBONATE TAB 650 MG TAB PO SCH ×2 (09:06→20:41)
[2019-05-11] MEDS: ATENOLOL 25 MG TAB PO SCH (09:06)
[2019-05-11] MEDS: APIXABAN 2.5 MG TABLET PO SCH ×2 (09:06→20:25)
[2019-05-11] MEDS: LORATADINE 10 MG TAB PO SCH (09:06)
[2019-05-11 12:14] LABS: Basophils # (A) 0.2 k/uL (0-0.2); Basophils % (A) 1 %; Eosinophils % (A) 0 %; HGB 13.2 gm/dL (13.0-17.5); Lymphocytes # (A) 1.2 k/uL (1.0-4.8); Lymphocytes % (A) 8 %; MCH 32.3 pg (25.0-35.0); MCV 97.9 fL (80.0-100.0); Mean Platelet Volume 7.4; Monocytes # (A) 0.6 k/uL (0-1.0); Monocytes % (A) 4 %; Neutrophils # (A) 13.6 k/uL (1.3-7.7); Neutrophils % (A) 86 %; Platelet Count 238 k/uL (150-450); RBC 4.09 m/uL (4.30-5.90); WBC 15.8 k/uL (3.8-10.6)
[2019-05-11 12:14] LABS: Glucose,Whole Blood 190 mg/dL (75-99)
[2019-05-11 12:24] LABS: Calcium 8.7 mg/dL (8.4-10.2); Potassium 3.5 mmol/L (3.5-5.1)
--- NOTE | 2019-05-11 13:33 | PN ---
PROGRESS NOTE PULMONARY/CRITICAL CARE PROGRESS NOTE: DATE OF SERVICE: May 11, 2019 This is a 68-year-old male who was seen in consultation. We thought he had acute exacerbation of chronic diastolic heart failure. He also likely had a mild exacerbation of his underlying COPD. We passed that information along to his primary, Dr. Israel. Today, he is doing much better. In addition to the above, he has severe pulmonary hypertension, acute kidney injury, previous history of tobacco use, hypertension, hyperlipidemia, glaucoma, peptic ulcer disease, and chronic alcohol abuse. He had a V/Q scan which was low probability for pulmonary embolism. He does have a history of atrial fibrillation for which he is on a factor Xa inhibitor. Currently, he is doing rather well. He was asking about discharge. I told him that was up to Dr. Israel. From the pulmonary standpoint, he is doing much better. PHYSICAL EXAMINATION: VITAL SIGNS: Current vital signs are reviewed. Temperature 97.8, heart rate 60, respiratory rate 16, room air saturation 98%, blood pressure 139/70, mean 93. GENERAL: Appears in no acute distress. HEENT: Examination is grossly unremarkable. No supplemental oxygen. NECK: Supple. Full range of motion. No adenopathy or thyromegaly. Neck veins are flat. CARDIOVASCULAR: Examination reveals regular rhythm and rate. S1, S2 normal. Heart rate about 60 beats per minute. Soft systolic murmur is noted. LUNGS: Reveal mostly clear breath sounds. A few scattered mild bibasilar crackles. No wheezes. A few scattered mild rhonchi. Breath sounds equal bilaterally. Slight prolongation on forced maneuver. ABDOMEN: Soft. Bowel sounds are heard. EXTREMITIES: Are intact. No cyanosis, clubbing, or edema. SKIN: Without rash. NEUROLOGIC: Examination is brief but nonfocal. LABS: Labs are reviewed. White count 16.2, hemoglobin 12.7, hematocrit 39.1, platelet count normal. PT, INR normal. No recent x-ray to review. Medications are reviewed. ASSESSMENT: 1. Acute exacerbation of chronic diastolic heart failure. 2. Mild exacerbation of the patient's underlying chronic obstructive pulmonary disease from chronic tobacco use. 3. Lactic acidosis, resolved. 4. Elevated troponins, likely related to acute kidney injury and/or acute congestive heart failure/supply demand mismatch. 5. Doubt pulmonary embolism. 6. History of atrial fibrillation. 7. Severe secondary pulmonary hypertension. 8. History of acute kidney injury. 9. Previous history of tobacco use. 10.Hypertension. 11.Hyperlipidemia. 12.Chronic right lower extremity cellulitis. 13.Glaucoma. 14.Peptic ulcer disease. 15.History of chronic alcohol abuse. PLAN: From the pulmonary standpoint, the patient is doing well. Medications are reviewed. The patient could be considered for discharge. We will leave that up to the primary service. Would be happy to follow up with him in the office. No additional recommendations are made. Again we counseled the importance of ongoing smoking cessation. MMODL / IJN: [id number] /
--- NOTE | 2019-05-11 13:35 | P.PN ---
Subjective Progress Note Date: 05/11/19 Dictation on the progress note date of service 05/11/2019. Dictation by Dr. Jhonatan M.D. [facility]. Patient seen and evaluated today, also has family coming to the office for discussion regarding all of his drinking problem The alcohol dependence and discussing the resources in our community, also discussed with the patient, he stated that he has agreed to stop alcohol but he need the help. I did consult vp digital marketing social media and crm to help observation for the resources in the community and the support. Also I did consult dietitian to help him with the forward that he can be available to him with no upper jaw teeth, and he doesn't use his dentures. On exam today his temperature 97.8 orally F his heart rate in the 60s. His respiratory rate 16 his pulse ox 98% on room air. With a blood pressure 139/70. And his pulse rate 60s to 70s. Laboratories indicating: His white count still elevated 15.8 probably associated with the steroid which she has been discontinued IV and started on by mouth medication. Electrolyte sodium 139 potassium 3.5, his carbon dioxide improving with the carbon dioxide 20 he is on bicarb twice a day and gradually improving his creatinine definitely improved to 11.7 and a BUN 44 with the estimated glomerular filtration rate for non- 58. His blood sugar has been fluctuating with the underlying steroid and he was covered that was a scale his calcium is 8.7. Physical exam: Conscious alert oriented 3 no confusion no evidence of DTs however he is on CIWA. HEENT negative, Neck supple no JVD no thyromegaly. Chest significant improvement however still the inspiratory crackle with the underlying pulmonary fibrosis as well as had increased anteroposterior diameter with hyperinflation of the lung and pulmonary hypertension. Which is severe no treatment rendered by the pulmonary or cardiology in that aspect. Heart is regular sinus rhythm with a history of atrial fib, paroxysmal. And he on anticoagulation. Underlying congestive heart failure diastolic associated with pulmonary hypertension associated with significant edema of the lower extremities with the recent history of cellulitis of the lower extremities. Abdomen soft positive bowel sounds and no organomegaly enlargement. Extremities bilateral edema no evidence of DVT, cellulitis treated with silver Silvadene cream as well as elevation of the leg and diuretic. Neurologically: No evidence of developing DTs. Assessment and plan. #1 we did ask the pulmonary group in regard of the pulmonary hypertension and if there is any agitated treatment, the answer, no treatment added at this time we'll see him in the office. The antibiotic #[address] Rubens Downing for changing to oral anti-biotic and that if there is any for further treatment as outpatient. #3 acute kidney injury has been improving with the underlying normal sodium and potassium and creatinine today is 1.7 however Lasix has been increased probably to 40 mg twice a day and will check tomorrow his laboratories. 4. Elevated troponin and acute diastolic congestive heart failure on the top of chronic, associated with pulmonary hypertension and pulmonary fibrosis and COPD. #5 hyper glycemia due to steroid. Number 01/28/1719 venous Doppler study negative for DVT #7 VQ scan low probability of PE is. On 05/08/2019 #8 atrial fibrillation paroxysmal on S with the EKG on admission was indicating right bundle-branch block left anterior fascicular block and T-wave abnormalities and rhythm. To me sinus. #9 chest x-ray on 05/08/2019 indicating pulmonary fibrotic changes Plan: Today we have family meeting in the office, for discussion for the help of the patient for quitting alcohol as he is alcoholic dependent and the community resources as well. Patient need to stay for the spinal vp digital marketing social media and crm discussion as well as ambulat ion and repeat laboratory in a.m. His BMP as well as Dr. Downing evaluation and agreement for discharge tomorrow. Objective - Vital Signs Vital signs: Vital Signs Temp 97.8 F 05/11/19 08:00 Pulse 60 05/11/19 12:08 Resp 16 05/11/19 12:00 BP 139/70 05/11/19 12:00 Pulse Ox 97 05/11/19 08:00 Intake & Output 05/10/19 05/11/19 05/11/19 18:59 06:59 18:59 Intake Total 1120 220 290 Output Total 1937 456 8962 Balance -30 20 -710 Weight 93.8 kg Intake: Intake, IV Titration 100 100 50 Amount ceFAZolin 2 gm In Sodium 100 100 50 Chloride 0.9% 50 ml @ 100 mls/hr IVPB Q8HR [facility] Rx# :[id number] Oral 1020 120 240 Output: Urine 2232 654 [id number] Other: Voiding Method Toilet Toilet # Voids 3 2 - Labs CBC & Chem 7: 05/11/19 11:44 05/11/19 11:44 Labs: Abnormal Lab Results - Last 24 Hours (Table) 05/10/19 05/11/19 05/11/19 Range/Units 16:40 05:42 06:16 WBC 16.2 H (3.8-10.6) k/uL RBC 4.03 L (4.30-5.90) m/uL Hgb 12.7 L (13.0-17.5) gm/dL Neutrophils # 14.0 H (1.3-7.7) k/uL Carbon Dioxide (22-30) mmol/L BUN (9-20) mg/dL Creatinine (0.66-1.25) mg/dL Glucose (74-99) mg/dL POC Glucose (mg/dL) 128 H 132 H (75-99) mg/dL 05/11/19 05/11/19 05/11/19 Range/Units 11:44 11:44 12:04 WBC 15.8 H (3.8-10.6) k/uL RBC 4.09 L (4.30-5.90) m/uL Hgb (13.0-17.5) gm/dL Neutrophils # 13.6 H (1.3-7.7) k/uL Carbon Dioxide 20 L (22-30) mmol/L BUN 44 H (9-20) mg/dL Creatinine 1.27 H (0.66-1.25) mg/dL Glucose 198 H (74-99) mg/dL POC Glucose (mg/dL) 190 H (75-99) mg/dL Microbiology - Last 24 Hours (Table) 05/08/19 17:01 Blood Culture - Preliminary Blood No Growth after 48 hours
[2019-05-11 14:00] VITALS: BMI 30.5
--- NOTE | 2019-05-11 15:04 | P.PN ---
Subjective Progress Note Date: 05/11/19 This is a 68-year-old gentleman who follows regularly with Dr. Araiza in the office he has a known history of COPD, pulmonary hypertension, chronic atrial fibrillation, EtOH abuse, patient states he drinks a pint of whiskey a day, underlying pulmonary fibrosis, hypertension, hyperlipidemia, history of nicotine dependence, presents to the hospital with symptoms of worsening shortness of breath. His most recent hospitalization, was in January of this year which time he was admitted with COPD exacerbation and pneumonia. He was noted on that admission to have abnormal troponin likely related to sepsis at that time. Patient also had significant redness in his bilateral lower extremities which was felt to be a rash versus cellulitis. According to the patient, for the last several months he's noticed himself to be much more short of breath, positive PND and orthopnea. He was initiated here on IV Lasix. VQ scan did not reveal any evidence of a pulmonary embolism. Lower extremity ultrasound revealed no evidence of a DVT. No evidence of gross fluid overload on the chest x-ray. I pressure 110/60 with a heart rate in the 60s, 96% on room air. White blood cell count 19.1 on admission, 10.4 this morning, hemoglobin 12.0, platelet count 232. D-dimer 1.48, sodium 136, potassium 4.2, BUN 52 and creatinine 2.1, on admission the patient's creatinine was noted to be 2.5. Plasma lactic acid up to 3.8. Magnesium on admission 1.3, 2.3 this morning. BNP level 11,000. Troponins 0.17, 0.11, 0.13, 0.09. Drug screen positive for urine opiates.here and opiates. EKG on admission here showed atrial fibrillation with a controlled ventricular response. 05/10/2019 Patient seen and examined this morning, according to the patient, he seems to be putting out adequate amounts of urine, his weight is however up today. He does state that his breathing is improved today, bilateral lower extremities have been wrapped and patient has been seen by infectious disease. Blood pressure 120/60 with a heart rate in the 60s, 97% on room air. White blood cell count 15.7, hemoglobin 13.4, platelet count 246. Sodium 138, potassium 3.8, BUN 49 and creatinine 1.6. Magnesium 2.6. 05/11/2019 Patient seen and examined this morning, doesn't feel that his breathing is significantly improved although he is putting out adequate urine output. Blood pressure 138/70 with a heart rate in the 60s, 98% on room air. Blood cell count 15.8, hemoglobin 13.2, platelet count 238. Sodium 139, potassium 3.5, BUN 44, creatinine 1.2. Objective - Vital Signs Vital signs: Vital Signs Temp 97.8 F 05/11/19 08:00 Pulse 60 05/11/19 12:08 Resp 16 05/11/19 12:00 BP 139/70 05/11/19 12:00 Pulse Ox 97 05/11/19 08:00 Intake & Output 05/10/19 05/11/19 05/11/19 18:59 06:59 18:59 Intake Total 1120 220 290 Output Total 0215 698 9802 Balance -30 20 -710 Weight 93.8 kg 93.8 kg Intake: Intake, IV Titration 100 100 50 Amount ceFAZolin 2 gm In Sodium 100 100 50 Chloride 0.9% 50 ml @ 100 mls/hr IVPB Q8HR [facility] Rx# :[id number] Oral 1020 120 240 Output: Urine 2390 106 2156 Other: Voiding Method Toilet Toilet # Voids 3 2 - Exam PHYSICAL EXAMINATION: GENERAL: Fry-fbyi-kak gentleman in no acute distress at the time of my examination HEENT: Head is atraumatic, normocephalic. Pupils equal, round. Sclera anicteric. Conjunctiva are clear. Mucous membranes of the mouth are moist. Neck is supple. There is no elevated jugular venous pressure. No carotid bruit is heard. HEART EXAMINATION: S1 and S2 irregularly irregular systolic murmur is heard CHEST EXAMINATION: Reveal scattered coarse wheezing throughout with diminished air entry to the bases. ABDOMEN: Soft, obese, nontender. Bowel sounds are heard. No organomegaly noted. EXTREMITIES:[ 2+ peripheral pulses with 1+ evidence of peripheral edema bilateral lower extremity Abner wrap and dressing in place. NEUROLOGIC patient is awake, alert and oriented 3 . . - Labs CBC & Chem 7: 05/11/19 11:44 05/11/19 11:44 Labs: Abnormal Lab Results - Last 24 Hours (Table) 05/10/19 05/11/19 05/11/19 Range/Units 16:40 05:42 06:16 WBC 16.2 H (3.8-10.6) k/uL RBC 4.03 L (4.30-5.90) m/uL Hgb 12.7 L (13.0-17.5) gm/dL Neutrophils # 14.0 H (1.3-7.7) k/uL Carbon Dioxide (22-30) mmol/L BUN (9-20) mg/dL Creatinine (0.66-1.25) mg/dL Glucose (74-99) mg/dL POC Glucose (mg/dL) 128 H 132 H (75-99) mg/dL 05/11/19 05/11/19 05/11/19 Range/Units 11:44 11:44 12:04 WBC 15.8 H (3.8-10.6) k/uL RBC 4.09 L (4.30-5.90) m/uL Hgb (13.0-17.5) gm/dL Neutrophils # 13.6 H (1.3-7.7) k/uL Carbon Dioxide 20 L (22-30) mmol/L BUN 44 H (9-20) mg/dL Creatinine 1.27 H (0.66-1.25) mg/dL Glucose 198 H (74-99) mg/dL POC Glucose (mg/dL) 190 H (75-99) mg/dL Microbiology - Last 24 Hours (Table) 05/08/19 17:01 Blood Culture - Preliminary Blood No Growth after 48 hours Assessment and Plan Plan: Assessment and plan #1 diastolic congestive heart failure acute on chronic #2 acute kidney injury #3 severe pulmonary hypertension #4 EtOH abuse #5 COPD #6 hypertension #7 hyperlipidemia #8 history of nicotine dependence #9 persistent atrial fibrillation #10 bilateral lower extremity edema with evidence of petechiae-type rash versus possible cellulitis Plan From cardiology's perspective, we'll recommend to continue current dose of IV Lasix, continue to monitor the intake and output along with daily weights and daily lytes BUN and creatinine. DNP note has been reviewed, I agree with a documented findings and plan of care. Patient was seen and examined.
[2019-05-11 17:18] LABS: Glucose,Whole Blood 118 mg/dL (75-99)
[2019-05-11] MEDS: SYMBICORT 160-4.5 MCG INHALER INHALATION SCH (19:30)
[2019-05-11] MEDS: MONTELUKAST 10 MG TAB PO SCH (20:25)
[2019-05-11] MEDS: ATORVASTATIN 10 MG TAB PO SCH (20:25)
[2019-05-11 20:55] LABS: Glucose,Whole Blood 146 mg/dL (75-99)
--- NOTE | 2019-05-11 20:57 | PN ---
PROGRESS NOTE Patient is seen for followup for acute kidney injury. His renal function continues to improve. Serum creatinine was 2.5 on initial admission. It is down to 1.27 now. The patient is currently being diuresed. He has bilateral lower extremity edema. On examination today, blood pressure was 144/84, heart rate 63 per minute. Patient is afebrile. EXAMINATION OF THE HEART: S1 and S2. EXAMINATION OF LUNGS: Bilateral breath sounds are heard. ABDOMEN: Soft, non-tender. Examination of lower extremities shows bilateral extremities to be wrapped. HIDE TRIMMER exam is grossly intact. Labs show sodium 139, potassium 3.5, chloride 104, BUN 44, serum creatinine 1.27. ASSESSMENT: 1. Acute kidney injury, cardiorenal, nonoliguric, currently improving. 2. Congestive heart failure, acute on top of chronic, mainly diastolic. 3. Severe pulmonary hypertension and chronic lower extremity edema. PLAN: Continue to diurese patient. Increase Lasix to b.i.d. Repeat labs in a.m. MMODL / IJN: [id number] /
--- NOTE | 2019-05-11 22:00 | P.PN ---
Subjective Progress Note Date: 05/11/19 68-year-old male who has multiple medical troubles that include COPD, asbestosis, coronary artery disease, significant arthritis and known pulmonary hypertension with recently hospitalized with bilateral pneumonia eventually recovered isn't back to his home setting where he does help his chronically ill . The psychosocial circumstances been difficult with the of their adult daughter which has impacted him greatly. His related that he does have a history with significant alcohol abuse and apparently was doing a little better after his recent hospitalization but again is now drinking on a daily basis the family relates he does take his medications with alcohol. The patient presents to Hospital feeling very short of breath increasing fatigue and malaise. Relates after he lays down he only has a few moments before he becomes profound short of breath and has to sit up. Because of this he presents to Hospital. There is evidence of elevated lactic acid and elevated white blood cell count it with at the consult was requested. The patient's visiting by pulmonary critical care and is not thought to have recurrent pneumonia. 05/11/2019 the patient is feeling considerably better. His shortness of breath is much improved since he's had the extensive diuresis. His lower extremity edema has improved and is doing well with the compression wraps. He finds them very helpful. Objective - Vital Signs Vital signs: Vital Signs Temp 97.8 F 05/11/19 08:00 Pulse 58 L 05/11/19 19:41 Resp 16 05/11/19 15:05 BP 144/84 05/11/19 15:05 Pulse Ox 98 05/11/19 15:05 Intake & Output 05/11/19 05/11/19 05/12/19 06:59 18:59 06:59 Intake Total 220 770 Output Total 200 1000 Balance 20 -230 Weight 93.8 kg 93.8 kg Intake: Intake, IV Titration 100 50 Amount ceFAZolin 2 gm In Sodium 100 50 Chloride 0.9% 50 ml @ 100 mls/hr IVPB Q8HR [facility] Rx# :[id number] Oral 120 720 Output: Urine 200 1000 Other: Voiding Method Toilet # Voids 2 - Exam HEENT: Anicteric conjunctiva are pink and moist nasal mucosa grossly intact without significant lesions, there is no thrush. Dentition is poor Neck: The neck is supple without significant lymphadenopathy or thyromegaly. Lungs: Symmetrical air entry is noted there are coarse crackles in the lung puga especially at the bases no significant dullness or egophony Heart: Irregular with positive S4 There is no significant murmur click or rub, PMI was nondisplaced. Abdomen: Obese, Positive bowel sounds soft and nontender without palpable masses or organomegaly. There was no guarding or rebound. Extremities: The upper extremities have excellent pulses they are symmetric, no significant petechiae or telangiectasia. No splinter hemorrhages were noted. The bilateral lower extremities have some chronic edema, there some scattered petechiae, there is some erythematous present in the left leg that is consuming greater than the right it is minimally tender he has no severe open wounds over the family relates that he was losing from the left leg as of yesterday. Neuro: Awake alert oriented to person place and time. There are no acute new gross focal sensory motor deficits. Patient is not yet shaky and has no asterixis. - Labs CBC & Chem 7: 05/11/19 11:44 05/11/19 11:44 Labs: Abnormal Lab Results - Last 24 Hours (Table) 05/11/19 05/11/19 05/11/19 Range/Units 05:42 06:16 11:44 WBC 16.2 H (3.8-10.6) k/uL RBC 4.03 L (4.30-5.90) m/uL Hgb 12.7 L (13.0-17.5) gm/dL Neutrophils # 14.0 H (1.3-7.7) k/uL Carbon Dioxide 20 L (22-30) mmol/L BUN 44 H (9-20) mg/dL Creatinine 1.27 H (0.66-1.25) mg/dL Glucose 198 H (74-99) mg/dL POC Glucose (mg/dL) 132 H (75-99) mg/dL 05/11/19 05/11/19 05/11/19 Range/Units 11:44 12:04 17:13 WBC 15.8 H (3.8-10.6) k/uL RBC 4.09 L (4.30-5.90) m/uL Hgb (13.0-17.5) gm/dL Neutrophils # 13.6 H (1.3-7.7) k/uL Carbon Dioxide (22-30) mmol/L BUN (9-20) mg/dL Creatinine (0.66-1.25) mg/dL Glucose (74-99) mg/dL POC Glucose (mg/dL) 190 H 118 H (75-99) mg/dL 05/11/19 Range/Units 20:41 WBC (3.8-10.6) k/uL RBC (4.30-5.90) m/uL Hgb (13.0-17.5) gm/dL Neutrophils # (1.3-7.7) k/uL Carbon Dioxide (22-30) mmol/L BUN (9-20) mg/dL Creatinine (0.66-1.25) mg/dL Glucose (74-99) mg/dL POC Glucose (mg/dL) 146 H (75-99) mg/dL Microbiology - Last 24 Hours (Table) 05/08/19 17:01 Blood Culture - Preliminary Blood No Growth after 72 hours Laboratory Results WBC 15.8 k/uL (3.8-10.6) H 05/11/19 11:44 RBC 4.09 m/uL (4.30-5.90) L 05/11/19 11:44 Hgb 13.2 gm/dL (13.0-17.5) 05/11/19 11:44 Hct 40.0 % (39.0-53.0) 05/11/19 11:44 MCV 97.9 fL (80.0-100.0) 05/11/19 11:44 MCH 32.3 pg (25.0-35.0) 05/11/19 11:44 MCHC 33.0 g/dL (31.0-37.0) 05/11/19 11:44 RDW 15.0 % (11.5-15.5) 05/11/19 11:44 Plt Count 238 k/uL (150-450) 05/11/19 11:44 Neutrophils % 86 % 05/11/19 11:44 Lymphocytes % 8 % 05/11/19 11:44 Monocytes % 4 % 05/11/19 11:44 Eosinophils % 0 % 05/11/19 11:44 Basophils % 1 % 05/11/19 11:44 Neutrophils # 13.6 k/uL (1.3-7.7) H 05/11/19 11:44 Lymphocytes # 1.2 k/uL (1.0-4.8) 05/11/19 11:44 Monocytes # 0.6 k/uL (0-1.0) 05/11/19 11:44 Eosinophils # 0.0 k/uL (0-0.7) 05/11/19 11:44 Basophils # 0.2 k/uL (0-0.2) 05/11/19 11:44 Anisocytosis Slight 05/10/19 06:06 Macrocytosis Slight 05/10/19 06:06 PT 11.1 sec (9.0-12.0) 05/11/19 05:42 INR 1.0 (<1.2) 05/11/19 05:42 APTT 80.5 sec (22.0-30.0) H 05/09/19 12:10 D-Dimer 1.48 mg/L FEU (<0.60) H 05/08/19 17:01 VBG pH 7.30 (7.31-7.41) L 05/08/19 17:34 VBG pCO2 43 mmHg (37-51) 05/08/19 17:34 VBG HCO3 21 mmol/L (24-28) L 05/08/19 17:34 Sodium 139 mmol/L (137-145) 05/11/19 11:44 Potassium 3.5 mmol/L (3.5-5.1) 05/11/19 11:44 Chloride 104 mmol/L (98-107) 05/11/19 11:44 Carbon Dioxide 20 mmol/L (22-30) L 05/11/19 11:44 Anion Gap 15 mmol/L 05/11/19 11:44 BUN 44 mg/dL (9-20) H 05/11/19 11:44 Creatinine 1.27 mg/dL (0.66-1.25) H 05/11/19 11:44 Est GFR (CKD-EPI)AfAm 67 (>60 ml/min/1.73 sqM) 05/11/19 11:44 Est GFR (CKD-EPI)NonAf 58 (>60 ml/min/1.73 sqM) 05/11/19 11:44 Glucose 198 mg/dL (74-99) H 05/11/19 11:44 POC Glucose (mg/dL) 146 mg/dL (75-99) H 05/11/19 20:41 POC Glu [employer] ID Reynaldo Nguyen 05/11/19 20:41 Lactic Ac Sepsis Rflx Y 05/09/19 14:22 Plasma Lactic Acid Vance 3.8 mmol/L (0.7-2.0) H* 05/09/19 13:31 Calcium 8.7 mg/dL (8.4-10.2) 05/11/19 11:44 Phosphorus 6.2 mg/dL (2.5-4.5) H 05/08/19 17:01 Magnesium 2.6 mg/dL (1.6-2.3) H 05/10/19 06:06 Total Bilirubin 1.3 mg/dL (0.2-1.3) 05/08/19 17:01 AST 68 U/L (17-59) H 05/08/19 17:01 ALT 31 U/L (21-72) 05/08/19 17:01 Alkaline Phosphatase 46 U/L (38-126) 05/08/19 17:01 Ammonia 23 umol/L (<30) 05/08/19 17:01 Creatine Kinase 564 U/L (55-170) H 05/08/19 17:01 Troponin I 0.099 ng/mL (0.000-0.034) H* 05/09/19 07:43 NT-Pro-B Natriuret Pep 36753 pg/mL 05/08/19 17:01 Total Protein 7.6 g/dL (6.3-8.2) 05/08/19 17:01 Albumin 4.4 g/dL (3.5-5.0) 05/08/19 17:01 Urine Color Yellow 05/08/19 18:30 Urine Appearance Clear (Clear) 05/08/19 18:30 Urine pH 5.5 (5.0-8.0) 05/08/19 18:30 Ur Specific [place] 1.007 (1.001-1.035) 05/08/19 18:30 Urine Protein Negative (Negative) 05/08/19 18:30 Urine Glucose (UA) Negative (Negative) 05/08/19 18:30 Urine Ketones Negative (Negative) 05/08/19 18:30 Urine Blood Negative (Negative) 05/08/19 18:30 Urine Nitrite Negative (Negative) 05/08/19 18:30 Urine Bilirubin Negative (Negative) 05/08/19 18:30 Urine Urobilinogen <2.0 mg/dL (<2.0) 05/08/19 18:30 Ur Leukocyte Esterase Negative (Negative) 05/08/19 18:30 Salicylates <1.0 mg/dL 05/08/19 17:01 Urine Opiates Screen Detected (NotDetected) H 05/08/19 18:30 Ur Oxycodone Screen Not Detected (NotDetected) 05/08/19 18:30 Urine Methadone Screen Not Detected (NotDetected) 05/08/19 18:30 Ur Propoxyphene Screen Not Detected (NotDetected) 05/08/19 18:30 Acetaminophen 11.6 ug/mL 05/08/19 17:01 Ur Barbiturates Screen Not Detected (NotDetected) 05/08/19 18:30 U Tricyclic Antidepress Not Detected (NotDetected) 05/08/19 18:30 Ur Phencyclidine Scrn Not Detected (NotDetected) 05/08/19 18:30 Ur Amphetamines Screen Not Detected (NotDetected) 05/08/19 18:30 U Methamphetamines Scrn Not Detected (NotDetected) 05/08/19 18:30 U Benzodiazepines Scrn Not Detected (NotDetected) 05/08/19 18:30 Urine Cocaine Screen Not Detected (NotDetected) 05/08/19 18:30 U Marijuana (THC) Screen Not Detected (NotDetected) 05/08/19 18:30 Serum Alcohol <10 mg/dL 05/08/19 17:34 Microbiology 05/08/19 17:01 Blood Blood Culture - Preliminary No Growth after 72 hours Assessment and Plan (1) Acute pulmonary edema Current Visit: Yes Status: Acute Code(s): J81.0 - ACUTE PULMONARY EDEMA SNOMED Code(s): 94730841 (2) Left leg cellulitis Narrative/Plan: 68-year-old man presents hospital with increasing shortness of breath has evidence of worsening interstitial edema likely with congestive heart failure and potential exacerbation of his COPD. He has significant orthopnea and PND. He is being diuresis and is feeling considerably better. He has a bit of leukocytosis that is rapidly improving and he is had evidence of some lactic acidosis. In persons or actively drinking and her acutely ill they often have lactic acidosis related to there alcohol use and affect on the liver. At this time the patient has evidence of a mild cellulitis in the left leg which will be treated with Ancef but does not appear to have sepsis and does not need to have further lactic acid levels drawn. We'll try some local wound care to the bilateral lower extremities and monitor. 05/11/2019 patient has had further improvement. I believe plans are in place for rehab as the patient can improve his functional status. He relates to some impact from his alcohol use. The significant lower extremity edema is now improved after he has been treated from cardiology and has had extensive diuresis. Care to the lower extremities with Silvadene wraps will be continued. He would then hopefully at some point in time in the near future we will be transitioning into compression garments. Current Visit: Yes Status: Acute Code(s): L03.116 - CELLULITIS OF LEFT LOWER LIMB SNOMED Code(s): 664706534 (3) Congestive heart failure Current Visit: Yes Status: Acute Code(s): I50.9 - HEART FAILURE, UNSPECIFIED SNOMED Code(s): 16156604 (4) Alcoholic ketoacidosis Current Visit: Yes Status: Acute Code(s): E87.2 - ACIDOSIS SNOMED Code(s): 89584384
[2019-05-12] MEDS: INSULIN ASPART (NovoLOG) 100 UNIT/ML VIAL SQ SCH ×2 (06:27→12:07)
[2019-05-12] MEDS: THIAMINE 100 MG TAB PO SCH (06:30)
[2019-05-12] MEDS: LEVOTHYROXINE 50 MCG TAB PO SCH (06:30)
[2019-05-12 06:37] LABS: Basophils # (A) 0.3 k/uL (0-0.2); Basophils % (A) 2 %; Eosinophils # (A) 0.1 k/uL (0-0.7); Eosinophils % (A) 0 %; HCT 40.9 % (39.0-53.0); HGB 13.5 gm/dL (13.0-17.5); Lymphocytes # (A) 1.9 k/uL (1.0-4.8); Lymphocytes % (A) 10 %; MCH 32.6 pg (25.0-35.0); MCV 98.8 fL (80.0-100.0); Macrocytosis Slight; Mean Platelet Volume 7.7; Monocytes # (A) 1.1 k/uL (0-1.0); Monocytes % (A) 6 %; Neutrophils # (A) 15.1 k/uL (1.3-7.7); Neutrophils % (A) 81 %; Platelet Count 240 k/uL (150-450); RBC 4.14 m/uL (4.30-5.90); RDW 15.1 % (11.5-15.5); WBC 18.7 k/uL (3.8-10.6)
[2019-05-12 06:57] LABS: Calcium 9.2 mg/dL (8.4-10.2); Potassium 4.2 mmol/L (3.5-5.1)
[2019-05-12 07:53] VITALS: RESP 16; TEMP 98
[2019-05-12] MEDS ORDERED: predniSONE 10 MG TAB PO SCH (09:00)
[2019-05-12] MEDS: IPRATROPIUM-ALBUTEROL 3 ML NEB INHALATION SCH ×2 (09:02→11:49)
[2019-05-12] MEDS: SYMBICORT 160-4.5 MCG INHALER INHALATION SCH (09:05)
--- NOTE | 2019-05-12 09:34 | P.PN ---
Subjective Progress Note Date: 05/12/19 Principal diagnosis: This is a 68-year-old male seen in consultation because of acute kidney injury from congestive heart failure, COPD Hypertension and coronary artery disease. He is being diuresed and is responding well. Creatinine is stable his Lasix was increased. His edema is improving. He denies any dizziness. Has stable shortness of breath unchanged. Good appetite no nausea vomiting diarrhea. Objective - Vital Signs Vital signs: Vital Signs Temp 98.0 F 05/12/19 07:35 Pulse 68 05/12/19 09:20 Resp 16 05/12/19 07:35 BP 161/83 05/12/19 07:35 Pulse Ox 98 05/12/19 07:35 Intake & Output 05/11/19 05/12/19 05/12/19 18:59 06:59 18:59 Intake Total 770 50 480 Output Total 1000 1050 Balance -230 -1000 480 Weight 93.8 kg 93.6 kg Intake: Intake, IV Titration 50 50 Amount ceFAZolin 2 gm In Sodium 50 50 Chloride 0.9% 50 ml @ 100 mls/hr IVPB Q8HR [facility] Rx# :[id number] Oral 720 480 Output: Urine 1000 1050 Other: Voiding Method Toilet Awake alert oriented comfortable HEENT exam JVP is elevated about 8 cm about sternal angle neck is supple no facial asymmetry Heart sounds are unremarkable for any murmur rub gallop. Lungs are significant for occasional coarse crackle at bases good air entry bilaterally Abdomen is soft nontender no organomegaly ascites masses Extremity exam was edema about the AMANDEEP wraps around his legs. Neurologically awake alert oriented. No focal motor deficit - Labs CBC & Chem 7: 05/12/19 05:41 05/12/19 05:41 Labs: Abnormal Lab Results - Last 24 Hours (Table) 05/11/19 05/11/19 05/11/19 Range/Units 11:44 11:44 12:04 WBC 15.8 H (3.8-10.6) k/uL RBC 4.09 L (4.30-5.90) m/uL Neutrophils # 13.6 H (1.3-7.7) k/uL Monocytes # (0-1.0) k/uL Basophils # (0-0.2) k/uL Carbon Dioxide 20 L (22-30) mmol/L BUN 44 H (9-20) mg/dL Creatinine 1.27 H (0.66-1.25) mg/dL Glucose 198 H (74-99) mg/dL POC Glucose (mg/dL) 190 H (75-99) mg/dL 05/11/19 05/11/19 05/12/19 Range/Units 17:13 20:41 05:41 WBC 18.7 H (3.8-10.6) k/uL RBC 4.14 L (4.30-5.90) m/uL Neutrophils # 15.1 H (1.3-7.7) k/uL Monocytes # 1.1 H (0-1.0) k/uL Basophils # 0.3 H (0-0.2) k/uL Carbon Dioxide (22-30) mmol/L BUN (9-20) mg/dL Creatinine (0.66-1.25) mg/dL Glucose (74-99) mg/dL POC Glucose (mg/dL) 118 H 146 H (75-99) mg/dL 05/12/19 Range/Units 05:41 WBC (3.8-10.6) k/uL RBC (4.30-5.90) m/uL Neutrophils # (1.3-7.7) k/uL Monocytes # (0-1.0) k/uL Basophils # (0-0.2) k/uL Carbon Dioxide 21 L (22-30) mmol/L BUN 38 H (9-20) mg/dL Creatinine (0.66-1.25) mg/dL Glucose 111 H (74-99) mg/dL POC Glucose (mg/dL) (75-99) mg/dL Microbiology - Last 24 Hours (Table) 05/08/19 17:01 Blood Culture - Preliminary Blood No Growth after 72 hours Assessment and Plan Assessment: Impression 1. Acute kidney injury from prerenal from cardiorenal syndrome and congestive heart failure improving with diuresis. Creatinine is 1.16 as of this morning 2. Mild degree of non-gap acidosis bicarb is 21, gap is 13 3. Severe pulmonary hypertension with chronic edema improving 4. Congestive heart failure cardiorenal syndrome improving. Recommendation 1. Maintain Lasix, but because of possible discharge we'll change 40 IV twice a day to 40 mg by mouth twice a day and watch him closely until discharged. 2. His blood pressure needs to be maintained, slightly high at the moment we will try to bring it down slowly with diuresis. Would hold off adding any other medication for right now 3. Discharge initially followed up within the next 2 or 3 days at our office
[2019-05-12] MEDS: FUROSEMIDE 10 MG/ML 4 ML VIAL IV SCH (09:36)
--- NOTE | 2019-05-12 09:37 | PN ---
PROGRESS NOTE Pulmonary/Critical care progress note DATE OF SERVICE: May 12, 2019 A 68-year-old male who was initially admitted back on May 08. He was seen in consultation recently for an exacerbation of chronic diastolic heart failure and also mild exacerbation of his underlying COPD. He is doing much better. Hoping to be discharged soon. He states he still has shortness of breath on exertion but at rest, he is not complaining. He denies any significant cough or phlegm production. Denies any fever, chills. There is no chest pain or chest discomfort. No nausea, vomiting, diarrhea, or any genitourinary complaints. In addition, he has a history of severe pulmonary hypertension, acute kidney injury, previous history of heavy tobacco use, hypertension, hyperlipidemia, glaucoma, peptic ulcer disease, and chronic alcohol abuse. The patient did have a V/Q scan which was low probability for pulmonary embolism. He is on a factor 10-A inhibitor for his atrial fibrillation. PHYSICAL EXAMINATION: VITAL SIGNS: Current vital signs are reviewed. Temperature 98, heart rate 66, respiratory rate 16, blood pressure 161/83, mean 109, room-air saturation 98%. GENERAL: He appears in no acute distress. He is sitting at the bedside. HEENT examination is grossly unremarkable. Mucous membranes are moist. Nasal O2 is not noted. NECK: Supple. Full range of motion. No adenopathy or thyromegaly. Neck veins are flat. CARDIOVASCULAR examination reveals regular rhythm and rate. S1, S2 normal. No S3, S4, or murmur. Appears to be sinus rhythm. LUNGS: Reveal mostly clear breath sounds. A few scattered rhonchi. No crackles or wheezes. Breath sounds equal bilaterally. ABDOMEN: Soft. Bowel sounds are heard. EXTREMITIES are intact. No cyanosis, clubbing, or significant edema. His lower extremities are wrapped. SKIN: Without rash. NEUROLOGIC examination is brief but nonfocal. Microbiologic studies are negative. LABS: Reviewed. White count 18.7, hemoglobin, hematocrit and platelet count all normal. Sodium, potassium, chloride normal. CO2 21, anion gap 13. BUN and creatinine were 38 and 1.16. The rest of the labs look okay. Medications are reviewed. No recent x-ray to report. ASSESSMENT: 1. Acute exacerbation of chronic diastolic heart failure. 2. Mild exacerbation of the patient's underlying chronic obstructive pulmonary disease. 3. History of chronic tobacco abuse. 4. Lactic acidosis, resolved. 5. Elevated troponins, likely related to acute kidney injury and/or acute congestive heart failure, supply/demand mismatch. 6. Doubt pulmonary embolism. 7. History of atrial fibrillation. 8. Severe secondary pulmonary hypertension. 9. History of acute kidney injury. 10.Previous history of tobacco use. 11.Hypertension. 12.Hyperlipidemia. 13.Chronic right lower extremity cellulitis. 14.Glaucoma. 15.Peptic ulcer disease. 16.History of chronic alcohol abuse. PLAN: The patient seems to be doing relatively well. He does get short of breath on exertion. At rest, he is fine. He states that he feels much improved since he has been here. The lower extremity edema has improved. He is not coughing up any phlegm. There is no fever, chills. No chest pain or chest discomfort. We will continue to follow. Hopeful discharge in next 24-48 hours. MMODL / IJN: [id number] /
[2019-05-12] MEDS: APIXABAN 2.5 MG TABLET PO SCH (09:38)
[2019-05-12] MEDS: SODIUM BICARBONATE TAB 650 MG TAB PO SCH (09:38)
[2019-05-12] MEDS: MULTIVITAMINS, THERA 1 EACH TAB PO SCH (09:38)
[2019-05-12] MEDS: LORATADINE 10 MG TAB PO SCH (09:38)
[2019-05-12] MEDS: ATENOLOL 25 MG TAB PO SCH (09:38)
[2019-05-12 12:00] LABS: Glucose,Whole Blood 108 mg/dL (75-99)
[2019-05-12] MEDS ORDERED: APIXABAN 5 MG TAB PO SCH ×2 (12:00→21:00)
[2019-05-12 12:19] VITALS: BP 152/80; PULSE 70
--- NOTE | 2019-05-12 12:56 | P.DS ---
Providers Date of admission: 05/08/19 19:21 Expected date of discharge: 05/12/19 Attending physician: Galdino Israel Consults: 05/08/19 19:19 Consult Physician Routine Consulting Provider: Alonso East Consult Reason/Comments: arf Do you want consulting provider notified?: Yes 05/08/19 19:20 Consult Physician Routine Consulting Provider: Rubens Downing Consult Reason/Comments: elevWBC Do you want consulting provider notified?: Yes Consult Physician Routine Consulting Provider: Kayley Gilbert Consult Reason/Comments: elevTrop Do you want consulting provider notified?: Yes 05/09/19 20:49 Consult Physician Urgent Consulting Provider: Jamie Glover Consult Reason/Comments: Pulmonary hypertension, shortness of breath, metabolic acidosis, COPD Do you want consulting provider notified?: Yes Primary care physician: Galdino Israel Discharge summary date of service 05/12/[address] Jhonatan M.D. [facility]. Patient seen and evaluated [id number] and discussed future program and is discharge as well as I did make a meeting for his family daughter and the son and cousin and ex- as he currently but his ex- taking care of h im. We discussed in the family meeting, cessation of alcohol, [place], as well as continuing follow-up with the consulting physician with the underlying complicated multiple medical problems. Diagnosis on discharge: #1 acute congestive heart failure. Chronic diastolic, with elevated troponin and elevated pro-BMP and symptoms with the shortness of breath recurrent. With normal systolic function. Previous echocardiogram. #2 acute exacerbation of COPD with a history of ex-smoker, pulmonary fibrosis by the computed tomography scan and the chest x-ray, severe pulmonary hypertension. #3 lactic acidosis no overt signs of sepsis however the disease of the lung and the hypoxemia could be the reason. #4 acute kidney injury with the hypo-tension and possibility of ATN. #5 no evidence of PE with the VQ scan low probability. #6 history of essential hypertension however patient was hypotensive on admission. #7 right lower extremities and the left lower extremities edema associated with #1 cellulitis, #2 impeding venous return was underlying severe pulmonary hypertension. #8 chronic atrial fibrillation with the underlying paroxysmal episode on anticoagulant. #9 history of peptic ulcer disease remote. #10 alcohol dependence with the underlying drinking daily pint of RUM. #11 history of ex-smoker not currently. #12 resistant to cessation of alcohol, provided to the family [facility] however the need the patient to request the treatment. Patient presentation to the emergency room: Patient severe shortness of breath found with multiple organ failure and lactic acidosis and elevated troponin, and elevated pro-BMP to 1100 and hypoxemia on the room air. Hospital course: Patient admitted to sales specialist floor, consultation with cardiology, pulmonary, nephrology, and infectious disease with the underlying leukocytosis and lower extremities cellulitis. Medication adjusted and seen by the above consulting physicians with the subsequent improvement clinically however he still had leukocytosis and this associated with the steroid IV and by mouth. Currently decreased on a step ladder protocol and he will be followed by Dr. Wang in the office with the underlying pulmonary fibrosis and pulmonary hypertension and currently we don't have treatment for however he will be addressing this problem in the office. Patient will be following with the nephrology Dr. East/Dr. Vivas in the office with a history of acute kidney injury and chronic kidney disease currently improved to stage III., Patient also will be followed by Dr. Downing infectious disease for the cellulitis of the lower extremities and the edema. Patient will be followed by cardiology for his underlying congestive heart failure and pulmonary hypertension recurrent acute diastolic failure with a normal ejection fraction on the top of chronic. I did consult social work administrator for helping the patient or making decision in regards of his alcoholic problems. And the cessation of alcohol. No DTs has been found during his few days in the hospital and he was agreeable for for further treatment and stopping alcohol however he may change his mind in 2-3 days and go back to his habit of drinking . Patient still shortness of breath with the prognosis is guarded. On [id number] examination on discharge: Patient's conscious alert oriented 3. HEENT negative, he has no dentures in the upper jaw and QTs of the lower jaw. Hearing is mildly decreased. Neck was supple no JVD no thyromegaly no lymphadenopathy trachea midline. His vital sign on discharge indicating blood pressure 152/80, pulse ox on room air 97%, his heart rate regular sinus 60% with the paroxysmal atrial fibrillation respiratory rate 16. Chest was improved bilateral no evidence of pneumonia with a hyperinflated lung and also in respiratory no chronic crackles with the underlying pulmonary fibrosis no rales. Heart regular sinus rhythm with a history of chronic atrial fibrillation. And diastolic dysfunction with the normal systolic function Abdomen soft positive bowel sound protuberant. No tenderness in the 4 quadrants. Extremities: He had still edema however improved 1+ and on he still having the wrapped with the silver Silvadene cream which was done by Dr. Downing. Dr. Downing as well he will give him the antibiotic prescription orally and discontinuation of the IV antibiotic. No Neurologically: watch dial printer of the kidneys on this admission, he is functioning with the shortness of breath. No lateralizing sign and no neuro deficit, ambulatory. Assessment: Patient stable general condition for discharge home today, antibiotic to continue (Dr. Rubens Downing after we discontinued the IV antibiotic. Follow-up with the pulmonary, cardiology, nephrology, and infectious disease. Plan we'll see him next week for follow-up I did discuss that with the patient continue his current medication in the hospital. Current medication on discharge: He is on acetaminophen when necessary for aches and pains. 8 hour when nece ssary #2 requests 5 mg twice a day per cardiology recommendation #3 atenolol 25 mg daily #4 atorvastatin 10 mg at at bedtime #5 budesonide Formot. 2 puffs once a day. #6 levothyroxin 50 g once a day #7 Lorette T [place] Claritin 10 mg daily. #8 [place] cast Singulair 10 mg at at bedtime #9 multivitamin 1 daily #10 prednisone 10 mg 3 tablets daily for 3 days followed 2 tablet daily for 3 days, 1 tablet daily for 3 days, patient will be seen by Dr. Wang to continue the pulmonary care subsequently. #11 sodium bicarb 650 mg twice a day. #12 thiamine 100 mg twice a day by mouth. #13 silver Silvadene cream to be applied to the lower extremities once a day per infectious disease Dr. Downing. As well as antibiotic orally and he will be following in his office is Patient Condition at Discharge: Fair Plan - Discharge Summary Discharge Rx Participant: No New Discharge Prescriptions: New RX: Furosemide [Lasix] 40 mg PO BID@0900,1600 #60 tab RX: Multivitamins, Thera [Multivitamin (formulary)] 1 each PO DAILY tab RX: predniSONE 30 mg PO DAILY tab RX: SILVER sulfADIAZINE CREAM [Silvadene Cream] 1 applic TOPICAL DAILY #60 applic RX: Sodium Bicarbonate Tab 650 mg PO BID #60 tab RX: Thiamine [Vitamin B-1] 100 mg PO BID-W/MEALS #60 tab Continue RX: Atorvastatin Calcium [Lipitor] 10 mg PO HS RX: Montelukast Sodium [Singulair] 10 mg PO HS RX: Cetirizine HCl [Zyrtec] 10 mg PO DAILY RX: Atenolol [Tenormin] 25 mg PO DAILY RX: Apixaban [Eliquis] 5 mg PO BID RX: Ipratropium-Albuterol Nebulize [Duoneb 0.5 mg-3 mg/3 ml Soln] 3 ml INHALATION AC-TID #90 ampul.neb RX: Baclofen 10 mg PO BID RX: Levothyroxine Sodium [Synthroid] 50 mcg PO DAILY RX: [place]-3 Fatty Acids/Fish Oil [Fish Oil 1,000 mg Softgel] 1 cap PO DAILY RX: Acetaminophen Tab [Tylenol] 500 mg PO Q4H PRN PRN Reason: Pain Discontinued RX: Spironolactone 25 mg PO DAILY Furosemide [Lasix] 40 mg PO TID Alcorn 430mg 430 mg PO QID Discharge Medication List RX: Apixaban [Eliquis] 5 mg PO BID 01/30/19 [History] RX: Atenolol [Tenormin] 25 mg PO DAILY 01/30/19 [History] RX: Atorvastatin Calcium [Lipitor] 10 mg PO HS 01/30/19 [History] RX: Cetirizine HCl [Zyrtec] 10 mg PO DAILY 01/30/19 [History] RX: Montelukast Sodium [Singulair] 10 mg PO HS 01/30/19 [History] RX: Ipratropium-Albuterol Nebulize [Duoneb 0.5 mg-3 mg/3 ml Soln] 3 ml INHALATION AC-TID #90 ampul.neb 02/09/19 [Rx] RX: Acetaminophen Tab [Tylenol] 500 mg PO Q4H PRN 05/08/19 [History] RX: Baclofen 10 mg PO BID 05/08/19 [History] RX: Levothyroxine Sodium [Synthroid] 50 mcg PO DAILY 05/08/19 [History] RX: [place]-3 Fatty Acids/Fish Oil [Fish Oil 1,000 mg Softgel] 1 cap PO DAILY 05/08/19 [History] RX: Furosemide [Lasix] 40 mg PO BID@0900,1600 #60 tab 05/12/19 [Rx] RX: Multivitamins, Thera [Multivitamin (formulary)] 1 each PO DAILY tab 05/12/19 [Rx] RX: SILVER sulfADIAZINE CREAM [Silvadene Cream] 1 applic TOPICAL DAILY #60 applic 05/12/19 [Rx] RX: Sodium Bicarbonate Tab 650 mg PO BID #60 tab 05/12/19 [Rx] RX: Thiamine [Vitamin B-1] 100 mg PO BID-W/MEALS #60 tab 05/12/19 [Rx] RX: predniSONE 30 mg PO DAILY tab 05/12/19 [Rx] Follow up Appointment(s)/Referral(s): Rubens Downing MD [STAFF PHYSICIAN] - 1 Week (offices closed, please call to make a follow up appointment ) Jamie Glover DO [Doctor of Osteopathic Medicine] - 1 Week (offices closed, please call for follow up appointment) Thom Araiza MD [STAFF PHYSICIAN] - 05/18/19 9:30 am Galdino Israel MD [Primary Care Provider] - 1 Week (offices closed, please call to make a follow up appointment) Ashley Viavs MD [STAFF PHYSICIAN] - 1 Week (offices closed, please call for follow up appointment ) Patient Instructions/Handouts: Cellulitis (DC), Abuse of Alcohol (DC)
--- NOTE | 2019-05-12 14:04 | P.PN ---
Subjective Progress Note Date: 05/12/19 68-year-old male who has multiple medical troubles that include COPD, asbestosis, coronary artery disease, significant arthritis and known pulmonary hypertension with recently hospitalized with bilateral pneumonia eventually recovered isn't back to his home setting where he does help his chronically ill . The psychosocial circumstances been difficult with the of their adult daughter which has impacted him greatly. His related that he does have a history with significant alcohol abuse and apparently was doing a little better after his recent hospitalization but again is now drinking on a daily basis the family relates he does take his medications with alcohol. The patient presents to Hospital feeling very short of breath increasing fatigue and malaise. Relates after he lays down he only has a few moments before he becomes profound short of breath and has to sit up. Because of this he presents to Hospital. There is evidence of elevated lactic acid and elevated white blood cell count it with at the consult was requested. The patient's visiting by pulmonary critical care and is not thought to have recurrent pneumonia. 05/11/2019 the patient is feeling considerably better. His shortness of breath is much improved since he's had the extensive diuresis. His lower extremity edema has improved and is doing well with the compression wraps. He finds them very helpful. 05/12/2019 the patient is feeling better. He is in for going home. With his diuresis or shortness of breath has resolved. Lower extremity have responded well to elevation and some compression. This is the best he has felt in some time. He does relate to the difficulties with alcohol, unclear what his plan is to make that better. Objective - Vital Signs Vital signs: Vital Signs Temp 98.0 F 05/12/19 07:35 Pulse 60 05/12/19 12:01 Resp 16 05/12/19 12:00 BP 152/80 05/12/19 12:00 Pulse Ox 97 05/12/19 12:00 Intake & Output 05/11/19 05/12/19 05/12/19 18:59 06:59 18:59 Intake Total 770 50 770 Output Total 1000 1050 Balance -230 -1000 770 Weight 93.8 kg 93.6 kg Intake: Intake, IV Titration 50 50 50 Amount ceFAZolin 2 gm In Sodium 50 50 50 Chloride 0.9% 50 ml @ 100 mls/hr IVPB Q8HR [facility] Rx# :[id number] Oral 720 720 Output: Urine 1000 1050 Other: Voiding Method Toilet - Exam HEENT: Anicteric conjunctiva are pink and moist nasal mucosa grossly intact without significant lesions, there is no thrush. Dentition is poor Neck: The neck is supple without significant lymphadenopathy or thyromegaly. Lungs: Symmetrical air entry is noted there are coarse crackles in the lung puga especially at the bases no significant dullness or egophony Heart: Irregular with positive S4 There is no significant murmur click or rub, PMI was nondisplaced. Abdomen: Obese, Positive bowel sounds soft and nontender without palpable masses or organomegaly. There was no guarding or rebound. Extremities: The upper extremities have excellent pulses they are symmetric, no significant petechiae or telangiectasia. No splinter hemorrhages were noted. The bilateral lower extremities have some chronic edema, there some scattered petechiae, there is some erythematous present in the left leg that is consuming greater than the right it is minimally tender he has no open wounds over the family relates that he was having oozing from the left leg around admission. Neuro: Awake alert oriented to person place and time. There are no acute new gross focal sensory motor deficits. Patient is not yet shaky and has no asterixis. - Labs CBC & Chem 7: 05/12/19 05:41 05/12/19 05:41 Labs: Abnormal Lab Results - Last 24 Hours (Table) 05/11/19 05/11/19 05/12/19 Range/Units 17:13 20:41 05:41 WBC 18.7 H (3.8-10.6) k/uL RBC 4.14 L (4.30-5.90) m/uL Neutrophils # 15.1 H (1.3-7.7) k/uL Monocytes # 1.1 H (0-1.0) k/uL Basophils # 0.3 H (0-0.2) k/uL Carbon Dioxide (22-30) mmol/L BUN (9-20) mg/dL Glucose (74-99) mg/dL POC Glucose (mg/dL) 118 H 146 H (75-99) mg/dL 05/12/19 05/12/19 Range/Units 05:41 11:56 WBC (3.8-10.6) k/uL RBC (4.30-5.90) m/uL Neutrophils # (1.3-7.7) k/uL Monocytes # (0-1.0) k/uL Basophils # (0-0.2) k/uL Carbon Dioxide 21 L (22-30) mmol/L BUN 38 H (9-20) mg/dL Glucose 111 H (74-99) mg/dL POC Glucose (mg/dL) 108 H (75-99) mg/dL Microbiology - Last 24 Hours (Table) 05/08/19 17:01 Blood Culture - Preliminary Blood No Growth after 72 hours Laboratory Results WBC 18.7 k/uL (3.8-10.6) H 05/12/19 05:41 RBC 4.14 m/uL (4.30-5.90) L 05/12/19 05:41 Hgb 13.5 gm/dL (13.0-17.5) 05/12/19 05:41 Hct 40.9 % (39.0-53.0) 05/12/19 05:41 MCV 98.8 fL (80.0-100.0) 05/12/19 05:41 MCH 32.6 pg (25.0-35.0) 05/12/19 05:41 MCHC 33.0 g/dL (31.0-37.0) 05/12/19 05:41 RDW 15.1 % (11.5-15.5) 05/12/19 05:41 Plt Count 240 k/uL (150-450) 05/12/19 05:41 Neutrophils % 81 % 05/12/19 05:41 Lymphocytes % 10 % 05/12/19 05:41 Monocytes % 6 % 05/12/19 05:41 Eosinophils % 0 % 05/12/19 05:41 Basophils % 2 % 05/12/19 05:41 Neutrophils # 15.1 k/uL (1.3-7.7) H 05/12/19 05:41 Lymphocytes # 1.9 k/uL (1.0-4.8) 05/12/19 05:41 Monocytes # 1.1 k/uL (0-1.0) H 05/12/19 05:41 Eosinophils # 0.1 k/uL (0-0.7) 05/12/19 05:41 Basophils # 0.3 k/uL (0-0.2) H 05/12/19 05:41 Anisocytosis Slight 05/10/19 06:06 Macrocytosis Slight 05/12/19 05:41 PT 11.1 sec (9.0-12.0) 05/11/19 05:42 INR 1.0 (<1.2) 05/11/19 05:42 APTT 80.5 sec (22.0-30.0) H 05/09/19 12:10 D-Dimer 1.48 mg/L FEU (<0.60) H 05/08/19 17:01 VBG pH 7.30 (7.31-7.41) L 05/08/19 17:34 VBG pCO2 43 mmHg (37-51) 05/08/19 17:34 VBG HCO3 21 mmol/L (24-28) L 05/08/19 17:34 Sodium 138 mmol/L (137-145) 05/12/19 05:41 Potassium 4.2 mmol/L (3.5-5.1) 05/12/19 05:41 Chloride 104 mmol/L (98-107) 05/12/19 05:41 Carbon Dioxide 21 mmol/L (22-30) L 05/12/19 05:41 Anion Gap 13 mmol/L 05/12/19 05:41 BUN 38 mg/dL (9-20) H 05/12/19 05:41 Creatinine 1.16 mg/dL (0.66-1.25) 05/12/19 05:41 Est GFR (CKD-EPI)AfAm 75 (>60 ml/min/1.73 sqM) 05/12/19 05:41 Est GFR (CKD-EPI)NonAf 65 (>60 ml/min/1.73 sqM) 05/12/19 05:41 Glucose 111 mg/dL (74-99) H 05/12/19 05:41 POC Glucose (mg/dL) 108 mg/dL (75-99) H 05/12/19 11:56 POC Glu [employer] 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 Driver 05/12/19 11:56 Lactic Ac Sepsis Rflx Y 05/09/19 14:22 Plasma Lactic Acid [place] 3.8 mmol/L (0.7-2.0) H* 05/09/19 13:31 Calcium 9.2 mg/dL (8.4-10.2) 05/12/19 05:41 Phosphorus 6.2 mg/dL (2.5-4.5) H 05/08/19 17:01 Magnesium 2.6 mg/dL (1.6-2.3) H 05/10/19 06:06 Total Bilirubin 1.3 mg/dL (0.2-1.3) 05/08/19 17:01 AST 68 U/L (17-59) H 05/08/19 17:01 ALT 31 U/L (21-72) 05/08/19 17:01 Alkaline Phosphatase 46 U/L (38-126) 05/08/19 17:01 Ammonia 23 umol/L (<30) 05/08/19 17:01 Creatine Kinase 564 U/L (55-170) H 05/08/19 17:01 Troponin I 0.099 ng/mL (0.000-0.034) H* 05/09/19 07:43 NT-Pro-B Natriuret Pep 53640 pg/mL 05/08/19 17:01 Total Protein 7.6 g/dL (6.3-8.2) 05/08/19 17:01 Albumin 4.4 g/dL (3.5-5.0) 05/08/19 17:01 Urine Color Yellow 05/08/19 18:30 Urine Appearance Clear (Clear) 05/08/19 18:30 Urine pH 5.5 (5.0-8.0) 05/08/19 18:30 Ur Specific [place] 1.007 (1.001-1.035) 05/08/19 18:30 Urine Protein Negative (Negative) 05/08/19 18:30 Urine Glucose (UA) Negative (Negative) 05/08/19 18:30 Urine Ketones Negative (Negative) 05/08/19 18:30 Urine Blood Negative (Negative) 05/08/19 18:30 Urine Nitrite Negative (Negative) 05/08/19 18:30 Urine Bilirubin Negative (Negative) 05/08/19 18:30 Urine Urobilinogen <2.0 mg/dL (<2.0) 05/08/19 18:30 Ur Leukocyte Esterase Negative (Negative) 05/08/19 18:30 Salicylates <1.0 mg/dL 05/08/19 17:01 Urine Opiates Screen Detected (NotDetected) H 05/08/19 18:30 Ur Oxycodone Screen Not Detected (NotDetected) 05/08/19 18:30 Urine Methadone Screen Not Detected (NotDetected) 05/08/19 18:30 Ur Propoxyphene Screen Not Detected (NotDetected) 05/08/19 18:30 Acetaminophen 11.6 ug/mL 05/08/19 17:01 Ur Barbiturates Screen Not Detected (NotDetected) 05/08/19 18:30 U Tricyclic Antidepress Not Detected (NotDetected) 05/08/19 18:30 Ur Phencyclidine Scrn Not Detected (NotDetected) 05/08/19 18:30 Ur Amphetamines Screen Not Detected (NotDetected) 05/08/19 18:30 U Methamphetamines Scrn Not Detected (NotDetected) 05/08/19 18:30 U Benzodiazepines Scrn Not Detected (NotDetected) 05/08/19 18:30 Urine Cocaine Screen Not Detected (NotDetected) 05/08/19 18:30 U Marijuana (THC) Screen Not Detected (NotDetected) 05/08/19 18:30 Serum Alcohol <10 mg/dL 05/08/19 17:34 Microbiology 05/08/19 17:01 Blood Blood Culture - Preliminary No Growth after 72 hours Assessment and Plan (1) Acute pulmonary edema Current Visit: Yes Status: Acute Code(s): J81.0 - ACUTE PULMONARY EDEMA SNOMED Code(s): 75649572 (2) Left leg cellulitis Narrative/Plan: 68-year-old man presents hospital with increasing shortness of breath has evidence of worsening interstitial edema likely with congestive heart failure and potential exacerbation of his COPD. He has significant orthopnea and PND. He is being diuresis and is feeling considerably better. He has a bit of leukocytosis that is rapidly improving and he is had evidence of some lactic acidosis. In persons or actively drinking and her acutely ill they often have lactic acidosis related to there alcohol use and affect on the liver. At this time the patient has evidence of a mild cellulitis in the left leg which will be treated with Ancef but does not appear to have sepsis and does not need to have further lactic acid levels drawn. We'll try some local wound care to the bilateral lower extremities and monitor. 05/11/2019 patient has had further improvement. I believe plans are in place for rehab as the patient can improve his functional status. He relates to some impact from his alcohol use. The significant lower extremity edema is now improved after he has been treated from cardiology and has had extensive diuresis. Care to the lower extremities with Silvadene wraps will be continued. He would then hopefully at some point in time in the near future we will be transitioning into compression garments. 05/12/2019 the patient is no significant improvement. He is awake and alert does not have any difficulties consistent with alcohol withdrawal. The lower extremity edema is improved. The significant shortness of breath has resolved. She is ready for discharge home. Cefadroxil is sent to his outpatient pharmacy to be used for about a week. He should continue to elevate his legs, continue with local skin care and wraps for now. If he continues to have edema a long- term basis he would do well to obtain compression garments to help with his chronic edema. This plans for sobriety are not clear. Current Visit: Yes Status: Acute Code(s): L03.116 - CELLULITIS OF LEFT LOWER LIMB SNOMED Code(s): 567626894 (3) Congestive heart failure Current Visit: Yes Status: Acute Code(s): I50.9 - HEART FAILURE, UNSPECIFIED SNOMED Code(s): 73290967 (4) Alcoholic ketoacidosis Current Visit: Yes Status: Acute Code(s): E87.2 - ACIDOSIS SNOMED Code(s): 54704649
[2019-05-12] MEDS ORDERED: FUROSEMIDE 40 MG TAB PO SCH (16:00)
[2019-05-13] MEDS ORDERED: NON FORMULARY DRUG (Omega-3 Fatty Acids/Fish Oil [Fish Oil 1,000 Mg Softgel] 1 CAP) PO SCH (09:00)
== END 2019-05-12 13:10 | disposition home or self-care (01) | DRG 291 ==
LOC: EC 14:55 → 3SCARD 19:21
PROVIDERS: ADMIT Internal Medicine; ATTEND Internal Medicine
DX: I13.0 Hypertensive heart and chronic kidney disease with heart failure and stage 1 through stage 4 chronic kidney disease, or unspecified chronic kidney disease (principal); I50.33 Acute on chronic diastolic (congestive) heart failure; E87.1 Hypo-osmolality and hyponatremia; J98.11 Atelectasis; L03.115 Cellulitis of right lower limb; L03.116 Cellulitis of left lower limb; N17.9 Acute kidney failure, unspecified; E87.2 Acidosis; I95.9 Hypotension, unspecified; I27.29 Other secondary pulmonary hypertension; J84.10 Pulmonary fibrosis, unspecified; J43.9 Emphysema, unspecified; I08.3 Combined rheumatic disorders of mitral, aortic and tricuspid valves; I48.2 Chronic atrial fibrillation; I73.9 Peripheral vascular disease, unspecified; N18.3 Chronic kidney disease, stage 3 (moderate); E03.9 Hypothyroidism, unspecified; E78.2 Mixed hyperlipidemia; F10.20 Alcohol dependence, uncomplicated; H40.9 Unspecified glaucoma; I25.10 Atherosclerotic heart disease of native coronary artery without angina pectoris; J61 Pneumoconiosis due to asbestos and other mineral fibers; K21.9 Gastro-esophageal reflux disease without esophagitis; K27.9 Peptic ulcer, site unspecified, unspecified as acute or chronic, without hemorrhage or perforation; M19.90 Unspecified osteoarthritis, unspecified site; F17.201 Nicotine dependence, unspecified, in remission; R09.02 Hypoxemia; H91.90 Unspecified hearing loss, unspecified ear; R77.9 Abnormality of plasma protein, unspecified; R63.3 Feeding difficulties; Z79.01 Long term (current) use of anticoagulants; Z79.890 Hormone replacement therapy; Z79.899 Other long term (current) drug therapy; Z88.6 Allergy status to analgesic agent; Z88.1 Allergy status to other antibiotic agents; Z88.0 Allergy status to penicillin; Z87.01 Personal history of pneumonia (recurrent); Z82.0 Family history of epilepsy and other diseases of the nervous system
CPT/HCPCS: 36415; 71046; 71250; 78580; 80048; 80053; 80306; 80320; 80329; 81003; 82140; 82550; 82803; 83520; 83605; 83735; 83880; 84100; 84484; 85025; 85379; 85610; 85730; 87040; 93005; 93970; 94640; 94760; 96361; 96365; 96366; 96367; 96375; 96376; 99291